=== PATIENT | female | born 1995 | race Caucasian/White ===

== ENCOUNTER 2016-07-03 23:48 | Emergency (ER) | payer SELFPAY ==
[2016-07-04 00:44] LABS: APPEARANCE,URINE CLEAR; BILIRUBIN,URINE NEGATIVE (NEGATIVE); GLUCOSE, URINE NEGATIVE (NEGATIVE); KETONES,URINE NEGATIVE (NEGATIVE); LEUKOCYTE ESTERASE,URINE NEGATIVE (NEGATIVE); NITRITE,URINE NEGATIVE (NEGATIVE); PROTEIN,URINE NEGATIVE (NEGATIVE); URINE SPECIFIC GRAVITY 1.011; UROBILINOGEN,URINE NEGATIVE mg/dL (<2.0)
[2016-07-04 04:23] VITALS: BP 117/55
[2016-07-04] MEDS ORDERED: ACETAMINOPHEN 325 MG TABLET PO ONE (04:53)
[2016-07-04] MEDS ORDERED: ONDANSETRON 4 MG TAB.RAPDIS PO ONE (04:53)
--- NOTE | 2016-07-04 04:55 | ER Document Report ---
ED GI/ - General Chief Complaint: Nausea/Vomiting Stated Complaint: VOMITING Time seen by provider: 04:50 Mode of Arrival: Ambulatory Information source: Patient Notes: 21-year-old female presents to ED for nausea and vomiting for 3 days. States she's not able to keep anything down. Last menstrual period was 06/02/2015. But she states she is irregular but might be . Complains of sore breasts. States she's had blood in the urine and pain in her lower back. TRAVEL OUTSIDE OF THE [place] IN LAST 30 DAYS: No - HPI Patient complains to provider of: Flank pain, Hematuria, Vomiting Onset: Other - 3 days Timing/Duration: Intermittent Quality of pain: Achy Severity at maximum: Severe Severity in ED: Severe Pain Level: 5 Location: Left flank, Right flank, Low back Vaginal bleeding (Compared to normal period): None LMP: 06/02/2016 Associated symptoms: Hematuria, Nausea, Radiates to back, Vomiting Exacerbated by: Denies Relieved by: Denies Similar symptoms previously: Yes Recently seen / treated by doctor: No - Related Data Allergies/Adverse Reactions: cephalexin monohydrate [From Keflex] Allergy (Verified 05/22/16 20:15) peanut [Peanut] Allergy (Verified 05/22/16 20:15) Past Medical History - General Information source: Patient - Social History Smoking Status: Never Smoker Chew tobacco use (# tins/day): No Frequency of alcohol use: None Drug Abuse: None Lives with: Spouse/Significant other Family History: CAD, DM, Hyperlipidemia, Hypertension, Malignancy, Thyroid Disfunction Patient has suicidal ideation: No Patient has homicidal ideation: No - Past Medical History Cardiac Medical History: Reports: None Pulmonary Medical History: Reports: None EENT Medical History: Reports: None Neurological Medical History: Reports: Hx Migraine Endocrine Medical History: Reports: Hx Diabetes Mellitus Type 2, Hx Hypothyroidism Renal/ Medical History: Reports: None Malignancy Medical History: Reports: None GI Medical History: Reports: Hx Gastroesophageal Reflux Disease Musculoskeltal Medical History: Reports Hx Musculoskeletal Trauma Skin Medical History: Reports None Psychiatric Medical History: Reports: Hx Attention Deficit Hyperactivity Disorder, Hx Bipolar Disorder, Hx Post Traumatic Stress Disorder, Hx Schizophrenia Traumatic Medical History: Reports: Hx Fractures - Right arm Infectious Medical History: Reports: None Past Surgical History: Reports: Hx Cholecystectomy, Hx Dilation and Curettage - With , Hx Oral Surgery - [place] teeth - Immunizations Hx Diphtheria, Pertussis, Tetanus Vaccination: Yes Review of Systems - Review of Systems Constitutional: No symptoms reported EENT: No symptoms reported Cardiovascular: No symptoms reported Respiratory: No symptoms reported Gastrointestinal: Nausea, Vomiting Genitourinary: Flank pain, Hematuria Female Genitourinary: No symptoms reported Musculoskeletal: Back pain Skin: No symptoms reported Hematologic/Lymphatic: No symptoms reported Neurological/Psychological: No symptoms reported -: Yes All other systems reviewed and negative Physical Exam - Vital signs Vitals: Temp Pulse Resp BP Pulse Ox 98.4 F 113 H 16 123/68 98 07/04/16 00:06 07/04/16 00:06 07/04/16 00:06 07/04/16 00:06 07/04/16 00:06 Interpretation: Normal - General General appearance: Appears well, Alert - HEENT Head: Normocephalic, Atraumatic Eyes: Normal Pupils: PERRL - Respiratory Respiratory status: No respiratory distress Chest status: Nontender Breath sounds: Normal Chest palpation: Normal - Cardiovascular Rhythm: Regular Heart sounds: Normal auscultation Murmur: No - Abdominal Inspection: Normal Distension: No distension Bowel sounds: Normal Tenderness: Nontender. No: Tender Organomegaly: No organomegaly - Back Back: Normal, CVA tenderness - Extremities General upper extremity: Normal inspection, Nontender, Normal color, Normal ROM , Normal temperature General lower extremity: Normal inspection, Nontender, Normal color, Normal ROM , Normal temperature, Normal weight bearing. No: Juan's sign - Neurological Neuro grossly intact: Yes Cognition: Normal Orientation: AAOx4 Hermes Coma Scale Eye Opening: Spontaneous [place] Coma Scale Verbal: Oriented Hermes Coma Scale Motor: Obeys Commands [place] Coma Scale Total: 15 Speech: Normal Motor strength normal: LUE, RUE, LLE, RLE Sensory: Normal - Psychological Associated symptoms: Normal affect, Normal mood - Skin Skin Temperature: Warm Skin Moisture: Dry Skin Color: Normal Course - Re-evaluation Re-evalutation: 07/04/16 04:56 Discussed urine results with patient and written report given to her for follow- up with her primary doctor. The urine is negative for blood negative test negative for infection with a specific gravity of 1.011 so negative for dehydration. Patient was treated with Zofran and Tylenol for her nausea and pain and discharged home with a prescription for Phenergan for her nausea. - Vital Signs Vital signs: Temp Pulse Resp BP Pulse Ox 98.2 F 97 17 117/55 L 100 07/04/16 04:19 07/04/16 04:19 07/04/16 04:19 07/04/16 04:19 07/04/16 04:19 Discharge - Discharge Clinical Impression: Nausea & vomiting Qualifiers: Vomiting type: unspecified Vomiting Intractability: non-intractable Qualified Code(s): R11.2 - Nausea with vomiting, unspecified Condition: Stable Disposition: HOME, SELF-CARE Instructions: Family Physicians / Practices Additional Instructions: VOMITING: Vomiting (or nausea without vomiting) can be caused by many other different problems. It can mean that something's wrong with the stomach, such as ulcers or inflammation or the intestinal tract, such as appendicitis. But it can also be a symptom of a problem that has nothing to do with the stomach or intestines. Vomiting is common with severe headaches, earaches, tonsillitis, and kidney infections, etc. We see it with pneumonia or heart attacks. Drugs can cause nausea and vomiting. Many abdominal problems cause vomiting; for example, gallstones, kidney stones, pancreatitis, and intestinal obstruction ( blocked bowels). In most cases, curing the vomiting depends on fixing the problem that caused it. For temporary relief, we may use an anti-nausea medicine. For home use, we can prescribe suppositories, chewable pills, pills that dissolve in the mouth, or liquid anti-nausea drugs. If the vomiting seems to be caused by a problem in the stomach, acid-suppressing drugs may be prescribed as well. It's important to avoid dehydration. Sip small amounts of clear liquids ( soft drinks, tea, broth, etc) . Try to take fluids frequently even if you are vomiting to prevent dehydration. Take increasing amounts of fluid and when liquids are being consumed successfully, advance to small amounts of bland food (toast, soups, mashed potatoes, etc.) until you are able to resume a regular diet. Avoid aspirin, tobacco, and alcohol. If the vomiting worsens, if the problem that's making you vomit worsens, or if there's evidence of bleeding in the stomach (such as black, tarry stool, or bloody or black vomit), you should return immediately. Also, return if abdominal pain worsens or becomes localized to one area or you develop high fever. Call your doctor if you aren't improved in 24 hours. VIRAL SYNDROME: The physician has diagnosed a viral infection. Viruses not only cause "colds," but can cause many different symptoms including generalized aching, fever, headache, cough, diarrhea, nausea, vomiting, and fatigue. The treatment, for the most part, is simply relief of symptoms. This means that antibiotics are usually not given. Rest, fluids, pain medications and, occasionally, medication for the specific symptoms that are most bothersome will be prescribed. Use good handwashing to avoid passing the virus to others. Shared toys should be cleaned with disinfectant. Clean the toilets, sinks, and counter surfaces in bathrooms. Launder clothing in hot water. Contact the physician if you develop any new or unusual symptoms such as severe headache, stiff neck, high fever, chest pain, productive cough, or shortness of breath. You should be rechecked if you don't see marked improvement within seven to 10 days. ANTINAUSEA MEDICATION: You have been given a medication to suppress nausea and vomiting. This type of medication can be given as a shot, pill, or suppository. It will usually last for many hours. Pills and shots usually last six to eight hours. For the typical illness, only one or two doses of the medication may be necessary. Mild lightheadedness may occur. This type of medicine can cause drowsiness. Do not drive or operate dangerous machinery while under its influence. Do not mix with alcohol. See your doctor at once if you have muscle spasms or tightness, or uncontrollable motions (particularly of the neck, mouth, or jaw). Persistent vomiting or severe lightheadedness should also be evaluated by the physician. FOLLOW-UP CARE: If you have been referred to a physician for follow-up care, call the physician s office for an appointment as you were instructed or within the next two days. If you experience worsening or a significant change in your symptoms, notify the physician immediately or return to the Emergency Department at any time for re-evaluation. Prescriptions: Promethazine HCl [Phenergan 25 mg Tablet] 25 mg PO Q6H PRN #15 tablet PRN Reason:
== END 2016-07-04 05:10 | disposition home or self-care (01) ==
LOC: ER 23:48
DX: R11.2 Nausea with vomiting, unspecified (principal); N92.6 Irregular menstruation, unspecified; N64.59 Other signs and symptoms in breast; M54.5 Low back pain; R10.9 Unspecified abdominal pain; E11.9 Type 2 diabetes mellitus without complications; Z88.1 Allergy status to other antibiotic agents; Z91.010 Allergy to peanuts; Z90.49 Acquired absence of other specified parts of digestive tract
CPT/HCPCS: 99284; 81025; 81001; S0119

== ENCOUNTER 2016-07-05 17:28 | Observation (INO) | payer SELFPAY ==
[2016-07-05] MEDS ORDERED: ONDANSETRON 4 MG TAB.RAPDIS PO ONE (17:32)
--- NOTE | 2016-07-05 17:36 | ER Document Report ---
ED Medical Screen (RME) - General Stated Complaint: NAUSEA Mode of Arrival: Ambulatory Information source: Patient Notes: Patient states that she's been having abdominal pain for the last week. Vomiting started 4 days ago. Patient states that she had a fever today of 100.1. Pain is more localized to the right lower quadrant, and patient states she was advised to return to the emergency room if no improvement or if her symptoms worsen. Patient states she was seen 2 or 3 days ago for the same symptoms, no CT scan was done at that time. I have greeted and performed a rapid initial assessment of this patient. A comprehensive ED assessment and evaluation of the patient, analysis of test results and completion of the medical decision making process will be conducted by additional ED providers. TRAVEL OUTSIDE OF THE [place] IN LAST 30 DAYS: No - Related Data Allergies/Adverse Reactions: cephalexin monohydrate [From Keflex] Allergy (Verified 07/05/16 17:32) peanut [Peanut] Allergy (Verified 07/05/16 17:32) Past Medical History Neurological Medical History: Reports: Hx Migraine Endocrine Medical History: Reports: Hx Diabetes Mellitus Type 2, Hx Hypothyroidism Renal/ Medical History: Denies: Hx Peritoneal Dialysis GI Medical History: Reports: Hx Gastroesophageal Reflux Disease Musculoskeltal Medical History: Reports Hx Musculoskeletal Trauma Psychiatric Medical History: Reports: Hx Attention Deficit Hyperactivity Disorder, Hx Bipolar Disorder, Hx Post Traumatic Stress Disorder, Hx Schizophrenia Traumatic Medical History: Reports: Hx Fractures - Right arm Past Surgical History: Reports: Hx Cholecystectomy, Hx Dilation and Curettage - With , Hx Oral Surgery - [place] teeth - Immunizations Hx Diphtheria, Pertussis, Tetanus Vaccination: Yes
[2016-07-05 18:15] LABS: ABSOLUTE EOSINOPHILS # (AUTO) 0.2 10^3/uL (0.0-0.6); ABSOLUTE LYMPHOCYTES (AUTO) 1.7 10^3/uL (0.5-4.7); ABSOLUTE MONOCYTES (AUTO) 1.1 10^3/uL (0.1-1.4); ABSOLUTE NEUT (AUTO) 8.6 10^3/uL (1.7-8.2); BASOPHILS % (AUTO) 0.4 % (0-2); EOSINOPHILS % (AUTO) 1.5 % (0-6); HEMATOCRIT 41.8 % (36.0-47.0); HGB HCT DIFFERENCE 0.2; LYMPHOCYTES % (AUTO) 14.8 % (13-45); MEAN CORPUSCULAR HEMOGLOBIN 28.7 pg (27.0-33.4); MEAN CORPUSCULAR HGB CONC 33.6 g/dL (32.0-36.0); MEAN CORPUSCULAR VOLUME 86 fl (80-97); MONOCYTES % (AUTO) 9.3 % (3-13); RED BLOOD COUNT 4.88 10^6/uL (3.72-5.28); RED CELL DISTRIBUTION WIDTH 13.2 % (11.5-14.0); WHITE BLOOD COUNT 11.7 10^3/uL (4.0-10.5)
[2016-07-05] MEDS ORDERED: NORMAL SALINE 1000 ML 1,000 ML IV PRN ×2 (18:17→22:54)
--- NOTE | 2016-07-05 18:20 | ER Document Report ---
ED GI/ - General Chief Complaint: Abdominal Pain Stated Complaint: NAUSEA Time seen by provider: 18:18 Mode of Arrival: Ambulatory TRAVEL OUTSIDE OF THE [place] IN LAST 30 DAYS: No - HPI Patient complains to provider of: Pelvic pain, Vomiting Onset: Other - 4 days Timing/Duration: Persistent Severity at maximum: Moderate Severity in ED: Moderate Pain Level: 3 Location: Pelvis Vaginal bleeding (Compared to normal period): None Associated symptoms: Nausea, Vomiting Exacerbated by: Denies Relieved by: Denies Similar symptoms previously: Yes Recently seen / treated by doctor: Yes Notes: 07/05/16 18:19 Patient is a 21-year-old female presenting to the emergency room complaining of right-sided pelvic pain with nausea and vomiting that's been going on for the past 4 days, and fever 101 at home, she reports that she has not taken any food in today and vomited any water she tried to consume, she has had similar pain approximately 4 times in the past, states she's receive several CAT scans in the past to rule out appendicitis and the appendix appeared normal in each time , she denies any sick contacts, no dysuria or hematuria, no vaginal bleeding or irregular discharge - Related Data Allergies/Adverse Reactions: cephalexin monohydrate [From Keflex] Allergy (Verified 07/05/16 17:32) peanut [Peanut] Allergy (Verified 07/05/16 17:32) Past Medical History - General Information source: Patient - Social History Smoking Status: Unknown if Ever Smoked Chew tobacco use (# tins/day): No Frequency of alcohol use: None Drug Abuse: None Family History: CAD, DM, Hyperlipidemia, Hypertension, Malignancy, Thyroid Disfunction Patient has suicidal ideation: No Patient has homicidal ideation: No Neurological Medical History: Reports: Hx Migraine Endocrine Medical History: Reports: Hx Diabetes Mellitus Type 2, Hx Hypothyroidism Renal/ Medical History: Denies: Hx Peritoneal Dialysis GI Medical History: Reports: Hx Gastroesophageal Reflux Disease Musculoskeltal Medical History: Reports Hx Musculoskeletal Trauma Psychiatric Medical History: Reports: Hx Attention Deficit Hyperactivity Disorder, Hx Bipolar Disorder, Hx Post Traumatic Stress Disorder, Hx Schizophrenia Traumatic Medical History: Reports: Hx Fractures - Right arm Past Surgical History: Reports: Hx Cholecystectomy, Hx Dilation and Curettage - With , Hx Oral Surgery - [place] teeth - Immunizations Hx Diphtheria, Pertussis, Tetanus Vaccination: Yes Review of Systems - Review of Systems Constitutional: Fever EENT: No symptoms reported Cardiovascular: No symptoms reported Respiratory: No symptoms reported Gastrointestinal: Abdominal pain, Nausea, Vomiting Genitourinary: See HPI Female Genitourinary: See HPI Musculoskeletal: No symptoms reported Skin: No symptoms reported Hematologic/Lymphatic: No symptoms reported Neurological/Psychological: No symptoms reported -: Yes All other systems reviewed and negative Physical Exam - Vital signs Vitals: Temp Pulse Resp BP Pulse Ox 98.6 F 112 H 16 125/68 98 07/05/16 17:32 07/05/16 17:32 07/05/16 17:32 07/05/16 17:32 07/05/16 17:32 Interpretation: Tachycardic - General General appearance: Appears well, Alert - HEENT Head: Normocephalic, Atraumatic Eyes: Normal Pupils: PERRL - Respiratory Respiratory status: No respiratory distress Chest status: Nontender Breath sounds: Normal Chest palpation: Normal - Cardiovascular Rhythm: Regular Heart sounds: Normal auscultation Murmur: No - Abdominal Inspection: Morbidly Obese Distension: No distension Bowel sounds: Normal Tenderness: Tender - Right pelvis tenderness Organomegaly: No organomegaly - Back Back: Normal, Nontender - Extremities General upper extremity: Normal inspection, Nontender, Normal color, Normal ROM , Normal temperature General lower extremity: Normal inspection, Nontender, Normal color, Normal ROM , Normal temperature, Normal weight bearing. No: Juan's sign - Neurological Neuro grossly intact: Yes Cognition: Normal Orientation: AAOx4 Hermes Coma Scale Eye Opening: Spontaneous [place] Coma Scale Verbal: Oriented [place] Coma Scale Motor: Obeys Commands [place] Coma Scale Total: 15 Speech: Normal Motor strength normal: LUE, RUE, LLE, RLE Sensory: Normal - Psychological Associated symptoms: Normal affect, Normal mood - Skin Skin Temperature: Warm Skin Moisture: Dry Skin Color: Normal Course - Re-evaluation Re-evalutation: 07/05/16 19:36 Patient's ultrasound shows no abnormalities with the right ovary, patient reports she been vomiting, she's had a fever, had no appetite throughout the day today, her leukocytosis is slightly worse than her visit a few days ago, therefore a CT scan of the abdomen and pelvis has been ordered to rule out appendicitis 07/06/16 01:40 Patient continues to complain of nausea despite multiple doses of antiemetic medication, she's had another episode of vomiting, therefore was discussed with the hospitalist who agrees to admit as an observation for fluid hydration and further evaluation and treatment - Vital Signs Vital signs: Temp Pulse Resp BP Pulse Ox 98.4 F 88 15 116/68 99 07/06/16 00:58 07/06/16 00:58 07/06/16 00:58 07/06/16 00:58 07/06/16 00:58 - Laboratory Result Diagrams: 07/05/16 18:00 07/05/16 18:00 Laboratory results interpreted by me: 07/05/16 07/05/16 18:00 18:00 WBC 11.7 H Absolute Neutrophils 8.6 H TSH 7.35 H - Diagnostic Test Radiology reviewed: Image reviewed, Reports reviewed Discharge - Discharge Clinical Impression: Intractable vomiting Qualifiers: Vomiting type: unspecified Nausea presence: with nausea Qualified Code(s): R11.2 - Nausea with vomiting, unspecified Condition: Stable Disposition: ADMITTED OBSERVATION Admitting Provider: Hospitalist Unit Admitted: Medical Floor
[2016-07-05 18:32] LABS: ALANINE AMINOTRANSFERASE 34 U/L (9-52); ALBUMIN 4.4 g/dL (3.5-5.0); ALKALINE PHOSPHATASE 77 U/L (38-126); ANION GAP 10 (5-19); ASPARTATE AMINO TRANSFERASE 19 U/L (14-36); BILIRUBIN,TOTAL 0.4 mg/dL (0.2-1.3); BLOOD UREA NITROGEN 10 mg/dL (7-20); CALCIUM 9.7 mg/dL (8.4-10.2); CARBON DIOXIDE 28 mmol/L (22-30); CHLORIDE 105 mmol/L (98-107); CREATININE RESULT 0.87 mg/dL (0.52-1.25); GLUCOSE 76 mg/dL (75-110); LIPASE 141.5 U/L (23-300); POTASSIUM 4.3 mmol/L (3.6-5.0); SODIUM 142.9 mmol/L (137-145); TOTAL PROTEIN 7.6 g/dL (6.3-8.2)
[2016-07-05 18:38] LABS: APPEARANCE,URINE CLEAR; BILIRUBIN,URINE NEGATIVE (NEGATIVE); GLUCOSE, URINE NEGATIVE (NEGATIVE); KETONES,URINE NEGATIVE (NEGATIVE); LEUKOCYTE ESTERASE,URINE NEGATIVE (NEGATIVE); NITRITE,URINE NEGATIVE (NEGATIVE); PROTEIN,URINE NEGATIVE (NEGATIVE); URINE SPECIFIC GRAVITY 1.008; UROBILINOGEN,URINE NEGATIVE mg/dL (<2.0)
[2016-07-05] MEDS ORDERED: ONDANSETRON HCL INJ/PF 4 MG/2 ML SDV IV ONE ×2 (20:38→21:36)
[2016-07-05] MEDS ORDERED: ONDANSETRON 4 MG TAB.RAPDIS SL ONE (21:03)
[2016-07-05] MEDS ORDERED: METOCLOPRAMIDE HCL INJ/PF 10 MG/2 ML SDV IV ONE (21:48)
[2016-07-05] MEDS ORDERED: PROMETHAZINE HCL 25 MG TABLET PO ONE (22:53)
[2016-07-06] MEDS ORDERED: NORMAL SALINE 1000 ML 1,000 ML IV PRN (00:11)
[2016-07-06] MEDS ORDERED: LORAZEPAM INJ 2 MG/1 ML VIAL IV ONE ×2 (00:11→01:39)
[2016-07-06] MEDS ORDERED: LACTULOSE SYRUP 20 GM/30 ML UDCUP PO ONE ×2 (01:38→05:30)
[2016-07-06] MEDS ORDERED: HALOPERIDOL LACTATE INJ 5 MG/1 ML VIAL IV ONE (01:50)
[2016-07-06 02:14] LABS: URINE BARBITURATES SCREEN NEGATIVE; URINE METHADONE SCREEN NEGATIVE; URINE OPIATES LOW NEGATIVE; URINE PHENCYCLIDINE SCREEN NEGATIVE
[2016-07-06] MEDS ORDERED: PROMETHAZINE HCL 25 MG TABLET PO PRN (05:10)
[2016-07-06] MEDS ORDERED: HEPARIN SOD (PORCINE) 5,000 UNIT/ML 1 ML SYRINGE SUBCUT SCH (06:00)
[2016-07-06] MEDS ORDERED: ARIPIPRAZOLE 5 MG TABLET PO SCH ×2 (06:00→10:00)
--- NOTE | 2016-07-06 06:13 | PDOC H&P ---
History of Present Illness Admission Date/PCP: 07/06/16 05:11 Patient complains of: Intractable nausea vomiting History of Present Illness: JUAN CARLOS GEORGE is a 21 year old female with past medical history of bipolar depression and morbid obesity, who had been her usual state of health until approximately 4 days ago noting intractable left lower quadrant pain radiating to the umbilicus and intolerant of all by mouth including medication. Patient cannot recall her last bowel movement and believe she is constipated. Emergency room workup is unremarkable CT abdomen pelvis show a nonobstructive bowel gas pattern and some retained stool. She received several doses of Zofran Phenergan and Ativan without cessation of vomiting. And referred to the hospitalist for admission Past Medical History Neurological Medical History: Reports: Migraine Endocrine Medical History: Reports: Diabetes Mellitus Type 2, Hypothyroidism GI Medical History: Reports: Gastroesophageal Reflux Disease Psychiatric Medical History: Reports: Attention Deficit Hyperactivity Disorder, Bipolar Disorder, Post Traumatic Stress Disorder Past Surgical History Past Surgical History: Reports: Cholecystectomy Social History Information Source: Patient Smoking Status: Unknown if Ever Smoked Drugs: None - Advance Directive Resuscitation Status: Full Code Family History Family History: CAD, DM, Hyperlipidemia, Hypertension, Malignancy, Thyroid Disfunction Parental Family History Reviewed: Yes Children Family History Reviewed: Yes Sibling(s) Family History Reviewed.: Yes Medication/Allergy Home Medications: Aripiprazole [Abilify 30 MG Tablet] 30 mg PO DAILY 04/13/16 Levothyroxine Sodium [Synthroid 0.1 mg Tablet] 0.1 mg PO DAILY #30 tablet Levothyroxine Sodium [Synthroid 50 Mcg Tablet] 50 mcg PO DAILY 04/13/16 [place] Carbonate [Lithobid 300 mg Capsule] 300 mg PO DAILY 04/13/16 Hydrocortisone Acetate [Anucort-Hc] 25 mg [place] BIDP PRN #14 supp.rect 04/15/16 Ibuprofen [Motrin 800 mg Tablet] 800 mg PO Q8HP PRN #30 tablet 04/15/16 Docusate Sodium [Colace 100 mg Capsule] 100 mg PO DAILY #30 capsule 05/23/16 Hydrocodone/Acetaminophen [[place] 5-325 mg Tablet] 1 - 2 tab PO ASDIR #10 tablet 05/23/16 Promethazine HCl [Phenergan 25 mg Tablet] 1 - 2 tab PO Q6H PRN #20 tablet Promethazine HCl [Phenergan 25 mg Tablet] 25 mg PO Q6H PRN #15 tablet 07/04/16 Allergies/Adverse Reactions: cephalexin monohydrate [From Keflex] Allergy (Verified 07/05/16 17:32) peanut [Peanut] Allergy (Verified 07/05/16 17:32) Review of Systems Constitutional: ABSENT: chills, fever(s), headache(s), weight gain, weight loss Eyes: ABSENT: visual disturbances Ears: ABSENT: hearing changes Cardiovascular: ABSENT: chest pain, dyspnea on exertion, edema, orthropnea, palpitations Respiratory: ABSENT: cough, hemoptysis Gastrointestinal: ABSENT: abdominal pain, constipation, diarrhea, hematemesis, hematochezia, nausea, vomiting Genitourinary: ABSENT: dysuria, hematuria Musculoskeletal: ABSENT: joint swelling Integumentary: ABSENT: rash, wounds Neurological: ABSENT: abnormal gait, abnormal speech, confusion, dizziness, focal weakness, syncope Psychiatric: ABSENT: anxiety, depression, homidical ideation, suicidal ideation Endocrine: ABSENT: cold intolerance, heat intolerance, polydipsia, polyuria Hematologic/Lymphatic: ABSENT: easy bleeding, easy bruising Physical Exam Vital Signs: Temp Pulse Resp BP Pulse Ox 97.8 F 71 18 98/50 L 100 07/06/16 05:02 07/06/16 05:02 07/06/16 05:02 07/06/16 05:02 07/06/16 05:02 General appearance: PRESENT: cooperative, morbidly obese Head exam: PRESENT: atraumatic, normocephalic Eye exam: PRESENT: conjunctiva pink, EOMI, PERRLA. ABSENT: scleral icterus Ear exam: PRESENT: normal external ear exam Mouth exam: PRESENT: moist, tongue midline Neck exam: ABSENT: carotid bruit, JVD, lymphadenopathy, thyromegaly Respiratory exam: PRESENT: clear to auscultation brendan. ABSENT: rales, rhonchi, wheezes Cardiovascular exam: PRESENT: RRR. ABSENT: diastolic murmur, rubs, systolic murmur Pulses: PRESENT: normal dorsalis pedis pul Vascular exam: PRESENT: normal capillary refill GI/Abdominal exam: PRESENT: hypoactive bowel sounds, normal bowel sounds, soft, tenderness - Reproducible left lower quadrant pain to palpation with hypoactive bowel sounds. ABSENT: distended, guarding, mass, organolmegaly, rebound Rectal exam: PRESENT: deferred Extremities exam: PRESENT: full ROM. ABSENT: calf tenderness, clubbing, pedal edema Neurological exam: PRESENT: alert, awake, oriented to person, oriented to place , oriented to time, oriented to situation, CN II-XII grossly intact. ABSENT: motor sensory deficit Psychiatric exam: PRESENT: appropriate affect, normal mood. ABSENT: homicidal ideation, suicidal ideation Skin exam: PRESENT: dry, intact, warm. ABSENT: cyanosis, rash Results Impressions: Pelvis Ultrasound 07/05/16 18:17 IMPRESSION: LEFT OVARY NOT VISUALIZED. OTHERWISE UNREMARKABLE PELVIC ULTRASOUND BY TRANSABDOMINAL TECHNIQUE. Abdomen/Pelvis CT 07/05/16 19:24 IMPRESSION: NO SIGNIFICANT OR ACUTE FINDINGS IN THE ABDOMEN OR PELVIS. Assessment & Plan - Diagnosis (1) Intractable vomiting Qualifiers: Vomiting type: unspecified Nausea presence: with nausea Qualified Code(s): R11.2 - Nausea with vomiting, unspecified Plan: Likely multifactorial secondary to psychiatric illness and constipation, she receives symptomatically management with IV Ativan followed by lactulose and mineral oil enema, Followed by bowel regiment and a clear liquid trial (2) Constipation Is this a current diagnosis for this admission?: YesPlan: Clear liquids only with Lactulose, mineral oil enema, bowel regiment (3) Bipolar 1 disorder, depressed Is this a current diagnosis for this admission?: YesPlan: Patient unable to tolerate antipsychotic med regiment she will see of Haldol IV and when necessary Ativan - Time Time Spent: 30 to 50 Minutes
[2016-07-06 07:06] LABS: ABSOLUTE EOSINOPHILS # (AUTO) 0.2 10^3/uL (0.0-0.6); ABSOLUTE NEUT (AUTO) 5.6 10^3/uL (1.7-8.2); BASOPHILS % (AUTO) 0.4 % (0-2); HEMATOCRIT 38.1 % (36.0-47.0); HEMOGLOBIN 12.7 g/dL (12.0-15.5); MEAN CORPUSCULAR HEMOGLOBIN 28.8 pg (27.0-33.4); MEAN CORPUSCULAR HGB CONC 33.4 g/dL (32.0-36.0); MEAN CORPUSCULAR VOLUME 86 fl (80-97); RED BLOOD COUNT 4.42 10^6/uL (3.72-5.28); RED CELL DISTRIBUTION WIDTH 13.3 % (11.5-14.0); SEGMENTED NEUTROPHILS % (AUTO) 63.6 % (42-78); WHITE BLOOD COUNT 8.8 10^3/uL (4.0-10.5)
[2016-07-06 07:22] LABS: ALANINE AMINOTRANSFERASE 31 U/L (9-52); ALBUMIN 3.5 g/dL (3.5-5.0); ALKALINE PHOSPHATASE 62 U/L (38-126); ANION GAP 8 (5-19); ASPARTATE AMINO TRANSFERASE 16 U/L (14-36); BILIRUBIN,TOTAL 0.3 mg/dL (0.2-1.3); BLOOD UREA NITROGEN 7 mg/dL (7-20); CALCIUM 8.9 mg/dL (8.4-10.2); CARBON DIOXIDE 24 mmol/L (22-30); CHLORIDE 111 mmol/L (98-107); CREATININE RESULT 0.77 mg/dL (0.52-1.25); POTASSIUM 4.4 mmol/L (3.6-5.0); SODIUM 143.1 mmol/L (137-145); TOTAL PROTEIN 6.3 g/dL (6.3-8.2)
[2016-07-06 07:24] LABS: GLUCOSE 80 mg/dL (75-110)
[2016-07-06 07:55] VITALS: BP 107/35
[2016-07-06] MEDS ORDERED: MAGNESIUM CITRATE 296 ML BOTTLE PO SCH (10:00)
[2016-07-06] MEDS ORDERED: LITHIUM CARBONATE 300 MG CAPSULE PO SCH (10:00)
[2016-07-06] MEDS ORDERED: DOCUSATE SODIUM 100 MG CAPSULE PO SCH (10:00)
--- NOTE | 2016-07-06 15:51 | PDOC DISCHARGE SUMMARY ---
General - Admit/Disc Date/PCP Admission Date/Primary Care Provider: 07/06/16 05:11 Discharge Date: 07/06/16 - Discharge Diagnosis (1) Intractable vomiting Is this a current diagnosis for this admission?: YesSummary: Resolved (2) Nausea & vomiting Is this a current diagnosis for this admission?: YesSummary: Resolved. Tolerating clear liquids. Will d/c with Zofran ODT 8 mg (3) Bipolar 1 disorder, depressed Is this a current diagnosis for this admission?: YesSummary: Continue home medications (4) Constipation Is this a current diagnosis for this admission?: YesSummary: Resolved (5) Adult hypothyroidism Is this a current diagnosis for this admission?: YesSummary: Continue levoxyl - Additional Information Resuscitation Status: Full Code Discharge Diet: Clear Liquids, Other (Comments) - advance to regular Discharge Activity: Activity As Tolerated, Balance Activity w/Rest Home Medications: Aripiprazole [Abilify 15 mg Tablet] 15 mg PO DAILY 07/06/16 [place] Carbonate [Lithobid 150 mg Capsule] 150 mg PO BID 07/06/16 History of Present Illness Patient complains of: Nausea, and vomiting History of Present Illness: JUAN CARLOS GEORGE is a 21 year old female who presented to [place] [facility] with complaints of nausea and vomiting for 4 days. She reports a fever up to 101 at home. She also reports right lower quadrant pain. She had mild leucocytosis on bloodwork. She underwent a CT with contrast of abdomen and pelvis which was unremarkable. She was rehydrated with IV fluids and given Zofran. She was referred to the hospitalist service for observation admission. Hospital Course Hospital Course: Patient was observed overnight. She had no further abdominal pain, nausea or vomiting. She tolerated a clear liquid diet . She felt ready for discharge. She was noted to have a slightly elevated TSH she is on levoxyl. She was instructed to follow up with her primary care regarding this when she is feeling better. Physical Exam Vital Signs: Temp Pulse Resp BP Pulse Ox 97.8 F 80 22 H 107/35 L 100 07/06/16 11:54 07/06/16 11:54 07/06/16 11:54 07/06/16 11:54 07/06/16 11:54 Intake & Output 07/05/16 07/06/16 07/07/16 06:59 06:59 06:59 Weight 111.1 kg 111.1 kg General appearance: PRESENT: no acute distress, morbidly obese, well-developed, well-nourished Head exam: PRESENT: atraumatic, normocephalic Eye exam: PRESENT: conjunctiva pink, EOMI, PERRLA. ABSENT: scleral icterus Ear exam: PRESENT: normal external ear exam Mouth exam: PRESENT: moist, tongue midline Neck exam: ABSENT: carotid bruit, JVD, lymphadenopathy, thyromegaly Respiratory exam: PRESENT: clear to auscultation brendan. ABSENT: rales, rhonchi, wheezes Cardiovascular exam: PRESENT: RRR. ABSENT: diastolic murmur, rubs, systolic murmur Pulses: PRESENT: normal dorsalis pedis pul Vascular exam: PRESENT: normal capillary refill GI/Abdominal exam: PRESENT: normal bowel sounds, soft. ABSENT: distended, guarding, mass, organolmegaly, rebound, tenderness Rectal exam: PRESENT: deferred Extremities exam: PRESENT: full ROM. ABSENT: calf tenderness, clubbing, pedal edema Neurological exam: PRESENT: alert, awake, oriented to person, oriented to place , oriented to time, oriented to situation, CN II-XII grossly intact. ABSENT: motor sensory deficit Psychiatric exam: PRESENT: appropriate affect, normal mood. ABSENT: homicidal ideation, suicidal ideation Skin exam: PRESENT: dry, intact, warm. ABSENT: cyanosis, rash Results Laboratory Results: 07/06/16 06:48 07/06/16 06:48 07/06/16 07/06/16 06:48 06:48 WBC 8.8 RBC 4.42 Hgb 12.7 Hct 38.1 MCV 86 MCH 28.8 MCHC 33.4 RDW 13.3 Plt Count 245 Seg Neutrophils % 63.6 Lymphocytes % 23.0 Monocytes % 11.0 Eosinophils % 2.0 Basophils % 0.4 Absolute Neutrophils 5.6 Absolute Lymphocytes 2.0 Absolute Monocytes 1.0 Absolute Eosinophils 0.2 Absolute Basophils 0.0 Sodium 143.1 Potassium 4.4 Chloride 111 H Carbon Dioxide 24 Anion Gap 8 BUN 7 Creatinine 0.77 Est GFR ( Amer) > 60 Est GFR (Non-Af Amer) > 60 Glucose 80 Calcium 8.9 Total Bilirubin 0.3 AST 16 ALT 31 Alkaline Phosphatase 62 Total Protein 6.3 Albumin 3.5 Impressions: Pelvis Ultrasound 07/05/16 18:17 IMPRESSION: LEFT OVARY NOT VISUALIZED. OTHERWISE UNREMARKABLE PELVIC ULTRASOUND BY TRANSABDOMINAL TECHNIQUE. Abdomen/Pelvis CT 07/05/16 19:24 IMPRESSION: NO SIGNIFICANT OR ACUTE FINDINGS IN THE ABDOMEN OR PELVIS. Qualifiers PATEINT BEING DISCHARGED WITH ANY OF THE FOLLOWING DIAGNOSIS?: No Plan Discharge Plan: Discharge home with family Time Spent: Less than 30 Minutes
== END 2016-07-06 12:30 | disposition home or self-care (01) ==
LOC: ER 17:28 → EH 07-06 02:16 → UNDOADMOB 07-06 02:16 → EH 07-06 04:56 → 2S 07-06 04:56 → EH 07-06 05:11 → 2S 07-06 05:11
PROVIDERS: ADMIT Internal Medicine; ATTEND Internal Medicine
DX: R11.2 Nausea with vomiting, unspecified (principal); R10.31 Right lower quadrant pain; E11.9 Type 2 diabetes mellitus without complications; K21.9 Gastro-esophageal reflux disease without esophagitis; E03.8 Other specified hypothyroidism; F31.9 Bipolar disorder, unspecified; F90.9 Attention-deficit hyperactivity disorder, unspecified type; F43.10 Post-traumatic stress disorder, unspecified; K59.00 Constipation, unspecified; Z79.899 Other long term (current) drug therapy; E66.01 Morbid (severe) obesity due to excess calories; Z68.42 Body mass index [BMI] 45.0-49.9, adult; Z90.49 Acquired absence of other specified parts of digestive tract; Z88.1 Allergy status to other antibiotic agents; Z91.010 Allergy to peanuts
CPT/HCPCS: 99285; 96361; 96374; 96375; 36415 ×2; 84702; 83690; 84443; 85025 ×2; 80053 ×2; 81001; 80307; 76856; 93976; 74177; G0378; J3490 ×2; S0119; J1630; J2765; J2060; J2405; J7030 ×2

== ENCOUNTER 2016-07-11 21:25 | Emergency (ER) | payer SELFPAY ==
--- NOTE | 2016-07-11 21:43 | ER Document Report ---
ED Medical Screen (RME) - General Stated Complaint: RIGHT FLANK PAIN/NAUSEA Notes: Patient complaining of right lower quadrant pain. was admitted for obs on 07/05 and home on 07/06 after tolerating PO and no concerning finds on CT, or US. States that on thursday vomiting and abdominal pain after eating eggs. hasnt urinated all day but hasnt been drinking I have greeted and performed a rapid initial assessment of this patient. A comprehensive ED assessment and evaluation of the patient, analysis of test results and completion of the medical decision making process will be conducted by additional ED providers. TRAVEL OUTSIDE OF THE [place] IN LAST 30 DAYS: No - Related Data Allergies/Adverse Reactions: cephalexin monohydrate [From Keflex] Allergy (Verified 07/05/16 17:32) peanut [Peanut] Allergy (Verified 07/05/16 17:32) Past Medical History Neurological Medical History: Reports: Hx Migraine Endocrine Medical History: Reports: Hx Diabetes Mellitus Type 2, Hx Hypothyroidism Renal/ Medical History: Denies: Hx Peritoneal Dialysis GI Medical History: Reports: Hx Gastroesophageal Reflux Disease Musculoskeltal Medical History: Reports Hx Musculoskeletal Trauma Psychiatric Medical History: Reports: Hx Attention Deficit Hyperactivity Disorder, Hx Bipolar Disorder, Hx Post Traumatic Stress Disorder, Hx Schizophrenia Traumatic Medical History: Reports: Hx Fractures - Right arm Past Surgical History: Reports: Hx Cholecystectomy, Hx Dilation and Curettage - With , Hx Oral Surgery - [place] teeth - Immunizations Hx Diphtheria, Pertussis, Tetanus Vaccination: Yes
[2016-07-11] MEDS ORDERED: ACETAMINOPHEN 325 MG TABLET PO ONE (21:45)
[2016-07-11] MEDS ORDERED: ONDANSETRON HCL 8 MG TABLET PO ONE (21:45)
[2016-07-12 00:21] LABS: ABSOLUTE BASOPHILS # (AUTO) 0.1 10^3/uL (0.0-0.2); ABSOLUTE EOSINOPHILS # (AUTO) 0.2 10^3/uL (0.0-0.6); ABSOLUTE LYMPHOCYTES (AUTO) 2.1 10^3/uL (0.5-4.7); ABSOLUTE MONOCYTES (AUTO) 1.4 10^3/uL (0.1-1.4); ABSOLUTE NEUT (AUTO) 9.8 10^3/uL (1.7-8.2); BASOPHILS % (AUTO) 0.5 % (0-2); EOSINOPHILS % (AUTO) 1.6 % (0-6); HEMATOCRIT 40.4 % (36.0-47.0); HEMOGLOBIN 13.6 g/dL (12.0-15.5); HGB HCT DIFFERENCE 0.4; LYMPHOCYTES % (AUTO) 15.7 % (13-45); MEAN CORPUSCULAR HEMOGLOBIN 28.7 pg (27.0-33.4); MEAN CORPUSCULAR HGB CONC 33.6 g/dL (32.0-36.0); MEAN CORPUSCULAR VOLUME 85 fl (80-97); MONOCYTES % (AUTO) 10.5 % (3-13); RED BLOOD COUNT 4.73 10^6/uL (3.72-5.28); RED CELL DISTRIBUTION WIDTH 13.4 % (11.5-14.0); SEGMENTED NEUTROPHILS % (AUTO) 71.7 % (42-78); WHITE BLOOD COUNT 13.7 10^3/uL (4.0-10.5)
[2016-07-12 00:34] LABS: ALANINE AMINOTRANSFERASE 34 U/L (9-52); ALBUMIN 4.2 g/dL (3.5-5.0); ALKALINE PHOSPHATASE 93 U/L (38-126); ANION GAP 8 (5-19); ASPARTATE AMINO TRANSFERASE 34 U/L (14-36); BILIRUBIN,TOTAL 0.4 mg/dL (0.2-1.3); BLOOD UREA NITROGEN 10 mg/dL (7-20); CALCIUM 9.5 mg/dL (8.4-10.2); CARBON DIOXIDE 27 mmol/L (22-30); CHLORIDE 104 mmol/L (98-107); CREATININE RESULT 0.67 mg/dL (0.52-1.25); GLUCOSE 81 mg/dL (75-110); LIPASE 136.1 U/L (23-300); POTASSIUM 4.3 mmol/L (3.6-5.0); SODIUM 139.2 mmol/L (137-145); TOTAL PROTEIN 7.5 g/dL (6.3-8.2)
[2016-07-12 00:34] LABS: AMORPHOUS SEDIMENT,URINE TRACE /HPF; APPEARANCE,URINE SLIGHTLY-CLOUDY; BILIRUBIN,URINE NEGATIVE (NEGATIVE); GLUCOSE, URINE NEGATIVE (NEGATIVE); KETONES,URINE NEGATIVE (NEGATIVE); LEUKOCYTE ESTERASE,URINE NEGATIVE (NEGATIVE); NITRITE,URINE NEGATIVE (NEGATIVE); PROTEIN,URINE NEGATIVE (NEGATIVE); URINE SPECIFIC GRAVITY 1.015; UROBILINOGEN,URINE NEGATIVE mg/dL (<2.0)
[2016-07-12] MEDS ORDERED: NORMAL SALINE 1000 ML 1,000 ML IV ONE (01:34)
[2016-07-12] MEDS ORDERED: METOCLOPRAMIDE HCL INJ/PF 10 MG/2 ML SDV IV ONE (01:35)
[2016-07-12] MEDS ORDERED: DIPHENHYDRAMINE HCL 50 MG/ML VIAL IV ONE (01:35)
--- NOTE | 2016-07-12 01:36 | ER Document Report ---
ED GI/ <ROXY RAMIREZ - Last Filed: 07/12/16 01:49> - General Time seen by provider: 01:35 TRAVEL OUTSIDE OF THE [place] IN LAST 30 DAYS: No <ARMIN ANAYA - Last Filed: 07/12/16 08:21> - General Chief Complaint: Abdominal Pain Stated Complaint: RIGHT FLANK PAIN/NAUSEA Notes: He is a 21-year-old female that comes emergency department for chief complaint of nausea, vomiting, fever, and pain in her lower abdomen, worse on the right side. Patient states that she was discharged from the hospital on 07/06/2016 after she had been evaluated with a CAT scan and ultrasound. She states that on Thursday she had return of nausea and pain, this has been intermittent and is today worse. She also states she has a "cold". She denies vaginal discharge or bleeding, she is sexually active. Patient has had a cholecystectomy. Past medical history depression, bipolar. (ARMIN ANAYA) - Related Data Allergies/Adverse Reactions: cephalexin monohydrate [From Keflex] Allergy (Verified 07/05/16 17:32) peanut [Peanut] Allergy (Verified 07/05/16 17:32) Past Medical History - General Information source: Patient - Social History Smoking Status: Never Smoker Chew tobacco use (# tins/day): No Frequency of alcohol use: None Drug Abuse: None Lives with: Family Family History: CAD, DM, Hyperlipidemia, Hypertension, Malignancy, Thyroid Disfunction Patient has suicidal ideation: No Patient has homicidal ideation: No Neurological Medical History: Reports: Hx Migraine Endocrine Medical History: Reports: Hx Diabetes Mellitus Type 2, Hx Hypothyroidism Renal/ Medical History: Denies: Hx Peritoneal Dialysis GI Medical History: Reports: Hx Gastroesophageal Reflux Disease Musculoskeltal Medical History: Reports Hx Musculoskeletal Trauma Psychiatric Medical History: Reports: Hx Attention Deficit Hyperactivity Disorder, Hx Bipolar Disorder, Hx Post Traumatic Stress Disorder, Hx Schizophrenia Traumatic Medical History: Reports: Hx Fractures - Right arm Past Surgical History: Reports: Hx Cholecystectomy, Hx Dilation and Curettage - With , Hx Oral Surgery - [place] teeth - Immunizations Hx Diphtheria, Pertussis, Tetanus Vaccination: Yes <ARMIN ANAYA - Last Filed: 07/12/16 08:21> Review of Systems - Review of Systems Constitutional: No symptoms reported EENT: No symptoms reported Cardiovascular: No symptoms reported Respiratory: No symptoms reported Gastrointestinal: See HPI Genitourinary: No symptoms reported Female Genitourinary: No symptoms reported Musculoskeletal: No symptoms reported Skin: No symptoms reported Hematologic/Lymphatic: No symptoms reported Neurological/Psychological: No symptoms reported <ARMIN ANAYA - Last Filed: 07/12/16 08:21> Physical Exam - Vital signs Interpretation: Normal - General General appearance: Appears well In distress: None - Patient well-appearing, calm, no signs of distress - HEENT Head: Normocephalic, Atraumatic Eyes: Normal Conjunctiva: Normal Extraocular movements intact: Yes Eyelashes: Normal Pupils: PERRL Mouth/Lips: Normal Mucous membranes: Normal. No: Dry Pharynx: Normal Neck: Normal - Respiratory Respiratory status: No respiratory distress Chest status: Nontender Breath sounds: Normal Chest palpation: Normal - Cardiovascular Rhythm: Regular. No: Tachycardia - Patient not tachycardic on my exam Heart sounds: Normal auscultation, S1 appreciated, S2 appreciated Murmur: No - Abdominal Inspection: Normal Distension: No distension Bowel sounds: Normal Tenderness: Nontender - Completely soft and nontender abdomen throughout. No: Tender, Guarding Organomegaly: No organomegaly - Back Back: Normal, Nontender - Extremities General upper extremity: Normal inspection, Nontender, Normal color, Normal ROM , Normal temperature General lower extremity: Normal inspection, Nontender, Normal color, Normal ROM , Normal temperature, Normal weight bearing. No: Juan's sign - Neurological Neuro grossly intact: Yes Cognition: Normal Orientation: AAOx4 Hermes Coma Scale Eye Opening: Spontaneous Hermes Coma Scale Verbal: Oriented Hermes Coma Scale Motor: Obeys Commands [place] Coma Scale Total: 15 Speech: Normal Motor strength normal: LUE, RUE, LLE, RLE Sensory: Normal - Psychological Associated symptoms: Normal affect, Normal mood - Skin Skin Temperature: Warm Skin Moisture: Dry Skin Color: Normal <ARMIN ANAYA - Last Filed: 07/12/16 08:21> - Vital signs Vitals: Temp Pulse Resp BP Pulse Ox 98.4 F 122 H 16 141/64 H 100 07/11/16 21:42 07/11/16 21:42 07/11/16 21:42 07/11/16 21:42 07/11/16 21:42 (ROXY RAMIREZ) (ARMIN ANAYA) Course - Laboratory Result Diagrams: 07/12/16 00:01 07/12/16 00:01 <ROXY RAMIREZ - Last Filed: 07/12/16 01:49> - Laboratory Result Diagrams: 07/12/16 00:01 07/12/16 00:01 <ARMIN ANAYA - Last Filed: 07/12/16 08:21> - Re-evaluation Re-evalutation: Patient very well appearing on exam, soft abdomen, she tells me that she "can't keep anything down and vomits everything up", I gave patient fluids in the room and she tolerated this without difficulty, on reexamination she made a cough and a gag sound, told me that she was dry heaving, patient noted to have no vomiting or dry heaving on exam. Vitals rechecked, patient is not tachycardic, pelvic exam shows white blood cells and bacteria, gonorrhea and Chlamydia negative, patient has scant white discharge on exam, will treat for bacterial vaginosis. Patient given Phenergan and Pepcid, discussed workup, suspect there is a psychiatric component to patient's reported vomiting, advised follow-up with primary care, I did discuss return precautions, patient states understanding and agreement. (ARMIN ANAYA) - Vital Signs Vital signs: Temp Pulse Resp BP Pulse Ox 98.0 F 98 16 102/43 L 99 07/12/16 05:30 07/12/16 05:30 07/12/16 05:30 07/12/16 05:30 07/12/16 05:30 (ROXY RAMIREZ) (ARMIN ANAYA) - Laboratory Laboratory results interpreted by me: 07/12/16 00:01 WBC 13.7 H Absolute Neutrophils 9.8 H (ROXY RAMIREZ) (ARMIN ANAYA) - Transfer of Care Notes: 07/12/16 01:49 I reevaluated the patient's supervising physician for Armin Anaya, physician chemical laboratory assistant. Patient has CT scan is with appendicitis. She does have some pain to palpation over the right lower quadrant. She otherwise has a soft abdomen with no tenderness to palpation in the remainder of the abdomen. No evidence of rupture based on exam or CT scan. Mr. Anaya did speak with the surgeon who agrees to admit the patient for definitive treatment of her appendicitis. I informed the patient that she must let us know immediately if she has any worsening of her pain before she is admitted . (ROXY RAMIREZ) Discharge <ROXY RAMIREZ - Last Filed: 07/12/16 01:49> <DANIELACAMILLADAVIDARMIN - Last Filed: 07/12/16 08:21> - Discharge Clinical Impression: Vaginal discharge Nausea and vomiting Qualifiers: Vomiting type: unspecified Vomiting Intractability: non-intractable Qualified Code(s): R11.2 - Nausea with vomiting, unspecified Condition: Stable Disposition: HOME, SELF-CARE Additional Instructions: Workup shows spectral vaginosis, please take the Flagyl antibiotic as directed. Please take Phenergan and Zantac for upper abdominal discomfort and nausea, start with fluids, progress to bland foods. Follow-up with primary care. Please return immediately for any concerning worsening symptoms including vomiting blood, black stools, severe abdominal pain, etc. Prescriptions: Metronidazole [Flagyl 500 mg Tablet] 500 mg PO BID #14 tablet Promethazine HCl [Phenergan 25 mg Tablet] 1 - 2 tab PO Q6H PRN #20 tablet PRN Reason: Ranitidine HCl [Zantac 150 mg Tablet] 150 mg PO BID #30 tablet Referrals: JAXON PARTIDA MD [Primary Care Provider] - Follow up as needed
[2016-07-12 04:28] LABS: CHLAM PCR NOT DETECTED (NOT DETECT)
[2016-07-12 05:31] VITALS: BP 102/43
== END 2016-07-12 05:29 | disposition home or self-care (01) ==
LOC: ER 21:25
DX: K37 Unspecified appendicitis (principal); R10.30 Lower abdominal pain, unspecified; R11.2 Nausea with vomiting, unspecified; N89.8 Other specified noninflammatory disorders of vagina; R50.9 Fever, unspecified; E11.9 Type 2 diabetes mellitus without complications; Z90.49 Acquired absence of other specified parts of digestive tract; Z88.1 Allergy status to other antibiotic agents; Z91.010 Allergy to peanuts; Z87.19 Personal history of other diseases of the digestive system
CPT/HCPCS: 99284; 96361; 96374; 96375; 36415; 87210; 83690; 85025; 80053; 81001; 87491; 87591; 87804; J1200; J2765; S0119; J7030

== ENCOUNTER 2016-07-22 19:57 | Emergency (ER) | payer SELFPAY ==
[2016-07-22] MEDS ORDERED: ONDANSETRON 4 MG TAB.RAPDIS PO ONE (20:40)
--- NOTE | 2016-07-22 20:43 | ER Document Report ---
ED Medical Screen (RME) - General Stated Complaint: ABDOMINAL PAIN Mode of Arrival: Ambulatory Information source: Patient Notes: Patient presents with right-sided abdominal pain. Patient reports she's been here numerous times for same complaint. She reports she was admitted and discharged at the beginning of this month. Symptoms still persist. She reports she's been vomiting numerous times for the past 3 days. She also complains of black spots noted in her stool. She also reports her stools smells awful. Denies recent antibiotic use. TRAVEL OUTSIDE OF THE [place] IN LAST 30 DAYS: No - Related Data Allergies/Adverse Reactions: cephalexin monohydrate [From Keflex] Allergy (Verified 07/05/16 17:32) peanut [Peanut] Allergy (Verified 07/05/16 17:32) Past Medical History Neurological Medical History: Reports: Hx Migraine Endocrine Medical History: Reports: Hx Diabetes Mellitus Type 2, Hx Hypothyroidism Renal/ Medical History: Denies: Hx Peritoneal Dialysis GI Medical History: Reports: Hx Gastroesophageal Reflux Disease Musculoskeltal Medical History: Reports Hx Musculoskeletal Trauma Psychiatric Medical History: Reports: Hx Attention Deficit Hyperactivity Disorder, Hx Bipolar Disorder, Hx Post Traumatic Stress Disorder, Hx Schizophrenia Traumatic Medical History: Reports: Hx Fractures - Right arm Past Surgical History: Reports: Hx Cholecystectomy, Hx Dilation and Curettage - With , Hx Oral Surgery - [place] teeth - Immunizations Hx Diphtheria, Pertussis, Tetanus Vaccination: Yes
[2016-07-22 20:44] VITALS: BP 120/50
[2016-07-22 21:19] LABS: ABSOLUTE BASOPHILS # (AUTO) 0.1 10^3/uL (0.0-0.2); ABSOLUTE EOSINOPHILS # (AUTO) 0.3 10^3/uL (0.0-0.6); ABSOLUTE LYMPHOCYTES (AUTO) 2.1 10^3/uL (0.5-4.7); ABSOLUTE MONOCYTES (AUTO) 0.8 10^3/uL (0.1-1.4); ABSOLUTE NEUT (AUTO) 7.7 10^3/uL (1.7-8.2); BASOPHILS % (AUTO) 0.8 % (0-2); EOSINOPHILS % (AUTO) 2.3 % (0-6); HEMATOCRIT 40.2 % (36.0-47.0); HEMOGLOBIN 13.7 g/dL (12.0-15.5); HGB HCT DIFFERENCE 0.9; LYMPHOCYTES % (AUTO) 18.8 % (13-45); MEAN CORPUSCULAR HEMOGLOBIN 29.3 pg (27.0-33.4); MEAN CORPUSCULAR VOLUME 86 fl (80-97); MONOCYTES % (AUTO) 7.3 % (3-13); RED BLOOD COUNT 4.66 10^6/uL (3.72-5.28); RED CELL DISTRIBUTION WIDTH 13.3 % (11.5-14.0); SEGMENTED NEUTROPHILS % (AUTO) 70.8 % (42-78); WHITE BLOOD COUNT 10.9 10^3/uL (4.0-10.5)
[2016-07-22 21:23] LABS: APPEARANCE,URINE CLEAR; BILIRUBIN,URINE NEGATIVE (NEGATIVE); GLUCOSE, URINE NEGATIVE (NEGATIVE); KETONES,URINE NEGATIVE (NEGATIVE); LEUKOCYTE ESTERASE,URINE NEGATIVE (NEGATIVE); NITRITE,URINE NEGATIVE (NEGATIVE); PROTEIN,URINE NEGATIVE (NEGATIVE); URINE SPECIFIC GRAVITY 1.014; UROBILINOGEN,URINE NEGATIVE mg/dL (<2.0)
[2016-07-22 21:33] LABS: ALANINE AMINOTRANSFERASE 36 U/L (9-52); ALBUMIN 3.7 g/dL (3.5-5.0); ALKALINE PHOSPHATASE 88 U/L (38-126); ANION GAP 10 (5-19); ASPARTATE AMINO TRANSFERASE 28 U/L (14-36); BILIRUBIN,TOTAL 0.3 mg/dL (0.2-1.3); BLOOD UREA NITROGEN 13 mg/dL (7-20); CALCIUM 9.6 mg/dL (8.4-10.2); CARBON DIOXIDE 26 mmol/L (22-30); CHLORIDE 104 mmol/L (98-107); CREATININE RESULT 0.81 mg/dL (0.52-1.25); GLUCOSE 119 mg/dL (75-110); LIPASE 125.1 U/L (23-300); POTASSIUM 4.2 mmol/L (3.6-5.0); SODIUM 139.8 mmol/L (137-145); TOTAL PROTEIN 7.4 g/dL (6.3-8.2)
== END 2016-07-22 23:30 | disposition left against medical advice (07) ==
LOC: ER 19:57
DX: R10.9 Unspecified abdominal pain (principal); R11.10 Vomiting, unspecified; R19.5 Other fecal abnormalities; E11.9 Type 2 diabetes mellitus without complications; Z87.19 Personal history of other diseases of the digestive system; Z90.49 Acquired absence of other specified parts of digestive tract; Z91.010 Allergy to peanuts; Z88.1 Allergy status to other antibiotic agents; Z53.20 Procedure and treatment not carried out because of patient's decision for unspecified reasons
CPT/HCPCS: 99281; 36415; 83690; 84703; 85025; 80053; 81001; S0119

== ENCOUNTER 2016-08-07 16:47 | Emergency (ER) | payer SELFPAY ==
[2016-08-07 17:03] VITALS: BP 126/56
--- NOTE | 2016-08-07 17:09 | ER Document Report ---
ED Medical Screen (RME) - General Stated Complaint: ANKLE AND KNEE PAIN Notes: twisted her ankle yesterday, now with pain and swelling. Pain radiating up to her knee. Able to bear weight and ambulate after initial injury. I have greeted and performed a rapid initial assessment of this patient. A comprehensive ED assessment and evaluation of the patient, analysis of test results and completion of the medical decision making process will be conducted by additional ED providers. TRAVEL OUTSIDE OF THE [place] IN LAST 30 DAYS: No - Related Data Allergies/Adverse Reactions: cephalexin monohydrate [From Keflex] Allergy (Verified 07/22/16 20:41) peanut [Peanut] Allergy (Verified 07/22/16 20:41) morphine Adverse Reaction (Verified 07/22/16 20:41) Past Medical History Neurological Medical History: Reports: Hx Migraine Endocrine Medical History: Reports: Hx Diabetes Mellitus Type 2, Hx Hypothyroidism Renal/ Medical History: Denies: Hx Peritoneal Dialysis GI Medical History: Reports: Hx Gastroesophageal Reflux Disease Musculoskeltal Medical History: Reports Hx Musculoskeletal Trauma Psychiatric Medical History: Reports: Hx Attention Deficit Hyperactivity Disorder, Hx Bipolar Disorder, Hx Post Traumatic Stress Disorder, Hx Schizophrenia Traumatic Medical History: Reports: Hx Fractures - Right arm Past Surgical History: Reports: Hx Cholecystectomy, Hx Dilation and Curettage - With , Hx Oral Surgery - [place] teeth - Immunizations Hx Diphtheria, Pertussis, Tetanus Vaccination: Yes Physical Exam - Vital signs Vitals: Temp Pulse Resp BP Pulse Ox 98.1 F 114 H 17 126/56 H 100 08/07/16 17:01 08/07/16 17:01 08/07/16 17:01 08/07/16 17:01 08/07/16 17:01 Course - Vital Signs Vital signs: Temp Pulse Resp BP Pulse Ox 98.1 F 114 H 17 126/56 H 100 08/07/16 17:01 08/07/16 17:01 08/07/16 17:01 08/07/16 17:01 08/07/16 17:01
[2016-08-07] MEDS ORDERED: ACETAMINOPHEN 325 MG TABLET PO ONE (17:11)
--- NOTE | 2016-08-07 18:15 | ER Document Report ---
ED Extremity Problem, Lower - General Chief Complaint: Leg Injury Stated Complaint: ANKLE AND KNEE PAIN Time seen by provider: 18:00 Mode of Arrival: Wheelchair Information source: Patient Notes: 21-year-old female presents to ED for left ankle pain radiating up to her knee. She states she twisted her ankle yesterday and in the ankle started swelling and the pain started radiating up to her knee. She was able to bear weight and ambulate after the initial injury but the pain has progressively increased. TRAVEL OUTSIDE OF THE [place] IN LAST 30 DAYS: No - HPI Patient complains to provider of: Injury, Pain Location: Ankle - Left Occurred: Yesterday Where: Home Onset/Duration: Gradual, Worse Quality of pain: Achy, Sharp Severity: Moderate Pain Level: 4 Context: Twisted Recent injury: Possibly Associated symptoms: Painful ambulation Exacerbated by: Hanging down, Movement, Walking Relieved by: Nothing - Related Data Allergies/Adverse Reactions: cephalexin monohydrate [From Keflex] Allergy (Verified 08/07/16 17:08) peanut [Peanut] Allergy (Verified 08/07/16 17:08) morphine Adverse Reaction (Verified 08/07/16 17:08) Past Medical History - General Information source: Patient - Social History Smoking Status: Never Smoker Chew tobacco use (# tins/day): No Frequency of alcohol use: Occasional Drug Abuse: None Occupation: none Lives with: Spouse/Significant other Family History: CVA, DM, Hyperlipidemia, Hypertension, Malignancy, Thyroid Disfunction Patient has suicidal ideation: No Patient has homicidal ideation: No - Past Medical History Cardiac Medical History: Reports: None Pulmonary Medical History: Reports: None EENT Medical History: Reports: None Neurological Medical History: Reports: Hx Migraine Endocrine Medical History: Reports: Hx Diabetes Mellitus Type 2, Hx Hypothyroidism Renal/ Medical History: Reports: None Malignancy Medical History: Reports: None GI Medical History: Reports: Hx Gastroesophageal Reflux Disease Musculoskeltal Medical History: Reports None, Reports Hx Musculoskeletal Trauma Skin Medical History: Reports None Psychiatric Medical History: Reports: Hx Attention Deficit Hyperactivity Disorder, Hx Bipolar Disorder, Hx Post Traumatic Stress Disorder, Hx Schizophrenia Traumatic Medical History: Reports: Hx Fractures - Right arm Infectious Medical History: Reports: None Past Surgical History: Reports: Hx Cholecystectomy, Hx Dilation and Curettage - With , Hx Oral Surgery - [place] teeth - Immunizations Hx Diphtheria, Pertussis, Tetanus Vaccination: Yes Review of Systems - Review of Systems Constitutional: No symptoms reported EENT: No symptoms reported Cardiovascular: No symptoms reported Respiratory: No symptoms reported Gastrointestinal: No symptoms reported Genitourinary: No symptoms reported Female Genitourinary: No symptoms reported Musculoskeletal: Ankle swelling - Left ankle pain Skin: No symptoms reported Hematologic/Lymphatic: No symptoms reported Neurological/Psychological: No symptoms reported -: Yes All other systems reviewed and negative Physical Exam - Vital signs Vitals: Temp Pulse Resp BP Pulse Ox 98.1 F 114 H 17 126/56 H 100 08/07/16 17:01 08/07/16 17:01 08/07/16 17:01 08/07/16 17:01 08/07/16 17:01 Interpretation: Normal - General General appearance: Appears well, Alert - HEENT Head: Normocephalic, Atraumatic Eyes: Normal Pupils: PERRL - Respiratory Respiratory status: No respiratory distress Chest status: Nontender Breath sounds: Normal Chest palpation: Normal - Cardiovascular Rhythm: Regular Heart sounds: Normal auscultation Murmur: No - Abdominal Inspection: Normal Distension: No distension Bowel sounds: Normal Tenderness: Nontender Organomegaly: No organomegaly - Back Back: Normal, Nontender - Extremities General upper extremity: Normal inspection, Nontender, Normal color, Normal ROM , Normal temperature General lower extremity: Normal color, Normal temperature. No: Juan's sign Ankle: Tender, Edema - Minimal, Limited ROM - Due to pain. No: Deformity, Ecchymosis, Instability, Laceration, Positive Chowdhury's test, Unable to bear weight - Neurological Neuro grossly intact: Yes Cognition: Normal Orientation: AAOx4 Hermes Coma Scale Eye Opening: Spontaneous [place] Coma Scale Verbal: Oriented Hermes Coma Scale Motor: Obeys Commands [place] Coma Scale Total: 15 Speech: Normal Motor strength normal: LUE, RUE, LLE, RLE Sensory: Normal - Psychological Associated symptoms: Normal affect, Normal mood - Skin Skin Temperature: Warm Skin Moisture: Dry Skin Color: Normal Course - Re-evaluation Re-evalutation: 08/07/16 18:31 Discussed x-ray with patient and written report given to patient. We will place patient in Alberto wrap and cock-up splint and instructed in use of crutches. Patient was discharged home with a dispense pack of Jamglue. Patient instructed to follow-up with orthopedic. - Vital Signs Vital signs: Temp Pulse Resp BP Pulse Ox 98.1 F 114 H 17 126/56 H 100 08/07/16 17:01 08/07/16 17:01 08/07/16 17:01 08/07/16 17:01 08/07/16 17:01 - Diagnostic Test Radiology reviewed: Image reviewed, Reports reviewed Procedures - Immobilization Left Ankle Immobilizer type: Alberto wrap, Ankle stirrup, Crutches Performed by: PCT Post-Proc Neuro Vasc Exam: Normal Alignment checked and good: Yes Discharge - Discharge Clinical Impression: Sprain of left ankle Qualifiers: Encounter type: initial encounter Involved ligament of ankle: other ligament Qualified Code(s): S93.492A - Sprain of other ligament of left ankle, initial encounter Condition: Stable Disposition: HOME, SELF-CARE Additional Instructions: SPRAINED ANKLE: Your sprained ankle results from stretching or tearing of the ligaments which support the ankle. This usually results from twisting the foot inward and under. The ligaments will require time and protection in order to heal properly. Many ankle sprains are quite disabling, and should be taken seriously. The usual treatment for an ankle sprain is cold packs; protection with tape , splints, or wraps; elevation; and staying off the ankle for at least a day. As the ankle improves, you can walk IF it's not painful to bear weight. Sports are best postponed until healing is complete. More serious sprains usually require strengthening exercises after early healing. Your physician has assessed the seriousness of the ligament injury to your ankle. However, the treatment may change, depending on how your ankle progresses. If further exams were recommended, it is important that you follow through. Call the doctor if your foot becomes numb, painful, or severely swollen. ALBERTO WRAP: A compression dressing (alberto wrap) has been placed. This helps hold the area still. It limits swelling and internal bleeding. The wrap should be comfortably snug -- not tight. You should feel a sense of pressure, but not severe pain under the wrap. Unless the physician tells you otherwise, you can adjust the wrap for comfort. If the wrap causes symptoms suggesting it's too tight -- uncomfortable pressure, swelling or discoloration beyond the wrap, numbness, or severe pain - - you must loosen the wrap. If these symptoms don't resolve promptly, return for re-evaluation. ANKLE STIRRUP SPLINT: You are to use an ankle brace called a stirrup splint. This type of brace allows you to place greater stresses on the ankle without risk of re-injury, and is often used for more severe ankle injuries such as avulsion fractures and ligament ruptures. The splint can be worn over a sock or tape. For proper support, wear the splint with a shoe over it. It's important that the splint fit properly. Adjust the heel tension, if needed. If your splint has air bladders, peel back the bottom of each air bladder, then move the Velcro attachment of the heel strap up or down. Air bladder pressure can be adjusted by pulling up the valve at the top, threading the air tube down into the main bladder, then blowing air into the bladder or squeezing it out. The two sides of the stirrup can be moved forward or back on your ankle by changing the attachment of the main straps. If you are unable to use the ankle comfortably in the splint, return for re -evaluation. USE OF CRUTCHES: The doctor has recommended that you not bear weight at this time. You will need to use crutches. Adjust the crutches so the tops come to about two inches under the armpit while you are standing upright. Use your hands -- not your armpits -- to support your weight. To get into a chair, support yourself with one crutch on the injured side. Hold the chair with the other hand, then lower yourself while putting all your weight on the good leg. Going up stairs is `good leg up, step up, then bring up crutches and bad leg.' Down stairs is `bad leg and crutches down, then bring good leg down.' If you develop numbness or swelling in an arm or hand, you are using the crutches incorrectly. Return if you are having any problems with the crutches. ICE & ELEVATION: Apply ice packs frequently against the painful area. Many different schedules are recommended, such as "20 minutes on, 20 minutes off" or "one hour ice, two hours rest." If you need to work, you may need to go longer between ice treatments. You should plan to have the area ice packed AT LEAST one- fourth of the time. The ice should be applied over the wrap, tape, or splint, or over a layer of cloth -- not directly against the skin. Some ice bags have a built-in cloth and can be put directly on the skin. Your injured part should be elevated as much as possible over the next 48 hours. Try to keep the injury above the level of the heart. Avoid use of the injured area. Elevation and rest will decrease the swelling. USE OF [id number] IBUPROFEN: Ibuprofen (Advil, Nuprin, Medipren, Motrin IB) is a medication for fever and pain control. In addition, it has anti- inflammatory effects which may be beneficial, especially in the treatment of injuries. It's best to take ibuprofen with food. Persons with ulcer disease or allergy to aspirin should notify their physician of this before taking ibuprofen. Ibuprofen can be given every four to six hours, for a total of four doses daily. Age Pain or fever dose Antiinflammatory dose 6-8 yr 200 mg (1 tab) 200 mg (1 tab) 9-11 yr 200 mg (1 tab) 200-400 mg (1-2 tab) 11-14 yr 200-400 mg (1-2 tab) 400 mg (2 tab) 15-adult 400 mg (2 tab) 600 mg (3 tab) ORAL NARCOTIC MEDICATION: You have been given a prescription for pain control. This medication is a narcotic. It's best taken with food, as nausea can result if taken on an empty stomach. Don't operate machinery or drive within six hours of taking this medication. Do not combine this medicine with alcohol, or with any medication which can cause sedation (such as cold tablets or sleeping pills) unless you get permission from the physician. Narcotics tend to cause constipation. If possible, drink plenty of fluids and eat a diet high in fiber and fruits. Please be aware that prescription narcotics also have the potential for abuse. People become addicted to these medications because of the general sense of wellbeing that they induce. This feeling along with a significant reduction in tension, anxiety, and aggression provides a stimulating seductive quality to these drugs. Once your pain is under control, we encourage you to discard your unused narcotics. FOLLOW-UP CARE: If you have been referred to a physician for follow-up care, call the physician s office for an appointment as you were instructed or within the next two days. If you experience worsening or a significant change in your symptoms, notify the physician immediately or return to the Emergency Department at any time for re-evaluation. Forms: Elevated Blood Pressure Referrals: CHAITANYA BURGER MD [ACTIVE STAFF] - Follow up as needed
[2016-08-07] MEDS ORDERED: HYDROCODONE/ACETAMINOPHEN 5-325 MG 6 TAB/DSPK PO PRN (18:23)
== END 2016-08-07 19:10 | disposition home or self-care (01) ==
LOC: ER 16:47
DX: S93.492A Sprain of other ligament of left ankle, initial encounter (principal); M25.572 Pain in left ankle and joints of left foot; X50.0XXA Overexertion from strenuous movement or load, initial encounter; Y92.009 Unspecified place in unspecified non-institutional (private) residence as the place of occurrence of the external cause; E11.9 Type 2 diabetes mellitus without complications; Z88.1 Allergy status to other antibiotic agents; Z91.010 Allergy to peanuts
CPT/HCPCS: 99283; 73610; L4350

== ENCOUNTER 2016-08-27 20:31 | Emergency (ER) | payer SELFPAY ==
--- NOTE | 2016-08-27 21:21 | ER Document Report ---
ED Medical Screen (RME) - General Stated Complaint: NAUSEA,VOMITING Notes: 21 yo female n/v, urinary frequency and mid abdominal pain x 2 days. LMP 3/24. 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 IN LAST 30 DAYS: No - Related Data Allergies/Adverse Reactions: cephalexin monohydrate [From Keflex] Allergy (Verified 08/07/16 17:08) peanut [Peanut] Allergy (Verified 08/07/16 17:08) morphine Adverse Reaction (Verified 08/07/16 17:08) Past Medical History Neurological Medical History: Reports: Hx Migraine Endocrine Medical History: Reports: Hx Diabetes Mellitus Type 2, Hx Hypothyroidism Renal/ Medical History: Denies: Hx Peritoneal Dialysis GI Medical History: Reports: Hx Gastroesophageal Reflux Disease Musculoskeltal Medical History: Reports Hx Musculoskeletal Trauma Psychiatric Medical History: Reports: Hx Attention Deficit Hyperactivity Disorder, Hx Bipolar Disorder, Hx Post Traumatic Stress Disorder, Hx Schizophrenia Traumatic Medical History: Reports: Hx Fractures - Right arm Past Surgical History: Reports: Hx Cholecystectomy, Hx Dilation and Curettage - With , Hx Oral Surgery - [place] teeth - Immunizations Hx Diphtheria, Pertussis, Tetanus Vaccination: Yes Physical Exam - Vital signs Vitals: Temp Pulse Resp BP Pulse Ox 98.8 F 116 H 20 123/71 100 08/27/16 21:04 08/27/16 21:04 08/27/16 21:04 08/27/16 21:04 08/27/16 21:04 Course - Vital Signs Vital signs: Temp Pulse Resp BP Pulse Ox 98.8 F 116 H 20 123/71 100 08/27/16 21:04 08/27/16 21:04 08/27/16 21:04 08/27/16 21:04 08/27/16 21:04
[2016-08-27 21:45] LABS: ABSOLUTE BASOPHILS # (AUTO) 0.1 10^3/uL (0.0-0.2); ABSOLUTE EOSINOPHILS # (AUTO) 0.3 10^3/uL (0.0-0.6); ABSOLUTE LYMPHOCYTES (AUTO) 2.4 10^3/uL (0.5-4.7); ABSOLUTE MONOCYTES (AUTO) 1.3 10^3/uL (0.1-1.4); ABSOLUTE NEUT (AUTO) 7.1 10^3/uL (1.7-8.2); BASOPHILS % (AUTO) 0.6 % (0-2); EOSINOPHILS % (AUTO) 2.3 % (0-6); HEMATOCRIT 41.1 % (36.0-47.0); HGB HCT DIFFERENCE 0.9; LYMPHOCYTES % (AUTO) 21.5 % (13-45); MEAN CORPUSCULAR HEMOGLOBIN 28.8 pg (27.0-33.4); MEAN CORPUSCULAR VOLUME 85 fl (80-97); MONOCYTES % (AUTO) 11.4 % (3-13); RED BLOOD COUNT 4.85 10^6/uL (3.72-5.28); SEGMENTED NEUTROPHILS % (AUTO) 64.2 % (42-78); WHITE BLOOD COUNT 11.1 10^3/uL (4.0-10.5)
[2016-08-27 21:53] LABS: APPEARANCE,URINE CLEAR; BILIRUBIN,URINE NEGATIVE (NEGATIVE); GLUCOSE, URINE NEGATIVE (NEGATIVE); KETONES,URINE NEGATIVE (NEGATIVE); LEUKOCYTE ESTERASE,URINE NEGATIVE (NEGATIVE); NITRITE,URINE NEGATIVE (NEGATIVE); PROTEIN,URINE NEGATIVE (NEGATIVE); URINE SPECIFIC GRAVITY 1.005; UROBILINOGEN,URINE NEGATIVE mg/dL (<2.0)
[2016-08-27 22:03] LABS: ALANINE AMINOTRANSFERASE 36 U/L (9-52); ALBUMIN 4.3 g/dL (3.5-5.0); ALKALINE PHOSPHATASE 98 U/L (38-126); ANION GAP 12 (5-19); ASPARTATE AMINO TRANSFERASE 26 U/L (14-36); BILIRUBIN,DIRECT 0.1 mg/dL (0.0-0.4); BILIRUBIN,TOTAL 0.3 mg/dL (0.2-1.3); BLOOD UREA NITROGEN 13 mg/dL (7-20); CALCIUM 9.6 mg/dL (8.4-10.2); CARBON DIOXIDE 28 mmol/L (22-30); CHLORIDE 104 mmol/L (98-107); CREATININE RESULT 0.73 mg/dL (0.52-1.25); GLUCOSE 93 mg/dL (75-110); POTASSIUM 4.3 mmol/L (3.6-5.0); SODIUM 143.6 mmol/L (137-145); TOTAL PROTEIN 7.2 g/dL (6.3-8.2)
--- NOTE | 2016-08-28 00:13 | ER Document Report ---
ED GI/ - General Time seen by provider: 01:05 Mode of Arrival: Ambulatory Information source: Patient TRAVEL OUTSIDE OF THE [place] 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 Patient states that she did call test and is unsure if she is . Patient's last menstrual period was 08/22/2016. This menstrual period was only for 2 days and was light according to patient. Patient denies any diarrhea. Patient states she is borderline diabetic mellitus and is not on any medications currently. Patient also has Pinto's disease, status post to taking medications. Patient does not have a primary care physician at this time and would like to be referred to one. (OLLIE CALDERON) - Related Data Allergies/Adverse Reactions: cephalexin monohydrate [From Keflex] Allergy (Verified 09/02/16 14:38) peanut [Peanut] Allergy (Verified 09/02/16 14:38) morphine Adverse Reaction (Verified 09/02/16 14:38) Past Medical History - General Information source: Patient - Social History Smoking Status: Never Smoker Cigarette use (# per day): No Chew tobacco use (# tins/day): No Frequency of alcohol use: None Drug Abuse: None Family History: Reviewed & Not Pertinent, CVA, DM, Hyperlipidemia, Hypertension , Malignancy, Thyroid Disfunction Patient has suicidal ideation: No Patient has homicidal ideation: No Neurological Medical History: Reports: Hx Migraine Endocrine Medical History: Reports: Hx Diabetes Mellitus Type 2, Hx Hypothyroidism GI Medical History: Reports: Hx Gastroesophageal Reflux Disease Musculoskeltal Medical History: Reports Hx Musculoskeletal Trauma Psychiatric Medical History: Reports: Hx Attention Deficit Hyperactivity Disorder, Hx Bipolar Disorder, Hx Post Traumatic Stress Disorder, Hx Schizophrenia Traumatic Medical History: Reports: Hx Fractures - Right arm Past Surgical History: Reports: Hx Cholecystectomy, Hx Dilation and Curettage - With , Hx Oral Surgery - [place] teeth - Immunizations Hx Diphtheria, Pertussis, Tetanus Vaccination: Yes <OLLIE CALDERON - Last Filed: 08/28/16 06:39> Review of Systems - Review of Systems Constitutional: No symptoms reported EENT: No symptoms reported Cardiovascular: No symptoms reported Respiratory: No symptoms reported Gastrointestinal: See HPI, Nausea, Vomiting. denies: Diarrhea Genitourinary: No symptoms reported Female Genitourinary: See HPI, Last menstrual period - 08/22/16, , Vaginal bleeding Musculoskeletal: No symptoms reported Skin: No symptoms reported Hematologic/Lymphatic: No symptoms reported Neurological/Psychological: No symptoms reported -: Yes All other systems reviewed and negative <OLLIE CALDERON - Last Filed: 08/28/16 06:39> Physical Exam - Vital signs Interpretation: Tachycardic - General General appearance: Appears well, Alert In distress: Mild - HEENT Head: Normocephalic, Atraumatic Eyes: Normal Pupils: PERRL Mucous membranes: Moist - Respiratory Respiratory status: No respiratory distress Chest status: Nontender Breath sounds: Normal Chest palpation: Normal - Cardiovascular Rhythm: Regular Heart sounds: Normal auscultation Murmur: No - Abdominal Inspection: Normal Distension: No distension Bowel sounds: Normal Tenderness: Nontender Organomegaly: No organomegaly - Back Back: Normal, Nontender - Extremities General upper extremity: Normal inspection, Normal ROM, Normal strength General lower extremity: Normal inspection, Normal ROM, Normal strength - Neurological Neuro grossly intact: Yes Cognition: Normal Orientation: AAOx4 Hermes Coma Scale Eye Opening: Spontaneous Hermes Coma Scale Verbal: Oriented Hermes Coma Scale Motor: Obeys Commands [place] Coma Scale Total: 15 Speech: Normal Sensory: Normal - Psychological Associated symptoms: Normal affect, Normal mood - Skin Skin Temperature: Warm Skin Moisture: Dry <OLLIE CALDERON - Last Filed: 08/28/16 06:39> Course - Laboratory Result Diagrams: 08/27/16 21:25 08/27/16 21:25 <OLLIE CALDERON - Last Filed: 08/28/16 06:39> - Laboratory Result Diagrams: 08/27/16 21:25 08/27/16 21:25 <TRACY HOLLY - Last Filed: 09/02/16 21:08> - Re-evaluation Re-evalutation: 08/28/16 01:14 I personally performed the services described in the documentation, reviewed and edited the documentation which was dictated to my scribe in my presence, and it accurately records my words and actions. She presents emergency problem with one or 2 episodes nausea vomiting one to make sure she wasn't . She said she is supposed be on thyroid medication and borderline diabetes and does not have a primary care physician. On examination she was initially tachycardic currently at the bedside she is not tachycardic normotensive and afebrile Zofran completely resolved her nausea serial dolling examinations no acute tenderness guarding rebound rigidity she is not urinalysis is negative. Going to discharge her home on Zofran 1- 2 day follow-up with the clinic she is call them and make an appointment for a new primary care physician and specifically discussed reasons for ED return sooner (TRACY HOLLY) - Vital Signs Vital signs: Temp Pulse Resp BP Pulse Ox 98.0 F 92 20 97/65 L 100 08/28/16 01:42 08/28/16 01:42 08/28/16 01:42 08/28/16 01:42 08/28/16 01:42 - Laboratory Laboratory results interpreted by me: 08/27/16 21:25 WBC 11.1 H Discharge <OLLIE CALDERON - Last Filed: 08/28/16 06:39> <TRACY HOLLY - Last Filed: 09/02/16 21:08> - Discharge Clinical Impression: Nausea & vomiting Qualifiers: Vomiting type: unspecified Vomiting Intractability: non-intractable Qualified Code(s): R11.2 - Nausea with vomiting, unspecified Condition: Stable Disposition: HOME, SELF-CARE Instructions: Antinausea Medication ([facility]) Additional Instructions: Vomiting Vomiting can be part of many illnesses. Most cases of vomiting are due to gastroenteritis, usually a viral infection in the intestinal tract. There is no specific treatment. The disease will end by itself. For now, the main danger to your child is dehydration. During the first few hours of the illness, give clear liquids, such as Pedialyte. Try to give small quantities frequently, such as a teaspoon of liquid every minute or about an ounce of fluids every five to ten minutes. Medications may be prescribed by the physician for special cases. After an hour or two of fluids without vomiting, add rice cereal, toast, applesauce, or bananas and other more solid foods to the clear liquids. Call the physician or go to the hospital if vomiting increases or blood appears in the bowel movement or vomitus; if your child fails to improve, or if signs of dehydration occur (no wet diapers for eight to twelve hours, tongue and mouth become dry, not acting as alert as usual). Referrals: [facility] [Provider Group] - Follow up in 3-5 days (Call in a.m. for appointment to be seen in follow-up in 3-4 days return for increasing worsening or new symptoms) Scribe Documentation - Scribe Written by Tessie:: Ollie Calderon 08/28/16 6:42 acting as scribe for :: Carlton <OLLIE CALDERON - Last Filed: 08/28/16 06:39>
[2016-08-28] MEDS ORDERED: ONDANSETRON 4 MG TAB.RAPDIS PO ONE (00:21)
[2016-08-28 01:43] VITALS: BP 97/65
== END 2016-08-28 01:43 | disposition home or self-care (01) ==
LOC: ER 20:31
DX: R11.2 Nausea with vomiting, unspecified (principal); R63.0 Anorexia; R00.0 Tachycardia, unspecified; R73.03 Prediabetes; K22.70 Barrett's esophagus without dysplasia; E03.9 Hypothyroidism, unspecified; Z91.14 Patient's other noncompliance with medication regimen; Z32.02 Encounter for pregnancy test, result negative
CPT/HCPCS: 99283; 36415; 84703; 85025; 80053; 81001; S0119

== ENCOUNTER 2016-09-02 14:22 | Emergency (ER) | payer SELFPAY ==
[2016-09-02] MEDS ORDERED: IBUPROFEN 600 MG TABLET PO ONE (16:35)
--- NOTE | 2016-09-02 16:48 | ER Document Report ---
ED Extremity Problem, Lower - General Chief Complaint: Ankle Injury Stated Complaint: ANKLE PAIN Time seen by provider: 15:30 Mode of Arrival: Ambulatory Information source: Patient Notes: 21-year-old female presents to ED for pain in her left ankle and knee. She was in the emergency room on 08/07/2016 for ankle and knee pain was discharged home with a possible sprain. She states she had crutches and a splint and she was supposed to follow-up with orthopedics which she states she never did. She states she took her splint off when the ankle was feeling better and then this morning her ankle and knee started hurting again. No new injury noted. TRAVEL OUTSIDE OF THE [place] IN LAST 30 DAYS: No - HPI Patient complains to provider of: Injury, Pain, Swelling Location: Ankle, Knee Occurred: Other - Injured on 08/07/2016 and then states when she took her splint off her pain started again today Onset/Duration: Intermittent Quality of pain: Sharp, Throbbing Severity: Moderate Pain Level: 4 Context: Other - Took her splint off and her knee and ankle started hurting again Recent injury: No Associated symptoms: Painful ambulation Exacerbated by: Movement, Walking Relieved by: Elevation, Ice, Rest - Related Data Allergies/Adverse Reactions: cephalexin monohydrate [From Keflex] Allergy (Verified 09/02/16 14:38) peanut [Peanut] Allergy (Verified 09/02/16 14:38) morphine Adverse Reaction (Verified 09/02/16 14:38) Past Medical History - General Information source: Patient - Social History Smoking Status: Never Smoker Cigarette use (# per day): No Chew tobacco use (# tins/day): No Smoking Education Provided: No Frequency of alcohol use: Social Drug Abuse: None Lives with: Family Family History: CVA, DM, Hyperlipidemia, Hypertension, Malignancy, Thyroid Disfunction Patient has suicidal ideation: No Patient has homicidal ideation: No - Past Medical History Cardiac Medical History: Reports: None Pulmonary Medical History: Reports: None EENT Medical History: Reports: None Neurological Medical History: Reports: Hx Migraine Endocrine Medical History: Reports: Hx Diabetes Mellitus Type 2, Hx Hypothyroidism Renal/ Medical History: Reports: None Malignancy Medical History: Reports: None GI Medical History: Reports: Hx Gastroesophageal Reflux Disease Musculoskeltal Medical History: Reports Hx Musculoskeletal Trauma Skin Medical History: Reports None Psychiatric Medical History: Reports: Hx Attention Deficit Hyperactivity Disorder, Hx Bipolar Disorder, Hx Post Traumatic Stress Disorder, Hx Schizophrenia Traumatic Medical History: Reports: Hx Fractures - Right arm Infectious Medical History: Reports: None Past Surgical History: Reports: Hx Cholecystectomy, Hx Dilation and Curettage - With , Hx Oral Surgery - [place] teeth - Immunizations Hx Diphtheria, Pertussis, Tetanus Vaccination: Yes Review of Systems - Review of Systems Constitutional: No symptoms reported EENT: No symptoms reported Cardiovascular: No symptoms reported Respiratory: No symptoms reported Gastrointestinal: No symptoms reported Genitourinary: No symptoms reported Female Genitourinary: No symptoms reported Musculoskeletal: Muscle pain, Other - Knee and ankle pain patient states she has swelling to both Skin: No symptoms reported Hematologic/Lymphatic: No symptoms reported Neurological/Psychological: No symptoms reported Physical Exam - Vital signs Vitals: Temp Pulse Resp BP Pulse Ox 98.4 F 134 H 18 148/63 H 100 09/02/16 14:39 09/02/16 14:39 09/02/16 14:39 09/02/16 14:39 09/02/16 14:39 Interpretation: Normal - General General appearance: Appears well, Alert - HEENT Head: Normocephalic, Atraumatic Eyes: Normal Pupils: PERRL - Respiratory Respiratory status: No respiratory distress Chest status: Nontender Breath sounds: Normal Chest palpation: Normal - Cardiovascular Rhythm: Regular Heart sounds: Normal auscultation Murmur: No - Abdominal Inspection: Normal Distension: No distension Bowel sounds: Normal Tenderness: Nontender Organomegaly: No organomegaly - Back Back: Normal, Nontender - Extremities General upper extremity: Normal inspection, Nontender, Normal color, Normal ROM , Normal temperature General lower extremity: Nontender, Normal color, Normal temperature, Normal weight bearing. No: Juan's sign Knee: Tender, Pain with ROM, Patellar tendon intact. No: Joint effusion, Popliteal fossa tender Ankle: Tender, Edema - Minimal, Unable to bear weight - Neurological Neuro grossly intact: Yes Cognition: Normal Orientation: AAOx4 [place] Coma Scale Eye Opening: Spontaneous [place] Coma Scale Verbal: Oriented [place] Coma Scale Motor: Obeys Commands Hermes Coma Scale Total: 15 Speech: Normal Motor strength normal: LUE, RUE, LLE, RLE Sensory: Normal - Psychological Associated symptoms: Normal affect, Normal mood - Skin Skin Temperature: Warm Skin Moisture: Dry Skin Color: Normal Course - Re-evaluation Re-evalutation: 09/02/16 20:00 Discussed x-rays with patient. Patient treated with ibuprofen for discomfort and instructed to follow-up with orthopedics of her ankle and knee continued to hurt patient has crutches from her last visit. Patient denies any new injuries she states that her knee and ankle started swelling from last injuries. - Vital Signs Vital signs: Temp Pulse Resp BP Pulse Ox 98.6 F 108 H 18 118/53 L 100 09/02/16 17:03 09/02/16 17:03 09/02/16 17:03 09/02/16 17:03 09/02/16 17:03 - Diagnostic Test Radiology reviewed: Image reviewed, Reports reviewed Discharge - Discharge Clinical Impression: Ankle pain, left Qualifiers: Chronicity: unspecified Qualified Code(s): M25.572 - Pain in left ankle and joints of left foot Knee pain, left Qualifiers: Chronicity: unspecified Qualified Code(s): M25.562 - Pain in left knee Condition: Stable Disposition: HOME, SELF-CARE Additional Instructions: You were seen today for return of pain to your left knee and ankle. Your x- rays showed no acute changes. No soft tissue swelling. No fractures or dislocations. ICE & ELEVATION: Apply ice packs frequently against the painful area. Many different schedules are recommended, such as "20 minutes on, 20 minutes off" or "one hour ice, two hours rest." If you need to work, you may need to go longer between ice treatments. You should plan to have the area ice packed AT LEAST one- fourth of the time. The ice should be applied over the wrap, tape, or splint, or over a layer of cloth -- not directly against the skin. Some ice bags have a built-in cloth and can be put directly on the skin. Your injured part should be elevated as much as possible over the next 48 hours. Try to keep the injury above the level of the heart. Avoid use of the injured area. Elevation and rest will decrease the swelling. USE OF [id number] IBUPROFEN: Ibuprofen (Advil, Nuprin, Medipren, Motrin IB) is a medication for fever and pain control. In addition, it has anti- inflammatory effects which may be beneficial, especially in the treatment of injuries. It's best to take ibuprofen with food. Persons with ulcer disease or allergy to aspirin should notify their physician of this before taking ibuprofen. Ibuprofen can be given every four to six hours, for a total of four doses daily. Age Pain or fever dose Antiinflammatory dose 6-8 yr 200 mg (1 tab) 200 mg (1 tab) 9-11 yr 200 mg (1 tab) 200-400 mg (1-2 tab) 11-14 yr 200-400 mg (1-2 tab) 400 mg (2 tab) 15-adult 400 mg (2 tab) 600 mg (3 tab) FOLLOW-UP CARE: If you have been referred to a physician for follow-up care, call the physician s office for an appointment as you were instructed or within the next two days. If you experience worsening or a significant change in your symptoms, notify the physician immediately or return to the Emergency Department at any time for re-evaluation. Forms: Elevated Blood Pressure Referrals: ROD DAHL MD [ACTIVE STAFF] - Follow up as needed
[2016-09-02 17:05] VITALS: BP 118/53
== END 2016-09-02 17:10 | disposition home or self-care (01) ==
LOC: ER 14:22
DX: M25.572 Pain in left ankle and joints of left foot (principal); M25.562 Pain in left knee
CPT/HCPCS: 99283

== ENCOUNTER 2016-09-24 16:38 | Emergency (ER) | payer SELFPAY ==
[2016-09-24] MEDS ORDERED: ONDANSETRON 4 MG TAB.RAPDIS PO ONE (17:31)
[2016-09-24] MEDS ORDERED: IBUPROFEN 800 MG TABLET PO ONE (17:32)
--- NOTE | 2016-09-24 17:36 | ER Document Report ---
ED Medical Screen (RME) - General Chief Complaint: Headache Stated Complaint: HEADACHE Mode of Arrival: Medic Information source: Patient Notes: This is a 21-year-old female who presents to the ER with concern for headache and neck pain. She has had a diffuse headache for the past 4 days, and she has tried [id number] medications to no avail. She reports subjective fevers. She states that her neck feels stiff today. She also has right-sided ear pain. No sore throat. She discovered a painful lump on the right posterior scalp today. She reports 2 episodes of vomiting yesterday and one episode of vomiting today. No known sick contacts. I have greeted and performed a rapid initial assessment of this patient. A comprehensive ED assessment and evaluation of the patient, analysis of test results and completion of the medical decision making process will be conducted by additional ED providers. TRAVEL OUTSIDE OF THE [place] IN LAST 30 DAYS: No - Related Data Allergies/Adverse Reactions: cephalexin monohydrate [From Keflex] Allergy (Verified 09/02/16 14:38) peanut [Peanut] Allergy (Verified 09/02/16 14:38) morphine Adverse Reaction (Verified 09/02/16 14:38) Past Medical History Neurological Medical History: Reports: Hx Migraine Endocrine Medical History: Reports: Hx Diabetes Mellitus Type 2, Hx Hypothyroidism Renal/ Medical History: Denies: Hx Peritoneal Dialysis GI Medical History: Reports: Hx Gastroesophageal Reflux Disease Musculoskeltal Medical History: Reports Hx Musculoskeletal Trauma Psychiatric Medical History: Reports: Hx Attention Deficit Hyperactivity Disorder, Hx Bipolar Disorder, Hx Post Traumatic Stress Disorder, Hx Schizophrenia Traumatic Medical History: Reports: Hx Fractures - Right arm Past Surgical History: Reports: Hx Cholecystectomy, Hx Dilation and Curettage - With , Hx Oral Surgery - [place] teeth - Immunizations Hx Diphtheria, Pertussis, Tetanus Vaccination: Yes Physical Exam - Vital signs Vitals: Temp Pulse Resp BP Pulse Ox 98.8 F 107 H 18 129/60 H 98 09/24/16 16:45 09/24/16 16:45 09/24/16 16:45 09/24/16 16:45 09/24/16 16:45 Course - Vital Signs Vital signs: Temp Pulse Resp BP Pulse Ox 98.8 F 107 H 18 129/60 H 98 09/24/16 16:45 09/24/16 16:45 09/24/16 16:45 09/24/16 16:45 09/24/16 16:45 - Laboratory Result Diagrams: 09/24/16 17:40 09/24/16 17:40 Laboratory results interpreted by me: 09/24/16 17:40 [place] < 0.2 L
[2016-09-24 18:02] LABS: ABSOLUTE BASOPHILS # (AUTO) 0.1 10^3/uL (0.0-0.2); ABSOLUTE EOSINOPHILS # (AUTO) 0.2 10^3/uL (0.0-0.6); ABSOLUTE LYMPHOCYTES (AUTO) 1.7 10^3/uL (0.5-4.7); ABSOLUTE NEUT (AUTO) 7.1 10^3/uL (1.7-8.2); BASOPHILS % (AUTO) 0.5 % (0-2); EOSINOPHILS % (AUTO) 2.1 % (0-6); HEMATOCRIT 40.6 % (36.0-47.0); HEMOGLOBIN 13.7 g/dL (12.0-15.5); HGB HCT DIFFERENCE 0.5; LYMPHOCYTES % (AUTO) 16.8 % (13-45); MEAN CORPUSCULAR HEMOGLOBIN 28.6 pg (27.0-33.4); MEAN CORPUSCULAR HGB CONC 33.7 g/dL (32.0-36.0); MEAN CORPUSCULAR VOLUME 85 fl (80-97); MONOCYTES % (AUTO) 10.3 % (3-13); RED BLOOD COUNT 4.78 10^6/uL (3.72-5.28); RED CELL DISTRIBUTION WIDTH 13.8 % (11.5-14.0); SEGMENTED NEUTROPHILS % (AUTO) 70.3 % (42-78); WHITE BLOOD COUNT 10.1 10^3/uL (4.0-10.5)
[2016-09-24 18:09] LABS: APPEARANCE,URINE SLIGHTLY-CLOUDY; BILIRUBIN,URINE NEGATIVE (NEGATIVE); GLUCOSE, URINE NEGATIVE (NEGATIVE); KETONES,URINE NEGATIVE (NEGATIVE); LEUKOCYTE ESTERASE,URINE NEGATIVE (NEGATIVE); NITRITE,URINE NEGATIVE (NEGATIVE); PROTEIN,URINE NEGATIVE (NEGATIVE); URINE SPECIFIC GRAVITY 1.013; UROBILINOGEN,URINE NEGATIVE mg/dL (<2.0)
[2016-09-24 18:31] LABS: ALANINE AMINOTRANSFERASE 43 U/L (9-52); ALBUMIN 4.3 g/dL (3.5-5.0); ALKALINE PHOSPHATASE 95 U/L (38-126); ANION GAP 12 (5-19); ASPARTATE AMINO TRANSFERASE 27 U/L (14-36); BILIRUBIN,DIRECT 0.2 mg/dL (0.0-0.4); BILIRUBIN,TOTAL 0.5 mg/dL (0.2-1.3); BLOOD UREA NITROGEN 12 mg/dL (7-20); CALCIUM 9.8 mg/dL (8.4-10.2); CARBON DIOXIDE 26 mmol/L (22-30); CHLORIDE 105 mmol/L (98-107); CREATININE RESULT 0.77 mg/dL (0.52-1.25); GLUCOSE 83 mg/dL (75-110); POTASSIUM 4.1 mmol/L (3.6-5.0); TOTAL PROTEIN 7.7 g/dL (6.3-8.2)
[2016-09-24] MEDS ORDERED: ONDANSETRON HCL INJ/PF 4 MG/2 ML SDV IV ONE (19:55)
[2016-09-24] MEDS ORDERED: DIAZEPAM INJ 10 MG/2 ML DISP.SYRIN IV ONE (19:55)
[2016-09-24] MEDS ORDERED: NORMAL SALINE 1000 ML 1,000 ML IV PRN (19:55)
--- NOTE | 2016-09-24 20:01 | ER Document Report ---
ED Headache - General Chief Complaint: Headache Stated Complaint: HEADACHE Time seen by provider: 19:56 Mode of Arrival: Medic TRAVEL OUTSIDE OF THE [place] IN LAST 30 DAYS: No - HPI Patient complains to provider of: Headache Patient reports: Frequent migraines Onset: Other - 4 days Onset was: Gradual Timing: Still present Quality of pain: Achy, Pressure, Throbbing Severity: Moderate Pain Level: 4 Associated symptoms: Fever - Subjective, Nausea/vomiting, Other - Neck pain Exacerbated by: Movement Notes: Patient is a 21-year-old female presents to the emergency room complaining of headache that's been present 4 days, with vomiting 2 episodes, once yesterday and once today, a subjective fever with a temperature of 99.0 via EMS, nausea, diaphoresis, neck pain with a "knot", to her posterior scalp, patient denies any sick contacts, no recent travel, no abdominal pain, she does report a history of headaches in the past, denies any head injury - Related Data Allergies/Adverse Reactions: cephalexin monohydrate [From Keflex] Allergy (Verified 09/02/16 14:38) peanut [Peanut] Allergy (Verified 09/02/16 14:38) morphine Adverse Reaction (Verified 09/02/16 14:38) Past Medical History - General Information source: Patient - Social History Smoking Status: Never Smoker Family History: CVA, DM, Hyperlipidemia, Hypertension, Malignancy, Thyroid Disfunction Neurological Medical History: Reports: Hx Migraine Endocrine Medical History: Reports: Hx Diabetes Mellitus Type 2, Hx Hypothyroidism Renal/ Medical History: Denies: Hx Peritoneal Dialysis GI Medical History: Reports: Hx Gastroesophageal Reflux Disease Musculoskeltal Medical History: Reports Hx Musculoskeletal Trauma Psychiatric Medical History: Reports: Hx Attention Deficit Hyperactivity Disorder, Hx Bipolar Disorder, Hx Post Traumatic Stress Disorder, Hx Schizophrenia Traumatic Medical History: Reports: Hx Fractures - Right arm Past Surgical History: Reports: Hx Cholecystectomy, Hx Dilation and Curettage - With , Hx Oral Surgery - [place] teeth - Immunizations Hx Diphtheria, Pertussis, Tetanus Vaccination: Yes Review of Systems - Review of Systems Constitutional: Fever - Subjective EENT: Ear pain Cardiovascular: No symptoms reported Respiratory: No symptoms reported Gastrointestinal: Nausea, Vomiting Genitourinary: No symptoms reported Female Genitourinary: No symptoms reported Musculoskeletal: Neck pain Skin: No symptoms reported Hematologic/Lymphatic: No symptoms reported Neurological/Psychological: Headaches -: Yes All other systems reviewed and negative Physical Exam - Vital signs Vitals: Temp Pulse Resp BP Pulse Ox 98.8 F 107 H 18 129/60 H 98 09/24/16 16:45 09/24/16 16:45 09/24/16 16:45 09/24/16 16:45 09/24/16 16:45 Interpretation: Normal - General General appearance: Appears well, Alert - HEENT Head: Normocephalic, Atraumatic Eyes: Normal Pupils: PERRL Ears: Normal External canal: Normal Tympanic membrane: Normal Sinus: Normal Nasal: Normal Mouth/Lips: Normal Mucous membranes: Normal Pharynx: Erythema Neck: Other - Tender to palpate paraspinal musculature - Respiratory Respiratory status: No respiratory distress Chest status: Nontender Breath sounds: Normal Chest palpation: Normal - Cardiovascular Rhythm: Regular Heart sounds: Normal auscultation Murmur: No - Abdominal Inspection: Normal Distension: No distension Bowel sounds: Normal Tenderness: Nontender Organomegaly: No organomegaly - Back Back: Tender - Tender to palpate thoracic paraspinal musculature - Extremities General upper extremity: Normal inspection, Nontender, Normal color, Normal ROM , Normal temperature General lower extremity: Normal inspection, Nontender, Normal color, Normal ROM , Normal temperature, Normal weight bearing. No: Juan's sign - Neurological Neuro grossly intact: Yes Cognition: Normal Orientation: AAOx4 Hermes Coma Scale Eye Opening: Spontaneous Hermes Coma Scale Verbal: Oriented [place] Coma Scale Motor: Obeys Commands Hermes Coma Scale Total: 15 Speech: Normal Motor strength normal: LUE, RUE, LLE, RLE Sensory: Normal - Psychological Associated symptoms: Normal affect - Skin Skin Temperature: Warm Skin Moisture: Dry Skin Color: Normal Course - Re-evaluation Re-evalutation: 09/24/16 23:53 Patient is up and ambulating, when I asked her if she was feeling any better, she shook her head now, she was able to move her head both sides quite rapidly and with good range of motion, however she reported to me that she has absolutely no relief of her symptoms and is now having low back pain as well, I reviewed her lab and imaging findings were chart completely unremarkable, she is afebrile during her stay in the emergency room as well she is now complaining of low back pain as well, patient has a history of frequent visits to this emergency room for pain complaints in the past, therefore she will be discharged with instructions to follow-up with her primary care provider or return if her symptoms worsen, patient acknowledges understanding with this plan - Vital Signs Vital signs: Temp Pulse Resp BP Pulse Ox 98.8 F 107 H 18 129/60 H 98 09/24/16 16:45 09/24/16 16:45 09/24/16 16:45 09/24/16 16:45 09/24/16 16:45 - Laboratory Result Diagrams: 09/24/16 17:40 09/24/16 17:40 Laboratory results interpreted by me: 09/24/16 09/24/16 17:40 17:40 TSH 5.13 H Free T4 4.17 H [place] < 0.2 L - Diagnostic Test Radiology reviewed: Image reviewed, Reports reviewed Discharge - Discharge Clinical Impression: Cervical strain Qualifiers: Encounter type: initial encounter Qualified Code(s): S16.1XXA - Strain of muscle, fascia and tendon at neck level, initial encounter Headache Qualifiers: Headache type: unspecified Headache chronicity pattern: acute headache Intractability: intractable Qualified Code(s): R51 - Headache Low back pain Qualifiers: Chronicity: acute Back pain laterality: midline Sciatica presence: without sciatica Qualified Code(s): M54.5 - Low back pain Condition: Stable Disposition: HOME, SELF-CARE Instructions: Antinausea Medication ([facility]), Headache ([facility]), Low Back Pain ([facility]) Additional Instructions: Follow up with your primary care provider in one to 2 days. Return to the emergency room immediately if symptoms worsen or any additional concerns. Prescriptions: Ibuprofen [Motrin 600 Mg Tablet] 600 mg PO TID #30 tablet Levothyroxine Sodium [Synthroid 0.1 mg Tablet] 0.1 mg PO DAILY #30 tablet Ondansetron [Zofran Odt 4 mg Tablet] 1 - 2 tab PO Q4H #10 tab.rapdis
[2016-09-24 20:55] LABS: FREE T3 4.17 pg/mL (2.77-5.27)
[2016-09-24] MEDS ORDERED: KETOROLAC TROMETHAMINE INJ/PF 30 MG/1 ML SDV IV ONE (21:45)
[2016-09-24 22:22] LABS: THYROID STIMULATING HORMONE 5.13 uIU/mL (0.47-4.68)
[2016-09-25 01:10] VITALS: BP 134/72
== END 2016-09-25 00:15 | disposition home or self-care (01) ==
LOC: ER 16:38
DX: S16.1XXA Strain of muscle, fascia and tendon at neck level, initial encounter (principal); M54.5 Low back pain; X58.XXXA Exposure to other specified factors, initial encounter; R51 Headache; R50.9 Fever, unspecified; R11.2 Nausea with vomiting, unspecified; E11.9 Type 2 diabetes mellitus without complications; E03.9 Hypothyroidism, unspecified; K21.9 Gastro-esophageal reflux disease without esophagitis; Z90.49 Acquired absence of other specified parts of digestive tract; Z88.6 Allergy status to analgesic agent; Z91.010 Allergy to peanuts
CPT/HCPCS: 99284; 96361; 96374; 96375; 36415; 87070; 84439; 87880; 80178; 84443; 84703; 85025; 80053; 81001; 84481; 87804; 70450; 72125; J3360; S0119; J1885; J2405; J7030

== ENCOUNTER 2016-10-03 00:47 | Emergency (ER) | payer SELFPAY ==
[2016-10-03] MEDS ORDERED: ONDANSETRON 4 MG TAB.RAPDIS PO ONE (01:15)
[2016-10-03] MEDS ORDERED: LIDOCAINE 2% URO-JET 5 ML KIT MM ONE (01:23)
[2016-10-03] MEDS ORDERED: NORMAL SALINE 500 ML IV ONE (01:23)
--- NOTE | 2016-10-03 01:56 | ER Document Report ---
ED Oral Problem - General Mode of Arrival: Ambulatory Information source: Patient TRAVEL OUTSIDE OF THE [place] IN LAST 30 DAYS: No - HPI Patient complains to provider of: Toothache Onset: Other - see narrative Quality of pain: No pain Severity: None Recently seen / treated by doctor/dentist: Yes - General Chief Complaint: Nausea/Vomiting/Diarrhea Stated Complaint: VOMITING,DIARRHEA,JAW PAIN Notes: Patient is a 21-year-old female that presents to the emergency department today with complaints of vomiting and diarrhea. Patient states 8 days ago she was seen in this facility because of an enlarged lymph node. Patient states "they were not able to find infection" though. Patient states she was seen by her dentist after this and was told she had a "bad tooth" and said tooth was extracted. Patient states she was not given antibiotics by her dentist initially so she went back to see him on September 29 and was started on antibiotics. Patient states she was prescribed amoxicillin. Patient states she has an appointment to see an oral surgeon next week about possibly extracting another tooth. (CHERRIE BALLESTEROS) - Related Data Allergies/Adverse Reactions: cephalexin monohydrate [From Keflex] Allergy (Verified 09/02/16 14:38) Latex, Natural Rubber Allergy (Verified 10/03/16 00:53) peanut [Peanut] Allergy (Verified 09/02/16 14:38) morphine Adverse Reaction (Verified 09/02/16 14:38) Past Medical History - General Information source: Patient - Social History Smoking Status: Never Smoker Cigarette use (# per day): No Frequency of alcohol use: None Drug Abuse: None Lives with: Family Family History: Reviewed & Not Pertinent, CVA, DM, Hyperlipidemia, Hypertension , Malignancy, Thyroid Disfunction Patient has suicidal ideation: No Patient has homicidal ideation: No - Medical History Medical History: Negative Neurological Medical History: Reports: Hx Migraine Endocrine Medical History: Reports: Hx Diabetes Mellitus Type 2, Hx Hypothyroidism GI Medical History: Reports: Hx Gastroesophageal Reflux Disease Musculoskeltal Medical History: Reports Hx Musculoskeletal Trauma Psychiatric Medical History: Reports: Hx Attention Deficit Hyperactivity Disorder, Hx Bipolar Disorder, Hx Post Traumatic Stress Disorder, Hx Schizophrenia Traumatic Medical History: Reports: Hx Fractures - Right arm Past Surgical History: Reports: Hx Cholecystectomy, Hx Dilation and Curettage - With , Hx Oral Surgery - [place] teeth - Immunizations Hx Diphtheria, Pertussis, Tetanus Vaccination: Yes Review of Systems - Review of Systems Constitutional: No symptoms reported EENT: See HPI, Dental problem Cardiovascular: No symptoms reported Respiratory: No symptoms reported Gastrointestinal: See HPI, Nausea, Vomiting Genitourinary: No symptoms reported Female Genitourinary: No symptoms reported Musculoskeletal: No symptoms reported Skin: No symptoms reported Hematologic/Lymphatic: No symptoms reported Neurological/Psychological: No symptoms reported -: Yes All other systems reviewed and negative Physical Exam - Vital signs Vitals: Temp Pulse Resp BP Pulse Ox 98.3 F 109 H 16 138/93 H 99 10/03/16 00:50 10/03/16 00:50 10/03/16 00:50 10/03/16 00:50 10/03/16 00:50 - Notes Notes: Physical Exam: General: Alert, appears well. HEENT: Normocephalic. Atraumatic. PERRL. Extraocular movements intact. Oropharynx clear. TMs are clear bilaterally. Recent extraction noted at tooth # 17. No abscess or erythema. Right sided anterior cervical lymphadenopathy. Neck: Supple. Non-tender. Respiratory: No respiratory distress. Clear and equal breath sounds bilaterally. Cardiovascular: Regular rate and rhythm. Abdominal: Obese. Non-tender. No distension. Normal Bowel Sounds. Back: Non-tender. No deformity or step off. Extremities: Moves all four extremities. Upper extremities: Normal inspection. Normal ROM. Lower extremities: Normal inspection. No edema. Normal ROM. Neurological: Normal cognition. AAOx4. Normal speech. Psychological: Normal affect. Normal Mood. Skin: Warm. Dry. Normal color. (CHERRIE BALLESTEROS) Course - Re-evaluation Re-evalutation: 10/03/16 03:01 Patient presents emergency Department chief complaint of nausea vomiting and diarrhea as well as recent dental extraction. She was here 8 days ago she had a tooth pulled them was not given antibiotics for the dentist 2 days later she started having symptoms concerning for infection was placed on antibiotics. Started vomiting so the dentist on the first he said that she needed another dental extraction but referred her to oral surgery. She has been given a prescription for clindamycin was unable to fill it. She has no urinary blood or burning urination denies any chance of with her first last menstrual period being 12 on the of last month. She is well-appearing nontoxic afebrile no acute distress dental extraction site looks normal no obvious facial swelling tenderness trachea is midline neck is supple she has a resolving lymphadenopathy on the right side which is freely mobile and not fixed. Posterior pharynx without erythema edema or exudate no cellulitis abscess trachea midline neck is supple heart lungs abdomen no acute findings. When and give her Zofran which controlled the vomiting she is tolerating oral fluids here gave her shot of clindamycin urinalysis is negative for infection. In addition discharge her home on Zofran and have her follow primary care physician one 2 days dental physician as directed and discussed reasons For ed return sooner (TRACY HOLLY) - Vital Signs Vital signs: Temp Pulse Resp BP Pulse Ox 98.3 F 92 15 110/56 L 98 10/03/16 03:19 10/03/16 03:27 10/03/16 03:27 10/03/16 03:27 10/03/16 03:27 - Laboratory Laboratory results interpreted by me: 10/03/16 02:33 Urine Ascorbic Acid 40 H Discharge - Discharge Clinical Impression: vomiting and diarrhea, recent dental extraction Condition: Stable Disposition: HOME, SELF-CARE Additional Instructions: Vomiting Vomiting can be part of many illnesses. Most cases of vomiting are due to gastroenteritis, usually a viral infection in the intestinal tract. There is no specific treatment. The disease will end by itself. For now, the main danger to your child is dehydration. During the first few hours of the illness, give clear liquids, such as Pedialyte. Try to give small quantities frequently, such as a teaspoon of liquid every minute or about an ounce of fluids every five to ten minutes. Medications may be prescribed by the physician for special cases. After an hour or two of fluids without vomiting, add rice cereal, toast, applesauce, or bananas and other more solid foods to the clear liquids. Call the physician or go to the hospital if vomiting increases or blood appears in the bowel movement or vomitus; if your child fails to improve, or if signs of dehydration occur (no wet diapers for eight to twelve hours, tongue and mouth become dry, not acting as alert as usual). Diarrhea Diarrhea means frequent, watery stools. There are many causes. Any problem that keeps the intestinal tract from absorbing water from the stool can lead to diarrhea. A sudden new diarrhea problem is usually caused by a virus, food sensitivity, toxic bacteria, or drugs. In this case, we expect the problem to go away soon. Testing is done only if you seem seriously ill from the diarrhea. If you have chronic diarrhea, or diarrhea that keeps coming back, we need to find out why. Chronic diarrhea can be due to inflammation of the bowels such as Crohn's disease or ulcerative colitis, food sensitivity such as intolerance to lactose or wheat protein, irritable bowel syndrome, and other problems. If your diarrhea is a significant problem but it's not clear why you have it, we' ll refer you to a specialist for further testing. During an episode of diarrhea, drink small amounts (two to six ounces) of clear liquids (soft drinks, sport drinks, herb teas, broth, etc). Take fluids frequently to prevent dehydration. It's usually not a problem to take mild anti- diarrhea medication such as Kaopectate or Pepto-Bismol. As the diarrhea eases, advance to small amounts of bland food (mashed potato, toast) for 24 hours. Call the physician if blood appears in your vomit or stool, if vomiting lasts longer than 24 hours, if the abdominal pain worsens or becomes localized to one area, if you develop high fever, or if you become lightheaded and weak. recent dental extraction Prescriptions: Clindamycin HCl 300 mg PO BID #14 capsule Ondansetron [Zofran Odt 4 mg Tablet] 1 - 2 tab PO Q4H PRN #15 tab.rapdis PRN Reason: For Nausea/Vomiting Referrals: [facility] [Provider Group] (Call for an appointment to be seen in follow-up in 2-3 days return for increasing worsening or new symptoms) Eryne Attestation: 10/03/16 03:01 I personally performed the services described in the documentation reviewed the documentation recorded by my scribe in my presence and it accurately and completely records my words and actions (TRACY HOLLY) Scribe Documentation - Scribe Written by Tessie:: Tessie Smith, [id number] 10/03/2016 acting as scribe for :: Carlton
[2016-10-03] MEDS ORDERED: CLINDAMYCIN PHOSPHATE INJ 300 MG/2 ML SDV IM ONE (01:57)
[2016-10-03 02:57] LABS: APPEARANCE,URINE CLOUDY; BILIRUBIN,URINE NEGATIVE (NEGATIVE); GLUCOSE, URINE NEGATIVE (NEGATIVE); KETONES,URINE NEGATIVE (NEGATIVE); LEUKOCYTE ESTERASE,URINE NEGATIVE (NEGATIVE); NITRITE,URINE NEGATIVE (NEGATIVE); PROTEIN,URINE NEGATIVE (NEGATIVE); URINE SPECIFIC GRAVITY 1.015; UROBILINOGEN,URINE NEGATIVE mg/dL (<2.0)
[2016-10-03] MEDS ORDERED: IBUPROFEN 600 MG TABLET PO ONE (03:11)
[2016-10-03 03:28] VITALS: BP 110/56
== END 2016-10-03 03:27 | disposition home or self-care (01) ==
LOC: ER 00:47
DX: K08.9 Disorder of teeth and supporting structures, unspecified (principal); K08.109 Complete loss of teeth, unspecified cause, unspecified class; R11.2 Nausea with vomiting, unspecified; Z98.818 Other dental procedure status; R19.7 Diarrhea, unspecified; R68.84 Jaw pain; E11.9 Type 2 diabetes mellitus without complications; E03.9 Hypothyroidism, unspecified; K21.9 Gastro-esophageal reflux disease without esophagitis; Z91.040 Latex allergy status; Z88.6 Allergy status to analgesic agent; Z91.010 Allergy to peanuts; Z90.49 Acquired absence of other specified parts of digestive tract
CPT/HCPCS: 99283; 96372; 81001; S0119

== ENCOUNTER 2016-10-06 23:50 | Emergency (ER) | payer SELFPAY ==
[2016-10-07] MEDS ORDERED: TRAZODONE HCL 50 MG TABLET PO ONE (00:54)
--- NOTE | 2016-10-07 01:00 | ER Document Report ---
ED General - General Chief Complaint: Chest Pain Stated Complaint: CHEST PAIN Time Seen by Provider: 10/07/16 00:23 Notes: Patient is a 21-year-old female with a past history of palpitations who presents with concerns of anxiety, depression and insomnia. Although in triage apparently her main complaint was that she was having chest pain with radiation of the pain to her left arm, to me she is complaining more about increased depression and inability to sleep. States that she is over 72 hours in the past 48 hours "due to my depression that is not being treated". Nothing is been noted to improve or worsen her symptoms. She notes that she chronically has chest pain with left arm pain and has been evaluated by cardiology on multiple prior occasions for this. Denies any history of DVT or pulmonary embolus. Denies any dyspnea. Denies any suicidal or homicidal ideation. Admits to taking large quantities of caffeine today and attempt to stay awake after not sleeping well overnight. She has not seen her primary care doctor regarding today's concerns. TRAVEL OUTSIDE OF THE [place] IN LAST 30 DAYS: No - Related Data Allergies/Adverse Reactions: cephalexin monohydrate [From Keflex] Allergy (Verified 10/07/16 01:35) Latex, Natural Rubber Allergy (Verified 10/07/16 01:35) peanut [Peanut] Allergy (Verified 10/07/16 01:35) morphine Adverse Reaction (Verified 10/07/16 01:35) Past Medical History - General Information source: Patient - Social History Smoking Status: Never Smoker Frequency of alcohol use: None Drug Abuse: None Lives with: Family Family History: Reviewed & Not Pertinent, CVA, DM, Hyperlipidemia, Hypertension , Malignancy, Thyroid Disfunction Patient has suicidal ideation: No Patient has homicidal ideation: No Neurological Medical History: Reports: Hx Migraine Endocrine Medical History: Reports: Hx Diabetes Mellitus Type 2, Hx Hypothyroidism Renal/ Medical History: Denies: Hx Peritoneal Dialysis GI Medical History: Reports: Hx Gastroesophageal Reflux Disease Musculoskeltal Medical History: Reports Hx Musculoskeletal Trauma Psychiatric Medical History: Reports: Hx Attention Deficit Hyperactivity Disorder, Hx Bipolar Disorder, Hx Post Traumatic Stress Disorder, Hx Schizophrenia Traumatic Medical History: Reports: Hx Fractures - Right arm Past Surgical History: Reports: Hx Cholecystectomy, Hx Dilation and Curettage - With , Hx Oral Surgery - [place] teeth - Immunizations Hx Diphtheria, Pertussis, Tetanus Vaccination: Yes Review of Systems - Review of Systems Notes: Constitutional: Negative for fever. HENT: Negative for sore throat. Eyes: Negative for visual changes. Cardiovascular: Positive for chest pain. Respiratory: Negative for shortness of breath. Gastrointestinal: Negative for abdominal pain, vomiting or diarrhea. Genitourinary: Negative for dysuria. Musculoskeletal: Negative for back pain. Skin: Negative for rash. Neurological: Negative for headaches, weakness or numbness. 10 point ROS negative except as marked above and in HPI. Physical Exam - Vital signs Vitals: Temp Pulse Resp BP Pulse Ox 98.9 F 97 18 119/72 99 10/06/16 23:57 10/06/16 23:57 10/06/16 23:57 10/06/16 23:57 10/06/16 23:57 Interpretation: Normal Notes: PHYSICAL EXAMINATION: GENERAL: Well-appearing, well-nourished and in no acute distress. HEAD: Atraumatic, normocephalic. EYES: Pupils equal round and reactive to light, extraocular movements intact, sclera anicteric, conjunctiva are normal. ENT: nares patent, oropharynx clear without exudates. Moist mucous membranes. NECK: Normal range of motion, supple without lymphadenopathy LUNGS: Breath sounds clear to auscultation bilaterally and equal. No wheezes rales or rhonchi. HEART: Regular rate and rhythm without murmurs ABDOMEN: Soft, nontender, normoactive bowel sounds. No guarding, no rebound. No masses appreciated. EXTREMITIES: Normal range of motion, no pitting or edema. No cyanosis. NEUROLOGICAL: No focal neurological deficits. Moves all extremities spontaneously and on command. PSYCH: Flat affect, poor eye contact. Appears extremely anxious. SKIN: Warm, Dry, normal turgor, no rashes or lesions noted. Course - Re-evaluation Re-evalutation: 10/07/16 00:58 Patient presents complaining more about insomnia than chest pain. Patient states she's only slept 2 hours in the past 2 days secondary to "having difficulty sleeping because of my depression". She denies any symptoms of mehnaz and does not appear manic at all on exam. Admits to taking large quantities of caffeine throughout the day today and she does have resting tachycardia baseline per her report. EKG unremarkable. Chest x-ray is clear. His symptoms do not suggest acute pulmonary embolus, aortic dissection or need for further evaluation for these diagnosis. I do not suspect ACS given normal EKG and clinical history. She has been given a dose of trazodone here in the emergency department to allow her to sleep. She will be discharged home in the custody of friends. Patient did also complain of left arm pain which she told me that she has "had for years" and is not different tonight. At this time will discharge with return precautions and follow-up recommendations. Verbal discharge instructions given a the bedside and opportunity for questions given. Medication warnings reviewed. Patient is in agreement with this plan and has verbalized understanding of return precautions and the need for primary care follow-up in the next 24-72 hours. - Vital Signs Vital signs: Temp Pulse Resp BP Pulse Ox 98.4 F 93 16 106/60 99 10/07/16 01:13 10/07/16 01:13 10/07/16 01:13 10/07/16 01:13 10/07/16 01:13 - Diagnostic Test Radiology reviewed: Image reviewed, Reports reviewed Radiology results interpreted by me: 10/07/16 02:13 Chest x-ray: No acute infiltrate or pneumothorax - EKG Interpretation by Me Additional EKG results interpreted by me: 10/07/16 02:14 There was sinus rhythm. Rate 92. No ST elevations or depressions. Discharge - Discharge Clinical Impression: Insomnia Qualifiers: Insomnia type: unspecified Qualified Code(s): G47.00 - Insomnia, unspecified Chest pain Qualifiers: Chest pain type: unspecified Qualified Code(s): R07.9 - Chest pain, unspecified Condition: Good Disposition: HOME, SELF-CARE Additional Instructions: Please return if you develop thoughts of wanting to harm yourself, hurt others, take excessive medications, began hearing voices or seeing things, or have any other symptoms that are concerning to you.
[2016-10-07 01:24] VITALS: BP 106/60
--- NOTE | 2016-10-07 16:59 | EKG REPORT ---
SEVERITY:- OTHERWISE NORMAL ECG - SINUS TACHYCARDIA : Confirmed by: Keira Bowie 07-Oct-2016 16:58:25
== END 2016-10-07 01:30 | disposition home or self-care (01) ==
LOC: ER 23:50
DX: R07.9 Chest pain, unspecified (principal); M79.602 Pain in left arm; G47.00 Insomnia, unspecified; F32.9 Major depressive disorder, single episode, unspecified; R00.0 Tachycardia, unspecified; E11.9 Type 2 diabetes mellitus without complications; Z88.1 Allergy status to other antibiotic agents; Z91.040 Latex allergy status; Z91.010 Allergy to peanuts
CPT/HCPCS: 71010; 93005; 93010; 99285

== ENCOUNTER 2016-10-26 17:58 | Emergency (ER) | payer SELFPAY ==
[2016-10-26] MEDS ORDERED: ONDANSETRON 4 MG TAB.RAPDIS PO ONE (18:29)
--- NOTE | 2016-10-26 18:33 | ER Document Report ---
ED Medical Screen (RME) - General Chief Complaint: Abdominal Pain Stated Complaint: ABDOMINAL PAIN Time Seen by Provider: 10/26/16 18:29 Mode of Arrival: Ambulatory Information source: Patient Notes: Patient is a 21-year-old female who presents to the ER today for abdominal pain, nausea and vomiting since 7 days ago. Patient states that she throws up every time she tries to eat something and that it is worse at night. She also admits to fevers and chills. She took a test at home which she states is negative another one which she thinks may have been positive. She is also complaining of some lower abdominal cramping. TRAVEL OUTSIDE OF THE [place] IN LAST 30 DAYS: No - Related Data Allergies/Adverse Reactions: cephalexin monohydrate [From Keflex] Allergy (Verified 10/26/16 18:31) Latex, Natural Rubber Allergy (Verified 10/26/16 18:31) peanut [Peanut] Allergy (Verified 10/26/16 18:31) morphine Adverse Reaction (Verified 10/26/16 18:31) Past Medical History - General Information source: Patient Neurological Medical History: Reports: Hx Migraine Endocrine Medical History: Reports: Hx Diabetes Mellitus Type 2, Hx Hypothyroidism Renal/ Medical History: Denies: Hx Peritoneal Dialysis GI Medical History: Reports: Hx Gastroesophageal Reflux Disease Musculoskeltal Medical History: Reports Hx Musculoskeletal Trauma Psychiatric Medical History: Reports: Hx Attention Deficit Hyperactivity Disorder, Hx Bipolar Disorder, Hx Post Traumatic Stress Disorder, Hx Schizophrenia Traumatic Medical History: Reports: Hx Fractures - Right arm Past Surgical History: Reports: Hx Cholecystectomy, Hx Dilation and Curettage - With , Hx Oral Surgery - [place] teeth - Immunizations Hx Diphtheria, Pertussis, Tetanus Vaccination: Yes Review of Systems - Review of Systems Constitutional: See HPI Gastrointestinal: See HPI Female Genitourinary: See HPI Physical Exam - Vital signs Vitals: Temp Pulse Resp BP Pulse Ox 99 F 118 H 16 137/64 H 100 10/26/16 18:03 10/26/16 18:03 10/26/16 18:03 10/26/16 18:03 10/26/16 18:03 - Notes Notes: PHYSICAL EXAMINATION: GENERAL: Well-appearing, and in no acute distress. ABDOMEN: Soft, mild suprapubic tenderness. No guarding, no rebound Course - Vital Signs Vital signs: Temp Pulse Resp BP Pulse Ox 99 F 118 H 16 137/64 H 100 10/26/16 18:03 10/26/16 18:03 10/26/16 18:03 10/26/16 18:03 10/26/16 18:03
[2016-10-26 19:10] LABS: ABSOLUTE BASOPHILS # (AUTO) 0.1 10^3/uL (0.0-0.2); ABSOLUTE EOSINOPHILS # (AUTO) 0.2 10^3/uL (0.0-0.6); ABSOLUTE LYMPHOCYTES (AUTO) 2.4 10^3/uL (0.5-4.7); ABSOLUTE MONOCYTES (AUTO) 1.1 10^3/uL (0.1-1.4); ABSOLUTE NEUT (AUTO) 6.8 10^3/uL (1.7-8.2); BASOPHILS % (AUTO) 0.6 % (0-2); EOSINOPHILS % (AUTO) 1.7 % (0-6); HEMATOCRIT 43.3 % (36.0-47.0); HEMOGLOBIN 14.6 g/dL (12.0-15.5); HGB HCT DIFFERENCE 0.5; LYMPHOCYTES % (AUTO) 22.5 % (13-45); MEAN CORPUSCULAR HEMOGLOBIN 28.8 pg (27.0-33.4); MEAN CORPUSCULAR HGB CONC 33.7 g/dL (32.0-36.0); MEAN CORPUSCULAR VOLUME 85 fl (80-97); MONOCYTES % (AUTO) 10.7 % (3-13); RED BLOOD COUNT 5.07 10^6/uL (3.72-5.28); SEGMENTED NEUTROPHILS % (AUTO) 64.5 % (42-78); WHITE BLOOD COUNT 10.6 10^3/uL (4.0-10.5)
[2016-10-26 19:35] LABS: AMORPHOUS SEDIMENT,URINE TRACE /HPF; APPEARANCE,URINE SLIGHTLY-CLOUDY; BILIRUBIN,URINE NEGATIVE (NEGATIVE); GLUCOSE, URINE NEGATIVE (NEGATIVE); KETONES,URINE NEGATIVE (NEGATIVE); LEUKOCYTE ESTERASE,URINE NEGATIVE (NEGATIVE); NITRITE,URINE NEGATIVE (NEGATIVE); PROTEIN,URINE NEGATIVE (NEGATIVE); URINE SPECIFIC GRAVITY 1.016; UROBILINOGEN,URINE NEGATIVE mg/dL (<2.0)
[2016-10-26 19:38] LABS: ALANINE AMINOTRANSFERASE 37 U/L (9-52); ALBUMIN 4.2 g/dL (3.5-5.0); ALKALINE PHOSPHATASE 94 U/L (38-126); ANION GAP 15 (5-19); ASPARTATE AMINO TRANSFERASE 26 U/L (14-36); BILIRUBIN,DIRECT 0.2 mg/dL (0.0-0.4); BILIRUBIN,TOTAL 0.4 mg/dL (0.2-1.3); BLOOD UREA NITROGEN 10 mg/dL (7-20); CALCIUM 9.6 mg/dL (8.4-10.2); CARBON DIOXIDE 25 mmol/L (22-30); CHLORIDE 103 mmol/L (98-107); CREATININE RESULT 0.69 mg/dL (0.52-1.25); GLUCOSE 74 mg/dL (75-110); POTASSIUM 4.2 mmol/L (3.6-5.0); SODIUM 142.5 mmol/L (137-145); TOTAL PROTEIN 7.6 g/dL (6.3-8.2)
[2016-10-26] MEDS ORDERED: NORMAL SALINE 1000 ML 1,000 ML IV ONE (19:40)
--- NOTE | 2016-10-26 19:43 | ER Document Report ---
ED GI/ - General Chief Complaint: Abdominal Pain Stated Complaint: ABDOMINAL PAIN Time Seen by Provider: 10/26/16 18:29 Mode of Arrival: Ambulatory Notes: Patient is a 21-year-old female that comes emergency department for chief complaint of nausea and vomiting, she states she vomited 3 times today, she states that she has not felt good for the past week ever since she got off a "really hard.". She states that she had a positive and a negative test at home, she states that she had some lower abdominal cramping earlier today but this resolved. She denies any vaginal discharge, dysuria, fever, or current pain. Patient states she just had a normal bowel movement. Past medical history of bipolar disorder, Cholecystectomy. TRAVEL OUTSIDE OF THE [place] IN LAST 30 DAYS: No - Related Data Allergies/Adverse Reactions: cephalexin monohydrate [From Keflex] Allergy (Verified 10/26/16 18:31) Latex, Natural Rubber Allergy (Verified 10/26/16 18:31) peanut [Peanut] Allergy (Verified 10/26/16 18:31) morphine Adverse Reaction (Verified 10/26/16 18:31) Past Medical History - General Information source: Patient - Social History Smoking Status: Former Smoker Frequency of alcohol use: None Drug Abuse: None Lives with: Family Family History: Reviewed & Not Pertinent, CVA, DM, Hyperlipidemia, Hypertension , Malignancy, Thyroid Disfunction Neurological Medical History: Reports: Hx Migraine Endocrine Medical History: Reports: Hx Diabetes Mellitus Type 2, Hx Hypothyroidism Renal/ Medical History: Denies: Hx Peritoneal Dialysis GI Medical History: Reports: Hx Gastroesophageal Reflux Disease Musculoskeltal Medical History: Reports Hx Musculoskeletal Trauma Psychiatric Medical History: Reports: Hx Attention Deficit Hyperactivity Disorder, Hx Bipolar Disorder, Hx Post Traumatic Stress Disorder, Hx Schizophrenia Traumatic Medical History: Reports: Hx Fractures - Right arm Past Surgical History: Reports: Hx Cholecystectomy, Hx Dilation and Curettage - With , Hx Oral Surgery - [place] teeth - Immunizations Hx Diphtheria, Pertussis, Tetanus Vaccination: Yes Review of Systems - Review of Systems Constitutional: No symptoms reported EENT: No symptoms reported Cardiovascular: No symptoms reported Respiratory: No symptoms reported Gastrointestinal: See HPI Genitourinary: No symptoms reported Female Genitourinary: No symptoms reported Musculoskeletal: No symptoms reported Skin: No symptoms reported Hematologic/Lymphatic: No symptoms reported Neurological/Psychological: No symptoms reported Physical Exam - Vital signs Vitals: Temp Pulse Resp BP Pulse Ox 99 F 118 H 16 137/64 H 100 10/26/16 18:03 10/26/16 18:03 10/26/16 18:03 10/26/16 18:03 10/26/16 18:03 Interpretation: Normal - General General appearance: Appears well, Alert In distress: None - HEENT Head: Normocephalic, Atraumatic Eyes: Normal Pupils: PERRL Mouth/Lips: Normal Mucous membranes: Dry - Dry mucous membranes and lips Pharynx: Normal Neck: Normal - Respiratory Respiratory status: No respiratory distress Chest status: Nontender Breath sounds: Normal. No: Decreased air movement, Wheezing Chest palpation: Normal - Cardiovascular Rhythm: Regular, Tachycardia - Borderline Heart sounds: Normal auscultation, S1 appreciated, S2 appreciated Murmur: No - Abdominal Inspection: Normal Distension: No distension Bowel sounds: Normal Tenderness: Nontender. No: Tender - Completely nontender abdomen on exam, no guarding, no rebound tenderness Organomegaly: No organomegaly - Back Back: Normal, Nontender - Extremities General upper extremity: Normal inspection, Nontender, Normal color, Normal ROM , Normal temperature General lower extremity: Normal inspection, Nontender, Normal color, Normal ROM , Normal temperature, Normal weight bearing. No: Juan's sign - Neurological Neuro grossly intact: Yes Cognition: Normal Orientation: AAOx4 [place] Coma Scale Eye Opening: Spontaneous [place] Coma Scale Verbal: Oriented [place] Coma Scale Motor: Obeys Commands [place] Coma Scale Total: 15 Speech: Normal Motor strength normal: LUE, RUE, LLE, RLE Sensory: Normal - Psychological Associated symptoms: Normal affect, Normal mood - Skin Skin Temperature: Warm Skin Moisture: Dry Skin Color: Normal Course - Re-evaluation Re-evalutation: Patient well-appearing on my exam, slightly dry mucous membranes, borderline initial heart rate showing tachycardia, completely nontender abdomen, no CVA tenderness, no current complaints. Giving IV fluids. CBC shows minimal leukocytosis with no shift, chemistry unremarkable with slightly low glucose, urinalysis unremarkable, hCG is negative. Patient refused IV fluids, extra oral fluids and nourishment, she was provided with this after initial workup was unremarkable. Physical exam is completely unremarkable. Patient retracted her statement about normal bowel movements and states that she has actually been constipated and has frequently dealt with this in the past. Patient declines pelvic examination for additional evaluation of lower abdominal pain. Based on her examination, vital signs, presentation I have low suspicion of acute abdomen or concerning infection. Patient will be treated with nausea medicine, stool softener, discussed follow- up, discussed return precautions, patient states understanding and agreement with plan. - Vital Signs Vital signs: Temp Pulse Resp BP Pulse Ox 98 F 72 20 132/62 H 98 10/26/16 21:47 10/26/16 21:47 10/26/16 21:47 10/26/16 21:47 10/26/16 21:47 - Laboratory Result Diagrams: 10/26/16 18:44 10/26/16 18:44 Laboratory results interpreted by me: 10/26/16 10/26/16 18:44 18:44 WBC 10.6 H Glucose 74 L Discharge - Discharge Clinical Impression: Abdominal pain Qualifiers: Abdominal location: generalized Qualified Code(s): R10.84 - Generalized abdominal pain Disposition: HOME, SELF-CARE Additional Instructions: Your examination and workup did not show any concerning findings, this is probably a bowel source causing your discomfort. Take the Phenergan if needed for nausea. I recommend taking the Colace as prescribed if needed, increase fiber in your diet, drink plenty of fluids. Follow-up with primary care for additional management. Return to emergency department for any concerning or worsening symptoms including persistent and worsening pain, fever of 101 or greater, vomiting, or any other concerning symptoms. Prescriptions: Docusate Sodium [Colace 100 mg Capsule] 100 mg PO DAILY #30 capsule Promethazine HCl [Phenergan 25 mg Tablet] 1 - 2 tab PO Q6H PRN #20 tablet PRN Reason:
[2016-10-26] MEDS ORDERED: ONDANSETRON ODT 4 MG TAB (6 TAB/DSPK) PO PRN (21:22)
[2016-10-26] MEDS ORDERED: DOCUSATE SODIUM 100 MG CAPSULE PO ONE (21:22)
[2016-10-26 21:49] VITALS: BP 132/62
== END 2016-10-26 21:49 | disposition home or self-care (01) ==
LOC: ER 17:58
DX: K59.00 Constipation, unspecified (principal); R10.84 Generalized abdominal pain; R11.2 Nausea with vomiting, unspecified; D72.829 Elevated white blood cell count, unspecified; E11.9 Type 2 diabetes mellitus without complications; Z90.49 Acquired absence of other specified parts of digestive tract; Z87.19 Personal history of other diseases of the digestive system; Z88.1 Allergy status to other antibiotic agents; Z91.040 Latex allergy status; Z91.010 Allergy to peanuts
CPT/HCPCS: 99284; 36415; 83690; 85025; 81025; 80053; 81001; S0119

== ENCOUNTER 2016-10-31 20:52 | Emergency (ER) | payer SELFPAY ==
[2016-10-31] MEDS ORDERED: HYDROCODONE/ACETAMINOPHEN 5-325 MG TABLET PO ONE (22:58)
--- NOTE | 2016-10-31 22:58 | RADIOLOGY REPORT (SQ) ---
EXAM DESCRIPTION: WRIST RIGHT 3 VIEWS COMPLETED DATE/TIME: 10/31/2016 10:43 pm REASON FOR STUDY: pain and swelling COMPARISON: None. NUMBER OF VIEWS: Three views. TECHNIQUE: AP, lateral, and oblique radiographic images acquired of the right wrist. LIMITATIONS: None. FINDINGS: MINERALIZATION: Normal. BONES: No acute fracture or dislocation. No worrisome bone lesions. Normal alignment. SOFT TISSUES: No soft tissue swelling. No foreign body. OTHER: No other significant finding. IMPRESSION: NEGATIVE STUDY OF THE RIGHT WRIST. NO RADIOGRAPHIC EVIDENCE OF ACUTE INJURY. TECHNICAL DOCUMENTATION: JOB ID: [id number] [employer]- All Rights Reserved
--- NOTE | 2016-10-31 23:20 | ER Document Report ---
HPI - HPI Patient complains to provider of: wrist pain Pain Level: 5 Context: Patient is a 21-year-old female presents emergency department complaining of right wrist pain. Patient states that she was lifting a heavy basket of clothes today and this morning she felt a pop in her right wrist with sudden onset of pain radiating up into her right elbow. Patient states that she has difficulty moving digits 3 through 5 but has able to make a fist and extend her hand. Sensation intact. Patient states that she has a history of a fracture in the same wrist about 3 years ago that she was in a cast and did not require open reduction internal fixation. Patient states that she took 400 mg of ibuprofen at about 10 AM with minimal relief in her symptoms. Has been using ice. - REPRODUCTIVE Reproductive: DENIES: : - DERM Skin Color: Normal, [place] Past Medical History - Social History Smoking Status: Never Smoker Chew tobacco use (# tins/day): No Frequency of alcohol use: Social Drug Abuse: None Family History: Reviewed & Not Pertinent, CVA, DM, Hyperlipidemia, Hypertension , Malignancy, Thyroid Disfunction Patient has suicidal ideation: No Patient has homicidal ideation: No Neurological Medical History: Reports: Hx Migraine Endocrine Medical History: Reports: Hx Diabetes Mellitus Type 2, Hx Hypothyroidism Renal/ Medical History: Denies: Hx Peritoneal Dialysis GI Medical History: Reports: Hx Gastroesophageal Reflux Disease Musculoskeltal Medical History: Reports Hx Musculoskeletal Trauma Psychiatric Medical History: Reports: Hx Attention Deficit Hyperactivity Disorder, Hx Bipolar Disorder, Hx Post Traumatic Stress Disorder, Hx Schizophrenia Traumatic Medical History: Reports: Hx Fractures - Right arm Past Surgical History: Reports: Hx Cholecystectomy, Hx Dilation and Curettage - With , Hx Oral Surgery - [place] teeth - Immunizations Hx Diphtheria, Pertussis, Tetanus Vaccination: Yes Vertical Provider Document - CONSTITUTIONAL Agree With Documented VS: Yes Exam Limitations: No Limitations General Appearance: WD/WN, No Apparent Distress - INFECTION CONTROL TRAVEL OUTSIDE OF THE [place] IN LAST 30 DAYS: No - RESPIRATORY O2 Sat by Pulse Oximetry: 98 - CARDIOVASCULAR Pulses: Normal: Radial Notes: cap refill <2 seconds - MUSCULOSKELETAL/EXTREMETIES Musculoskeletal/Extremeties: MAEW, FROM, Tender - on top of the wrist along the ditribution of the extensor digitorum, Edema. negative: Eccymosis - NEURO Level of Consciousness: Awake, Alert, Appropriate Motor/Sensory: No Motor Deficit, No Sensory Deficit - DERM Integumentary: Warm, Dry, No Rash. negative: Laceration Course - Re-evaluation Re-evalutation: 11/01/16 08:10 Evidence of fracture on x-ray. History consistent with wrist sprain. Patient placed in a splint with instructions for ice, Motrin and can follow-up with primary care - Vital Signs Vital signs: Temp Pulse Resp BP Pulse Ox 98.6 F 106 H 18 129/82 H 98 10/31/16 20:57 10/31/16 20:57 10/31/16 20:57 10/31/16 20:57 10/31/16 20:57 - Diagnostic Test Radiology reviewed: Image reviewed, Reports reviewed Discharge - Discharge Clinical Impression: Wrist sprain Condition: Good Disposition: HOME, SELF-CARE Instructions: Wrist Sprain ([facility]), Acetaminophen, Use of [id number]-Lvb-Ippqtll Ibuprofen ([facility]), Ice & Elevation ([facility]) Referrals: JAXON PARTIDA MD [NO LOCAL MD] - Follow up as needed [facility] [NO LOCAL MD] - Follow up as needed
[2016-10-31 23:35] VITALS: BP 107/71
== END 2016-10-31 23:23 | disposition home or self-care (01) ==
LOC: ER 20:52
DX: S63.501A Unspecified sprain of right wrist, initial encounter (principal); M25.531 Pain in right wrist; M25.521 Pain in right elbow; Z79.899 Other long term (current) drug therapy; X58.XXXA Exposure to other specified factors, initial encounter
CPT/HCPCS: 99283; 73110; L3984

== ENCOUNTER 2016-11-22 11:34 | Emergency (ER) | payer SELFPAY ==
[2016-11-22] MEDS ORDERED: CIPROFLOXACIN-HC OTIC SUSP 10 ML AU ONE (12:21)
--- NOTE | 2016-11-22 12:24 | ER Document Report ---
ED ENT - General Chief Complaint: Ear Pain Stated Complaint: BILATERAL EAR PAIN Time Seen by Provider: 11/22/16 12:12 Mode of Arrival: Ambulatory Information source: Patient Notes: 1-year-old female presents to ED for bilateral ear pain 3-4 days. She states she has been swimming frequently over the last week. And is complaining of pain in both ears. TRAVEL OUTSIDE OF THE [place] IN LAST 30 DAYS: No - HPI Patient complains to provider of: Ear problem, Nose problem Onset: Other - 4 days Onset/Duration: Gradual Quality of pain: Achy, Dull Severity: Moderate Pain Level: 4 Context: Recent Illness Location of pain: Ears, Nose, Sinus Associated symptoms: Ear pain, Runny nose, Sinus pain, Sinus drainage Similar symptoms previously: Yes Recently seen / treated by doctor: No - Related Data Allergies/Adverse Reactions: cephalexin monohydrate [From Keflex] Allergy (Verified 11/22/16 11:37) Latex, Natural Rubber Allergy (Verified 11/22/16 11:37) peanut [Peanut] Allergy (Verified 11/22/16 11:37) morphine Adverse Reaction (Verified 11/22/16 11:37) Past Medical History - General Information source: Patient - Social History Smoking Status: Never Smoker Frequency of alcohol use: Occasional Drug Abuse: None Lives with: Family Family History: CVA, DM, Hyperlipidemia, Hypertension, Malignancy, Thyroid Disfunction Patient has suicidal ideation: No Patient has homicidal ideation: No - Past Medical History Cardiac Medical History: Reports: None Pulmonary Medical History: Reports: None EENT Medical History: Reports: None Neurological Medical History: Reports: Hx Migraine Endocrine Medical History: Reports: Hx Diabetes Mellitus Type 2, Hx Hypothyroidism Renal/ Medical History: Reports: None Malignancy Medical History: Reports: None GI Medical History: Reports: Hx Gastroesophageal Reflux Disease Musculoskeltal Medical History: Reports Hx Musculoskeletal Trauma Skin Medical History: Reports None Psychiatric Medical History: Reports: Hx Attention Deficit Hyperactivity Disorder, Hx Bipolar Disorder, Hx Post Traumatic Stress Disorder, Hx Schizophrenia Traumatic Medical History: Reports: Hx Fractures - Right arm Infectious Medical History: Reports: None Past Surgical History: Reports: Hx Cholecystectomy, Hx Dilation and Curettage - With , Hx Oral Surgery - [place] teeth - Immunizations Hx Diphtheria, Pertussis, Tetanus Vaccination: Yes Review of Systems - Review of Systems Constitutional: Recent illness EENT: Ear pain, Nose discharge, Sinus discharge Cardiovascular: No symptoms reported Respiratory: No symptoms reported Gastrointestinal: No symptoms reported Genitourinary: No symptoms reported Female Genitourinary: No symptoms reported Musculoskeletal: No symptoms reported Skin: No symptoms reported Hematologic/Lymphatic: No symptoms reported Neurological/Psychological: No symptoms reported -: Yes All other systems reviewed and negative Physical Exam - Vital signs Vitals: Temp Pulse Resp BP Pulse Ox 98.3 F 100 16 115/60 100 11/22/16 11:37 11/22/16 11:37 11/22/16 11:37 11/22/16 11:37 11/22/16 11:37 Interpretation: Normal - General General appearance: Appears well, Alert - HEENT Head: Normocephalic, Atraumatic Eyes: Normal Pupils: PERRL Ears: Normal External canal: Erythema, Swollen Tympanic membrane: Normal Sinus: Normal Nasal: Purulent discharge, Swelling Mouth/Lips: Normal Mucous membranes: Normal Pharynx: Post nasal drainage. No: Erythema, Exudate, Peritonsillar abscess, Retropharyngeal abscess, Tonsillar hypertrophy, Potential airway comprom. Neck: Normal - Respiratory Respiratory status: No respiratory distress Chest status: Nontender Breath sounds: Normal Chest palpation: Normal - Cardiovascular Rhythm: Regular Heart sounds: Normal auscultation Murmur: No - Abdominal Inspection: Normal Distension: No distension Bowel sounds: Normal Tenderness: Nontender Organomegaly: No organomegaly - Back Back: Normal, Nontender - Extremities General upper extremity: Normal inspection, Nontender, Normal color, Normal ROM , Normal temperature General lower extremity: Normal inspection, Nontender, Normal color, Normal ROM , Normal temperature, Normal weight bearing. No: Juan's sign - Neurological Neuro grossly intact: Yes Cognition: Normal Orientation: AAOx4 [place] Coma Scale Eye Opening: Spontaneous [place] Coma Scale Verbal: Oriented [place] Coma Scale Motor: Obeys Commands [place] Coma Scale Total: 15 Speech: Normal Motor strength normal: LUE, RUE, LLE, RLE Sensory: Normal - Psychological Associated symptoms: Normal affect, Normal mood - Skin Skin Temperature: Warm Skin Moisture: Dry Skin Color: Normal Course - Re-evaluation Re-evalutation: 11/22/16 12:27 Patient treated with Cipro otic eardrops for her bilateral otitis externa. Patient also has an upper respiratory infection. Patient [facility] chronic type 2 diabetes and hypothyroidism. She states she has no insurance cannot follow-up with her regular family physician. - Vital Signs Vital signs: Temp Pulse Resp BP Pulse Ox 98.7 F 96 16 113/66 99 11/22/16 12:40 11/22/16 12:40 11/22/16 12:40 11/22/16 12:40 11/22/16 12:40 Discharge - Discharge Clinical Impression: URI (upper respiratory infection) Qualifiers: URI type: unspecified URI Qualified Code(s): J06.9 - Acute upper respiratory infection, unspecified Otitis externa Qualifiers: Otitis externa type: swimmer's ear Chronicity: acute Laterality: bilateral Qualified Code(s): H60.333 - Swimmer's ear, bilateral Disposition: HOME, SELF-CARE Instructions: Family Physicians / Practices Additional Instructions: UPPER RESPIRATORY ILLNESS: You have a viral infection of the respiratory passages -- a "cold." This common infection causes nasal congestion, drainage, and often sore throat and cough. It is highly contagious. The disease usually lasts about 10 to 14 days. There is no "cure" for the viral infection -- it must run its course. If there is a complication, such as bacterial infection in the nose, sinuses, middle ear, or bronchial tubes, antibiotics may be required. The antibiotics won't affect the virus. Drink plenty of fluids. A humidifier may help. An expectorant medication or decongestant may make you more comfortable. Use acetaminophen or ibuprofen for fever or aches. See the doctor if fever persists over two days, if there is any significant worsening of your symptoms, or if you simply fail to improve as expected. OTITIS EXTERNA: You have otitis externa -- an infection of the outer ear canal. This can be very painful. It's sometimes called "swimmer's ear," because it often occurs after prolonged water exposure. Many things, such as earwax and dirt in the ear, can contribute to it. The usual treatment is antibiotic/antiinflammatory ear drops. Occasionally , a wick will be placed in the ear to draw in the medicine. If the infection is severe, an oral antibiotic may be prescribed. Pain medication is often needed. Avoid getting water in the ear. Outer ear infections often take longer to heal than you might expect. Some tenderness and ache in the ear may persist for about two weeks. See your physician if you fail to improve as expected. Call the doctor at once if you develop fever, increasing swelling (particularly if it makes your ear "poke out"), severe headache, stiff neck, or decreased hearing. USE OF EAR DROPS: Your ear drops won't do much good if they don't get all the way in. To help the ear drops penetrate all the way to the ear drum, use the following technique. If you encounter problems of any kind, notify the physician. (1) Lay your head sideways on a pillow. (2) Place the dropper tip just barely inside the ear canal, almost touching the bottom side of the canal. The liquid is tolerated better on the bottom of the canal. (3) Squeeze out the appropriate amount of medicine, and remove the dropper. (4) Grab the back of the ear (just behind the ear canal) between your index finger and thumb. (5) Tug up, then let the ear drop back. Repeat several times. This pumps the medicine down. (6) Wait five minutes, then place a cotton ball in the ear canal to catch and hold the medicine. CIPROFLOXACIN: You have been given an antibacterial agent, ciprofloxacin (Cipro). This medicine is not related to the penicillins, sulfas, cephalosporins, or tetracyclines. It is often given to patients who are allergic to these drugs. It has been chosen for you either because other drugs are not appropriate, or because of the nature of your problem. Cipro should not be taken with antacids, as these can decrease its effectiveness. It can be taken without regard to meals. CIPRO SHOULD NOT BE TAKEN BY CHILDREN, NURSING WOMEN, OR WOMEN. Although Cipro is usually well-tolerated, common side effects can include nausea and diarrhea. Contact your doctor if you experience any unusual symptoms while on this medication, such as joint pain or swelling, shortness of breath, wheezing, faintness, or hives. USE OF ACETAMINOPHEN (Tylenol): Acetaminophen may be taken for pain relief or fever control. It's much safer than aspirin, offering a wider range of "safe" dosages. It is safe during . Some brand names are Tylenol, Panadol, Datril, Anacin 3, Tempra, and Liquiprin. Acetaminophen can be repeated every four hours. The following are maximum recommended dosages: WEIGHT Dose Drops Elixir Chewable( 80mg) (LBS.) drprs=droppers tsp=teaspoon 6 40 mg 0.4 ml (1/2) 6-11 80 mg 0.8 ml (full) tsp 1 tab 12-16 120 mg 1 1/2 drprs 3/4 tsp 1 1/2 tabs 17-23 160 mg 2 drprs 1 tsp 2 tabs 24-30 240 mg 3 drprs 1 1/2 tsp 3 tabs 30-35 320 mg 2 tsp 4 tabs 36-41 360 mg 2 1/4 tsp 4 1/2 tabs 42-47 400 mg 2 1/2 tsp 5 tabs 48-53 480 mg 3 tsp 6 tabs 54-59 520 mg 3 1/4 tsp 6 1/2 tabs 60-64 560 mg 3 1/2 tsp 7 tabs 65-70 600 mg 3 3/4 tsp 7 1/2 tabs 71-76 640 mg 4 tsp 8 tabs 77-82 720 mg 4 1/2 tsp 9 tabs 83-88 800 mg 5 tsp 10 tabs >89 pounds or adults 650 mg to 900 mg Acetaminophen can be repeated every four hours. Maximum dose not to exceed 4000 mg a day. These maximum recommended dosages are slightly higher than the dosages written on the product container, but these dosages are very safe and below the toxic dosage for acetaminophen. FOLLOW-UP CARE: If you have been referred to a physician for follow-up care, call the physician s office for an appointment as you were instructed or within the next two days. If you experience worsening or a significant change in your symptoms, notify the physician immediately or return to the Emergency Department at any time for re-evaluation. Prescriptions: Ciprofloxacin HCl/Hc [Cipro HC Otic Suspension] 3 drop BTH_EAR BID 7 Days Referrals: [facility] [Provider Group] - Follow up as needed
[2016-11-22 12:40] VITALS: BP 113/66
== END 2016-11-22 13:00 | disposition home or self-care (01) ==
LOC: ER 11:34
DX: J06.9 Acute upper respiratory infection, unspecified (principal); H60.333 Swimmer's ear, bilateral; H92.03 Otalgia, bilateral
CPT/HCPCS: 99282; J3490

== ENCOUNTER 2016-12-02 06:06 | Emergency (ER) | payer SELFPAY ==
--- NOTE | 2016-12-02 07:40 | ER Document Report ---
HPI - HPI Patient complains to provider of: right foot pain Onset: Other - 2 days Onset/Duration: Gradual Quality of pain: Throbbing Pain Level: 5 Context: 21-year-old newly diagnosed diabetic is complaining of plantar and dorsal mid foot pain since yesterday. No history of gout. No injury. She does think it swollen. No fever or chills. Associated Symptoms: None Exacerbated by: Movement, Walking Relieved by: Denies Similar symptoms previously: No Recently seen / treated by doctor: No - ROS ROS below otherwise negative: Yes Systems Reviewed and Negative: Yes All other systems reviewed and negative - REPRODUCTIVE Reproductive: DENIES: : - DERM Skin Color: Normal Past Medical History - General Information source: Patient - Social History Smoking Status: Unknown if Ever Smoked Frequency of alcohol use: None Drug Abuse: None Lives with: Alone Family History: CVA, DM, Hyperlipidemia, Hypertension, Malignancy, Thyroid Disfunction Patient has suicidal ideation: No Patient has homicidal ideation: No Neurological Medical History: Reports: Hx Migraine Endocrine Medical History: Reports: Hx Diabetes Mellitus Type 2, Hx Hypothyroidism Renal/ Medical History: Denies: Hx Peritoneal Dialysis GI Medical History: Reports: Hx Gastroesophageal Reflux Disease Musculoskeltal Medical History: Reports Hx Musculoskeletal Trauma Psychiatric Medical History: Reports: Hx Attention Deficit Hyperactivity Disorder, Hx Bipolar Disorder, Hx Post Traumatic Stress Disorder, Hx Schizophrenia Traumatic Medical History: Reports: Hx Fractures - Right arm Past Surgical History: Reports: Hx Cholecystectomy, Hx Dilation and Curettage - With , Hx Oral Surgery - [place] teeth - Immunizations Hx Diphtheria, Pertussis, Tetanus Vaccination: Yes Vertical Provider Document - CONSTITUTIONAL Agree With Documented VS: Yes Exam Limitations: No Limitations - INFECTION CONTROL TRAVEL OUTSIDE OF THE [place] IN LAST 30 DAYS: No - HEENT HEENT: Normocephalic - NECK Neck: Supple - RESPIRATORY O2 Sat by Pulse Oximetry: 99 - BACK Back: Normal Inspection - MUSCULOSKELETAL/EXTREMETIES Musculoskeletal/Extremeties: MAEW, FROM, Tender, Edema - mild warm and swelling without erythema to dorsal mid right foot, tender plantar forefoot, increased pain with great toe movement. 2+ DP - NEURO Level of Consciousness: Awake, Alert, Appropriate - DERM Integumentary: Warm, Dry, No Rash Course - Re-evaluation Re-evalutation: 12/02/16 09:51 Glucose is 78, white blood cell count is mildly no shift, uric acid is negative. More tender with movement of the right. xray is negative. great toe. 12/02/16 09:52 - Vital Signs Vital signs: Temp Pulse Resp BP Pulse Ox 99.4 F 98 18 122/69 99 12/02/16 06:36 12/02/16 06:36 12/02/16 06:36 12/02/16 06:36 12/02/16 06:36 - Laboratory Result Diagrams: 12/02/16 08:08 12/02/16 08:08 Procedures - Immobilization Right Foot Time completed: 10:15 Pre-Proc Neuro Vasc Exam: Normal Immobilizer type: Alberto wrap, Post-op shoe Performed by: PCT Post-Proc Neuro Vasc Exam: Normal Alignment checked and good: Yes Discharge - Discharge Clinical Impression: Right foot pain Condition: Good Disposition: HOME, SELF-CARE Instructions: Anti-Inflammatory Medication (H), Alberto Wrap ([facility]), Post-Op Shoe ([facility]), Use of Crutches ([facility]), Oral Narcotic Medication ([facility]), [facility] Additional Instructions: elevate crutches alberto wrap, post op shoe for comfort see zinc plater if persists to er if worse Please complete the patient satisfaction survey if you get one, and return it.. If you do not receive a survey, then you can go to the [facility] website, [email or web address] and place your comments about your very good care. Thank you very much. It was a pleasure being your medical provider today. Prescriptions: Ibuprofen [Motrin 800 mg Tablet] 800 mg PO Q8HP PRN #20 tablet PRN Reason: Oxycodone HCl/Acetaminophen [Percocet 5-325 mg Tablet] 1 - 2 tab PO ASDIR PRN # 15 tablet PRN Reason: Referrals: GRACIA SMITH DPM [ACTIVE STAFF] - Follow up as needed
[2016-12-02] MEDS ORDERED: IBUPROFEN 800 MG TABLET PO ONE (07:56)
[2016-12-02 08:17] LABS: ABSOLUTE BASOPHILS # (AUTO) 0.1 10^3/uL (0.0-0.2); ABSOLUTE EOSINOPHILS # (AUTO) 0.1 10^3/uL (0.0-0.6); ABSOLUTE LYMPHOCYTES (AUTO) 1.5 10^3/uL (0.5-4.7); ABSOLUTE NEUT (AUTO) 8.6 10^3/uL (1.7-8.2); BASOPHILS % (AUTO) 0.5 % (0-2); EOSINOPHILS % (AUTO) 1.2 % (0-6); HEMATOCRIT 44.5 % (36.0-47.0); HEMOGLOBIN 14.3 g/dL (12.0-15.5); HGB HCT DIFFERENCE -1.6; LYMPHOCYTES % (AUTO) 13.5 % (13-45); MEAN CORPUSCULAR HEMOGLOBIN 28.1 pg (27.0-33.4); MEAN CORPUSCULAR HGB CONC 32.2 g/dL (32.0-36.0); MEAN CORPUSCULAR VOLUME 87 fl (80-97); MONOCYTES % (AUTO) 8.8 % (3-13); RED CELL DISTRIBUTION WIDTH 14.1 % (11.5-14.0); WHITE BLOOD COUNT 11.3 10^3/uL (4.0-10.5)
--- NOTE | 2016-12-02 08:29 | RADIOLOGY REPORT (SQ) ---
EXAM DESCRIPTION: FOOT RIGHT COMPLETE COMPLETED DATE/TIME: 12/02/2016 8:14 am REASON FOR STUDY: mid right foot pain, swelling, atraumatic COMPARISON: None. NUMBER OF VIEWS: Three views right foot. LIMITATIONS: None. FINDINGS: There is no acute or significant bone, joint or soft tissue abnormality. OTHER: No other significant finding. IMPRESSION: NORMAL STUDY. TECHNICAL DOCUMENTATION: JOB ID: [id number]
[2016-12-02 08:37] LABS: ALANINE AMINOTRANSFERASE 38 U/L (9-52); ALBUMIN 4.7 g/dL (3.5-5.0); ALKALINE PHOSPHATASE 92 U/L (38-126); ANION GAP 11 (5-19); ASPARTATE AMINO TRANSFERASE 29 U/L (14-36); BILIRUBIN,DIRECT 0.3 mg/dL (0.0-0.4); BILIRUBIN,TOTAL 0.5 mg/dL (0.2-1.3); BLOOD UREA NITROGEN 13 mg/dL (7-20); CARBON DIOXIDE 29 mmol/L (22-30); CHLORIDE 102 mmol/L (98-107); GLUCOSE 78 mg/dL (75-110); POTASSIUM 4.3 mmol/L (3.6-5.0); SODIUM 141.6 mmol/L (137-145); TOTAL PROTEIN 8.6 g/dL (6.3-8.2)
[2016-12-02 10:10] VITALS: BP 109/69
== END 2016-12-02 10:10 | disposition home or self-care (01) ==
LOC: ER 06:06
DX: M79.671 Pain in right foot (principal); E11.9 Type 2 diabetes mellitus without complications; M79.89 Other specified soft tissue disorders
CPT/HCPCS: 36415; 80053; 84550; 85025; 99283

== ENCOUNTER 2016-12-03 11:41 | Emergency (ER) | payer SELFPAY ==
[2016-12-03 11:51] VITALS: BP 129/61
[2016-12-03] MEDS ORDERED: OXYCODONE-ACETAMINOPHEN 5-325 MG TABLET PO ONE (13:06)
[2016-12-03] MEDS ORDERED: CLINDAMYCIN 600 MG/D5W RTU 50 ML IV ONE (13:06)
[2016-12-03] MEDS ORDERED: KETOROLAC TROMETHAMINE INJ/PF 30 MG/1 ML SDV IV ONE (13:06)
--- NOTE | 2016-12-03 13:11 | ER Document Report ---
HPI - HPI Patient complains to provider of: r foot pain Onset: Yesterday Onset/Duration: Worse Quality of pain: Sharp Pain Level: 5 Context: Patient states that she was here yesterday and told that she may have gout. Patient states that she tripped and fell hitting her right great toe on the shoe at home and hit her knee on the floor. Patient complains of increased right foot pain and right knee pain. Associated Symptoms: Other - Foot pain, swelling, right knee pain. denies: Fever Exacerbated by: Standing, Movement, Walking Relieved by: Denies Similar symptoms previously: No Recently seen / treated by doctor: Yes - ROS ROS below otherwise negative: Yes Systems Reviewed and Negative: Yes All other systems reviewed and negative - CONSTITUTIONAL Constitutional: DENIES: Fever - REPRODUCTIVE LMP: Reproductive: DENIES: : - MUSCULOSKELETAL Musculoskeletal: REPORTS: Extremity pain, Swelling - DERM Skin Color: Erythema Skin Problems: None Past Medical History - General Information source: Patient - Social History Smoking Status: Never Smoker Frequency of alcohol use: None Drug Abuse: None Occupation: None Lives with: Family Family History: CVA, DM, Hyperlipidemia, Hypertension, Malignancy, Thyroid Disfunction Patient has suicidal ideation: No Patient has homicidal ideation: No Neurological Medical History: Reports: Hx Migraine Endocrine Medical History: Reports: Hx Diabetes Mellitus Type 2, Hx Hypothyroidism Renal/ Medical History: Denies: Hx Peritoneal Dialysis GI Medical History: Reports: Hx Gastroesophageal Reflux Disease Musculoskeltal Medical History: Reports Hx Musculoskeletal Trauma Psychiatric Medical History: Reports: Hx Attention Deficit Hyperactivity Disorder, Hx Bipolar Disorder, Hx Post Traumatic Stress Disorder, Hx Schizophrenia Traumatic Medical History: Reports: Hx Fractures - Right arm Past Surgical History: Reports: Hx Cholecystectomy, Hx Dilation and Curettage - With , Hx Oral Surgery - [place] teeth - Immunizations Hx Diphtheria, Pertussis, Tetanus Vaccination: Yes Vertical Provider Document - CONSTITUTIONAL Agree With Documented VS: Yes Exam Limitations: No Limitations General Appearance: WD/WN, No Apparent Distress - INFECTION CONTROL TRAVEL OUTSIDE OF THE [place] IN LAST 30 DAYS: No - HEENT HEENT: Atraumatic, Normocephalic - NECK Neck: Normal Inspection - RESPIRATORY Respiratory: Breath Sounds Normal, No Respiratory Distress O2 Sat by Pulse Oximetry: 97 - CARDIOVASCULAR Cardiovascular: Regular Rate, Regular Rhythm, No Murmur Pulses: Normal: Dorsalis pedis - MUSCULOSKELETAL/EXTREMETIES Musculoskeletal/Extremeties: MAEW, Tender - right foot tenderness to r great toe 1st MT, 1+edema, erythema to r foot over 1st MT, extending to plantar surface of foot concerning for cellulitis Notes: right knee joint tenderness to tibial tuberosity, no laxity with varus or valgus maneuvers, no joint effusion, patellar tendon intact. - NEURO Level of Consciousness: Awake, Alert, Appropriate Motor/Sensory: No Motor Deficit - DERM Integumentary: Warm, Dry Notes: erythema over right first metatarsal extending to plantar surface of right foot concerning for cellulitis. Course - Re-evaluation Re-evalutation: 12/03/16 Pt with what looks to be a healed abrasion to plantar surface of right foot under the distal first metatarsal and right great toe. Patient states that she swims at the local pool and has a really rough bottom and occasionally will cut her feet. Patient advised that she may have cellulitis due to this cut in her skin and that we will treat accordingly - Vital Signs Vital signs: Temp Pulse Resp BP Pulse Ox 98.5 F 93 23 H 129/61 H 97 12/03/16 11:50 12/03/16 11:50 12/03/16 11:50 12/03/16 11:50 12/03/16 11:50 - Laboratory Result Diagrams: 12/03/16 14:30 Laboratory results interpreted by me: 12/03/16 15:04 Labs- Entire Visit 12/03/16 14:30 WBC 13.1 H RBC 4.82 Hgb 13.7 Hct 41.6 MCV 86 MCH 28.4 MCHC 32.9 RDW 14.0 Plt Count 309 Seg Neutrophils % 72.4 Lymphocytes % 14.5 Monocytes % 10.8 Eosinophils % 1.8 Basophils % 0.5 Absolute Neutrophils 9.5 H Absolute Lymphocytes 1.9 Absolute Monocytes 1.4 Absolute Eosinophils 0.2 Absolute Basophils 0.1 12/03/16 20:12 - Diagnostic Test Radiology reviewed: Reports reviewed Discharge - Discharge Clinical Impression: Right foot pain, Cellulitis of foot without toes, right Condition: Stable Disposition: HOME, SELF-CARE Instructions: Use of Crutches ([facility]), Cellulitis ([facility]), IV Antibiotics ([facility]), Clindamycin ([facility]) Additional Instructions: Return immediately for any new or worsening symptoms Followup with your primary care provider, call tomorrow to make a followup appointment If you are having increase in the right foot pain, swelling or redness return to the emergency department for recheck tomorrow. Get your antibiotic prescription filled today and take it as directed. Take your Motrin as well to help with inflammation. Prescriptions: Clindamycin HCl [Cleocin Hcl] 300 mg PO QID #28 capsule Referrals: [facility] [Provider Group] - Follow up as needed [facility] [Provider Group] - Follow up tomorrow
[2016-12-03 14:47] LABS: ABSOLUTE BASOPHILS # (AUTO) 0.1 10^3/uL (0.0-0.2); ABSOLUTE EOSINOPHILS # (AUTO) 0.2 10^3/uL (0.0-0.6); ABSOLUTE LYMPHOCYTES (AUTO) 1.9 10^3/uL (0.5-4.7); ABSOLUTE MONOCYTES (AUTO) 1.4 10^3/uL (0.1-1.4); ABSOLUTE NEUT (AUTO) 9.5 10^3/uL (1.7-8.2); BASOPHILS % (AUTO) 0.5 % (0-2); EOSINOPHILS % (AUTO) 1.8 % (0-6); HEMATOCRIT 41.6 % (36.0-47.0); HEMOGLOBIN 13.7 g/dL (12.0-15.5); HGB HCT DIFFERENCE -0.5; LYMPHOCYTES % (AUTO) 14.5 % (13-45); MEAN CORPUSCULAR HEMOGLOBIN 28.4 pg (27.0-33.4); MEAN CORPUSCULAR HGB CONC 32.9 g/dL (32.0-36.0); MEAN CORPUSCULAR VOLUME 86 fl (80-97); MONOCYTES % (AUTO) 10.8 % (3-13); RED BLOOD COUNT 4.82 10^6/uL (3.72-5.28); SEGMENTED NEUTROPHILS % (AUTO) 72.4 % (42-78); WHITE BLOOD COUNT 13.1 10^3/uL (4.0-10.5)
--- NOTE | 2016-12-03 14:56 | RADIOLOGY REPORT (SQ) ---
EXAM DESCRIPTION: KNEE RIGHT 4 VIEWS COMPLETED DATE/TIME: 12/03/2016 2:02 pm REASON FOR STUDY: tripped, fell today, r knee pain COMPARISON: None. NUMBER OF VIEWS: Four views. TECHNIQUE: AP, lateral, and both oblique radiographic images acquired of the right knee. LIMITATIONS: None. FINDINGS: MINERALIZATION: Normal. BONES: No acute fracture or dislocation. No worrisome bone lesions. JOINT: No effusion. SOFT TISSUES: No soft tissue swelling. No radio-opaque foreign body. OTHER: No other significant finding. IMPRESSION: NEGATIVE STUDY OF THE RIGHT KNEE. NO RADIOGRAPHIC EVIDENCE OF ACUTE INJURY. TECHNICAL DOCUMENTATION: JOB ID: [id number] [employer]- All Rights Reserved
--- NOTE | 2016-12-03 14:57 | RADIOLOGY REPORT (SQ) ---
EXAM DESCRIPTION: FOOT RIGHT COMPLETE COMPLETED DATE/TIME: 12/03/2016 2:02 pm REASON FOR STUDY: tripped, fell today, r gr toe/foot pain COMPARISON: None. NUMBER OF VIEWS: Three views. TECHNIQUE: AP, lateral and oblique radiographic images acquired of the right foot. LIMITATIONS: None. FINDINGS: MINERALIZATION: Normal. BONES: No acute fracture or dislocation. No worrisome bone lesions. JOINTS: No effusions. SOFT TISSUES: No soft tissue swelling. No foreign body. OTHER: No other significant finding. IMPRESSION: NEGATIVE STUDY OF THE RIGHT FOOT. NO RADIOGRAPHIC EVIDENCE OF ACUTE INJURY. TECHNICAL DOCUMENTATION: JOB ID: [id number] [employer]- All Rights Reserved
== END 2016-12-03 15:46 | disposition home or self-care (01) ==
LOC: ER 11:41
DX: L03.115 Cellulitis of right lower limb (principal); M79.671 Pain in right foot; M25.561 Pain in right knee; W01.0XXA Fall on same level from slipping, tripping and stumbling without subsequent striking against object, initial encounter
CPT/HCPCS: 99284; 96375; 96365; 36415; 87040; 85025; 73630; 73564; J1885

== ENCOUNTER 2016-12-04 21:03 | Emergency (ER) | payer SELFPAY ==
[2016-12-04 21:11] VITALS: BP 129/57
[2016-12-04 22:16] LABS: ABSOLUTE BASOPHILS # (AUTO) 0.1 10^3/uL (0.0-0.2); ABSOLUTE EOSINOPHILS # (AUTO) 0.2 10^3/uL (0.0-0.6); ABSOLUTE LYMPHOCYTES (AUTO) 2.2 10^3/uL (0.5-4.7); ABSOLUTE MONOCYTES (AUTO) 1.4 10^3/uL (0.1-1.4); ABSOLUTE NEUT (AUTO) 6.7 10^3/uL (1.7-8.2); BASOPHILS % (AUTO) 0.6 % (0-2); HEMATOCRIT 41.2 % (36.0-47.0); HEMOGLOBIN 13.4 g/dL (12.0-15.5); LYMPHOCYTES % (AUTO) 21.2 % (13-45); MEAN CORPUSCULAR HEMOGLOBIN 28.4 pg (27.0-33.4); MEAN CORPUSCULAR HGB CONC 32.5 g/dL (32.0-36.0); MEAN CORPUSCULAR VOLUME 88 fl (80-97); RED BLOOD COUNT 4.71 10^6/uL (3.72-5.28); SEGMENTED NEUTROPHILS % (AUTO) 63.2 % (42-78); WHITE BLOOD COUNT 10.5 10^3/uL (4.0-10.5)
[2016-12-04 22:33] LABS: APPEARANCE,URINE SLIGHTLY-CLOUDY; BILIRUBIN,URINE NEGATIVE (NEGATIVE); GLUCOSE, URINE NEGATIVE (NEGATIVE); KETONES,URINE NEGATIVE (NEGATIVE); LEUKOCYTE ESTERASE,URINE NEGATIVE (NEGATIVE); NITRITE,URINE NEGATIVE (NEGATIVE); PROTEIN,URINE NEGATIVE (NEGATIVE); URINE SPECIFIC GRAVITY 1.025; UROBILINOGEN,URINE NEGATIVE mg/dL (<2.0)
[2016-12-05] LABS: ADD ON TESTING BLD IN LAB ACKNOWLEDGE
[2016-12-05 00:14] LABS: C-REACTIVE PROTEIN 39.4 mg/L (<10.0)
--- NOTE | 2016-12-05 00:19 | ER Document Report ---
ED General - General Mode of Arrival: Ambulatory Information source: Patient TRAVEL OUTSIDE OF THE [place] IN LAST 30 DAYS: No - HPI Onset: Other - Refer to HPI notes <ALESSIOOLLIE - Last Filed: 12/05/16 00:51> <DAMIÁN VARGAS - Last Filed: 12/05/16 02:09> - General Chief Complaint: Fever Stated Complaint: FEVER,RIGHT FOOT PAIN,RASH Time Seen by Provider: 12/04/16 23:31 Notes: Patient is a 21 year old female presenting to the emergency department for pain to her right foot and fever. Patient has been evaluated by this emergency department on 12/02/2016, 12/03/2016, and 12/04/2016 for this pain. Patient's initial complaint on 12/02/2016 was pain to her right foot with no injury. Patient was discharged home with percocet. Patient then complained of increased pain from a fall on 12/03/2016. Patient also told the physician on 12/03/2016 that she sometimes cuts her feet on the pool that she swims at; patient was then discharged with antibiotics for a possible cellulitis. Patient complains of increased pain from her ankle to her hip, a rash on her right arm and across her torso and a fever; patient states she had a fever of 102 F at home. Patient also told triage about "foul-smelling urine." Patient has not taken any Benadryl but stated that her rash is very itchy. Patient does not have a primary care physician. (OLLIE MCCALLUM) The patient has been here 3 days in a row for foot pain and swelling. On 12/02/2016 she was given Percocet Motrin prescriptions for pain. At that time she was diagnosed with foot pain. She returned on 12/03/2016 complaining of increased pain and swelling after tripping over her postop shoe and hurting her foot and knee. At that time the erythema to the foot and pain prompted a diagnosis of cellulitis and she was put on clindamycin. She returns today complaining of a rash to her trunk and worsening pain. She does have a sunburn to her face and anterior legs and dorsal feet. I suspect she has a sprained foot and the erythema is due to sunburn. Physical exam is most consistent with this. She was given Pepcid and Benadryl which helped the itching rash. Her white blood cell count is lower today than it was on the past 2 visits. I cannot determine with certainty that this is not a cellulitis, so the clindamycin will be stopped and she will be started on doxycycline. She will be advised to stay out of the sun due to the photosensitivity caused by doxycycline. She is also advised to not use the postop shoe, keep the foot clean, elevate the foot, and use the crutches to get around. (DAMIÁN VARGAS) - Related Data Allergies/Adverse Reactions: cephalexin monohydrate [From Keflex] Allergy (Verified 11/22/16 11:37) Latex, Natural Rubber Allergy (Verified 11/22/16 11:37) peanut [Peanut] Allergy (Verified 11/22/16 11:37) Penicillins Allergy (Verified 12/02/16 06:36) morphine Adverse Reaction (Verified 11/22/16 11:37) Past Medical History - General Information source: Patient - Social History Smoking Status: Current Every Day Smoker Family History: CVA, DM, Hyperlipidemia, Hypertension, Malignancy, Thyroid Disfunction Patient has suicidal ideation: No Patient has homicidal ideation: No Neurological Medical History: Reports: Hx Migraine Endocrine Medical History: Reports: Hx Diabetes Mellitus Type 2, Hx Hypothyroidism GI Medical History: Reports: Hx Gastroesophageal Reflux Disease Musculoskeltal Medical History: Reports Hx Musculoskeletal Trauma Psychiatric Medical History: Reports: Hx Attention Deficit Hyperactivity Disorder, Hx Bipolar Disorder, Hx Post Traumatic Stress Disorder, Hx Schizophrenia Traumatic Medical History: Reports: Hx Fractures - Right arm Past Surgical History: Reports: Hx Cholecystectomy, Hx Dilation and Curettage - With , Hx Oral Surgery - [place] teeth - Immunizations Hx Diphtheria, Pertussis, Tetanus Vaccination: Yes <OLLIE MCCALLUM - Last Filed: 12/05/16 00:51> Review of Systems - Review of Systems Constitutional: See HPI, Fever EENT: No symptoms reported Cardiovascular: No symptoms reported Respiratory: No symptoms reported Gastrointestinal: No symptoms reported Genitourinary: No symptoms reported Female Genitourinary: No symptoms reported Musculoskeletal: See HPI Skin: See HPI Hematologic/Lymphatic: No symptoms reported Neurological/Psychological: No symptoms reported -: Yes All other systems reviewed and negative <OLLIE MCCALLUM - Last Filed: 12/05/16 00:51> Physical Exam - Vital signs Interpretation: Tachycardic. No: Febrile <OLLIE MCCALLUM - Last Filed: 12/05/16 00:51> <DAMIÁN VARGAS - Last Filed: 12/05/16 02:09> - Vital signs Vitals: Temp Pulse Resp BP Pulse Ox 99.2 F 120 H 20 129/57 H 100 12/04/16 21:07 12/04/16 21:07 12/04/16 21:07 12/04/16 21:07 12/04/16 21:07 - Notes Notes: GENERAL: Alert, interacts well. No acute distress. HEAD: Normocephalic, atraumatic. EYES: Pupils equal, round, and reactive to light. Extraocular movements intact. ENT: Oral mucosa moist, tongue midline. NECK: Full range of motion. Supple. Trachea midline. LUNGS: Clear to auscultation bilaterally, no wheezes, rales, or rhonchi. No respiratory distress. HEART: Regular rate and rhythm. No murmurs, gallops, or rubs. ABDOMEN: Soft, non-tender. Non-distended. Bowel sounds present in all 4 quadrants. EXTREMITIES: Moves all 4 extremities spontaneously. Patient screams in pain when touching the right 1st MTP joint; patient tolerates flexion and extension of the right 1st toe without pain. FROM of the right 1st toe. Dorsal and lateral foot appears somewhat swollen. NEUROLOGICAL: Alert and oriented x3. Normal speech. PSYCH: Normal affect, normal mood. SKIN: Warm, dry, normal turgor. No rashes or lesions noted, especially to the torso and right arm. (OLLIE MCCALLUM) Course - Laboratory Result Diagrams: 12/04/16 21:45 <OLLIE MCCALLUM - Last Filed: 12/05/16 00:51> - Laboratory Result Diagrams: 12/04/16 21:45 <DAMIÁN VARGAS - Last Filed: 12/05/16 02:09> - Re-evaluation Re-evalutation: 12/05/16 01:55 The patient's itching is gone after the Benadryl and Pepcid. (DAMIÁN VARGAS) - Vital Signs Vital signs: Temp Pulse Resp BP Pulse Ox 99.2 F 120 H 20 129/57 H 100 12/04/16 21:07 12/04/16 21:07 12/04/16 21:07 12/04/16 21:07 12/04/16 21:07 - Laboratory Laboratory results interpreted by me: 12/04/16 12/04/16 21:45 21:45 ESR 28 H C-Reactive Protein 39.4 H Discharge <OLLIE MCCALLUM - Last Filed: 12/05/16 00:51> <DAMIÁN VARGAS - Last Filed: 12/05/16 02:09> - Discharge Clinical Impression: Sunburn Right foot sprain Qualifiers: Encounter type: initial encounter Qualified Code(s): S93.601A - Unspecified sprain of right foot, initial encounter Allergic reaction caused by a drug Qualifiers: Encounter type: initial encounter Qualified Code(s): T78.40XA - Allergy, unspecified, initial encounter Condition: Stable Disposition: HOME, SELF-CARE Additional Instructions: Stop taking the clindamycin. Start the doxycycline tomorrow as prescribed. Benadryl for itching if needed. Stop using the postop shoe. Elevate your foot above your heart is much as possible. Keep the skin on the foot clean. Follow-up with a local medical doctor in the next few days if not improving. Prescriptions: Doxycycline Hyclate 100 mg PO BID #14 capsule Scribe Attestation: 12/05/16 02:09 I personally performed the services described in the documentation, reviewed and edited the documentation which was dictated to the scribe in my presence, and it accurately records my words and actions. (DAMIÁN VARGAS) Scribe Documentation - Scribe Written by Tessie:: Tessie Hopkins 12/05/2016 1:06 acting as scribe for :: Omar <OLLIE MCCALLUM - Last Filed: 12/05/16 00:51>
[2016-12-05] MEDS ORDERED: DIPHENHYDRAMINE HCL 25 MG CAPSULE PO ONE (00:35)
[2016-12-05] MEDS ORDERED: FAMOTIDINE 20 MG TABLET PO ONE (00:36)
== END 2016-12-05 04:36 | disposition home or self-care (01) ==
LOC: ER 21:03
DX: S93.601A Unspecified sprain of right foot, initial encounter (principal); T78.40XA Allergy, unspecified, initial encounter; L55.9 Sunburn, unspecified; R50.9 Fever, unspecified; M79.671 Pain in right foot; R21 Rash and other nonspecific skin eruption; F17.200 Nicotine dependence, unspecified, uncomplicated; X58.XXXA Exposure to other specified factors, initial encounter
CPT/HCPCS: 36415; 81001; 85025; 85652; 86140; 99283

== ENCOUNTER 2016-12-22 20:19 | Emergency (ER) | payer SELFPAY ==
[2016-12-22 21:03] LABS: APPEARANCE,URINE CLEAR; BILIRUBIN,URINE NEGATIVE (NEGATIVE); GLUCOSE, URINE NEGATIVE (NEGATIVE); KETONES,URINE NEGATIVE (NEGATIVE); LEUKOCYTE ESTERASE,URINE NEGATIVE (NEGATIVE); NITRITE,URINE NEGATIVE (NEGATIVE); PROTEIN,URINE NEGATIVE (NEGATIVE); URINE SPECIFIC GRAVITY 1.005; UROBILINOGEN,URINE NEGATIVE mg/dL (<2.0)
--- NOTE | 2016-12-22 21:56 | ER Document Report ---
ED General - General Chief Complaint: Nausea/Vomiting Stated Complaint: NAUSEA AND VOMITING Time Seen by Provider: 12/22/16 21:50 Notes: 21-year-old female presents with frequency of urination and nausea when she eats as well as missing her. By 8 days. She has taken 4 home tests and she "thought she saw a faint line" on 1 of them. She is a borderline diabetic and is morbidly obese. She does not take her thyroid medicine anymore because she cannot afford it and does not have primary care. She was on Synthroid. She denies abdominal pain. No vaginal bleeding or discharge. She and her partner use condoms but she is on no other control. TRAVEL OUTSIDE OF THE [place] IN LAST 30 DAYS: No - Related Data Allergies/Adverse Reactions: cephalexin monohydrate [From Keflex] Allergy (Verified 11/22/16 11:37) Latex, Natural Rubber Allergy (Verified 11/22/16 11:37) peanut [Peanut] Allergy (Verified 11/22/16 11:37) Penicillins Allergy (Verified 12/02/16 06:36) morphine Adverse Reaction (Verified 11/22/16 11:37) Past Medical History - Social History Smoking Status: Unknown if Ever Smoked Family History: CVA, DM, Hyperlipidemia, Hypertension, Malignancy, Thyroid Disfunction Neurological Medical History: Reports: Hx Migraine Endocrine Medical History: Reports: Hx Diabetes Mellitus Type 2, Hx Hypothyroidism Renal/ Medical History: Denies: Hx Peritoneal Dialysis GI Medical History: Reports: Hx Gastroesophageal Reflux Disease Musculoskeltal Medical History: Reports Hx Musculoskeletal Trauma Psychiatric Medical History: Reports: Hx Attention Deficit Hyperactivity Disorder, Hx Bipolar Disorder, Hx Post Traumatic Stress Disorder, Hx Schizophrenia Traumatic Medical History: Reports: Hx Fractures - Right arm Past Surgical History: Reports: Hx Cholecystectomy, Hx Dilation and Curettage - With , Hx Oral Surgery - [place] teeth - Immunizations Hx Diphtheria, Pertussis, Tetanus Vaccination: Yes Review of Systems - Review of Systems Notes: REVIEW OF SYSTEMS GEN: Denies fever, chills, weight loss ENT: Denies sore throat, nasal discharge, ear pain EYES: Denies blurry vision, eye pain, discharge CV: Denies chest pain, palpitations, edema RESP: Denies cough, shortness of breath, wheezing GI: Nausea and vomiting only with eggs and meat. MSK: Denies joint pain/swelling, edema, SKIN: Denies rash, skin lesions LYMPH: Denies swollen glands/lymph nodes NEURO: Denies headache, focal weakness or numbness, dizziness PSYCH: Denies depression, suicidal or homicidal ideation PHYSICAL EXAMINATION General: No acute distress, well-nourished. Morbidly obese. Head: Atraumatic, normocephalic ENT: Mouth normal, oropharynx moist, no exudates or tonsillar enlargement Eyes: Conjunctiva normal, pupils equal, lids normal Neck: No JVD, supple, no guarding CVS: Normal rate, regular rhythm, no murmurs Resp: No resp distress, equal and normal breath sounds bilaterally GI: Nondistended, soft, no tenderness to palpation, no rebound or guarding Ext: No deformities, no edema, normal range of motion in upper and lower ext Back: No CVA or midline TTP Skin: No rash, warm Lymphatic: No lymphadeopathy noted Neuro: Awake, alert. Face symmetric. GCS 15. Physical Exam - Vital signs Vitals: Temp Pulse Resp BP Pulse Ox 98.9 F 108 H 20 114/76 98 12/22/16 20:34 12/22/16 20:34 12/22/16 20:34 12/22/16 20:34 12/22/16 20:34 Course - Re-evaluation Re-evalutation: 12/22/16 21:59 21-year-old female with obesity presents with a week and a half of amenorrhea and polyuria. Her urinalysis is normal and she is not . Her abdominal exam and back exam are reassuring. No believe she has a UTI. I will check her for hyperglycemia but she does not have signs and symptoms of DKA today. Recommended follow-up with [facility]. - Vital Signs Vital signs: Temp Pulse Resp BP Pulse Ox 98.9 F 108 H 20 114/76 98 12/22/16 20:34 12/22/16 20:34 12/22/16 20:34 12/22/16 20:34 12/22/16 20:34 Discharge - Discharge Clinical Impression: Nausea and vomiting Qualifiers: Vomiting type: unspecified Vomiting Intractability: unspecified Qualified Code( s): R11.2 - Nausea with vomiting, unspecified Condition: Good Disposition: HOME, SELF-CARE Instructions: Vomiting ([facility]) Referrals: [facility] [Provider Group] - Follow up as needed
[2016-12-22 22:48] VITALS: BP 113/52
== END 2016-12-22 22:47 | disposition home or self-care (01) ==
LOC: ER 20:19
DX: R11.2 Nausea with vomiting, unspecified (principal); R35.0 Frequency of micturition; N91.2 Amenorrhea, unspecified; R35.8 Other polyuria; R73.03 Prediabetes; E66.01 Morbid (severe) obesity due to excess calories; E03.9 Hypothyroidism, unspecified; T38.1X6A Underdosing of thyroid hormones and substitutes, initial encounter; Z91.120 Patient's intentional underdosing of medication regimen due to financial hardship; Z91.14 Patient's other noncompliance with medication regimen; Z88.1 Allergy status to other antibiotic agents; Z91.040 Latex allergy status; Z88.0 Allergy status to penicillin; Z32.02 Encounter for pregnancy test, result negative
CPT/HCPCS: 81001; 81025; 82962; 99283

== ENCOUNTER 2016-12-23 19:37 | Emergency (ER) | payer SELFPAY ==
--- NOTE | 2016-12-23 20:23 | ER Document Report ---
ED Medical Screen (RME) - General Chief Complaint: Abdominal Pain Stated Complaint: STOMACH PAIN Time Seen by Provider: 12/23/16 20:22 Notes: Patient has had breast soreness abdominal cramping and vomiting for several days. She is also 8 days late and her menstrual cycle. She came here for the similar complaints last evening and a test was negative. This morning she took a test at home and states that it was "faintly positive". She states that she called a help line who advised her to come to the emergency department and have a serum test performed. TRAVEL OUTSIDE OF THE [place] IN LAST 30 DAYS: No - Related Data Allergies/Adverse Reactions: cephalexin monohydrate [From Keflex] Allergy (Verified 11/22/16 11:37) Latex, Natural Rubber Allergy (Verified 11/22/16 11:37) peanut [Peanut] Allergy (Verified 11/22/16 11:37) Penicillins Allergy (Verified 12/02/16 06:36) morphine Adverse Reaction (Verified 11/22/16 11:37) Past Medical History Neurological Medical History: Reports: Hx Migraine Endocrine Medical History: Reports: Hx Diabetes Mellitus Type 2, Hx Hypothyroidism Renal/ Medical History: Denies: Hx Peritoneal Dialysis GI Medical History: Reports: Hx Gastroesophageal Reflux Disease Musculoskeltal Medical History: Reports Hx Musculoskeletal Trauma Psychiatric Medical History: Reports: Hx Attention Deficit Hyperactivity Disorder, Hx Bipolar Disorder, Hx Post Traumatic Stress Disorder, Hx Schizophrenia Traumatic Medical History: Reports: Hx Fractures - Right arm Past Surgical History: Reports: Hx Cholecystectomy, Hx Dilation and Curettage - With , Hx Oral Surgery - [place] teeth - Immunizations Hx Diphtheria, Pertussis, Tetanus Vaccination: Yes Physical Exam - Vital signs Vitals: Temp Pulse Resp BP Pulse Ox 99.0 F 117 H 16 113/82 99 12/23/16 20:10 12/23/16 20:10 12/23/16 20:10 12/23/16 20:10 12/23/16 20:10 Course - Vital Signs Vital signs: Temp Pulse Resp BP Pulse Ox 99.0 F 117 H 16 113/82 99 12/23/16 20:10 12/23/16 20:10 12/23/16 20:10 12/23/16 20:10 12/23/16 20:10
--- NOTE | 2016-12-23 20:24 | ER Document Report ---
HPI - HPI Patient complains to provider of: Trying to find out if she is or not Onset: This morning Pain Level: 3 Context: 21-year-old female without abdominal pain or vaginal bleeding had a positive home test this morning. She was seen in the emergency department yesterday and a urine test was negative. Last menstrual period was November 15. . Here in the department again today to get a blood test to see if she is . - REPRODUCTIVE Reproductive: DENIES: : - DERM Skin Color: Normal, [place] Past Medical History - General Information source: Patient - Social History Smoking Status: Unknown if Ever Smoked Frequency of alcohol use: None Drug Abuse: None Lives with: Family Family History: CVA, DM, Hyperlipidemia, Hypertension, Malignancy, Thyroid Disfunction Neurological Medical History: Reports: Hx Migraine Endocrine Medical History: Reports: Hx Diabetes Mellitus Type 2, Hx Hypothyroidism Renal/ Medical History: Denies: Hx Peritoneal Dialysis GI Medical History: Reports: Hx Gastroesophageal Reflux Disease Musculoskeltal Medical History: Reports Hx Musculoskeletal Trauma Psychiatric Medical History: Reports: Hx Attention Deficit Hyperactivity Disorder, Hx Bipolar Disorder, Hx Post Traumatic Stress Disorder, Hx Schizophrenia Traumatic Medical History: Reports: Hx Fractures - Right arm Past Surgical History: Reports: Hx Cholecystectomy, Hx Dilation and Curettage - With , Hx Oral Surgery - [place] teeth - Immunizations Hx Diphtheria, Pertussis, Tetanus Vaccination: Yes Vertical Provider Document - CONSTITUTIONAL Agree With Documented VS: No - apical pulse is 94 now General Appearance: No Apparent Distress Notes: obese - INFECTION CONTROL TRAVEL OUTSIDE OF THE [place] IN LAST 30 DAYS: No - HEENT HEENT: Normocephalic - NECK Neck: Supple - RESPIRATORY Respiratory: Breath Sounds Normal, No Respiratory Distress O2 Sat by Pulse Oximetry: 99 - CARDIOVASCULAR Cardiovascular: Regular Rate, Regular Rhythm - GI/ABDOMEN Gastrointestinal: Abdomen Soft, Abdomen Non-Tender - MUSCULOSKELETAL/EXTREMETIES Musculoskeletal/Extremeties: STEPHANE TRAVIS - NEURO Level of Consciousness: Awake, Alert - DERM Integumentary: Warm, Dry, No Rash Course - Re-evaluation Re-evalutation: 12/23/16 21:31 Serum test is negative - Vital Signs Vital signs: Temp Pulse Resp BP Pulse Ox 99.0 F 117 H 16 113/82 99 12/23/16 20:10 12/23/16 20:10 12/23/16 20:10 12/23/16 20:10 12/23/16 20:10 Discharge - Discharge Clinical Impression: Amenorrhea Condition: Good Disposition: HOME, SELF-CARE Instructions: [facility], [facility] ( [facility]) Additional Instructions: see obgyn or health department if you do not get your menses the blood test is negative, copy given to you to er any concerns Please complete the patient satisfaction survey if you get one, and return it.. If you do not receive a survey, then you can go to the [facility] website, [email or web address] and place your comments about your very good care. Thank you very much. It was a pleasure being your medical provider today. Forms: Return to Work
[2016-12-23 21:48] VITALS: BP 129/88
== END 2016-12-23 21:48 | disposition home or self-care (01) ==
LOC: ER 19:37
DX: N91.2 Amenorrhea, unspecified (principal)
CPT/HCPCS: 36415; 84702; 99282

== ENCOUNTER 2017-01-07 15:05 | Emergency (ER) | payer SELFPAY ==
[2017-01-07 15:10] VITALS: BP 134/76
--- NOTE | 2017-01-07 15:43 | ER Document Report ---
ED Medical Screen (RME) - General Chief Complaint: Abdominal Pain Stated Complaint: ABDOMINAL PAIN Time Seen by Provider: 01/07/17 15:38 Notes: 21-year-old female patient comes emergency room complaining of nausea vomiting back pain heartburn epigastric pain since yesterday. States she is 23 days late on her period. Complains of abdominal bloating. She was here on December 22 in December 23 with abdominal complaints. At that time she had a negative quantitative hCG. I have greeted and performed a rapid initial assessment of this patient. A comprehensive ED assessment and evaluation of the patient, analysis of test results and completion of the medical decision making process will be conducted by additional ED providers. TRAVEL OUTSIDE OF THE [place] IN LAST 30 DAYS: No - Related Data Allergies/Adverse Reactions: cephalexin monohydrate [From Keflex] Allergy (Verified 01/07/17 15:10) clindamycin Allergy (Verified 01/07/17 15:31) Latex, Natural Rubber Allergy (Verified 01/07/17 15:10) peanut [Peanut] Allergy (Verified 01/07/17 15:10) Penicillins Allergy (Verified 01/07/17 15:10) morphine Adverse Reaction (Verified 01/07/17 15:10) Past Medical History Neurological Medical History: Reports: Hx Migraine Endocrine Medical History: Reports: Hx Diabetes Mellitus Type 2, Hx Hypothyroidism Renal/ Medical History: Denies: Hx Peritoneal Dialysis GI Medical History: Reports: Hx Gastroesophageal Reflux Disease Musculoskeltal Medical History: Reports Hx Musculoskeletal Trauma Psychiatric Medical History: Reports: Hx Attention Deficit Hyperactivity Disorder, Hx Bipolar Disorder, Hx Post Traumatic Stress Disorder, Hx Schizophrenia Traumatic Medical History: Reports: Hx Fractures - Right arm Past Surgical History: Reports: Hx Cholecystectomy, Hx Dilation and Curettage - With , Hx Oral Surgery - [place] teeth - Immunizations Hx Diphtheria, Pertussis, Tetanus Vaccination: Yes Physical Exam - Vital signs Vitals: Temp Pulse Resp BP Pulse Ox 98.3 F 124 H 20 134/76 H 100 01/07/17 15:09 01/07/17 15:09 01/07/17 15:09 01/07/17 15:09 01/07/17 15:09 Course - Vital Signs Vital signs: Temp Pulse Resp BP Pulse Ox 98.3 F 109 H 20 134/76 H 100 01/07/17 15:09 01/07/17 15:40 01/07/17 15:09 01/07/17 15:09 01/07/17 15:09
[2017-01-07] MEDS ORDERED: LIDOCAINE 2% VISCOUS SOLN 20 ML UDCUP PO ONE (16:26)
[2017-01-07] MEDS ORDERED: MAG HYDROX/AL HYDROX/SIMETH SUSP 30 ML UDCUP PO ONE (16:26)
[2017-01-07] MEDS ORDERED: METOCLOPRAMIDE HCL ORAL SOLN 10 MG/10 ML UDCUP PO ONE (16:26)
[2017-01-07 16:29] LABS: ABSOLUTE EOSINOPHILS # (AUTO) 0.2 10^3/uL (0.0-0.6); ABSOLUTE LYMPHOCYTES (AUTO) 1.7 10^3/uL (0.5-4.7); ABSOLUTE NEUT (AUTO) 6.3 10^3/uL (1.7-8.2); BASOPHILS % (AUTO) 0.4 % (0-2); EOSINOPHILS % (AUTO) 1.8 % (0-6); HEMATOCRIT 39.8 % (36.0-47.0); HEMOGLOBIN 13.3 g/dL (12.0-15.5); HGB HCT DIFFERENCE 0.1; LYMPHOCYTES % (AUTO) 18.3 % (13-45); MEAN CORPUSCULAR HEMOGLOBIN 29.1 pg (27.0-33.4); MEAN CORPUSCULAR HGB CONC 33.5 g/dL (32.0-36.0); MEAN CORPUSCULAR VOLUME 87 fl (80-97); MONOCYTES % (AUTO) 10.7 % (3-13); RED BLOOD COUNT 4.58 10^6/uL (3.72-5.28); RED CELL DISTRIBUTION WIDTH 13.6 % (11.5-14.0); SEGMENTED NEUTROPHILS % (AUTO) 68.8 % (42-78); WHITE BLOOD COUNT 9.2 10^3/uL (4.0-10.5)
--- NOTE | 2017-01-07 16:34 | ER Document Report ---
ED GI/ - General Chief Complaint: Abdominal Pain Stated Complaint: ABDOMINAL PAIN Time Seen by Provider: 01/07/17 15:38 Notes: 21-year-old female patient with hx/o GERD and gastric ulcer comes emergency room complaining of nausea & vomiting, back pain, heartburn, epigastric pain and bloating since yesterday. States she is 23 days late on her period. She was here on December 22 in December 23 with abdominal complaints. At that time she had a negative quantitative hCG. pt denies vaginal symptoms, urinary symptoms TRAVEL OUTSIDE OF THE [place] IN LAST 30 DAYS: No - Related Data Allergies/Adverse Reactions: cephalexin monohydrate [From Keflex] Allergy (Verified 01/07/17 15:10) clindamycin Allergy (Verified 01/07/17 15:31) Latex, Natural Rubber Allergy (Verified 01/07/17 15:10) peanut [Peanut] Allergy (Verified 01/07/17 15:10) Penicillins Allergy (Verified 01/07/17 15:10) morphine Adverse Reaction (Verified 01/07/17 15:10) Past Medical History - General Information source: Patient - Social History Smoking Status: Never Smoker Frequency of alcohol use: None Drug Abuse: None Family History: CVA, DM, Hyperlipidemia, Hypertension, Malignancy, Thyroid Disfunction Patient has suicidal ideation: No Patient has homicidal ideation: No Neurological Medical History: Reports: Hx Migraine Endocrine Medical History: Reports: Hx Diabetes Mellitus Type 2, Hx Hypothyroidism Renal/ Medical History: Denies: Hx Peritoneal Dialysis GI Medical History: Reports: Hx Gastroesophageal Reflux Disease, Hx Ulcer Musculoskeltal Medical History: Reports Hx Musculoskeletal Trauma Psychiatric Medical History: Reports: Hx Attention Deficit Hyperactivity Disorder, Hx Bipolar Disorder, Hx Post Traumatic Stress Disorder, Hx Schizophrenia Traumatic Medical History: Reports: Hx Fractures - Right arm Past Surgical History: Reports: Hx Cholecystectomy, Hx Dilation and Curettage - With , Hx Oral Surgery - [place] teeth - Immunizations Hx Diphtheria, Pertussis, Tetanus Vaccination: Yes Review of Systems - Review of Systems Constitutional: No symptoms reported EENT: No symptoms reported Cardiovascular: No symptoms reported Respiratory: No symptoms reported Gastrointestinal: See HPI Genitourinary: No symptoms reported Female Genitourinary: No symptoms reported Musculoskeletal: No symptoms reported Skin: No symptoms reported Hematologic/Lymphatic: No symptoms reported Neurological/Psychological: No symptoms reported Physical Exam - Vital signs Vitals: Temp Pulse Resp BP Pulse Ox 98.3 F 124 H 20 134/76 H 100 01/07/17 15:09 01/07/17 15:09 01/07/17 15:01/07/17 15:09 01/07/17 15:09 Interpretation: Normal - General General appearance: Appears well, Alert - HEENT Head: Normocephalic, Atraumatic Eyes: Normal Pupils: PERRL - Respiratory Respiratory status: No respiratory distress Chest status: Nontender Breath sounds: Normal Chest palpation: Normal - Cardiovascular Rhythm: Regular Heart sounds: Normal auscultation Murmur: No - Abdominal Inspection: Normal Distension: No distension Bowel sounds: Normal Tenderness: Tender - mild epigastric tenderness. no guarding or rebound. Organomegaly: No organomegaly - Back Back: Normal, Nontender - Extremities General upper extremity: Normal inspection, Nontender, Normal color, Normal ROM , Normal temperature General lower extremity: Normal inspection, Nontender, Normal color, Normal ROM , Normal temperature, Normal weight bearing. No: Juan's sign - Neurological Neuro grossly intact: Yes Cognition: Normal Orientation: AAOx4 Hermes Coma Scale Eye Opening: Spontaneous Hermes Coma Scale Verbal: Oriented Emerson Coma Scale Motor: Obeys Commands Hermes Coma Scale Total: 15 Speech: Normal Motor strength normal: LUE, RUE, LLE, RLE Sensory: Normal - Psychological Associated symptoms: Normal affect, Normal mood - Skin Skin Temperature: Warm Skin Moisture: Dry Skin Color: Normal Course - Re-evaluation Re-evalutation: 01/07/17 17:11 labs are unremarkable. HCG is negative. results reviewed with patient. pt now tells me that she was diagnosed with an ulcer in May and this pain feels very much like that. she got complete relief with GI cocktail. will place pt on nexium. pt stable for discharge and agreeable with plan 01/07/17 17:28 - Vital Signs Vital signs: Temp Pulse Resp BP Pulse Ox 98.3 F 109 H 20 134/76 H 100 01/07/17 15:09 01/07/17 15:40 01/07/17 15:09 01/07/17 15:09 01/07/17 15:09 - Laboratory Result Diagrams: 01/07/17 15:55 01/07/17 15:55 Laboratory results interpreted by me: 01/07/17 15:55 BUN 6 L Discharge - Discharge Clinical Impression: Epigastric pain, Amenorrhea Condition: Stable Disposition: HOME, SELF-CARE Instructions: Evaluation of Upper Abdominal Pain ([facility]) Additional Instructions: Your labs were normal today I am writing a prescription that you are to take daily to help coat your stomach and protect it from acid follow up with your primary care if your symptoms persist Your test was negative again today follow up with women's health at the health department for further evaluation of the irregularity of your period Prescriptions: Esomeprazole Magnesium [Nexium] 40 mg PO DAILY #30 capsule.
[2017-01-07 16:36] LABS: APPEARANCE,URINE CLEAR; BILIRUBIN,URINE NEGATIVE (NEGATIVE); GLUCOSE, URINE NEGATIVE (NEGATIVE); KETONES,URINE NEGATIVE (NEGATIVE); LEUKOCYTE ESTERASE,URINE NEGATIVE (NEGATIVE); NITRITE,URINE NEGATIVE (NEGATIVE); PROTEIN,URINE NEGATIVE (NEGATIVE); URINE SPECIFIC GRAVITY 1.004; UROBILINOGEN,URINE NEGATIVE mg/dL (<2.0)
[2017-01-07 16:56] LABS: ALANINE AMINOTRANSFERASE 31 U/L (9-52); ALKALINE PHOSPHATASE 91 U/L (38-126); ANION GAP 11 (5-19); ASPARTATE AMINO TRANSFERASE 22 U/L (14-36); BILIRUBIN,DIRECT 0.3 mg/dL (0.0-0.4); BILIRUBIN,TOTAL 0.3 mg/dL (0.2-1.3); BLOOD UREA NITROGEN 6 mg/dL (7-20); CALCIUM 8.9 mg/dL (8.4-10.2); CARBON DIOXIDE 26 mmol/L (22-30); CHLORIDE 105 mmol/L (98-107); CREATININE RESULT 0.71 mg/dL (0.52-1.25); GLUCOSE 86 mg/dL (75-110); LIPASE 143.7 U/L (23-300); POTASSIUM 4.3 mmol/L (3.6-5.0); SODIUM 141.7 mmol/L (137-145); TOTAL PROTEIN 7.1 g/dL (6.3-8.2)
== END 2017-01-07 17:57 | disposition home or self-care (01) ==
LOC: ER 15:05
DX: R12 Heartburn (principal); N91.2 Amenorrhea, unspecified; R11.2 Nausea with vomiting, unspecified; M54.9 Dorsalgia, unspecified; E11.9 Type 2 diabetes mellitus without complications; Z87.19 Personal history of other diseases of the digestive system; Z87.11 Personal history of peptic ulcer disease; Z88.1 Allergy status to other antibiotic agents; Z91.040 Latex allergy status; Z91.010 Allergy to peanuts; Z88.0 Allergy status to penicillin; Z90.49 Acquired absence of other specified parts of digestive tract
CPT/HCPCS: 99284; 36415; 83690; 84703; 85025; 80053; 81001; J3490

== ENCOUNTER 2017-02-12 21:41 | Emergency (ER) | payer SELFPAY ==
--- NOTE | 2017-02-13 00:28 | RADIOLOGY REPORT (SQ) ---
EXAM DESCRIPTION: ANKLE RIGHT COMPLETE COMPLETED DATE/TIME: 02/13/2017 12:02 am REASON FOR STUDY: ankle injury, swelling COMPARISON: None. NUMBER OF VIEWS: Three views. TECHNIQUE: AP, lateral, and oblique radiographic images acquired of the right ankle. LIMITATIONS: None. FINDINGS: MINERALIZATION: Normal. BONES: No acute fracture or dislocation. No worrisome bone lesions. JOINTS: No effusions. SOFT TISSUES: No soft tissue swelling. No foreign body. OTHER: No other significant finding. IMPRESSION: NEGATIVE STUDY OF THE RIGHT ANKLE. NO RADIOGRAPHIC EVIDENCE OF ACUTE INJURY. TECHNICAL DOCUMENTATION: JOB ID: [id number] [employer]- All Rights Reserved
--- NOTE | 2017-02-13 01:52 | ER Document Report ---
ED Extremity Problem, Lower - General Chief Complaint: Foot Pain Stated Complaint: FEET PAIN Time Seen by Provider: 02/12/17 23:45 Mode of Arrival: Ambulatory Information source: Patient Notes: Patient is a 21-year-old female who presents to the ER today for multiple complaints including accidentally rolling her right ankle prior to arrival today. Patient also complains of a cut on the bottom of her left foot 4 days that is bothering her. Patient also complains of diarrhea 2 days. Patient also complains of right ear pain. She denies any cough, fever, chills, numbness or tingling or other symptoms. TRAVEL OUTSIDE OF THE [place] IN LAST 30 DAYS: No - Related Data Allergies/Adverse Reactions: cephalexin monohydrate [From Keflex] Allergy (Verified 01/07/17 15:10) clindamycin Allergy (Verified 01/07/17 15:31) Latex, Natural Rubber Allergy (Verified 01/07/17 15:10) peanut [Peanut] Allergy (Verified 01/07/17 15:10) Penicillins Allergy (Verified 01/07/17 15:10) morphine Adverse Reaction (Verified 01/07/17 15:10) Past Medical History - General Information source: Patient Last Menstrual Period: 01/09/17 - Social History Smoking Status: Unknown if Ever Smoked Cigarette use (# per day): No Chew tobacco use (# tins/day): No Frequency of alcohol use: None Drug Abuse: None Family History: CVA, DM, Hyperlipidemia, Hypertension, Malignancy, Thyroid Disfunction Patient has suicidal ideation: No Patient has homicidal ideation: No Neurological Medical History: Reports: Hx Migraine Endocrine Medical History: Reports: Hx Diabetes Mellitus Type 2, Hx Hypothyroidism Renal/ Medical History: Denies: Hx Peritoneal Dialysis GI Medical History: Reports: Hx Gastroesophageal Reflux Disease, Hx Ulcer Musculoskeltal Medical History: Reports Hx Musculoskeletal Trauma Psychiatric Medical History: Reports: Hx Attention Deficit Hyperactivity Disorder, Hx Bipolar Disorder, Hx Post Traumatic Stress Disorder, Hx Schizophrenia Traumatic Medical History: Reports: Hx Fractures - Right arm Past Surgical History: Reports: Hx Cholecystectomy, Hx Dilation and Curettage - With , Hx Oral Surgery - [place] teeth - Immunizations Hx Diphtheria, Pertussis, Tetanus Vaccination: Yes Review of Systems - Review of Systems Constitutional: No symptoms reported EENT: See HPI Cardiovascular: No symptoms reported Respiratory: No symptoms reported Gastrointestinal: See HPI Genitourinary: No symptoms reported Female Genitourinary: No symptoms reported Musculoskeletal: See HPI Skin: No symptoms reported, See HPI Hematologic/Lymphatic: No symptoms reported Neurological/Psychological: No symptoms reported Physical Exam - Vital signs Vitals: Temp Pulse Resp BP Pulse Ox 98.7 F 107 H 16 122/76 100 02/12/17 22:14 02/12/17 22:14 02/12/17 22:14 02/12/17 22:14 02/12/17 22:14 - Notes Notes: Headache PHYSICAL EXAMINATION: GENERAL: Well-appearing and in no acute distress. HEAD: Atraumatic, normocephalic. EYES: Pupils equal round and reactive to light, extraocular movements intact, sclera anicteric, conjunctiva are normal. ENT: Right ear canal with red and white foreign body,tender to otoscope exam, nares patent, oropharynx clear without exudates. Moist mucous membranes. NECK: Normal range of motion, supple without lymphadenopathy LUNGS: CTAB and equal. No wheezes rales or rhonchi. HEART: Regular rate and rhythm without murmurs ABDOMEN: Soft, no tenderness. No guarding, no rebound EXTREMITIES: tender to palpation of entire right foot and ankle, cannot specify any specific tenderness, patient favors the right foot with limp while ambulating, no pitting edema. No cyanosis. NEUROLOGICAL: Cranial nerves grossly intact. Normal sensory/motor exams. PSYCH: Normal mood, normal affect. SKIN: Warm, Dry, normal turgor, small healing laceration, less than 1 cm, superficial, to the plantar surface of the left foot, tender to palpation, no erythema or drainage, Course - Re-evaluation Re-evalutation: 02/13/17 01:54 X-ray of the right ankle was negative for any acute pathology. Patient was placed in Alberto wrap and given crutches. Red and white ball of hearing was removed from right ear successfully. After removal of the earring, I did see erythema, edema and some purulent drainage in the right ear canal, she did go home with antibiotic eardrops from the emergency department. - Vital Signs Vital signs: Temp Pulse Resp BP Pulse Ox 98.3 F 80 16 140/64 H 98 02/13/17 02:53 02/13/17 02:53 02/13/17 02:53 02/13/17 02:53 02/13/17 02:53 Procedures - Immobilization Right Ankle Time completed: 21:00 Pre-Proc Neuro Vasc Exam: Normal Immobilizer type: Alberto wrap, Crutches Performed by: RN Post-Proc Neuro Vasc Exam: Normal Alignment checked and good: Yes Discharge - Discharge Clinical Impression: Foreign body in right ear Qualifiers: Encounter type: initial encounter Qualified Code(s): T16.1XXA - Foreign body in right ear, initial encounter Right otitis externa Qualifiers: Otitis externa type: unspecified type Chronicity: acute Qualified Code(s): H60.501 - Unspecified acute noninfective otitis externa, right ear Right ankle sprain Qualifiers: Encounter type: initial encounter Involved ligament of ankle: unspecified ligament Qualified Code(s): S93.401A - Sprain of unspecified ligament of right ankle, initial encounter Laceration of left foot Qualifiers: Encounter type: initial encounter Qualified Code(s): S91.312A - Laceration without foreign body, left foot, initial encounter Condition: Stable Disposition: HOME, SELF-CARE Instructions: Use of Ear Drops ([facility]), Sprained Ankle ([facility]) Additional Instructions: Return immediately for any new or worsening symptoms. Follow up with primary care provider, call tomorrow to make followup appointment. Prescriptions: Ibuprofen [Motrin 800 mg Tablet] 800 mg PO Q8H PRN #30 tab PRN Reason:
[2017-02-13] MEDS ORDERED: CIPROFLOXACIN HCL/DEXAMETH OTIC DROP 7.5 ML AS ONE (01:57)
[2017-02-13 02:55] VITALS: BP 140/64
== END 2017-02-13 02:53 | disposition home or self-care (01) ==
LOC: ER 21:41
DX: S91.312A Laceration without foreign body, left foot, initial encounter (principal); S93.401A Sprain of unspecified ligament of right ankle, initial encounter; H60.501 Unspecified acute noninfective otitis externa, right ear; R19.7 Diarrhea, unspecified; X58.XXXA Exposure to other specified factors, initial encounter; E11.9 Type 2 diabetes mellitus without complications; K21.9 Gastro-esophageal reflux disease without esophagitis; E03.9 Hypothyroidism, unspecified; Z90.49 Acquired absence of other specified parts of digestive tract; Z91.040 Latex allergy status; Z88.0 Allergy status to penicillin; Z88.3 Allergy status to other anti-infective agents; Z88.6 Allergy status to analgesic agent; Z91.010 Allergy to peanuts
CPT/HCPCS: 99283; 73610; J3490

== ENCOUNTER 2017-03-30 21:40 | Emergency (ER) | payer SELFPAY ==
[2017-03-30] MEDS ORDERED: ONDANSETRON HCL INJ/PF 4 MG/2 ML SDV IV ONE (22:12)
[2017-03-30] MEDS ORDERED: NORMAL SALINE 1000 ML 1,000 ML IV ONE (22:12)
[2017-03-30] MEDS ORDERED: ONDANSETRON 4 MG TAB.RAPDIS PO ONE (22:52)
[2017-03-30] MEDS ORDERED: ACETAMINOPHEN 325 MG TABLET PO ONE (22:54)
--- NOTE | 2017-03-30 22:54 | ER Document Report ---
ED Medical Screen (RME) - General Chief Complaint: Abdominal Pain Stated Complaint: ABDOMINAL PAIN Time Seen by Provider: 03/30/17 22:52 Mode of Arrival: Ambulatory Information source: Patient Notes: Patient presents complaining of left across her lower pelvis and up to the left upper quadrant area. Patient reports fever of 101 at home. Patient states she has had the pain for the past 2-3 days. Patient does complain of nausea and diarrhea. Patient also reports sore throat. Patient is worried that there is a possibility that she could be . Patient's last menstrual period was on March 07 of this month hx: Hypothyroid, diabetes, cholecystectomy TRAVEL OUTSIDE OF THE [place] IN LAST 30 DAYS: No - Related Data Allergies/Adverse Reactions: cephalexin monohydrate [From Keflex] Allergy (Verified 01/07/17 15:10) clindamycin Allergy (Verified 01/07/17 15:31) Latex, Natural Rubber Allergy (Verified 01/07/17 15:10) peanut [Peanut] Allergy (Verified 01/07/17 15:10) Penicillins Allergy (Verified 01/07/17 15:10) morphine Adverse Reaction (Verified 01/07/17 15:10) Past Medical History Neurological Medical History: Reports: Hx Migraine Endocrine Medical History: Reports: Hx Diabetes Mellitus Type 2, Hx Hypothyroidism Renal/ Medical History: Denies: Hx Peritoneal Dialysis GI Medical History: Reports: Hx Gastroesophageal Reflux Disease, Hx Ulcer Musculoskeltal Medical History: Reports Hx Musculoskeletal Trauma Psychiatric Medical History: Reports: Hx Attention Deficit Hyperactivity Disorder, Hx Bipolar Disorder, Hx Post Traumatic Stress Disorder, Hx Schizophrenia Traumatic Medical History: Reports: Hx Fractures - Right arm Past Surgical History: Reports: Hx Cholecystectomy, Hx Dilation and Curettage - With , Hx Oral Surgery - [place] teeth - Immunizations Hx Diphtheria, Pertussis, Tetanus Vaccination: Yes Physical Exam - Vital signs Vitals: Temp Pulse Resp BP Pulse Ox 99.7 F 126 H 20 130/73 H 100 03/30/17 21:49 03/30/17 21:49 03/30/17 21:49 03/30/17 21:49 03/30/17 21:49 - Cardiovascular Rhythm: Regular, Tachycardia - 104 apical rate - Abdominal Tenderness: Tender - Left lower pelvic tenderness Course - Vital Signs Vital signs: Temp Pulse Resp BP Pulse Ox 99.7 F 126 H 20 130/73 H 100 03/30/17 21:49 03/30/17 21:49 03/30/17 21:49 03/30/17 21:49 03/30/17 21:49
[2017-03-31 00:01] LABS: ABSOLUTE BASOPHILS # (AUTO) 0.1 10^3/uL (0.0-0.2); ABSOLUTE EOSINOPHILS # (AUTO) 0.3 10^3/uL (0.0-0.6); ABSOLUTE LYMPHOCYTES (AUTO) 2.5 10^3/uL (0.5-4.7); ABSOLUTE NEUT (AUTO) 8.1 10^3/uL (1.7-8.2); BASOPHILS % (AUTO) 0.6 % (0-2); EOSINOPHILS % (AUTO) 2.1 % (0-6); HEMATOCRIT 40.6 % (36.0-47.0); HEMOGLOBIN 13.7 g/dL (12.0-15.5); HGB HCT DIFFERENCE 0.5; LYMPHOCYTES % (AUTO) 20.8 % (13-45); MEAN CORPUSCULAR HEMOGLOBIN 28.5 pg (27.0-33.4); MEAN CORPUSCULAR HGB CONC 33.8 g/dL (32.0-36.0); MEAN CORPUSCULAR VOLUME 84 fl (80-97); MONOCYTES % (AUTO) 8.5 % (3-13); RED BLOOD COUNT 4.81 10^6/uL (3.72-5.28); RED CELL DISTRIBUTION WIDTH 14.1 % (11.5-14.0)
[2017-03-31 00:06] LABS: ALANINE AMINOTRANSFERASE 50 U/L (9-52); ALBUMIN 4.4 g/dL (3.5-5.0); ALKALINE PHOSPHATASE 93 U/L (38-126); ANION GAP 13 (5-19); ASPARTATE AMINO TRANSFERASE 27 U/L (14-36); BILIRUBIN,DIRECT 0.3 mg/dL (0.0-0.4); BILIRUBIN,TOTAL 0.3 mg/dL (0.2-1.3); BLOOD UREA NITROGEN 13 mg/dL (7-20); CALCIUM 9.8 mg/dL (8.4-10.2); CARBON DIOXIDE 25 mmol/L (22-30); CHLORIDE 105 mmol/L (98-107); CREATININE RESULT 0.82 mg/dL (0.52-1.25); GLUCOSE 92 mg/dL (75-110); LIPASE 134.4 U/L (23-300); POTASSIUM 4.3 mmol/L (3.6-5.0); SODIUM 143.1 mmol/L (137-145); TOTAL PROTEIN 7.6 g/dL (6.3-8.2)
[2017-03-31] MEDS ORDERED: NORMAL SALINE 1000 ML 1,000 ML IV ONE (01:16)
[2017-03-31 01:32] LABS: APPEARANCE,URINE SLIGHTLY-CLOUDY; BILIRUBIN,URINE NEGATIVE (NEGATIVE); GLUCOSE, URINE NEGATIVE (NEGATIVE); KETONES,URINE NEGATIVE (NEGATIVE); LEUKOCYTE ESTERASE,URINE NEGATIVE (NEGATIVE); NITRITE,URINE NEGATIVE (NEGATIVE); PROTEIN,URINE NEGATIVE (NEGATIVE); URINE SPECIFIC GRAVITY 1.023; UROBILINOGEN,URINE NEGATIVE mg/dL (<2.0)
[2017-03-31 01:40] VITALS: BP 114/52
--- NOTE | 2017-03-31 01:43 | ER Document Report ---
ED GI/ - General Chief Complaint: Abdominal Pain Stated Complaint: ABDOMINAL PAIN Time Seen by Provider: 03/30/17 22:52 Mode of Arrival: Ambulatory Information source: Patient Notes: Patient presents complaining of left lower quadrant abdominal tenderness for the past 2-3 days. Patient does report nausea and diarrhea 3 episodes today. Patient also complains of sore throat and headache. Patient denies any urinary symptoms. Patient states that she is concerned that she may possibly be . TRAVEL OUTSIDE OF THE [place] IN LAST 30 DAYS: No - HPI Patient complains to provider of: Abdominal pain, Diarrhea. No: Vomiting Onset: Other - 2 days Timing/Duration: Persistent Quality of pain: Achy Pain Level: 4 Location: LLQ Vaginal bleeding (Compared to normal period): None Sexual history: Active, Unprotected intercourse Associated symptoms: Diarrhea, Fever, Nausea. denies: Urinary hesitancy, Urinary frequency, Urinary retention, Vomiting Exacerbated by: Denies Relieved by: Denies Similar symptoms previously: No Recently seen / treated by doctor: No - Related Data Allergies/Adverse Reactions: cephalexin monohydrate [From Keflex] Allergy (Verified 01/07/17 15:10) clindamycin Allergy (Verified 01/07/17 15:31) Latex, Natural Rubber Allergy (Verified 01/07/17 15:10) peanut [Peanut] Allergy (Verified 01/07/17 15:10) Penicillins Allergy (Verified 01/07/17 15:10) morphine Adverse Reaction (Verified 01/07/17 15:10) Past Medical History - General Information source: Patient - Social History Smoking Status: Never Smoker Frequency of alcohol use: None Drug Abuse: None Occupation: None Lives with: Family Family History: CVA, DM, Hyperlipidemia, Hypertension, Malignancy, Thyroid Disfunction Patient has suicidal ideation: No Patient has homicidal ideation: No Neurological Medical History: Reports: Hx Migraine Endocrine Medical History: Reports: Hx Diabetes Mellitus Type 2, Hx Hypothyroidism Renal/ Medical History: Denies: Hx Peritoneal Dialysis GI Medical History: Reports: Hx Gastroesophageal Reflux Disease, Hx Ulcer Musculoskeltal Medical History: Reports Hx Musculoskeletal Trauma Psychiatric Medical History: Reports: Hx Attention Deficit Hyperactivity Disorder, Hx Bipolar Disorder, Hx Post Traumatic Stress Disorder, Hx Schizophrenia Traumatic Medical History: Reports: Hx Fractures - Right arm Past Surgical History: Reports: Hx Cholecystectomy, Hx Dilation and Curettage - With , Hx Oral Surgery - [place] teeth - Immunizations Hx Diphtheria, Pertussis, Tetanus Vaccination: Yes Review of Systems - Review of Systems Constitutional: Fever EENT: Throat pain Cardiovascular: No symptoms reported Respiratory: No symptoms reported. denies: Cough, Short of breath Gastrointestinal: Abdominal pain, Diarrhea, Nausea. denies: Vomiting Genitourinary: No symptoms reported. denies: Dysuria Female Genitourinary: No symptoms reported. denies: Vaginal discharge, Vaginal bleeding Musculoskeletal: Back pain Skin: No symptoms reported Hematologic/Lymphatic: No symptoms reported Neurological/Psychological: No symptoms reported Physical Exam - Vital signs Vitals: Temp Pulse Resp BP Pulse Ox 99.7 F 126 H 20 130/73 H 100 03/30/17 21:49 03/30/17 21:49 03/30/17 21:49 03/30/17 21:49 03/30/17 21:49 - General General appearance: Appears well, Alert In distress: None - HEENT Head: Normocephalic, Atraumatic Eyes: Normal Conjunctiva: Normal Nasal: Normal Mouth/Lips: Normal Mucous membranes: Normal Pharynx: Erythema. No: Tonsillar hypertrophy Neck: Normal, Supple. No: Lymphadenopathy, Meningismus - Respiratory Respiratory status: No respiratory distress Chest status: Nontender Breath sounds: Normal. No: Rales, Rhonchi, Stridor, Wheezing Chest palpation: Normal - Cardiovascular Rhythm: Regular Heart sounds: S1 appreciated, S2 appreciated Murmur: No - Abdominal Inspection: Morbidly Obese Distension: No distension Bowel sounds: Normal Tenderness: Tender - LLQ Organomegaly: No organomegaly - Back Back: Vertebra tenderness - Lower lumbar tenderness. No: Deformity/step-off, CVA tenderness - Extremities General upper extremity: Normal inspection, Normal ROM General lower extremity: Normal inspection, Normal ROM - Neurological Neuro grossly intact: Yes Cognition: Normal Hermes Coma Scale Eye Opening: Spontaneous Hermes Coma Scale Verbal: Oriented Hermes Coma Scale Motor: Obeys Commands Hermes Coma Scale Total: 15 - Psychological Associated symptoms: Normal affect, Normal mood - Skin Skin Temperature: Warm Skin Moisture: Dry Skin Color: Normal Course - Re-evaluation Re-evalutation: 03/31/17 02:27 Patient's abdomen soft, nontender. Patient without any additional vomiting. Patient's strep test is positive. Patient does complain of bilateral ear pain. Patient advised that this is likely a result of her strep pharyngitis. Patient advised that strep can cause gastrointestinal symptoms in younger patients. Discussed worsening signs or symptoms that patient should return immediately for. Patient advised that if she has any persistent abdominal pain or fever that she should return for further evaluation. - Vital Signs Vital signs: Temp Pulse Resp BP Pulse Ox 98.5 F 87 20 114/52 L 98 03/31/17 01:38 03/31/17 02:52 03/31/17 02:52 03/31/17 02:52 03/31/17 02:52 - Laboratory Result Diagrams: 03/30/17 23:30 03/30/17 23:30 Laboratory results interpreted by me: 03/30/17 23:30 WBC 12.0 H RDW 14.1 H 03/31/17 02:28 Labs- Entire Visit 03/30/17 03/30/17 03/31/17 23:30 23:30 01:00 WBC 12.0 H RBC 4.81 Hgb 13.7 Hct 40.6 MCV 84 MCH 28.5 MCHC 33.8 RDW 14.1 H Plt Count 317 Seg Neutrophils % 68.0 Lymphocytes % 20.8 Monocytes % 8.5 Eosinophils % 2.1 Basophils % 0.6 Absolute Neutrophils 8.1 Absolute Lymphocytes 2.5 Absolute Monocytes 1.0 Absolute Eosinophils 0.3 Absolute Basophils 0.1 Sodium 143.1 Potassium 4.3 Chloride 105 Carbon Dioxide 25 Anion Gap 13 BUN 13 Creatinine 0.82 Est GFR ( Amer) > 60 Est GFR (Non-Af Amer) > 60 Glucose 92 Calcium 9.8 Total Bilirubin 0.3 Direct Bilirubin 0.3 Indirect Bilirubin Not Reportable Neonat Total Bilirubin Not Reportable AST 27 ALT 50 Alkaline Phosphatase 93 Total Protein 7.6 Albumin 4.4 Lipase 134.4 Urine Color YELLOW Urine Appearance SLIGHTLY-CLOUDY Urine pH 6.0 Ur Specific [place] 1.023 Urine Protein NEGATIVE Urine Glucose (UA) NEGATIVE Urine Ketones NEGATIVE Urine Blood NEGATIVE Urine Nitrite NEGATIVE Urine Bilirubin NEGATIVE Urine Urobilinogen NEGATIVE Ur Leukocyte Esterase NEGATIVE Urine WBC (Auto) 1 Urine RBC (Auto) 0 Urine Bacteria (Auto) TRACE Squamous Epi Cells Auto 3 Urine Mucus (Auto) RARE Urine Ascorbic Acid NEGATIVE Urine HCG, Qual NEGATIVE Group A Strep Rapid 03/31/17 01:37 WBC RBC Hgb Hct MCV MCH MCHC RDW Plt Count Seg Neutrophils % Lymphocytes % Monocytes % Eosinophils % Basophils % Absolute Neutrophils Absolute Lymphocytes Absolute Monocytes Absolute Eosinophils Absolute Basophils Sodium Potassium Chloride Carbon Dioxide Anion Gap BUN Creatinine Est GFR ( Amer) Est GFR (Non-Af Amer) Glucose Calcium Total Bilirubin Direct Bilirubin Indirect Bilirubin Neonat Total Bilirubin AST ALT Alkaline Phosphatase Total Protein Albumin Lipase Urine Color Urine Appearance Urine pH Ur Specific [place] Urine Protein Urine Glucose (UA) Urine Ketones Urine Blood Urine Nitrite Urine Bilirubin Urine Urobilinogen Ur Leukocyte Esterase Urine WBC (Auto) Urine RBC (Auto) Urine Bacteria (Auto) Squamous Epi Cells Auto Urine Mucus (Auto) Urine Ascorbic Acid Urine HCG, Qual Group A Strep Rapid POSITIVE Discharge - Discharge Clinical Impression: Strep pharyngitis, Nausea Diarrhea Qualifiers: Diarrhea type: unspecified type Qualified Code(s): R19.7 - Diarrhea, unspecified Condition: Stable Disposition: HOME, SELF-CARE Instructions: Abdominal Pain ([facility]), Azithromycin ([facility]), Diarrhea, Nonspecific ( [facility]), Nausea or Vomiting, Nonspecific ([facility]), Strep Throat ([facility]) Additional Instructions: Return immediately for any new or worsening symptoms Followup with your primary care provider, call tomorrow to make a followup appointment Return for a repeat abdominal exam if you have any persistent abdominal pain in 12 hours Stay well-hydrated Prescriptions: Azithromycin [Zithromax 250 mg Tablet] 250 mg PO DAILY 4 Days tablet Naproxen [Naprosyn 250 Nmg Tablet] 1 tab PO BID #14 tablet Promethazine HCl [Phenergan 25 mg Tablet] 25 mg PO Q6H PRN #10 tablet PRN Reason: Referrals: [facility] [Provider Group] - Follow up as needed [facility] [Provider Group] - Follow up as needed
[2017-03-31] MEDS ORDERED: AZITHROMYCIN 250 MG TABLET PO ONE (02:28)
== END 2017-03-31 02:53 | disposition home or self-care (01) ==
LOC: ER 21:40
DX: J02.0 Streptococcal pharyngitis (principal); R10.32 Left lower quadrant pain; R11.0 Nausea; R19.7 Diarrhea, unspecified; R51 Headache; H92.03 Otalgia, bilateral; M54.9 Dorsalgia, unspecified; R50.9 Fever, unspecified; E11.9 Type 2 diabetes mellitus without complications; Z88.1 Allergy status to other antibiotic agents; Z91.040 Latex allergy status; Z91.010 Allergy to peanuts; Z88.0 Allergy status to penicillin; Z90.49 Acquired absence of other specified parts of digestive tract; Z87.19 Personal history of other diseases of the digestive system
CPT/HCPCS: 99284; 96360; 36415; 87880; 83690; 85025; 81025; 80053; 81001; S0119; J7030

== ENCOUNTER 2017-04-16 22:39 | Emergency (ER) | payer SELFPAY ==
[2017-04-16] MEDS ORDERED: ALBUTEROL SULFATE HFA (90 MCG/PUFF) 8 GM MDI (1 MDI/ER DISP) IH ONE (22:58)
[2017-04-16] MEDS ORDERED: NORMAL SALINE 1000 ML 1,000 ML IV ONE (23:03)
--- NOTE | 2017-04-16 23:03 | ER Document Report ---
ED General - General Chief Complaint: Chest Pain Stated Complaint: CHEST PAIN Time Seen by Provider: 04/16/17 22:51 Mode of Arrival: Ambulatory Information source: Patient TRAVEL OUTSIDE OF THE [place] IN LAST 30 DAYS: No - HPI Notes: 22-year-old female with history of thyroid disorder presents with 3 days of dry cough chest had congestion and sore throat. States she was diagnosed March 30 with strep but was unable to afford the antibiotics or did not take any. She did start to improve and felt like she had gotten better until 3 days ago when this started. With cough and somewhat with deep breath she has pain across her shoulder blades lateral chest. This is more sharp and non radiating. She has some mild shortness of breath and notes anxiety. Patient denies fever. - Related Data Allergies/Adverse Reactions: cephalexin monohydrate [From Keflex] Allergy (Verified 01/07/17 15:10) clindamycin Allergy (Verified 01/07/17 15:31) Latex, Natural Rubber Allergy (Verified 01/07/17 15:10) peanut [Peanut] Allergy (Verified 01/07/17 15:10) Penicillins Allergy (Verified 01/07/17 15:10) morphine Adverse Reaction (Verified 01/07/17 15:10) Past Medical History - Social History Smoking Status: Never Smoker Family History: CVA, DM, Hyperlipidemia, Hypertension, Malignancy, Thyroid Disfunction - Perfecto's Neurological Medical History: Reports: Hx Migraine Endocrine Medical History: Reports: Hx Diabetes Mellitus Type 2, Hx Hypothyroidism Renal/ Medical History: Denies: Hx Peritoneal Dialysis GI Medical History: Reports: Hx Gastroesophageal Reflux Disease, Hx Ulcer Musculoskeltal Medical History: Reports Hx Musculoskeletal Trauma Psychiatric Medical History: Reports: Hx Attention Deficit Hyperactivity Disorder, Hx Bipolar Disorder, Hx Post Traumatic Stress Disorder, Hx Schizophrenia Traumatic Medical History: Reports: Hx Fractures - Right arm Past Surgical History: Reports: Hx Cholecystectomy, Hx Dilation and Curettage - With , Hx Oral Surgery - [place] teeth - Immunizations Hx Diphtheria, Pertussis, Tetanus Vaccination: Yes Review of Systems - Review of Systems -: Yes All other systems reviewed and negative Physical Exam - Vital signs Vitals: Temp Pulse Resp BP Pulse Ox 98.3 F 147 H 26 H 136/71 H 100 04/16/17 22:42 04/16/17 22:42 04/16/17 22:42 04/16/17 22:42 04/16/17 22:42 Interpretation: Tachycardic - Notes Notes: Physical Exam: GENERAL: VS as per nursing doc. Well-appearing, well-nourished, anxious. HEAD: Atraumatic, normocephalic. EYES: Pupils equal round and reactive to light, extraocular movements intact, sclera anicteric, no conjunctival injection or discharge. ENT: Nares patent, oropharynx clear without exudates. Moist mucous membranes. NECK: Normal range of motion, supple without lymphadenopathy. LUNGS: Tachypneic, breath sounds coarse to auscultation bilaterally and equal with good air movement. No wheezes rales or rhonchi. HEART: Normal S1S2. Regular rhythm without murmurs. Equal peripheral pulses. Tachycardic, rate 108 on recheck ABDOMEN: Soft, non-tender EXTREMITIES: Normal range of motion. No calf tenderness. Negative Homans. No edema. NEUROLOGICAL: Cranial nerves grossly intact. Normal speech. Normal sensory and motor exams. No gross cerebellar abnormalities. PSYCH: Normal mood, normal affect. SKIN: Warm, dry, no cyanosis, no splinter hemorrhages. Cap refill < 2 sec. Course - Re-evaluation Re-evalutation: 04/16/17 23:05 Discussed with patient that she will need to establish primary care physician. She is frequently in emergency department as she states she gets sick frequently. She states she has had trouble getting in to see a physician. I encouraged her to once again call me [facility] and make an appointment even if it is down the road quite a bit so that it will be available so she can receive routine care in addition to sit care. Clinically she does not appear to have a PE or DVT that she has tachycardic. She has not had any sedimentation or trauma. She is obese but not on hormone therapy. No family history of VTE. 04/17/17 00:30 Patient had significant improvement with the albuterol MDI for which she will take home. Appears most consistent with an upper respiratory infection at this point. Heart rate has decreased to the 90s and she is comfortable and has been asking for food. As she had documented strep and had not been treated for this we will place her on antibiotics to ensure this is covered as she has had sore throat. - Vital Signs Vital signs: Temp Pulse Resp BP Pulse Ox 98.3 F 147 H 26 H 136/71 H 100 04/16/17 22:42 04/16/17 22:42 04/16/17 22:42 04/16/17 22:42 04/16/17 22:42 - Laboratory Result Diagrams: 04/16/17 23:43 - Diagnostic Test Radiology reviewed: Image reviewed, Reports reviewed - No acute process - EKG Interpretation by Me Rate: Tachycardia - Rate 118, sinus tachycardia, normal QRS duration. No clear ischemic ST segments. Discharge - Discharge Clinical Impression: Bronchitis, acute, with bronchospasm Condition: Good Disposition: HOME, SELF-CARE Additional Instructions: Return for any problem or concern, worsening otherwise. Finish all of the antibiotics starting tomorrow. Call to arrange follow-up as we discussed with a primary care physician, [facility]. Use the albuterol inhaler 2 puffs every 6 hours while awake, may then use as needed as you are improving. Prescriptions: Azithromycin [Zithromax 250 mg Tablet] 250 mg PO DAILY #4 tablet Referrals: [facility] [Provider Group] - Follow up in 3-5 days
[2017-04-16] MEDS ORDERED: HYDROCODONE/ACETAMINOPHEN 10-325 MG TABLET PO ONE (23:47)
--- NOTE | 2017-04-16 23:50 | RADIOLOGY REPORT (SQ) ---
EXAM DESCRIPTION: CHEST PA/LAT COMPLETED DATE/TIME: 04/16/2017 11:39 pm REASON FOR STUDY: Cough COMPARISON: 04/13/2016. EXAM PARAMETERS: NUMBER OF VIEWS: two views TECHNIQUE: Digital Frontal and Lateral radiographic views of the chest acquired. RADIATION DOSE: NA LIMITATIONS: none FINDINGS: LUNGS AND PLEURA: No opacities, masses or pneumothorax. No pleural effusion. MEDIASTINUM AND HILAR STRUCTURES: No masses or contour abnormalities. HEART AND VASCULAR STRUCTURES: Heart normal size. No evidence for failure. BONES: No acute findings. HARDWARE: None in the chest. OTHER: No other significant finding. IMPRESSION: NO SIGNIFICANT RADIOGRAPHIC FINDING IN THE CHEST. TECHNICAL DOCUMENTATION: JOB ID: [id number] [employer]- All Rights Reserved
[2017-04-16 23:58] LABS: ABSOLUTE BASOPHILS # (AUTO) 0.1 10^3/uL (0.0-0.2); ABSOLUTE EOSINOPHILS # (AUTO) 0.3 10^3/uL (0.0-0.6); ABSOLUTE LYMPHOCYTES (AUTO) 2.2 10^3/uL (0.5-4.7); ABSOLUTE NEUT (AUTO) 6.8 10^3/uL (1.7-8.2); BASOPHILS % (AUTO) 0.6 % (0-2); EOSINOPHILS % (AUTO) 2.8 % (0-6); HEMATOCRIT 41.4 % (36.0-47.0); HEMOGLOBIN 14.1 g/dL (12.0-15.5); HGB HCT DIFFERENCE 0.9; LYMPHOCYTES % (AUTO) 21.7 % (13-45); MEAN CORPUSCULAR HEMOGLOBIN 28.4 pg (27.0-33.4); MEAN CORPUSCULAR HGB CONC 34.1 g/dL (32.0-36.0); MEAN CORPUSCULAR VOLUME 83 fl (80-97); MONOCYTES % (AUTO) 9.3 % (3-13); RED BLOOD COUNT 4.97 10^6/uL (3.72-5.28); RED CELL DISTRIBUTION WIDTH 13.9 % (11.5-14.0); SEGMENTED NEUTROPHILS % (AUTO) 65.6 % (42-78); WHITE BLOOD COUNT 10.3 10^3/uL (4.0-10.5)
[2017-04-17] MEDS ORDERED: AZITHROMYCIN 250 MG TABLET PO ONE (00:34)
[2017-04-17 00:43] VITALS: BP 119/89
--- NOTE | 2017-04-17 09:26 | EKG REPORT ---
SEVERITY:- OTHERWISE NORMAL ECG - SINUS TACHYCARDIA : Confirmed by: Keira Bowie 17-Apr-2017 09:25:00
== END 2017-04-17 00:59 | disposition home or self-care (01) ==
LOC: ER 22:39
DX: J20.9 Acute bronchitis, unspecified (principal); J02.0 Streptococcal pharyngitis; T36.96XA Underdosing of unspecified systemic antibiotic, initial encounter; Z91.120 Patient's intentional underdosing of medication regimen due to financial hardship; Z91.14 Patient's other noncompliance with medication regimen; F41.9 Anxiety disorder, unspecified; R07.9 Chest pain, unspecified; R05 Cough; R06.02 Shortness of breath; E11.9 Type 2 diabetes mellitus without complications; R00.0 Tachycardia, unspecified; E66.9 Obesity, unspecified; Z88.1 Allergy status to other antibiotic agents; Z91.040 Latex allergy status; Z91.010 Allergy to peanuts; Z88.0 Allergy status to penicillin
CPT/HCPCS: 93005; 99285; 96360; 36415; 87040; 84703; 85025; 85379; 71020; 93010; J7030; J3490

== ENCOUNTER 2017-05-28 22:25 | Emergency (ER) | payer MEDICAID ==
[2017-05-28 22:32] VITALS: BP 126/51
--- NOTE | 2017-05-28 23:39 | ER Document Report ---
ED General - General Chief Complaint: Vaginal Pain Stated Complaint: VAGINA DISCOMFORT Time Seen by Provider: 05/28/17 22:42 Notes: Patient is a 22-year-old female very well-known to this emergency department making today the 23rd visit this year who presents with concerns of lower abdominal cramping and intermittent vaginal bleeding since having an IUD placed less than 24 hours ago. Patient reports that she was instructed to expect the symptoms but the pain was so intense she felt she needed to come to the emergency department. She describes the pain as a dull, constant, aching pain. Nothing improves the pain and she notes that she has been taking ibuprofen without relief. Nothing worsens the pain. She states that she is blood through 1 pad today. She has never had an IUD placed in the past. No vomiting , fever or constitutional symptoms. She is also complaining of a sore throat that has been present for the past 3-4 days. This is a dull, constant, scratching pain. Pain is worsened by swallowing. She has not tried anything for relief of this pain. She states this feels similar to when she has had strep pharyngitis in the past. She has not seen a primary care doctor regarding today's concerns. TRAVEL OUTSIDE OF THE [place] IN LAST 30 DAYS: No - Related Data Allergies/Adverse Reactions: cephalexin monohydrate [From Keflex] Allergy (Verified 05/28/17 22:27) clindamycin Allergy (Verified 05/28/17 22:27) Latex, Natural Rubber Allergy (Verified 05/28/17 22:27) peanut [Peanut] Allergy (Verified 05/28/17 22:27) Penicillins Allergy (Verified 05/28/17 22:27) morphine Adverse Reaction (Verified 05/28/17 22:27) Past Medical History - General Information source: Patient - Social History Smoking Status: Never Smoker Frequency of alcohol use: None Drug Abuse: None Lives with: Family Family History: CVA, DM, Hyperlipidemia, Hypertension, Malignancy, Thyroid Disfunction - Perfecto's Patient has suicidal ideation: No Patient has homicidal ideation: No Neurological Medical History: Reports: Hx Migraine Endocrine Medical History: Reports: Hx Diabetes Mellitus Type 2, Hx Hypothyroidism Renal/ Medical History: Denies: Hx Peritoneal Dialysis GI Medical History: Reports: Hx Gastroesophageal Reflux Disease, Hx Ulcer Musculoskeltal Medical History: Reports Hx Musculoskeletal Trauma Psychiatric Medical History: Reports: Hx Attention Deficit Hyperactivity Disorder, Hx Bipolar Disorder, Hx Post Traumatic Stress Disorder, Hx Schizophrenia Traumatic Medical History: Reports: Hx Fractures - Right arm Past Surgical History: Reports: Hx Cholecystectomy, Hx Dilation and Curettage - With , Hx Oral Surgery - [place] teeth - Immunizations Hx Diphtheria, Pertussis, Tetanus Vaccination: Yes Review of Systems - Review of Systems Notes: Constitutional: Negative for fever. HENT: positive for sore throat. Eyes: Negative for visual changes. Cardiovascular: Negative for chest pain. Respiratory: Negative for shortness of breath. Gastrointestinal: Positive for lower abdominal cramping Genitourinary: Positive for vaginal bleeding Musculoskeletal: Negative for back pain. Skin: Negative for rash. Neurological: Negative for headaches, weakness or numbness. 10 point ROS negative except as marked above and in HPI. Physical Exam - Vital signs Vitals: Temp Pulse Resp BP Pulse Ox 98.1 F 93 18 126/51 H 99 05/28/17 22:30 05/28/17 22:30 05/28/17 22:30 05/28/17 22:30 05/28/17 22:30 Interpretation: Normal Notes: PHYSICAL EXAMINATION: GENERAL: Well-appearing, well-nourished and in no acute distress. HEAD: Atraumatic, normocephalic. EYES: Pupils equal round and reactive to light, extraocular movements intact, sclera anicteric, conjunctiva are normal. ENT: nares patent, oropharynx clear without exudates. Moist mucous membranes. NECK: Normal range of motion, supple without lymphadenopathy LUNGS: Breath sounds clear to auscultation bilaterally and equal. No wheezes rales or rhonchi. HEART: Regular rate and rhythm without murmurs ABDOMEN: Soft, nontender, normoactive bowel sounds. No guarding, no rebound. No masses appreciated. : No vaginal bleeding. There are IUD strings exiting the cervical office. No apparent lacerations or injuries to the cervix. EXTREMITIES: Normal range of motion, no pitting or edema. No cyanosis. NEUROLOGICAL: No focal neurological deficits. Moves all extremities spontaneously and on command. PSYCH: Normal mood, normal affect. SKIN: Warm, Dry, normal turgor, no rashes or lesions noted. Course - Re-evaluation Re-evalutation: 05/28/17 23:37 Patient is presenting with lower abdominal cramping and intermittent vaginal bleeding after having an IUD placed less than 24 hours ago. On pelvic examination IUD strings are exiting the cervical os and there is no bleeding. There is no evidence of vaginal discharge patient has no cervical motion tenderness. I do not suspect PID or a misplaced IUD at this time. Patient was also reporting several days of sore throat. Rapid strep is positive. History and exam are not consistent with a retropharyngeal abscess or peritonsillar abscess. Airway is patent. No difficulty handling oral secretions. Vitals within normal limits. Patient has been treated with azithromycin given reported penicillin allergy. At this time will discharge with return precautions and follow-up recommendations. Verbal discharge instructions given a the bedside and opportunity for questions given. Medication warnings reviewed. Patient is in agreement with this plan and has verbalized understanding of return precautions and the need for primary care follow-up in the next 24-72 hours. - Vital Signs Vital signs: Temp Pulse Resp BP Pulse Ox 98.1 F 93 18 126/51 H 99 05/28/17 22:30 05/28/17 22:30 05/28/17 22:30 05/28/17 22:30 05/28/17 22:30 - Laboratory Laboratory results interpreted by me: 05/28/17 23:51 Urine Blood SMALL H Discharge - Discharge Clinical Impression: IUD check up, Abdominal cramping, bilateral lower quadrant, Strep pharyngitis Condition: Good Disposition: HOME, SELF-CARE Additional Instructions: You have been diagnosed with strep throat based on a positive strep test. You are being treated with azithromycin given her reported allergies. Please continue to take ibuprofen 600 mg every 6 hours or Tylenol 1000 mg every 6 hours as needed for throat discomfort. You can also gargle with salt water. Continue to drink plenty of fluids. Follow-up with your primary care doctor in the next several days. Return if you become unable to swallow, have difficulty breathing, pass out, have persistent vomiting that prevents you from being able to tolerate fluids, or have any other symptoms that are concerning to you. You may continue to have vaginal spotting and lower abdominal cramping for up to the next 1 week after your IUD was placed. Please follow-up with the provider who placed ID for any additional concerns. Return to the emergency department for worsening pain, complete 3 more than 2 pads per hour for more than 3 hours, we have any other symptoms that are worrisome to you. Prescriptions: Azithromycin 250 mg PO DAILY #4 tablet
[2017-05-29 00:19] LABS: APPEARANCE,URINE SLIGHTLY-CLOUDY; BILIRUBIN,URINE NEGATIVE (NEGATIVE); COLOR,URINE YELLOW; GLUCOSE, URINE NEGATIVE (NEGATIVE); KETONES,URINE NEGATIVE (NEGATIVE); LEUKOCYTE ESTERASE,URINE NEGATIVE (NEGATIVE); NITRITE,URINE NEGATIVE (NEGATIVE); PROTEIN,URINE NEGATIVE (NEGATIVE); URINE SPECIFIC GRAVITY 1.018; UROBILINOGEN,URINE NEGATIVE mg/dL (<2.0)
[2017-05-29] MEDS ORDERED: AZITHROMYCIN 250 MG TABLET PO ONE (00:44)
== END 2017-05-29 01:15 | disposition home or self-care (01) ==
LOC: ER 22:25
DX: T83.9XXA Unspecified complication of genitourinary prosthetic device, implant and graft, initial encounter (principal); J02.0 Streptococcal pharyngitis; R10.31 Right lower quadrant pain; R10.32 Left lower quadrant pain; R10.2 Pelvic and perineal pain; N93.9 Abnormal uterine and vaginal bleeding, unspecified
CPT/HCPCS: 99283; 87880; 81001; Q0144

== ENCOUNTER 2017-06-03 08:50 | Emergency (ER) | payer SELFPAY ==
--- NOTE | 2017-06-03 09:59 | ER Document Report ---
ED ENT - General Chief Complaint: Sore Throat Stated Complaint: SORE THROAT Time Seen by Provider: 06/03/17 09:39 Mode of Arrival: Ambulatory Information source: Patient Notes: 22-year-old female presents to ED for complaint of sore throat. She was tested and treated for strep with a Zithromax on 05/28/2017. She states she has a sore throat again and she would like some antibiotics. She has been tested for the strep to see if she still has the strep and was not relieved or if she has a viral sore throat. She does not have a fever at this time. She states she did have a fever last night. She has been treated for strep 4 times last year. TRAVEL OUTSIDE OF THE [place] IN LAST 30 DAYS: No - HPI Patient complains to provider of: Throat problem Onset: Last week Onset/Duration: Intermittent Quality of pain: Sharp Severity: Severe Pain Level: 5 Location of pain: Nose, Throat Associated symptoms: Cough, Runny nose, Sinus pain, Sinus drainage, Sore throat Similar symptoms previously: Yes Recently seen / treated by doctor: Yes - Related Data Allergies/Adverse Reactions: cephalexin monohydrate [From Keflex] Allergy (Verified 06/03/17 08:51) clindamycin Allergy (Verified 06/03/17 08:51) Latex, Natural Rubber Allergy (Verified 06/03/17 08:51) peanut [Peanut] Allergy (Verified 06/03/17 08:51) Penicillins Allergy (Verified 06/03/17 08:51) morphine Adverse Reaction (Verified 06/03/17 08:51) Home Medications: Current Home Medications Levothyroxine Sodium [Synthroid] 100 mcg PO DAILY 06/03/17 [History] Past Medical History - General Information source: Patient - Social History Smoking Status: Never Smoker Cigarette use (# per day): No Chew tobacco use (# tins/day): No Smoking Education Provided: No Frequency of alcohol use: None Drug Abuse: None Lives with: Spouse/Significant other Family History: CVA, DM, Hyperlipidemia, Hypertension, Malignancy, Thyroid Disfunction - Perfecto's. denies: Arthritis, CAD Patient has suicidal ideation: No Patient has homicidal ideation: No - Past Medical History Cardiac Medical History: Reports: None Pulmonary Medical History: Reports: None EENT Medical History: Reports: None Neurological Medical History: Reports: Hx Migraine Endocrine Medical History: Reports: Hx Diabetes Mellitus Type 2, Hx Hypothyroidism Renal/ Medical History: Reports: None Malignancy Medical History: Reports: None GI Medical History: Reports: Hx Gastroesophageal Reflux Disease, Hx Ulcer Musculoskeltal Medical History: Reports Hx Musculoskeletal Trauma Skin Medical History: Reports None Psychiatric Medical History: Reports: Hx Attention Deficit Hyperactivity Disorder, Hx Bipolar Disorder, Hx Post Traumatic Stress Disorder, Hx Schizophrenia Traumatic Medical History: Reports: Hx Fractures - Right arm Infectious Medical History: Reports: None Past Surgical History: Reports: Hx Cholecystectomy, Hx Dilation and Curettage - With , Hx Oral Surgery - [place] teeth - Immunizations Hx Diphtheria, Pertussis, Tetanus Vaccination: Yes Review of Systems - Review of Systems Constitutional: Fever, Recent illness EENT: Nose congestion, Nose discharge, Sinus discharge, Throat pain Cardiovascular: No symptoms reported Respiratory: Cough Gastrointestinal: No symptoms reported Genitourinary: No symptoms reported Female Genitourinary: No symptoms reported Musculoskeletal: No symptoms reported Skin: No symptoms reported Hematologic/Lymphatic: No symptoms reported Neurological/Psychological: No symptoms reported -: Yes All other systems reviewed and negative Physical Exam - Vital signs Vitals: Temp Pulse Resp BP Pulse Ox 98.4 F 109 H 20 118/59 L 99 06/03/17 08:55 06/03/17 08:55 06/03/17 08:55 06/03/17 08:55 06/03/17 08:55 Interpretation: Normal - General General appearance: Appears well, Alert - HEENT Head: Normocephalic, Atraumatic Eyes: Normal Pupils: PERRL Sinus: Frontal, Mastoid, Maxillary, Tenderness Nasal: Swelling - Pale boggy nasal turbinates, Clear rhinorrhea Mouth/Lips: Normal Mucous membranes: Normal Pharynx: Post nasal drainage. No: Erythema, Exudate, Peritonsillar abscess Neck: Normal - Respiratory Respiratory status: No respiratory distress Chest status: Nontender Breath sounds: Nonproductive cough Chest palpation: Normal - Cardiovascular Rhythm: Regular Heart sounds: Normal auscultation Murmur: No - Abdominal Inspection: Normal Distension: No distension Bowel sounds: Normal Tenderness: Nontender Organomegaly: No organomegaly - Back Back: Normal, Nontender - Extremities General upper extremity: Normal inspection, Nontender, Normal color, Normal ROM , Normal temperature General lower extremity: Normal inspection, Nontender, Normal color, Normal ROM , Normal temperature, Normal weight bearing. No: Juan's sign - Neurological Neuro grossly intact: Yes Cognition: Normal Orientation: AAOx4 Hermes Coma Scale Eye Opening: Spontaneous Hermes Coma Scale Verbal: Oriented [place] Coma Scale Motor: Obeys Commands [place] Coma Scale Total: 15 Speech: Normal Motor strength normal: LUE, RUE, LLE, RLE Sensory: Normal - Psychological Associated symptoms: Normal affect, Normal mood - Skin Skin Temperature: Warm Skin Moisture: Dry Skin Color: Normal Course - Re-evaluation Re-evalutation: 06/03/17 09:58 Strep was sent before I assessed the patient. Will wait for results. - Vital Signs Vital signs: Temp Pulse Resp BP Pulse Ox 98.0 F 103 H 16 119/66 99 06/03/17 11:29 06/03/17 11:29 06/03/17 11:29 06/03/17 11:29 06/03/17 11:29 Discharge - Discharge Clinical Impression: Strep pharyngitis URI (upper respiratory infection) Qualifiers: URI type: unspecified URI Qualified Code(s): J06.9 - Acute upper respiratory infection, unspecified Disposition: HOME, SELF-CARE Instructions: Family Physicians / Practices Additional Instructions: UPPER RESPIRATORY ILLNESS: You have a viral infection of the respiratory passages -- a "cold." This common infection causes nasal congestion, drainage, and often sore throat and cough. It is highly contagious. The disease usually lasts about 10 to 14 days. There is no "cure" for the viral infection -- it must run its course. If there is a complication, such as bacterial infection in the nose, sinuses, middle ear, or bronchial tubes, antibiotics may be required. The antibiotics won't affect the virus. Drink plenty of fluids. A humidifier may help. An expectorant medication or decongestant may make you more comfortable. Use acetaminophen or ibuprofen for fever or aches. See the doctor if fever persists over two days, if there is any significant worsening of your symptoms, or if you simply fail to improve as expected. STREP THROAT: Your sore throat is due to the streptococcus germ (strep throat). Strep throat usually makes you feel quite ill with fever and aches, headache, swollen sore throat, and tender bumps under the angles of the jaw. Strep throat requires antibiotic treatment. Although the sore throat may go away by itself, complications such as rheumatic fever, kidney disease, or throat abscess can occur. We usually prescribe antibiotics by mouth. Be sure to take the medicine until it's gone. If you stop early, the strep may come back. If you are vomiting, are severely ill, or can't remember to take pills, we can give you an antibiotic shot. Take acetaminophen or ibuprofen for pain and fever. Sip frequent clear liquids, or use popsicles or ice chips. Anesthetic sprays or lozenges may help. Make sure the air in the room is not too dry. Avoid using decongestants or antihistamines. Call the doctor if there is no improvement in three days, or if you have difficulty breathing, increasing throat pain, high fever, rash, or frequent vomiting. Doxycycline Doxycycline (Vibramycin, Doryx) is an antibiotic of the tetracycline family. This type of drug is useful for infections of the respiratory tract and genital tract, and is sometimes used for intestinal infections. Unlike most tetracyclines, doxycycline can be taken with food. It is longer acting, and (usually) less prone to side effects than regular tetracycline. Tetracycline antibiotics can stain immature teeth and SHOULD NOT BE TAKEN BY CHILDREN, NURSING MOTHERS, OR WOMEN. Tetracyclines can make you more prone to sunburn. Abdominal cramping, nausea, and diarrhea are occasional side effects. Women may experience vaginal yeast infections. Call the doctor at once if you develop hives, itching, shortness of breath , or lightheadedness. USE OF ACETAMINOPHEN (Tylenol): Acetaminophen may be taken for pain relief or fever control. It's much safer than aspirin, offering a wider range of "safe" dosages. It is safe during . Some brand names are Tylenol, Panadol, Datril, Anacin 3, Tempra, and Liquiprin. Acetaminophen can be repeated every four hours. The following are maximum recommended dosages: >89 pounds or adults 650 mg to 900 mg Acetaminophen can be repeated every four hours. Maximum dose not to exceed 4000 mg a day. FOLLOW-UP CARE: If you have been referred to a physician for follow-up care, call the physician s office for an appointment as you were instructed or within the next two days. If you experience worsening or a significant change in your symptoms, notify the physician immediately or return to the Emergency Department at any time for re-evaluation. Prescriptions: Doxycycline Hyclate 100 mg PO BID #14 tablet Forms: Return to Work
[2017-06-03] MEDS ORDERED: DOXYCYCLINE HYCLATE 100 MG TABLET PO ONE (11:20)
[2017-06-03 11:31] VITALS: BP 119/66
== END 2017-06-03 11:30 | disposition home or self-care (01) ==
LOC: ER 08:50
DX: J02.0 Streptococcal pharyngitis (principal); J06.9 Acute upper respiratory infection, unspecified; R05 Cough; R09.89 Other specified symptoms and signs involving the circulatory and respiratory systems; R51 Headache; R09.81 Nasal congestion; Z79.899 Other long term (current) drug therapy
CPT/HCPCS: 36415; 86308; 87880; 99283

== ENCOUNTER 2017-06-16 20:06 | Emergency (ER) | payer SELFPAY ==
--- NOTE | 2017-06-16 23:04 | RADIOLOGY REPORT (SQ) ---
EXAM DESCRIPTION: ELBOW RIGHT AP/LAT CLINICAL HISTORY: 22 years, Female, trauma COMPARISON: None. NUMBER OF VIEWS: 2 Bones, joints, and soft tissues of the right elbow appear intact. IMPRESSION: No acute findings. 2011 [facility] [facility] [employer]- All Rights Reserved
--- NOTE | 2017-06-16 23:05 | RADIOLOGY REPORT (SQ) ---
EXAM DESCRIPTION: WRIST RIGHT 2 VIEWS CLINICAL HISTORY: 22 years, Female, trauma COMPARISON: None. NUMBER OF VIEWS: 2 Bones, joints, and soft tissues of the right wrist appear intact. IMPRESSION: No acute findings. 2011 [employer] [facility] [employer]- All Rights Reserved
--- NOTE | 2017-06-16 23:05 | RADIOLOGY REPORT (SQ) ---
EXAM DESCRIPTION: HAND RIGHT 2 VIEWS CLINICAL HISTORY: 22 years, Female, trauma COMPARISON: None. NUMBER OF VIEWS: 2 Bones, joints, and soft tissues of the right hand appear intact. IMPRESSION: No acute findings. 2011 [employer] [employer]- All Rights Reserved
--- NOTE | 2017-06-17 00:14 | ER Document Report ---
ED General - General Chief Complaint: Hand Injury Stated Complaint: HAND INJURY/MED REFILL Time Seen by Provider: 06/16/17 22:04 Notes: Patient is a 22-year-old female presents with complaint of punching a wall. Patient says she has pain of her hand and wrist and elbow into her right elbow. She says that she has a history of psychiatric disorder and bipolar. She used to be on Abilify, Cogentin, and trazodone. She was followed by [facility] at that time. She recently started formal report in her medications were changed. She said since changing her medications she is felt very unwell and her symptoms have been much worse. She says that her agitation is hard harder to control and she has some hearing of voices. She is that she is always had some hearing voices but her previous meds controlled them very well. She denies being homicidal. She denies being suicidal. She says right now she feels fine. She has no other complaints at this time. TRAVEL OUTSIDE OF THE [place] IN LAST 30 DAYS: No - Related Data Allergies/Adverse Reactions: cephalexin monohydrate [From Keflex] Allergy (Verified 06/03/17 08:51) clindamycin Allergy (Verified 06/03/17 08:51) Latex, Natural Rubber Allergy (Verified 06/03/17 08:51) peanut [Peanut] Allergy (Verified 06/03/17 08:51) Penicillins Allergy (Verified 06/03/17 08:51) morphine Adverse Reaction (Verified 06/03/17 08:51) Past Medical History - Social History Smoking Status: Current Every Day Smoker Chew tobacco use (# tins/day): No Frequency of alcohol use: None Drug Abuse: None Family History: CVA, DM, Hyperlipidemia, Hypertension, Malignancy, Thyroid Disfunction - Perfecto's. denies: Arthritis, CAD Patient has suicidal ideation: No Patient has homicidal ideation: No Neurological Medical History: Reports: Hx Migraine Endocrine Medical History: Reports: Hx Diabetes Mellitus Type 2, Hx Hypothyroidism Renal/ Medical History: Denies: Hx Peritoneal Dialysis GI Medical History: Reports: Hx Gastroesophageal Reflux Disease, Hx Ulcer Musculoskeltal Medical History: Reports Hx Musculoskeletal Trauma Psychiatric Medical History: Reports: Hx Attention Deficit Hyperactivity Disorder, Hx Bipolar Disorder, Hx Post Traumatic Stress Disorder, Hx Schizophrenia Traumatic Medical History: Reports: Hx Fractures - Right arm Past Surgical History: Reports: Hx Cholecystectomy, Hx Dilation and Curettage - With , Hx Oral Surgery - [place] teeth - Immunizations Hx Diphtheria, Pertussis, Tetanus Vaccination: Yes Review of Systems - Review of Systems Notes: My Normal Review Basic REVIEW OF SYSTEMS: CONSTITUTIONAL : Denies fever, chills, or sweats. Denies recent illness. EENT: Denies eye, ear, throat, or mouth pain or symptoms. Denies nasal or sinus congestion. RESPIRATORY: Denies cough, cold, or chest congestion. Denies shortness of breath, difficulty breathing, or wheezing. GASTROINTESTINAL: Denies abdominal pain. Denies nausea, vomiting, or diarrhea. Denies constipation. Last BM: GENITOURINARY: Denies difficulty urinating, painful urination, burning, frequency, or blood in urine. FEMALE GENITOURINARY: Denies vaginal bleeding, abnormal or irregular periods. LMP: MUSCULOSKELETAL: Right hand, right wrist, right elbow. SKIN: Denies rash or skin lesions. NEUROLOGICAL: Denies altered mental status or loss of consciousness. Denies headache. Denies weakness or paralysis or loss of use of either side. Denies problems with gait or speech. Denies sensory or motor loss. PSYCHIATRIC: Mood swings. Agitation. ALL OTHER SYSTEMS REVIEWED AND NEGATIVE. Physical Exam - Notes Notes: General Appearance: Well nourished, alert, cooperative, no acute distress, no obvious discomfort. Vitals: reviewed, See vital signs table. Eyes: PERRL, EOMI, Conjuctiva clear Mouth: No decreasd moisture Lungs: No wheezing, No rales, No rhonci, No accessory muscle use, good air exchange bilaterally. Heart: Normal rate, Regular rythm, No murmur, no rub Abdomen: Normal BS, soft, No rigidity, No abdominal tenderness, No guarding, no rebound, no abdominal masses, no organomegaly Extremities: strength 5/5 in all extremities, good pulses in all extremities, patient does have some pain to palpation over the entire right hand. She does have an abrasion to the right ring finger where it appears that she had a ring on when she punched a wall. She does have some pain to the risks including pain over the scaphoid. She also has some pain into the right elbow. She has full flexion-extension of the elbow without difficulty. Skin: warm, dry, appropriate color, no rash Neuro: speech clear, oriented x 3, normal affect, responds appropriately to questions. Gastric: Patient is very calm and appropriate answers all questions appropriately. Course - Re-evaluation Re-evalutation: 06/17/17 05:50 Patient's x-rays are negative. She has been very calm and appropriate here. She will switch back to oral medications as she says her old medications worked very well for her. I will have her stop taking the new medications. The new medications that she was placed on are Trentillix, Belsomra, and Latuda. Her old medications which worked better for her were Abilify 15 mg twice a day, Cogentin 1 mg twice a day, and trazodone 2 mg at night. Informed patient being that it has been 2 weeks since she has been on these medications I will start her off at lower dosages. She is understanding of this. I prescribed her Abilify 10 mg twice a day, Cogentin half milligram twice a day, and trazodone 150 mg at night. I encourage her to call [facility] in the follow-up closely with them for reevaluation and further management of her medications. I did place the patient in thumb spica splint because of scaphoid tenderness informed her that she should follow-up with the doctor within 1 week for reevaluation as she may need a repeat x-ray. I did inform her that scaphoid fracture sometimes not show up on initial x-ray and that is why we have to do this and she has to wear the splint. Patient shows understanding of this. Patient will be discharged home but is encouraged to return to ER if she has depression, worsening of hearing of voices, thoughts of suicide, increased agitation and aggression, or she feels unwell. Patient agrees with plan will be discharged home. Dictation of this chart was performed using voice recognition software; therefore, there may be some unintended grammatical errors. Discharge - Discharge Clinical Impression: Bipolar 1 disorder Wrist injury Qualifiers: Encounter type: initial encounter Laterality: right Qualified Code(s): S69.91XA - Unspecified injury of right wrist, hand and finger(s), initial encounter Contusion, hand Qualifiers: Encounter type: initial encounter Laterality: right Qualified Code(s): S60.221A - Contusion of right hand, initial encounter Condition: Good Disposition: HOME, SELF-CARE Additional Instructions: Please follow-up closely with your doctor [facility]. Please inform them that the new meds you were started on were making you feel much worse. Please return to the ER immediately if you have thoughts of harming yourself or others, worsening hallucinations, or if any concerns that your psychiatric illness is worsening. You have negative x-rays of your hand, wrist, and elbow. You did have some pain over a bone in the wrist called the scaphoid. We will therefore place a splint on you. Please wear this splint for the next week. After 1 week have a doctor reevaluate you. I you do not have a doctor you can follow up with you can return to the ER. If you continue to have pain over the wrist may need repeat x-rays at that time. Prescriptions: Aripiprazole [Abilify 10 mg Tablet] 10 mg PO BID #14 tablet Benztropine Mesylate [Benztropine Mesylate 0.5 mg Tablet] 0.5 mg PO BID #14 tablet Trazodone HCl 150 mg PO QPM #7 tablet Forms: Return to Work
== END 2017-06-17 00:23 | disposition home or self-care (01) ==
LOC: ER 20:06
DX: F31.9 Bipolar disorder, unspecified (principal); S60.221A Contusion of right hand, initial encounter; S69.91XA Unspecified injury of right wrist, hand and finger(s), initial encounter; M25.521 Pain in right elbow; W22.01XA Walked into wall, initial encounter; F17.200 Nicotine dependence, unspecified, uncomplicated; E11.9 Type 2 diabetes mellitus without complications; Z88.1 Allergy status to other antibiotic agents; Z91.040 Latex allergy status; Z91.010 Allergy to peanuts; Z88.0 Allergy status to penicillin
CPT/HCPCS: 99283; 73070; 73120; 73100; 29125; L3908

== ENCOUNTER 2017-06-20 00:03 | Emergency (ER) | payer SELFPAY ==
[2017-06-20 00:11] VITALS: BP 125/81
--- NOTE | 2017-06-20 00:36 | ER Document Report ---
HPI - HPI Pain Level: 5 Notes: Patient is a 22-year-old female who presents to the ED complaining of right arm pain starts at the wrist and works its way up her arm proximally to her shoulder. Patient was here about 4 days ago status post punching a wall area patient had a negative x-ray for her hand, wrist, and elbow. Patient was placed in a thumb spica that she was to utilize until she can have a follow-up with another x-ray to recheck the scaphoid. Patient states that she was at a food pantry when she picked up a heavy box and had to put it down because of reaggravation of pain to her wrist/arm. Pt continues to wear her wrist splint otherwise. She has not performed any other conservative measures for her symptoms. Pt is tolerating her psych medications w/o any side effects to note. Pt states that she feels well mentally w/o any hallucinations, SI, or HI. Denies any headache, fever, neck pain, URI, sore throat, chest pain, palpitations, syncope, cough, shortness of breath, wheeze, dyspnea, abdominal pain, nausea/vomiting/diarrhea, urinary retention, dysuria, hematuria, numbness/ tingling, muscle paralysis, or rash. - ROS Notes: REVIEW OF SYSTEMS: CONSTITUTIONAL : Denies fever, chills, or sweats. Denies recent illness. EENT: Denies eye, ear, throat, or mouth pain or symptoms. Denies nasal or sinus congestion or discharge. Denies throat, tongue, or mouth swelling or difficulty swallowing. CARDIOVASCULAR: Denies chest pain. Denies palpitations or racing or irregular heart beat. RESPIRATORY: Denies cough, cold, or chest congestion. Denies shortness of breath, difficulty breathing, or wheezing. GASTROINTESTINAL: Denies abdominal pain or distention. Denies nausea, vomiting , or diarrhea. GENITOURINARY: Denies difficulty urinating, painful urination, burning, frequency, blood in urine, or discharge. MUSCULOSKELETAL: see hpi SKIN: Denies rash, lesions or sores. NEUROLOGICAL: Denies confusion or altered mental status. Denies passing out or loss of consciousness. Denies dizziness or lightheadedness. Denies headache. Denies paralysis or loss of use of either side. Denies problems with gait or speech. Denies sensory loss, numbness, or tingling. Denies seizures. ALL OTHER SYSTEMS REVIEWED AND NEGATIVE. Dictation was performed using [employer] voice recognition software - REPRODUCTIVE Reproductive: DENIES: : Past Medical History - Social History Smoking Status: Unknown if Ever Smoked Family History: CVA, DM, Hyperlipidemia, Hypertension, Malignancy, Thyroid Disfunction - Perfecto's. denies: Arthritis, CAD Neurological Medical History: Reports: Hx Migraine Endocrine Medical History: Reports: Hx Diabetes Mellitus Type 2, Hx Hypothyroidism Renal/ Medical History: Denies: Hx Peritoneal Dialysis GI Medical History: Reports: Hx Gastroesophageal Reflux Disease, Hx Ulcer Musculoskeltal Medical History: Reports Hx Musculoskeletal Trauma Psychiatric Medical History: Reports: Hx Attention Deficit Hyperactivity Disorder, Hx Bipolar Disorder, Hx Post Traumatic Stress Disorder, Hx Schizophrenia Traumatic Medical History: Reports: Hx Fractures - Right arm Past Surgical History: Reports: Hx Cholecystectomy, Hx Dilation and Curettage - With , Hx Oral Surgery - [place] teeth - Immunizations Hx Diphtheria, Pertussis, Tetanus Vaccination: Yes Vertical Provider Document - CONSTITUTIONAL Agree With Documented VS: Yes Notes: PHYSICAL EXAMINATION: GENERAL: Well-appearing, well-nourished and in no acute distress. NECK: Normal range of motion, supple without lymphadenopathy LUNGS: Breath sounds clear to auscultation bilaterally and equal. No wheezes rales or rhonchi. HEART: Regular rate and rhythm without murmurs, rubs, gallops. Musculoskeletal: Rt UE: no erythema, ecchymosis, abrasion, laceration, or obvious deformity noted. N/V intact throughout. Rt shoulder/humerus: FROM to passive/active. Strength 5+/5. Non-tender to palp. Rt elbow: FROM to passive/active. Strength 5+/5. Non-tender. Rt forearm: + mild swelling to the distal wrist/prox hand. + mild tenderness to the distal posterior wrist with LROM to passive/active due to pain. Rt wrist: see above. Strength 4+/5. Rt hand: FROM to passive/active. Strength 5+/5. No scaphoid tenderness. Strength 5+/5. No other bony tenderness of the hand. Extremities: No cyanosis, clubbing, or edema b/l. Peripheral pulses 2+. Capillary refill less than 3 seconds. NEUROLOGICAL: Normal speech, normal gait. Normal sensory, motor exams PSYCH: Normal mood, normal affect. SKIN: Warm, Dry, normal turgor, no rashes or lesions noted. - INFECTION CONTROL TRAVEL OUTSIDE OF THE [place] IN LAST 30 DAYS: No - RESPIRATORY O2 Sat by Pulse Oximetry: 100 Course - Re-evaluation Re-evalutation: 06/20/17 00:57 Patient is an afebrile, well-hydrated, 22-year-old female who presents to the ED with rt wrist pain, suspect a distal wrist extensor muscle strain based on H& P today. Vitals are stable. PE is otherwise unremarkable for any neurovascular compromise, obvious tendon/ligament rupture, obvious fracture/dislocation. X- ray was unremarkable for any acute pathology. Pt does not have anymore scaphoid tenderness. Patient already is in position of a cockup wrist splint. Ice was placed. I will send her home with a prescription for naproxen. Recommend conservative measures for symptoms. Recheck with your PCM in 3-5 days. Follow-up with orthopedics/physical therapy for ongoing/worsening symptoms. Return to the ED with any worsening/concerning symptoms otherwise as reviewed discharge. Patient is in agreement. - Vital Signs Vital signs: Temp Pulse Resp BP Pulse Ox 98.2 F 103 H 20 125/81 100 06/20/17 00:08 06/20/17 00:08 06/20/17 00:08 06/20/17 00:08 06/20/17 00:08 Discharge - Discharge Clinical Impression: Right forearm pain, Muscle strain Condition: Stable Disposition: HOME, SELF-CARE Instructions: Arm Pain, Nonspecific ([facility]), Muscle Strain ([facility]) Additional Instructions: Rest, Ice, Compression, Elevation Use splint as directed Tylenol/ibuprofen as needed Light stretches daily Strength exercises as able Moist heat and massage may help F/u with your PCP in 3-5 days for a recheck Consider consult(s) with Orthopedics/physical therapy for ongoing/worsening symptoms Return to the ED with any worsening symptoms and/or development of fever, headache, chest pain, palpitations, syncope, shortness of breath, trouble breathing, abdominal pain, n/v/d, muscle weakness/paralysis, numbness/tingling, swelling, redness, or other worsening symptoms that are concerning to you. Prescriptions: Naproxen 500 mg PO BID PRN #30 tablet PRN Reason: Referrals: [facility] ([facility]) [Provider Group] - Follow up as needed
--- NOTE | 2017-06-20 00:55 | RADIOLOGY REPORT (SQ) ---
EXAM DESCRIPTION: HAND RIGHT 3 VIEWS CLINICAL HISTORY: 22 years, Female, pain COMPARISON: 06/16/2017. NUMBER OF VIEWS: Three Findings: Bones, joints, and soft tissues of the right hand and wrist appear intact. Small ulnar negative normal variance. IMPRESSION: No acute findings. 2011 [employer]- All Rights Reserved
== END 2017-06-20 01:04 | disposition home or self-care (01) ==
LOC: ER 00:03
DX: S66.911A Strain of unspecified muscle, fascia and tendon at wrist and hand level, right hand, initial encounter (principal); M79.631 Pain in right forearm; M79.601 Pain in right arm; M25.531 Pain in right wrist; M25.511 Pain in right shoulder; W22.01XD Walked into wall, subsequent encounter; X50.0XXA Overexertion from strenuous movement or load, initial encounter
CPT/HCPCS: 99283

== ENCOUNTER 2017-07-05 18:02 | Emergency (ER) | payer OTHER ==
--- NOTE | 2017-07-05 18:24 | ER Document Report ---
ED Medical Screen (RME) - General Chief Complaint: Abdominal Pain Stated Complaint: NAUSEA,VOMITING Time Seen by Provider: 07/05/17 18:17 Mode of Arrival: Ambulatory Information source: Patient TRAVEL OUTSIDE OF THE [place] IN LAST 30 DAYS: No - HPI Onset: Other - 2 weeks Onset/Duration: Gradual Quality of pain: Achy, Dull Severity: Moderate Associated Symptoms: Abdominal pain, Chills, Diarrhea, Headache, Nausea, Vomiting Exacerbated by: Food Relieved by: Denies Similar symptoms previously: No Recently seen / treated by doctor: No - Related Data Smoking: Non-smoker Frequency of alcohol use: None Drug Abuse: None Allergies/Adverse Reactions: cephalexin monohydrate [From Keflex] Allergy (Verified 07/05/17 18:15) clindamycin Allergy (Verified 07/05/17 18:15) Latex, Natural Rubber Allergy (Verified 07/05/17 18:15) lurasidone [From Latuda] Allergy (Verified 07/05/17 18:15) peanut [Peanut] Allergy (Verified 07/05/17 18:15) Penicillins Allergy (Verified 07/05/17 18:15) pentoxifylline [From Trental] Allergy (Verified 07/05/17 18:15) morphine Adverse Reaction (Verified 07/05/17 18:15) Past Medical History - General Information source: Patient - Social History Chew tobacco use (# tins/day): No Frequency of alcohol use: None Drug Abuse: None Lives with: Family Family history: None - Past Medical History Cardiac Medical History: Reports: None Pulmonary Medical History: Reports: None Neurological Medical History: Reports: Hx Migraine Endocrine Medical History: Reports: Hx Diabetes Mellitus Type 2, Hx Hypothyroidism Renal/ Medical History: Reports: Other - HAS I.U.D.. Denies: Hx Ectopic , Hx Peritoneal Dialysis Malignancy Medical History: Reports: None GI Medical History: Reports: Hx Gastroesophageal Reflux Disease, Hx Ulcer Musculoskeltal Medical History: Reports Hx Musculoskeletal Trauma Psychiatric Medical History: Reports: Hx Attention Deficit Hyperactivity Disorder, Hx Bipolar Disorder, Hx Post Traumatic Stress Disorder, Hx Schizophrenia Traumatic Medical History: Reports: Hx Fractures - Right arm Past Surgical History: Reports: Hx Cholecystectomy, Hx Dilation and Curettage - With , Hx Oral Surgery - [place] teeth - Immunizations Hx Diphtheria, Pertussis, Tetanus Vaccination: Yes Review of Systems - Review of Systems Constitutional: Chills, Weakness EENT: Other - PAIN R. SIDE OF HEAD & FACE Cardiovascular: No symptoms reported Respiratory: No symptoms reported Gastrointestinal: See HPI, Rectal bleeding Genitourinary: Frequency, Hematuria. denies: Dysuria, Urgency Female Genitourinary: Other - BREAST TENDERNESS Musculoskeletal: No symptoms reported Skin: No symptoms reported Neurological/Psychological: Headaches Physical Exam - Vital signs Vitals: Temp Pulse Resp BP Pulse Ox 98.1 F 131 H 16 123/68 100 07/05/17 18:10 07/05/17 18:10 07/05/17 18:10 07/05/17 18:10 07/05/17 18:10 Interpretation: Tachycardic. No: Tachypneic, Febrile - General General appearance: Appears well, Alert In distress: None - HEENT Head: Normocephalic, Tenderness - R. TMJ Eyes: Normal Conjunctiva: Normal Ears: Normal Nasal: Normal Mouth/Lips: Normal Mucous membranes: Dry - SLIGHT Pharynx: Normal Neck: Normal - Respiratory Respiratory status: No respiratory distress Breath sounds: Normal - Cardiovascular Rhythm: Regular, Tachycardia Heart sounds: Normal auscultation Murmur: No - Abdominal Inspection: Obese - Back Back: Normal - Extremities General upper extremity: Normal inspection General lower extremity: Normal inspection - Neurological Neuro grossly intact: Yes Cognition: Normal Orientation: AAOx4 - Psychological Associated symptoms: Normal affect, Normal mood - Skin Skin Temperature: Warm Skin Moisture: Dry Skin Color: Normal Skin Turgor: Elastic Course - Vital Signs Vital signs: Temp Pulse Resp BP Pulse Ox 98.1 F 131 H 16 123/68 100 07/05/17 18:10 07/05/17 18:10 07/05/17 18:10 07/05/17 18:10 07/05/17 18:10
[2017-07-05] MEDS ORDERED: NORMAL SALINE 1000 ML 1,000 ML IV ONE (18:25)
[2017-07-05 18:41] LABS: ABSOLUTE BASOPHILS # (AUTO) 0.1 10^3/uL (0.0-0.2); ABSOLUTE EOSINOPHILS # (AUTO) 0.2 10^3/uL (0.0-0.6); ABSOLUTE LYMPHOCYTES (AUTO) 2.4 10^3/uL (0.5-4.7); ABSOLUTE MONOCYTES (AUTO) 1.1 10^3/uL (0.1-1.4); ABSOLUTE NEUT (AUTO) 8.2 10^3/uL (1.7-8.2); BASOPHILS % (AUTO) 0.9 % (0-2); EOSINOPHILS % (AUTO) 1.6 % (0-6); HEMATOCRIT 41.8 % (36.0-47.0); LYMPHOCYTES % (AUTO) 19.6 % (13-45); MEAN CORPUSCULAR HEMOGLOBIN 28.3 pg (27.0-33.4); MEAN CORPUSCULAR HGB CONC 33.5 g/dL (32.0-36.0); MEAN CORPUSCULAR VOLUME 85 fl (80-97); MONOCYTES % (AUTO) 9.4 % (3-13); PLATELET COUNT 329 10^3/uL (150-450); RED BLOOD COUNT 4.95 10^6/uL (3.72-5.28); RED CELL DISTRIBUTION WIDTH 14.2 % (11.5-14.0); SEGMENTED NEUTROPHILS % (AUTO) 68.5 % (42-78); TOTAL CELLS COUNTED % (AUTO) 100 %
[2017-07-05 18:46] LABS: INTERNATIONAL RATION (INR) 0.89; PROTHROMBIN TIME 12.7 SEC (11.4-15.4)
[2017-07-05 18:51] LABS: APPEARANCE,URINE SLIGHTLY-CLOUDY; BILIRUBIN,URINE NEGATIVE (NEGATIVE); COLOR,URINE YELLOW; GLUCOSE, URINE NEGATIVE (NEGATIVE); KETONES,URINE NEGATIVE (NEGATIVE); LEUKOCYTE ESTERASE,URINE MODERATE (NEGATIVE); NITRITE,URINE NEGATIVE (NEGATIVE); PROTEIN,URINE NEGATIVE (NEGATIVE); URINE SPECIFIC GRAVITY 1.008; UROBILINOGEN,URINE NEGATIVE mg/dL (<2.0)
[2017-07-05 19:03] LABS: ALANINE AMINOTRANSFERASE 45 U/L (9-52); ALBUMIN 4.3 g/dL (3.5-5.0); ALKALINE PHOSPHATASE 96 U/L (38-126); ASPARTATE AMINO TRANSFERASE 26 U/L (14-36); BILIRUBIN,DIRECT 0.1 mg/dL (0.0-0.4); BILIRUBIN,TOTAL 0.2 mg/dL (0.2-1.3); BLOOD UREA NITROGEN 9 mg/dL (7-20); CALCIUM 9.7 mg/dL (8.4-10.2); CARBON DIOXIDE 26 mmol/L (22-30); CHLORIDE 104 mmol/L (98-107); GLUCOSE 95 mg/dL (75-110); LIPASE 158.6 U/L (23-300); POTASSIUM 4.1 mmol/L (3.6-5.0); TOTAL PROTEIN 7.5 g/dL (6.3-8.2)
[2017-07-05 19:04] LABS: ANION GAP 12 (5-19); SODIUM 142.2 mmol/L (137-145)
[2017-07-05] MEDS ORDERED: METOCLOPRAMIDE HCL INJ/PF 10 MG/2 ML SDV IV ONE (20:01)
[2017-07-05] MEDS ORDERED: DIPHENHYDRAMINE HCL 50 MG/ML VIAL IV ONE (20:01)
[2017-07-05] MEDS ORDERED: KETOROLAC TROMETHAMINE INJ/PF 30 MG/1 ML SDV IV ONE (20:01)
[2017-07-05 20:49] LABS: A TYPE INFLUENZA AG NEGATIVE (NEGATIVE); B INFLUENZA AG NEGATIVE (NEGATIVE)
--- NOTE | 2017-07-05 21:40 | ER Document Report ---
ED General - General Chief Complaint: Abdominal Pain Stated Complaint: NAUSEA,VOMITING Time Seen by Provider: 07/05/17 18:17 Mode of Arrival: Ambulatory Information source: Patient Notes: This is a 22-year-old female presenting to the emergency room with complaints of nausea, vomiting, headache, myalgias, sore throat for the past few days. Additionally, she states that she has an IUD and she has been having irritation and she wants that removed. TRAVEL OUTSIDE OF THE [place] IN LAST 30 DAYS: No - HPI Onset: Last week Onset/Duration: Gradual Quality of pain: Dull Severity: None Pain Level: Denies Associated symptoms: Chills, Headache, Nausea. denies: Shortness of breath Exacerbated by: Denies Relieved by: Denies Similar symptoms previously: Yes Recently seen / treated by doctor: No - Related Data Allergies/Adverse Reactions: cephalexin monohydrate [From Keflex] Allergy (Verified 07/05/17 18:15) clindamycin Allergy (Verified 07/05/17 18:15) Latex, Natural Rubber Allergy (Verified 07/05/17 18:15) lurasidone [From Latuda] Allergy (Verified 07/05/17 18:15) peanut [Peanut] Allergy (Verified 07/05/17 18:15) Penicillins Allergy (Verified 07/05/17 18:15) pentoxifylline [From Trental] Allergy (Verified 07/05/17 18:15) morphine Adverse Reaction (Verified 07/05/17 18:15) Past Medical History - General Information source: Patient - Social History Smoking Status: Never Smoker Cigarette use (# per day): No Chew tobacco use (# tins/day): No Frequency of alcohol use: None Drug Abuse: None Lives with: Family Family History: CVA, DM, Hyperlipidemia, Hypertension, Malignancy, Thyroid Disfunction - Perfecto's. denies: Arthritis, CAD Patient has suicidal ideation: No Patient has homicidal ideation: No - Past Medical History Cardiac Medical History: Reports: None Pulmonary Medical History: Reports: None Neurological Medical History: Reports: Hx Migraine Endocrine Medical History: Reports: Hx Diabetes Mellitus Type 2, Hx Hypothyroidism Renal/ Medical History: Reports: Other - HAS I.U.D.. Denies: Hx Ectopic , Hx Peritoneal Dialysis Malignancy Medical History: Reports: None GI Medical History: Reports: Hx Gastroesophageal Reflux Disease, Hx Ulcer Musculoskeltal Medical History: Reports Hx Musculoskeletal Trauma Psychiatric Medical History: Reports: Hx Attention Deficit Hyperactivity Disorder, Hx Bipolar Disorder, Hx Post Traumatic Stress Disorder, Hx Schizophrenia Traumatic Medical History: Reports: Hx Fractures - Right arm Past Surgical History: Reports: Hx Cholecystectomy, Hx Dilation and Curettage - With , Hx Oral Surgery - [place] teeth - Immunizations Hx Diphtheria, Pertussis, Tetanus Vaccination: Yes Review of Systems - Review of Systems Constitutional: Chills. denies: Fever EENT: See HPI, Throat pain Cardiovascular: No symptoms reported Respiratory: No symptoms reported Gastrointestinal: See HPI Genitourinary: No symptoms reported Female Genitourinary: No symptoms reported Musculoskeletal: Joint pain Skin: No symptoms reported Hematologic/Lymphatic: No symptoms reported Neurological/Psychological: Headaches Physical Exam - Vital signs Vitals: Temp Pulse Resp BP Pulse Ox 98.1 F 131 H 16 123/68 100 07/05/17 18:10 07/05/17 18:10 07/05/17 18:10 07/05/17 18:10 07/05/17 18:10 Notes: Physical exam: GENERAL: A 22-year-old female, alert and oriented 3, no acute distress HEAD: Atraumatic, normocephalic. EYES: Pupils equal round and reactive to light, extraocular movements intact, sclera anicteric, conjunctiva are normal. ENT: TMs normal, nares patent, oropharynx clear without exudates. Moist mucous membranes. NECK: Normal range of motion, supple without obvious mass. LUNGS: Breath sounds clear to auscultation bilaterally and equal. No wheezes rales or rhonchi. HEART: Regular rate and rhythm without murmurs, rubs or gallops. ABDOMEN: Soft, normoactive bowel sounds. No tenderness to palpation. No guarding, no rebound. No masses appreciated. EXTREMITIES: Normal range of motion, no pitting or edema. No clubbing or cyanosis. NEUROLOGICAL: Cranial nerves II through XII grossly intact. Normal speech, moving all extremities. PSYCH: Normal mood, normal affect. SKIN: Warm, Dry, normal turgor, no rashes or lesions noted. Course - Re-evaluation Re-evalutation: 07/05/17 21:37 Patient is positive for strep and I will put her on some erythromycin (she is allergic to penicillins and cephalosporins and clindamycin). She will follow- up with the health department regarding issues of the IUD. - Vital Signs Vital signs: Temp Pulse Resp BP Pulse Ox 98.1 F 98 18 102/46 L 99 07/05/17 18:10 07/05/17 22:11 07/05/17 22:11 07/05/17 22:11 07/05/17 22:11 - Laboratory Result Diagrams: 07/05/17 18:20 07/05/17 18:20 Laboratory results interpreted by me: 07/05/17 07/05/17 18:20 18:20 WBC 12.0 H RDW 14.2 H Urine Blood MODERATE H Ur Leukocyte Esterase MODERATE H Discharge - Discharge Clinical Impression: Strep throat Condition: Stable Disposition: HOME, SELF-CARE Additional Instructions: Recommendations: Rest, drink plenty of fluids, take the antibiotics as prescribed Follow-up with your doctors at the health department I did get a coupon from [employer] for $7 for the azithromycin Prescriptions: Azithromycin [Zithromax 250 mg Tablet] 250 mg PO ASDIR PRN #6 tablet PRN Reason:
[2017-07-05] MEDS ORDERED: HYDROCODONE/ACETAMINOPHEN 5-325 MG (6 TAB/ER DISP) PO PRN (21:45)
[2017-07-05] MEDS ORDERED: ONDANSETRON ODT 4 MG TAB (6 TAB/ER DISP) PO PRN (21:46)
[2017-07-05] MEDS ORDERED: LIDOCAINE 1%/EPINEPHRINE INJ 20 ML VIAL INJ ONE (21:52)
[2017-07-05 22:13] VITALS: BP 102/46
== END 2017-07-05 22:11 | disposition home or self-care (01) ==
LOC: ER 18:02
DX: J02.0 Streptococcal pharyngitis (principal); R10.9 Unspecified abdominal pain; R11.2 Nausea with vomiting, unspecified; R51 Headache; M79.1 Myalgia
CPT/HCPCS: 99284; 96361; 96374; 96375; 36415; 87880; 83690; 84703; 85025; 85610; 80053; 81001; 87804; J1200; J1885; J2765; J7030

== ENCOUNTER 2017-07-09 08:53 | Emergency (ER) | payer OTHER ==
[2017-07-09] MEDS ORDERED: KETOROLAC TROMETHAMINE 60 MG/2 ML SDV IM ONE (10:18)
[2017-07-09] MEDS ORDERED: PROMETHAZINE HCL INJ 25 MG/1 ML VIAL IV ONE (10:19)
[2017-07-09 10:21] VITALS: BP 117/63
--- NOTE | 2017-07-09 10:24 | ER Document Report ---
ED Flu Like - General Chief Complaint: Flu Symptoms Stated Complaint: FLU SYMPTOMS Time Seen by Provider: 07/09/17 10:07 TRAVEL OUTSIDE OF THE [place] IN LAST 30 DAYS: No - HPI Patient complains to provider of: 22-year-old female presents to the ED complaining of nausea vomiting muscle Onset: Other - 2 days Quality of pain: Achy Severity: Moderate Notes: 22-year-old female presents to the ER with 3 days of muscle aches, fever sore throat nausea with occasional vomiting and loose stools. Patient stated she was in the ER 4 days ago and was sitting in a waiting room full of other people with the flu. At that time she was concerned she may have contracted the flu because a day later she began having the symptoms. Patient denies any chest pain or shortness of breath she has had a nonproductive cough. Mild sore throat she describes as burning with swallowing. She denies any neck stiffness. States she does have a dull headache in the back of her head. Describes as achy. She does get headaches from time to time. There is no thunderclap no rapid onset. She denies any rashes. - Related Data Allergies/Adverse Reactions: cephalexin monohydrate [From Keflex] Allergy (Verified 07/09/17 10:07) clindamycin Allergy (Verified 07/09/17 10:07) Latex, Natural Rubber Allergy (Verified 07/09/17 10:07) lurasidone [From Latuda] Allergy (Verified 07/09/17 10:07) peanut [Peanut] Allergy (Verified 07/09/17 10:07) Penicillins Allergy (Verified 07/09/17 10:07) pentoxifylline [From Trental] Allergy (Verified 07/09/17 10:07) morphine Adverse Reaction (Verified 07/09/17 10:07) Past Medical History - Social History Smoking Status: Never Smoker Chew tobacco use (# tins/day): No Frequency of alcohol use: None Drug Abuse: None Family History: CVA, DM, Hyperlipidemia, Hypertension, Malignancy, Thyroid Disfunction - Perfecto's. denies: Arthritis, CAD Patient has suicidal ideation: No Patient has homicidal ideation: No Neurological Medical History: Reports: Hx Migraine Endocrine Medical History: Reports: Hx Diabetes Mellitus Type 2, Hx Hypothyroidism Renal/ Medical History: Denies: Hx Ectopic , Hx Peritoneal Dialysis GI Medical History: Reports: Hx Gastroesophageal Reflux Disease, Hx Ulcer Musculoskeltal Medical History: Reports Hx Musculoskeletal Trauma Psychiatric Medical History: Reports: Hx Attention Deficit Hyperactivity Disorder, Hx Bipolar Disorder, Hx Post Traumatic Stress Disorder, Hx Schizophrenia Traumatic Medical History: Reports: Hx Fractures - Right arm Past Surgical History: Reports: Hx Cholecystectomy, Hx Dilation and Curettage - With , Hx Oral Surgery - [place] teeth - Immunizations Hx Diphtheria, Pertussis, Tetanus Vaccination: Yes Review of Systems - Review of Systems Constitutional: Chills, Fever. denies: Malaise, Weakness EENT: Sinus pressure, Throat pain. denies: Eye pain, Nose pain Cardiovascular: denies: Chest pain, Dyspnea, Syncope Respiratory: Cough. denies: Short of breath, Wheezing Gastrointestinal: Diarrhea, Nausea Female Genitourinary: No symptoms reported Skin: No symptoms reported Neurological/Psychological: denies: Confusion, Paralysis, Seizure, Speech impairment, Numbness, Suicidal ideation -: Yes All other systems reviewed and negative Physical Exam - Vital signs Vitals: Temp Pulse Resp BP Pulse Ox 99.1 F 106 H 18 127/111 H 97 07/09/17 09:19 07/09/17 09:19 07/09/17 09:19 07/09/17 09:19 07/09/17 09:19 - Notes Notes: GENERAL_APPEARANCE: well_nourished, alert, cooperative, no_acute_distress, no_ obvious_discomfort. VITALS: reviewed, see vital signs table. HEAD: no_swelling\tenderness on the head. EYES: PERRL, EOMI, conjunctiva_clear. NOSE: Clear_nasal_discharge. MOUTH: (-)decreased moisture. No drooling or stridor THROAT: Mild throat_inflammation, no_airway_obstruction. no_lymphadenopathy NECK: supple, no_neck_tenderness, (-)thyromegaly. BACK: no_back_tenderness. CHEST_WALL: no_chest_tenderness. LUNGS: no_wheezing, no_rales, no_rhonchi, (-)accessory muscle use, good air exchange bilateral. HEART: normal_rate, normal_rhythm, normal_S1, normal_S2, (-)S3, (-)S4, no_murmur , no_rub. ABDOMEN: normal_BS, soft, no_abd_tenderness, (-)guarding, (-)rebound, no_ organomegaly, no_abd_masses. EXTREMITIES: good pulses in all_extremities, no_swelling\tenderness in the extremities, no_edema. SKIN: warm, dry, good_color, no_rash. No appropriate petechia MENTAL_STATUS: speech_clear, oriented_X_3, normal_affect, responds_ appropriately to questions. NEURO: Neg Motor or Sensory Deficits on exam, CN 2-12 intact, DTR 2+ symmetric x 4, No cerbellar signs Course - Vital Signs Vital signs: Temp Pulse Resp BP Pulse Ox 98.3 F 109 H 16 117/63 99 07/09/17 10:21 07/09/17 10:21 07/09/17 10:21 07/09/17 10:21 07/09/17 10:21 - Transfer of Care Notes: 07/09/17 10:25 Young female presents with flulike illness. We are currently in a flu epidemic. Patient has no meningismus no purpura no petechiae she does have a mild headache her neuro exam is unremarkable. There is no thunderclap no rapid onset. Not worse headache of life. Patient otherwise looks well I encouraged her to orally rehydrate. She does have a heart rate of 106. She is afebrile. I will give her a dose of Toradol and Phenergan here. Will prescribe Phenergan for home Patient otherwise looks stable nontoxic. She is out of the window for Tamiflu greater than 48 hours. Discharge - Discharge Clinical Impression: Flu syndrome Condition: Good Disposition: HOME, SELF-CARE Instructions: Acetaminophen, Influenza ([facility]) [id number] Additional Instructions: Please drink plenty of fluids. Prescriptions: Benzonatate [Tessalon Perles 100 mg Capsule] 100 mg PO Q8HP PRN #40 capsule PRN Reason: Cough Ibuprofen [Motrin 600 Mg Tablet] 600 mg PO TID #15 tablet Promethazine HCl [Phenergan 25 mg Tablet] 1 - 2 tab PO Q6H PRN #15 tablet PRN Reason: Forms: Parent Work Note
[2017-07-09] MEDS ORDERED: PROMETHAZINE HCL INJ 25 MG/1 ML VIAL IM ONE (10:26)
== END 2017-07-09 10:53 | disposition home or self-care (01) ==
LOC: ER 08:53
DX: J11.1 Influenza due to unidentified influenza virus with other respiratory manifestations (principal); R11.2 Nausea with vomiting, unspecified; M79.1 Myalgia; R50.9 Fever, unspecified; R05 Cough; R51 Headache; Z88.1 Allergy status to other antibiotic agents; Z91.040 Latex allergy status; Z88.8 Allergy status to other drugs, medicaments and biological substances; Z91.010 Allergy to peanuts; Z88.0 Allergy status to penicillin; E11.9 Type 2 diabetes mellitus without complications
CPT/HCPCS: 99283; 96372; J1885; J2550

== ENCOUNTER 2017-09-02 12:30 | Emergency (ER) | payer OTHER ==
--- NOTE | 2017-09-02 14:09 | ER Document Report ---
ED Medical Screen (RME) - General Chief Complaint: Abdominal Pain Stated Complaint: EAR PAIN, SORE THROAT, STOMACH PAIN Time Seen by Provider: 09/02/17 14:04 Notes: 22-year-old female here with complaints of bilateral ear pain congestion runny nose sore throat ongoing for the past few days. She has also had some upper abdominal pain intermittent nonradiating without vomiting diarrhea or nausea. She denies dysuria hematuria hesitancy. She has not tried taking anything for the symptoms. Immunizations up-to-date. TRAVEL OUTSIDE OF THE [place] IN LAST 30 DAYS: No - Related Data Allergies/Adverse Reactions: cephalexin monohydrate [From Keflex] Allergy (Verified 09/02/17 12:33) clindamycin Allergy (Verified 09/02/17 12:33) Latex, Natural Rubber Allergy (Verified 09/02/17 12:33) lurasidone [From Latuda] Allergy (Verified 09/02/17 12:33) peanut [Peanut] Allergy (Verified 09/02/17 12:33) Penicillins Allergy (Verified 09/02/17 12:33) pentoxifylline [From Trental] Allergy (Verified 09/02/17 12:33) morphine Adverse Reaction (Verified 09/02/17 12:33) Past Medical History - Social History Family history: None Neurological Medical History: Reports: Hx Migraine Endocrine Medical History: Reports: Hx Diabetes Mellitus Type 2, Hx Hypothyroidism Renal/ Medical History: Denies: Hx Ectopic , Hx Peritoneal Dialysis GI Medical History: Reports: Hx Gastroesophageal Reflux Disease, Hx Ulcer Musculoskeltal Medical History: Reports Hx Musculoskeletal Trauma Psychiatric Medical History: Reports: Hx Attention Deficit Hyperactivity Disorder, Hx Bipolar Disorder, Hx Post Traumatic Stress Disorder, Hx Schizophrenia Traumatic Medical History: Reports: Hx Fractures - Right arm Past Surgical History: Reports: Hx Cholecystectomy, Hx Dilation and Curettage - With , Hx Oral Surgery - [place] teeth - Immunizations Hx Diphtheria, Pertussis, Tetanus Vaccination: Yes Physical Exam - Vital signs Vitals: Temp Pulse Resp BP Pulse Ox 98.8 F 90 18 120/70 98 09/02/17 12:37 09/02/17 12:37 09/02/17 12:37 09/02/17 12:37 09/02/17 12:37 Course - Vital Signs Vital signs: Temp Pulse Resp BP Pulse Ox 98.8 F 90 18 120/70 98 09/02/17 12:37 09/02/17 12:37 09/02/17 12:37 09/02/17 12:37 09/02/17 12:37
[2017-09-02 15:18] LABS: APPEARANCE,URINE CLEAR; BILIRUBIN,URINE NEGATIVE (NEGATIVE); COLOR,URINE YELLOW; GLUCOSE, URINE NEGATIVE (NEGATIVE); KETONES,URINE NEGATIVE (NEGATIVE); LEUKOCYTE ESTERASE,URINE NEGATIVE (NEGATIVE); NITRITE,URINE NEGATIVE (NEGATIVE); PROTEIN,URINE NEGATIVE (NEGATIVE); URINE SPECIFIC GRAVITY 1.015; UROBILINOGEN,URINE NEGATIVE mg/dL (<2.0)
--- NOTE | 2017-09-02 15:36 | ER Document Report ---
ED General - General Chief Complaint: Abdominal Pain Stated Complaint: EAR PAIN, SORE THROAT, STOMACH PAIN Time Seen by Provider: 09/02/17 14:04 Notes: 22-year-old female here with complaints of bilateral ear pain congestion runny nose sore throat ongoing for the past few days. She has also had some upper abdominal pain intermittent nonradiating without vomiting diarrhea or nausea. She denies dysuria hematuria hesitancy. She has not tried taking anything for the symptoms. Immunizations up-to-date. TRAVEL OUTSIDE OF THE [place] IN LAST 30 DAYS: No - Related Data Allergies/Adverse Reactions: cephalexin monohydrate [From Keflex] Allergy (Verified 09/02/17 12:33) clindamycin Allergy (Verified 09/02/17 12:33) Latex, Natural Rubber Allergy (Verified 09/02/17 12:33) lurasidone [From Latuda] Allergy (Verified 09/02/17 12:33) peanut [Peanut] Allergy (Verified 09/02/17 12:33) Penicillins Allergy (Verified 09/02/17 12:33) pentoxifylline [From Trental] Allergy (Verified 09/02/17 12:33) morphine Adverse Reaction (Verified 09/02/17 12:33) Past Medical History - Social History Smoking Status: Never Smoker Chew tobacco use (# tins/day): No Frequency of alcohol use: None Drug Abuse: None Family History: CVA, DM, Hyperlipidemia, Hypertension, Malignancy, Thyroid Disfunction - Perfecto's. denies: Arthritis, CAD Patient has suicidal ideation: No Patient has homicidal ideation: No Neurological Medical History: Reports: Hx Migraine Endocrine Medical History: Reports: Hx Diabetes Mellitus Type 2, Hx Hypothyroidism Renal/ Medical History: Denies: Hx Ectopic , Hx Peritoneal Dialysis GI Medical History: Reports: Hx Gastroesophageal Reflux Disease, Hx Ulcer Musculoskeltal Medical History: Reports Hx Musculoskeletal Trauma Psychiatric Medical History: Reports: Hx Attention Deficit Hyperactivity Disorder, Hx Bipolar Disorder, Hx Post Traumatic Stress Disorder, Hx Schizophrenia Traumatic Medical History: Reports: Hx Fractures - Right arm Past Surgical History: Reports: Hx Cholecystectomy, Hx Dilation and Curettage - With , Hx Oral Surgery - [place] teeth - Immunizations Hx Diphtheria, Pertussis, Tetanus Vaccination: Yes Review of Systems - Review of Systems Notes: See history of present illness for pertinent positive review of systems; otherwise all review of systems have been reviewed and are negative Physical Exam - Vital signs Vitals: Temp Pulse Resp BP Pulse Ox 98.8 F 90 18 120/70 98 09/02/17 12:37 09/02/17 12:37 09/02/17 12:37 09/02/17 12:37 09/02/17 12:37 - Notes Notes: PHYSICAL EXAMINATION: GENERAL: Well-appearing and in no acute distress. Super morbidly obese female seen sitting in chair HEAD: Atraumatic, normocephalic. EYES: Pupils equal round and reactive to light, extraocular movements intact, sclera anicteric, conjunctiva are normal. ENT: nares patent, oropharynx minimal erythema without tonsillar swelling or exudates. Moist mucous membranes. NECK: Normal range of motion, supple without lymphadenopathy LUNGS: CTAB and equal. No wheezes rales or rhonchi. HEART: Regular rate and rhythm without murmurs ABDOMEN: Soft, no tenderness on my exam. No guarding, no rebound. No peritoneal signs EXTREMITIES: Normal range of motion, no pitting edema. No cyanosis. NEUROLOGICAL: Cranial nerves grossly intact. Normal sensory/motor exams. PSYCH: Normal mood, normal affect. SKIN: Warm, Dry, normal turgor, no rashes or lesions noted Course - Re-evaluation Re-evalutation: 09/02/17 15:33 MEDICAL DECISION MAKING: Concern for upper respiratory infection, most likely viral negative and urinalysis no infection Instructed patient on fever control with Tylenol and/or (if applicable) Motrin Also discussed keeping hydrated with water or Gatorade/Pedialyte Instructed follow-up PCP next day or few Patient understands and agrees to the plan of care - Vital Signs Vital signs: Temp Pulse Resp BP Pulse Ox 98.8 F 90 18 120/70 98 09/02/17 12:37 09/02/17 12:37 09/02/17 12:37 09/02/17 12:37 09/02/17 12:37 Discharge - Discharge Clinical Impression: Acute URI Condition: Good Disposition: HOME, SELF-CARE Additional Instructions: You were seen in the emergency department at [facility]. You likely have an upper respiratory infection, most likely viral. Use Motrin and/ or Tylenol for fever control. You may use saline nasal spray for stuffy nose. Stay hydrated. Please followup with your primary physician in the next few days for further management/evaluation. Please return to the emergency department for worsening of symptoms or any symptom that you deem to be concerning or life-threatening. Thank you for allowing us to be part of your care. This is your school/work note for your Emergency Department evaluation today. Prescriptions: Meloxicam 15 mg PO DAILYP PRN #7 tablet PRN Reason: Pain Scale Of 5
[2017-09-02 15:47] VITALS: BP 125/99
== END 2017-09-02 15:47 | disposition home or self-care (01) ==
LOC: ER 12:30
DX: J06.9 Acute upper respiratory infection, unspecified (principal); H92.03 Otalgia, bilateral; R10.9 Unspecified abdominal pain; E03.9 Hypothyroidism, unspecified; E11.9 Type 2 diabetes mellitus without complications; Z88.3 Allergy status to other anti-infective agents; Z91.040 Latex allergy status; Z88.0 Allergy status to penicillin; Z90.49 Acquired absence of other specified parts of digestive tract; Z88.6 Allergy status to analgesic agent
CPT/HCPCS: 81001; 81025; 99284

== ENCOUNTER 2017-09-30 21:24 | Emergency (ER) | payer MEDICAID, OTHER ==
[2017-10-01] MEDS ORDERED: IBUPROFEN 600 MG TABLET PO ONE (00:29)
--- NOTE | 2017-10-01 00:33 | ER Document Report ---
ED Oral Problem - General Chief Complaint: Jaw Pain Stated Complaint: MOUTH PAIN Time Seen by Provider: 10/01/17 00:23 Mode of Arrival: Ambulatory Information source: Patient TRAVEL OUTSIDE OF THE [place] IN LAST 30 DAYS: No - HPI Patient complains to provider of: Other - jaw pain, left leg/foot pain Notes: Patient is here with complaints of left lower leg pain. She states that she was running chasing after her boyfriend's daughter and slipped on wet grass and injured her left foot and ankle. She now has pain left foot ankle and lower leg. She denies any numbness, tingling, weakness. She denies any redness. No rash. No lacerations. She does complain of some bilateral jaw pain. She states that she has a history of TMJ, but this feels a little worse than normal. She denies any injuries. No swelling. No difficulty breathing or swallowing. No nausea, vomiting, diarrhea. She denies any fever. No drainage. No chest pain or shortness of breath. She denies any other complaints at this time. Pain in her leg and foot are worse with walking, better with rest. Pain in her jaw is worse when she opens her mouth or chews. - Related Data Allergies/Adverse Reactions: cephalexin monohydrate [From Keflex] Allergy (Verified 09/02/17 12:33) clindamycin Allergy (Verified 09/02/17 12:33) Latex, Natural Rubber Allergy (Verified 09/02/17 12:33) lurasidone [From Latuda] Allergy (Verified 09/02/17 12:33) peanut [Peanut] Allergy (Verified 09/02/17 12:33) Penicillins Allergy (Verified 09/02/17 12:33) pentoxifylline [From Trental] Allergy (Verified 09/02/17 12:33) morphine Adverse Reaction (Verified 09/02/17 12:33) Past Medical History - Social History Smoking Status: Unknown if Ever Smoked Family History: CVA, DM, Hyperlipidemia, Hypertension, Malignancy, Thyroid Disfunction - Perfecto's. denies: Arthritis, CAD Neurological Medical History: Reports: Hx Migraine Endocrine Medical History: Reports: Hx Diabetes Mellitus Type 2, Hx Hypothyroidism Renal/ Medical History: Denies: Hx Ectopic , Hx Peritoneal Dialysis GI Medical History: Reports: Hx Gastroesophageal Reflux Disease, Hx Ulcer Musculoskeltal Medical History: Reports Hx Musculoskeletal Trauma Psychiatric Medical History: Reports: Hx Attention Deficit Hyperactivity Disorder, Hx Bipolar Disorder, Hx Post Traumatic Stress Disorder, Hx Schizophrenia Traumatic Medical History: Reports: Hx Fractures - Right arm Past Surgical History: Reports: Hx Cholecystectomy, Hx Dilation and Curettage - With , Hx Oral Surgery - [place] teeth - Immunizations Hx Diphtheria, Pertussis, Tetanus Vaccination: Yes Review of Systems - Review of Systems -: Yes All other systems reviewed and negative Physical Exam - Vital signs Vitals: Temp Pulse Resp BP Pulse Ox 99.0 F 107 H 20 109/48 L 98 09/30/17 22:30 09/30/17 22:30 09/30/17 22:30 09/30/17 22:30 09/30/17 22:30 - Notes Notes: GENERAL: alert, cooperative, nontoxic, no distress. HEAD: normocephalic, atraumatic EYES: conjunctiva pink without discharge, no external redness or swelling. EARS: no external swelling, no external redness NOSE: atraumatic, no external swelling MOUTH/THROAT: mucous membranes moist and pink. Patient with mild tenderness to the TMJs bilaterally. Full range of motion. No swelling. No obvious dental abscess. No sublingual swelling or induration. No trismus or drooling. Voice is normal. NECK: soft, supple, full range of motion, no meningismus. CHEST: no distress, lungs clear and equal throughout. No wheezing, rales, rhonchi. CARDIAC: regular rate and rhythm, no murmur, normal capillary refill, normal pulses. BACK: full range of motion, no CVA tenderness. EXTREMITIES: full range of motion of all extremities. No redness, no swelling. Tenderness to palpation of the left lateral and medial ankle, left lateral foot, proximal tib-fib. Full range of motion. No ligament instability. Achilles is intact with a normal Chowdhury's test. Normal pulse and sensation to the foot. No tenderness to the femur. NEURO: alert and oriented 3, no focal deficits, full range of motion of all extremities. PYSCH: appropriate mood, affect. Patient is cooperative. SKIN: pink, warm, dry, no rash. Course - Re-evaluation Re-evalutation: 10/01/17 01:46 Patient is nontoxic appearing with stable vitals. She is here with complaints of jaw pain and left lower extremity pain. She states that she slipped and injured her left lower extremity several days ago while running after her boyfriend's daughter. She has had pain since. Exam shows no redness or signs of infection. X-rays of the left foot, ankle, tib-fib are negative for acute findings. Patient will be placed in an Aircast to be worn as needed for comfort. Instructions to rest, ice, elevate her leg. Follow-up if leg is not better in 1 week, sooner if getting worse. She has some mild tenderness at the bilateral TMJs. There is no obvious sign of dental abscess or swelling. There is no sublingual swelling or induration. No sign of Chance's angina. No signs of infection. She does have a history of chronic TMJ problems, this is the most likely source of the pain she is having at this time. This point the patient can be discharged home with instructions to follow-up with a dentist at the next available appointment. Patient will be discharged home with a prescription for Naprosyn that she can take as needed for pain. The patient's emergency department workup and current diagnosis were explained to the patient and or family. Follow-up instructions were provided. Medications if prescribed were discussed. Instructions for when to return to the emergency department including specific worrisome symptoms were discussed with the patient and/or family. - Vital Signs Vital signs: Temp Pulse Resp BP Pulse Ox 99.0 F 107 H 20 109/48 L 98 09/30/17 22:30 09/30/17 22:30 09/30/17 22:30 09/30/17 22:30 09/30/17 22:30 - Diagnostic Test Radiology reviewed: Image reviewed, Reports reviewed - Negative left foot, ankle , tib-fib Procedures - Immobilization left ankle Pre-Proc Neuro Vasc Exam: Normal Immobilizer type: Ankle stirrup Performed by: RN Post-Proc Neuro Vasc Exam: Normal Alignment checked and good: Yes Discharge - Discharge Clinical Impression: Jaw pain Left ankle sprain Qualifiers: Encounter type: initial encounter Involved ligament of ankle: unspecified ligament Qualified Code(s): S93.402A - Sprain of unspecified ligament of left ankle, initial encounter Condition: Stable Disposition: HOME, SELF-CARE Instructions: Ice Packs ([facility]), Sprained Ankle ([facility]), Temporomandibular Joint Syndrome ([facility]), Dentist Additional Instructions: Take medications as prescribed. Wear splint as needed for comfort. Rest, ice, elevate. Follow-up if not better in 1 week, sooner for worsening pain, fever, swelling, numbness, tingling, weakness, persistent vomiting, or for any further concerns. Follow-up with a dentist at the next available appointment. Prescriptions: Naproxen [Naprosyn] 500 mg PO BID #20 tablet Forms: Smoking Cessation Education Referrals: [facility] [Provider Group] - Follow up as needed [facility] [Provider Group] - Follow up as needed
--- NOTE | 2017-10-01 01:40 | RADIOLOGY REPORT (SQ) ---
EXAM DESCRIPTION: TIBIA FIBULA LEFT CLINICAL HISTORY: fall, injury COMPARISON: None. FINDINGS: 2 views of the left tibia and fibula. No acute fracture or dislocation. Normal osseous mineralization. IMPRESSION: No acute fracture or dislocation.
--- NOTE | 2017-10-01 01:41 | RADIOLOGY REPORT (SQ) ---
EXAM DESCRIPTION: FOOT LEFT COMPLETE CLINICAL HISTORY: fall, injury COMPARISON: None. FINDINGS: 3 views of the left foot. No acute fracture or dislocation. Normal osseous mineralization. The tarsals and metatarsals have appropriate alignment. IMPRESSION: No acute fracture or dislocation.
--- NOTE | 2017-10-01 01:41 | RADIOLOGY REPORT (SQ) ---
EXAM DESCRIPTION: ANKLE LEFT COMPLETE CLINICAL HISTORY: fall, injury COMPARISON: None. FINDINGS: 3 views of the left ankle. No acute fracture or dislocation. Normal osseous mineralization. Tibial plafond and talar dome have normal appearance. Base of the fifth metatarsal is intact. IMPRESSION: No acute fracture or dislocation.
[2017-10-01 02:55] VITALS: BP 119/49
== END 2017-10-01 02:45 | disposition home or self-care (01) ==
LOC: ER 21:24
PROC: 2W3RX1Z Immobilization of Left Lower Leg using Splint (ICD-10-PCS; principal; 2017-09-30)
DX: S93.402A Sprain of unspecified ligament of left ankle, initial encounter (principal); R68.84 Jaw pain; M79.605 Pain in left leg; E11.9 Type 2 diabetes mellitus without complications; W01.0XXA Fall on same level from slipping, tripping and stumbling without subsequent striking against object, initial encounter; Y93.02 Activity, running
CPT/HCPCS: 99283; 73610; 73630; 73590; 29515; L1902; L4350

== ENCOUNTER 2017-11-10 12:12 | Emergency (ER) | payer MEDICARE, MEDICAID, OTHER ==
[2017-11-10] MEDS ORDERED: PROCHLORPERAZINE MALEATE 5 MG TABLET PO ONE (12:41)
[2017-11-10] MEDS ORDERED: ONDANSETRON 4 MG TAB.RAPDIS PO ONE (12:41)
[2017-11-10] MEDS ORDERED: LIDOCAINE 5% (700 MG) TRANSDERMAL ADH..PATCH TP ONE (12:41)
--- NOTE | 2017-11-10 12:42 | ER Document Report ---
ED General - General Chief Complaint: Breathing Difficulty Stated Complaint: HEADACHE, STOMACH/CHEST/BACK PAIN Time Seen by Provider: 11/10/17 12:41 TRAVEL OUTSIDE OF THE [place] IN LAST 30 DAYS: No - Related Data Allergies/Adverse Reactions: cephalexin monohydrate [From Keflex] Allergy (Verified 11/10/17 12:13) clindamycin Allergy (Verified 11/10/17 12:13) Latex, Natural Rubber Allergy (Verified 11/10/17 12:13) lurasidone [From Latuda] Allergy (Verified 11/10/17 12:13) peanut [Peanut] Allergy (Verified 11/10/17 12:13) Penicillins Allergy (Verified 11/10/17 12:13) pentoxifylline [From Trental] Allergy (Verified 11/10/17 12:13) morphine Adverse Reaction (Verified 11/10/17 12:13) Past Medical History - Social History Family History: CVA, DM, Hyperlipidemia, Hypertension, Malignancy, Thyroid Disfunction - Perfecto's. denies: Arthritis, CAD Neurological Medical History: Reports: Hx Migraine Endocrine Medical History: Reports: Hx Diabetes Mellitus Type 2, Hx Hypothyroidism Renal/ Medical History: Denies: Hx Ectopic , Hx Peritoneal Dialysis GI Medical History: Reports: Hx Gastroesophageal Reflux Disease, Hx Ulcer Musculoskeltal Medical History: Reports Hx Musculoskeletal Trauma Psychiatric Medical History: Reports: Hx Attention Deficit Hyperactivity Disorder, Hx Bipolar Disorder, Hx Post Traumatic Stress Disorder, Hx Schizophrenia Traumatic Medical History: Reports: Hx Fractures - Right arm Past Surgical History: Reports: Hx Cholecystectomy, Hx Dilation and Curettage - With , Hx Oral Surgery - [place] teeth - Immunizations Hx Diphtheria, Pertussis, Tetanus Vaccination: Yes Physical Exam - Vital signs Vitals: Temp Pulse Resp BP Pulse Ox 99.0 F 108 H 16 117/73 98 11/10/17 12:19 11/10/17 12:19 11/10/17 12:19 11/10/17 12:19 11/10/17 12:19 Course - Vital Signs Vital signs: Temp Pulse Resp BP Pulse Ox 99.0 F 108 H 16 117/73 98 11/10/17 12:19 11/10/17 12:19 11/10/17 12:19 11/10/17 12:19 11/10/17 12:19 Discharge - Discharge Clinical Impression: Nausea, Tension headache Dyspnea Qualifiers: Dyspnea type: unspecified Qualified Code(s): R06.00 - Dyspnea, unspecified Condition: Good Disposition: HOME, SELF-CARE Instructions: Tension Headache ([facility]), Nausea or Vomiting, Nonspecific ([facility]), Dyspnea, Nonspecific ([facility]) Additional Instructions: Your chest x-ray does not show any signs of fracture pneumonia or any other significant findings. I would recommend taking [id number] cough medication please discussed options with your pharmacist to aid in cough resolution I would highly recommend using natural honey and exit within your favorite drink plenty T honey water. Your urinalysis shows that you are not today Please take medication as prescribed for your headache Compazine Zofran he may also take Tylenol Motrin together to help out with your head pain. Positive back to neck and also ice packs to back and neck will also help out her headache as that I do believe is more likely tension headache. Follow with your primary care physician. I would highly recommend using a combination of 650 mg 1000 mg of Tylenol along with the Motrin prescribed 3 times a day Prescriptions: Ibuprofen [Motrin 600 mg Tablet] 600 mg PO Q8HP PRN #30 tablet PRN Reason: Ondansetron HCl [Zofran 4 mg Tablet] 1 - 2 tab PO Q6 #30 tablet Prochlorperazine Maleate [Compazine] 5 mg PO Q6 #30 tablet Forms: Smoking Cessation Education, Return to Work
--- NOTE | 2017-11-10 13:16 | RADIOLOGY REPORT (SQ) ---
EXAM DESCRIPTION: CHEST 2 VIEWS COMPLETED DATE/TIME: 11/10/2017 1:01 pm REASON FOR STUDY: sob COMPARISON: April 2017 EXAM PARAMETERS: NUMBER OF VIEWS: two views TECHNIQUE: Digital Frontal and Lateral radiographic views of the chest acquired. RADIATION DOSE: NA LIMITATIONS: none FINDINGS: LUNGS AND PLEURA: No opacities, masses or pneumothorax. No pleural effusion. MEDIASTINUM AND HILAR STRUCTURES: No masses or contour abnormalities. HEART AND VASCULAR STRUCTURES: Heart normal size. No evidence for failure. BONES: No acute findings. HARDWARE: None in the chest. OTHER: No other significant finding. IMPRESSION: NO ACUTE RADIOGRAPHIC FINDING IN THE CHEST. TECHNICAL DOCUMENTATION: JOB ID: [id number] [employer]- All Rights Reserved Reading location - IP/workstation name: [email or web address]
[2017-11-10 14:10] VITALS: BP 108/56
--- NOTE | 2017-11-10 20:27 | ER Document Report ---
ED General - General Chief Complaint: Breathing Difficulty Stated Complaint: HEADACHE, STOMACH/CHEST/BACK PAIN Time Seen by Provider: 11/10/17 12:41 TRAVEL OUTSIDE OF THE U.S. IN LAST 30 DAYS: No - HPI Patient complains to provider of: Headache shortness of breath nausea vomiting Notes: Patient coming in for multiple complaints mostly headache nausea vomiting myalgias shortness of breath ongoing for the last 2 days. Patient also states she had a nosebleed yesterday and is noticeably today. Patient describes her headache has pain in the back of her neck and and on the frontal region of her head. Denies any history of trauma. Denies any syncopal episodes. Patient denies fevers chills diarrhea. Denies any sick contacts. Patient resting comfortably upon my evaluation. - Related Data Allergies/Adverse Reactions: cephalexin monohydrate [From Keflex] Allergy (Verified 11/10/17 12:13) clindamycin Allergy (Verified 11/10/17 12:13) Latex, Natural Rubber Allergy (Verified 11/10/17 12:13) lurasidone [From Latuda] Allergy (Verified 11/10/17 12:13) peanut [Peanut] Allergy (Verified 11/10/17 12:13) Penicillins Allergy (Verified 11/10/17 12:13) pentoxifylline [From Trental] Allergy (Verified 11/10/17 12:13) morphine Adverse Reaction (Verified 11/10/17 12:13) Past Medical History - Social History Smoking Status: Current Every Day Smoker Chew tobacco use (# tins/day): No Frequency of alcohol use: None Drug Abuse: None Family History: CVA, DM, Hyperlipidemia, Hypertension, Malignancy, Thyroid Disfunction - Perfecto's. denies: Arthritis, CAD Patient has suicidal ideation: No Patient has homicidal ideation: No Neurological Medical History: Reports: Hx Migraine Endocrine Medical History: Reports: Hx Diabetes Mellitus Type 2, Hx Hypothyroidism Renal/ Medical History: Denies: Hx Ectopic , Hx Peritoneal Dialysis GI Medical History: Reports: Hx Gastroesophageal Reflux Disease, Hx Ulcer Musculoskeltal Medical History: Reports Hx Musculoskeletal Trauma Psychiatric Medical History: Reports: Hx Attention Deficit Hyperactivity Disorder, Hx Bipolar Disorder, Hx Post Traumatic Stress Disorder, Hx Schizophrenia Traumatic Medical History: Reports: Hx Fractures - Right arm Past Surgical History: Reports: Hx Cholecystectomy, Hx Dilation and Curettage - With , Hx Oral Surgery - [place] teeth - Immunizations Hx Diphtheria, Pertussis, Tetanus Vaccination: Yes Review of Systems - Review of Systems Constitutional: Other - Headache nausea vomiting myalgias EENT: No symptoms reported Cardiovascular: No symptoms reported Respiratory: No symptoms reported Gastrointestinal: No symptoms reported Genitourinary: No symptoms reported Female Genitourinary: No symptoms reported Musculoskeletal: No symptoms reported Skin: No symptoms reported Hematologic/Lymphatic: No symptoms reported Neurological/Psychological: No symptoms reported -: Yes All other systems reviewed and negative Physical Exam - Vital signs Vitals: Temp Pulse Resp BP Pulse Ox 99.0 F 108 H 16 117/73 98 11/10/17 12:19 11/10/17 12:19 11/10/17 12:19 11/10/17 12:19 11/10/17 12:19 Interpretation: Normal - General General appearance: Appears well, Alert - HEENT Head: Normocephalic, Atraumatic Eyes: Normal Pupils: PERRL - Respiratory Respiratory status: No respiratory distress Chest status: Nontender Breath sounds: Normal Chest palpation: Normal - Cardiovascular Rhythm: Regular Heart sounds: Normal auscultation Murmur: No - Abdominal Inspection: Normal Distension: No distension Bowel sounds: Normal Tenderness: Nontender Organomegaly: No organomegaly - Back Back: Normal, Nontender - Extremities General upper extremity: Normal inspection, Nontender, Normal color, Normal ROM , Normal temperature General lower extremity: Normal inspection, Nontender, Normal color, Normal ROM , Normal temperature, Normal weight bearing. No: Juan's sign - Neurological Neuro grossly intact: Yes Cognition: Normal Orientation: AAOx4 Hermes Coma Scale Eye Opening: Spontaneous Hermes Coma Scale Verbal: Oriented Hermes Coma Scale Motor: Obeys Commands Hermes Coma Scale Total: 15 Speech: Normal Motor strength normal: LUE, RUE, LLE, RLE Sensory: Normal - Psychological Associated symptoms: Normal affect, Normal mood - Skin Skin Temperature: Warm Skin Moisture: Dry Skin Color: Normal Course - Re-evaluation Re-evalutation: 11/10/17 20:26 The patient presents with headache without signs of TRANSPORTATION ASSISTANT bleed, stroke, infection , or other serious etiology. The patient is neurologically intact. Given the extremely low risk of these diagnoses further testing and evaluation for these possibilities does not appear to be indicated at this time. The patient has been instructed to return if the symptoms worsen or change in any way.. - Vital Signs Vital signs: Temp Pulse Resp BP Pulse Ox 97.9 F 75 18 108/56 L 98 11/10/17 14:11/10/17 14:11/10/17 14:11/10/17 14:11/10/17 14:09 Discharge - Discharge Clinical Impression: Nausea, Tension headache Dyspnea Qualifiers: Dyspnea type: unspecified Qualified Code(s): R06.00 - Dyspnea, unspecified Condition: Good Disposition: HOME, SELF-CARE Instructions: Dyspnea, Nonspecific ([facility]), Nausea or Vomiting, Nonspecific ([facility]) , Tension Headache ([facility]) Additional Instructions: Your chest x-ray does not show any signs of fracture pneumonia or any other significant findings. I would recommend taking [id number] cough medication please discussed options with your pharmacist to aid in cough resolution I would highly recommend using natural honey and exit within your favorite drink plenty T honey water. Your urinalysis shows that you are not today Please take medication as prescribed for your headache Compazine Zofran he may also take Tylenol Motrin together to help out with your head pain. Positive back to neck and also ice packs to back and neck will also help out her headache as that I do believe is more likely tension headache. Follow with your primary care physician. I would highly recommend using a combination of 650 mg 1000 mg of Tylenol along with the Motrin prescribed 3 times a day Prescriptions: Ibuprofen [Motrin 600 mg Tablet] 600 mg PO Q8HP PRN #30 tablet PRN Reason: Ondansetron HCl [Zofran 4 mg Tablet] 1 - 2 tab PO Q6 #30 tablet Prochlorperazine Maleate [Compazine] 5 mg PO Q6 #30 tablet Forms: Smoking Cessation Education, Return to Work
== END 2017-11-10 14:10 | disposition home or self-care (01) ==
LOC: ER 12:12
DX: G44.209 Tension-type headache, unspecified, not intractable (principal); R06.00 Dyspnea, unspecified; R06.02 Shortness of breath; R11.2 Nausea with vomiting, unspecified; M79.1 Myalgia; Z88.3 Allergy status to other anti-infective agents; Z91.040 Latex allergy status; Z88.0 Allergy status to penicillin; Z88.6 Allergy status to analgesic agent; Z91.010 Allergy to peanuts
CPT/HCPCS: 99284; 81025; 71046; A9270 ×2; S0119; S0183

== ENCOUNTER 2017-12-21 18:59 | Emergency (ER) | payer MEDICARE, MEDICAID ==
--- NOTE | 2017-12-21 20:17 | ER Document Report ---
ED Medical Screen (RME) - General Chief Complaint: Leg Swelling Stated Complaint: LEG FOOT/ANKLE PAIN Time Seen by Provider: 12/21/17 20:12 Mode of Arrival: Ambulatory Information source: Patient Notes: 22-year-old female presenting with complaint of left lower extremity pain and swelling. Patient reports the pain has been going on for approximately 1 week with worsening today. Patient reports that she was seen at [facility] who referred her here for a possible blood clot. Patient denies any history of DVTs or PEs, use of any oral control, denies any recent travel or surgeries. Exam: Mild swelling noted to left lower extremity, no erythema, cap refill less than 3 seconds. Patient ambulating without difficulty. Lung sounds clear to auscultation bilaterally. I have greeted and performed a rapid initial assessment of this patient. A comprehensive ED assessment and evaluation of the patient, analysis of test results and completion of the medical decision making process will be conducted by additional ED providers. Dictation of this chart was performed using voice recognition software; therefore, there may be some unintended grammatical errors. TRAVEL OUTSIDE OF THE [place].S. IN LAST 30 DAYS: No - Related Data Allergies/Adverse Reactions: cephalexin monohydrate [From Keflex] Allergy (Verified 12/21/17 19:03) clindamycin Allergy (Verified 12/21/17 19:03) Latex, Natural Rubber Allergy (Verified 12/21/17 19:03) lurasidone [From Latuda] Allergy (Verified 12/21/17 19:03) peanut [Peanut] Allergy (Verified 12/21/17 19:03) Penicillins Allergy (Verified 12/21/17 19:03) pentoxifylline [From Trental] Allergy (Verified 12/21/17 19:03) morphine Adverse Reaction (Verified 12/21/17 19:03) Past Medical History - Social History Frequency of alcohol use: None Family history: None Neurological Medical History: Reports: Hx Migraine Endocrine Medical History: Reports: Hx Diabetes Mellitus Type 2, Hx Hypothyroidism Renal/ Medical History: Denies: Hx Ectopic , Hx Peritoneal Dialysis GI Medical History: Reports: Hx Gastroesophageal Reflux Disease, Hx Ulcer Musculoskeltal Medical History: Reports Hx Musculoskeletal Trauma Psychiatric Medical History: Reports: Hx Attention Deficit Hyperactivity Disorder, Hx Bipolar Disorder, Hx Post Traumatic Stress Disorder, Hx Schizophrenia Traumatic Medical History: Reports: Hx Fractures - Right arm Past Surgical History: Reports: Hx Cholecystectomy, Hx Dilation and Curettage - With , Hx Oral Surgery - [place] teeth - Immunizations Hx Diphtheria, Pertussis, Tetanus Vaccination: Yes Physical Exam - Vital signs Vitals: Temp Pulse Resp BP Pulse Ox 98.7 F 111 H 18 118/73 99 12/21/17 19:28 12/21/17 19:28 12/21/17 19:28 12/21/17 19:28 12/21/17 19:28 Course - Vital Signs Vital signs: Temp Pulse Resp BP Pulse Ox 98.7 F 111 H 18 118/73 99 12/21/17 19:28 12/21/17 19:28 12/21/17 19:28 12/21/17 19:28 12/21/17 19:28
[2017-12-21 21:08] LABS: ABSOLUTE BASOPHILS # (AUTO) 0.1 10^3/uL (0.0-0.2); ABSOLUTE EOSINOPHILS # (AUTO) 0.3 10^3/uL (0.0-0.6); ABSOLUTE LYMPHOCYTES (AUTO) 2.3 10^3/uL (0.5-4.7); ABSOLUTE MONOCYTES (AUTO) 1.4 10^3/uL (0.1-1.4); ABSOLUTE NEUT (AUTO) 10.3 10^3/uL (1.7-8.2); BASOPHILS % (AUTO) 0.4 % (0-2); EOSINOPHILS % (AUTO) 1.9 % (0-6); HEMATOCRIT 39.8 % (36.0-47.0); HEMOGLOBIN 13.5 g/dL (12.0-15.5); LYMPHOCYTES % (AUTO) 16.2 % (13-45); MEAN CORPUSCULAR HEMOGLOBIN 29.1 pg (27.0-33.4); MEAN CORPUSCULAR VOLUME 86 fl (80-97); MONOCYTES % (AUTO) 9.5 % (3-13); PLATELET COUNT 312 10^3/uL (150-450); RED BLOOD COUNT 4.65 10^6/uL (3.72-5.28); RED CELL DISTRIBUTION WIDTH 14.4 % (11.5-14.0); TOTAL CELLS COUNTED % (AUTO) 100 %; WHITE BLOOD COUNT 14.3 10^3/uL (4.0-10.5)
[2017-12-21 21:36] LABS: ALANINE AMINOTRANSFERASE 40 U/L (9-52); ALKALINE PHOSPHATASE 85 U/L (38-126); ANION GAP 12 (5-19); ASPARTATE AMINO TRANSFERASE 25 U/L (14-36); BILIRUBIN,DIRECT 0.2 mg/dL (0.0-0.4); BILIRUBIN,TOTAL 0.2 mg/dL (0.2-1.3); BLOOD UREA NITROGEN 13 mg/dL (7-20); CALCIUM 9.4 mg/dL (8.4-10.2); CARBON DIOXIDE 26 mmol/L (22-30); CHLORIDE 103 mmol/L (98-107); GLUCOSE 84 mg/dL (75-110); POTASSIUM 4.3 mmol/L (3.6-5.0); TOTAL PROTEIN 7.5 g/dL (6.3-8.2)
--- NOTE | 2017-12-21 21:50 | RADIOLOGY REPORT (SQ) ---
EXAM DESCRIPTION: VENOUS UNILATERAL LOWER COMPLETED DATE/TIME: 12/21/2017 9:42 pm REASON FOR STUDY: LLE pain / swelling COMPARISON: None. TECHNIQUE: Dynamic and static higgins scale and color images acquired of the left leg venous system. Se lected spectral images acquired with additional compression and augmentation maneuvers. The contralat eral common femoral vein and saphenofemoral junction were also imaged. Images stored on PACS. LIMITATIONS: None. FINDINGS: COMMON FEMORAL: Normal phasicity, compression and augmentation. No visualized echogenic ma terial on higgins scale. No defects on color images. FEMORAL: Normal compression and augmentation. No visualized echogenic material on higgins scale. No defe cts on color images. POPLITEAL: Normal compression, augmentation. No visualized echogenic material on higgins scale. No defec ts on color images. CALF VESSELS: Normal compression, augmentation. No visualized echogenic material on higgins scale. No de fects on color images. GSV and SSV: Normal compression, augmentation. No visualized echogenic material on higgins scale. No def ects on color images. ANY DEEP VENOUS INSUFFICIENCY: No. ANY EVIDENCE OF POPLITEAL CYST: No. OTHER: No other significant finding. CONTRALATERAL COMMON FEMORAL VEIN AND SAPHENOFEMORAL JUNCTION: Normal phasicity, compression and augmentation. No visualized echogenic material on higgins scale. No de fects on color images. IMPRESSION: NO EVIDENCE DVT OR SVT IN THE LEFT LEG. TECHNICAL DOCUMENTATION: JOB ID: [id number] [employer]- All Rights Reserved Reading location - IP/workstation name: [email or web address]
--- NOTE | 2017-12-21 23:31 | ER Document Report ---
ED Extremity Problem, Lower - General Chief Complaint: Leg Swelling Stated Complaint: LEG FOOT/ANKLE PAIN Time Seen by Provider: 12/21/17 20:12 Mode of Arrival: Ambulatory Notes: 22-year-old female presenting with complaint of left lower extremity pain and swelling. Patient reports the pain has been going on for approximately 1 week with worsening today. Patient reports that she was seen at [facility] urgent [facility] who referred her here for a possible blood clot. Patient denies any history of DVTs or PEs, use of any oral control, denies any recent travel or surgeries. TRAVEL OUTSIDE OF THE [place] IN LAST 30 DAYS: No - Related Data Allergies/Adverse Reactions: cephalexin monohydrate [From Keflex] Allergy (Verified 12/21/17 19:03) clindamycin Allergy (Verified 12/21/17 19:03) Latex, Natural Rubber Allergy (Verified 12/21/17 19:03) lurasidone [From Latuda] Allergy (Verified 12/21/17 19:03) peanut [Peanut] Allergy (Verified 12/21/17 19:03) Penicillins Allergy (Verified 12/21/17 19:03) pentoxifylline [From Trental] Allergy (Verified 12/21/17 19:03) morphine Adverse Reaction (Verified 12/21/17 19:03) Past Medical History - General Information source: Patient - Social History Smoking Status: Never Smoker Frequency of alcohol use: None Family History: CVA, DM, Hyperlipidemia, Hypertension, Malignancy, Thyroid Disfunction - Perfecto's. denies: Arthritis, CAD Patient has suicidal ideation: No Patient has homicidal ideation: No Neurological Medical History: Reports: Hx Migraine Endocrine Medical History: Reports: Hx Diabetes Mellitus Type 2, Hx Hypothyroidism Renal/ Medical History: Denies: Hx Ectopic , Hx Peritoneal Dialysis GI Medical History: Reports: Hx Gastroesophageal Reflux Disease, Hx Ulcer Musculoskeletal Medical History: Reports Hx Musculoskeletal Trauma Psychiatric Medical History: Reports: Hx Attention Deficit Hyperactivity Disorder, Hx Bipolar Disorder, Hx Post Traumatic Stress Disorder, Hx Schizophrenia Traumatic Medical History: Reports: Hx Fractures - Right arm Past Surgical History: Reports: Hx Cholecystectomy, Hx Dilation and Curettage - With , Hx Oral Surgery - [place] teeth - Immunizations Hx Diphtheria, Pertussis, Tetanus Vaccination: Yes Review of Systems - Review of Systems Constitutional: No symptoms reported EENT: No symptoms reported Cardiovascular: See HPI Respiratory: No symptoms reported Gastrointestinal: No symptoms reported Genitourinary: No symptoms reported Female Genitourinary: No symptoms reported Musculoskeletal: No symptoms reported Skin: No symptoms reported Hematologic/Lymphatic: No symptoms reported Neurological/Psychological: No symptoms reported Physical Exam - Vital signs Vitals: Temp Pulse Resp BP Pulse Ox 98.7 F 111 H 18 118/73 99 12/21/17 19:28 12/21/17 19:28 12/21/17 19:28 12/21/17 19:28 12/21/17 19:28 - Notes Notes: PHYSICAL EXAMINATION: GENERAL: Well-appearing, well-nourished and in no acute distress. HEAD: Atraumatic, normocephalic. EYES: Pupils equal round and reactive to light, extraocular movements intact, conjunctiva are normal. ENT: Nares patent, oropharynx clear without exudates. Moist mucous membranes. NECK: Normal range of motion, supple without lymphadenopathy LUNGS: Breath sounds clear to auscultation bilaterally and equal. No wheezes rales or rhonchi. HEART: Regular rate and rhythm without murmurs ABDOMEN: Soft, nontender, nondistended abdomen. No guarding, no rebound. No masses appreciated. Female : deferred Musculoskeletal: Normal range of motion, swelling to bilateral lower extremities , swelling worse on left, nonpitting. No ecchymosis or erythema noted. No cyanosis. NEUROLOGICAL: Cranial nerves grossly intact. Normal speech, normal gait. Normal sensory, motor exams PSYCH: Normal mood, normal affect. SKIN: Warm, Dry, normal turgor, no rashes or lesions noted. Course - Re-evaluation Re-evalutation: Patient was sent from urgent care for venous Doppler study to rule out a DVT. Venous Doppler of the left lower extremity is negative for any deep vein thrombosis. Patient does have an elevated white blood count without a shift. Will discharge patient home with plan to follow-up with her primary care provider regarding her peripheral edema. Patient given ED return precautions to include worsening of the swelling, development of chest pain, shortness of breath or any other symptom that is concerning to her, patient verbalizes understanding of same. - Vital Signs Vital signs: Temp Pulse Resp BP Pulse Ox 98.7 F 111 H 18 118/73 99 12/21/17 19:28 12/21/17 19:28 12/21/17 19:28 12/21/17 19:28 12/21/17 19:28 - Laboratory Result Diagrams: 12/21/17 20:40 12/21/17 20:40 Laboratory results interpreted by me: 12/21/17 20:40 WBC 14.3 H RDW 14.4 H Absolute Neutrophils 10.3 H Discharge - Discharge Clinical Impression: Peripheral edema Condition: Stable Disposition: HOME, SELF-CARE Additional Instructions: Edema, Peripheral You have swelling in your legs. This is called peripheral edema. It can be caused by "leaky capillaries," inflammation, disease of the leg veins, or excess salt and water in your body. Edema may be a sign of heart, kidney, or liver disease. A medical evaluation can determine if there is a serious underlying cause for your edema. Avoid prolonged standing. If you must sit for a long time, occasionally get up and walk around or elevate your legs. Support stockings can be helpful in limiting swelling. Often diuretic or water pills are used to remove excess salt and water from your body. Call the doctor or return if you develop increased swelling, pain, or redness, shortness of breath, chest pain, or any other significant change. Your workup today was normal, there is no evidence of the swelling being caused by a deep vein thrombosis. Please follow-up with your primary care provider, call to schedule an appointment. Return to the emergency department if you develop worsening of your swelling, chest pain, shortness of breath or difficulty breathing. Take ibuprofen 600 mg every 6 hours for pain. Referrals: [facility] [Provider Group] - Follow up as needed
[2017-12-22 01:06] VITALS: BP 128/70
== END 2017-12-21 23:50 | disposition home or self-care (01) ==
LOC: ER 18:59
DX: R60.9 Edema, unspecified (principal); M79.605 Pain in left leg; D72.829 Elevated white blood cell count, unspecified; E11.9 Type 2 diabetes mellitus without complications; Z88.1 Allergy status to other antibiotic agents; Z91.040 Latex allergy status; Z88.8 Allergy status to other drugs, medicaments and biological substances; Z88.0 Allergy status to penicillin
CPT/HCPCS: 36415; 80053; 85025; 93971; 99284

== ENCOUNTER 2018-02-04 13:52 | Emergency (ER) | payer MEDICARE, MEDICAID ==
--- NOTE | 2018-02-04 15:34 | ER Document Report ---
ED Medical Screen (RME) - General Chief Complaint: Headache Stated Complaint: HEADACHE Time Seen by Provider: 02/04/18 15:19 TRAVEL OUTSIDE OF THE [place]. IN LAST 30 DAYS: No - HPI Notes: 02/04/18 15:29 Patient is a 22-year-old female with a history of mental health disorder and chronic headaches who presents to the ED complaining of a right-sided headache primarily around her right eye 3-4 days with tingling on her right cheek that began within the last 1-2 hours that is new for her. Patient states that she never has a headache on the right side of her face. Patient states that most of her headaches are primarily posterior. Patient was sent here by her family doctor for further evaluation. I did ask about patient's complaint of chest pain shortness of breath (from [facility] note) which she states she does not have any of those symptoms. Denies any fever, head injury, neck pain, changes in speech/mentation/hearing, URI, sore throat, chest pain, palpitations, syncope, cough, shortness of breath , wheeze, dyspnea, abdominal pain, nausea/vomiting/diarrhea, urinary retention, dysuria, hematuria, loss of control of bowel or bladder, saddle anesthesia, muscle paralysis/weakness, or rash. Reviewed with Dr. Wayne who recommended CT scan of the head. I have treated and performed a rapid initial assessment of this patient. A comprehensive ED assessment and evaluation of the patient, analysis of test results and completion of medical decision making process will be conducted by additional ED providers. PHYSICAL EXAMINATION: GENERAL: Well-appearing, well-nourished and in no acute distress. A&Ox4. Answers questions appropriately. eyes: PERRLA, EOMI. No nystagmus/entrapment. LUNGS: Breath sounds clear to auscultation bilaterally and equal. No wheezes rales or rhonchi. HEART: Regular rate and rhythm without murmurs, rubs, gallops. Extremities: No cyanosis, clubbing, or edema b/l. NEUROLOGICAL: Normal speech, normal gait. Cranial nerves grossly intact. NIH 0- 1 (only for mild dec sensation rt zygomatic vs left). GCS 15. PSYCH: Normal mood, normal affect. - Related Data Allergies/Adverse Reactions: cephalexin monohydrate [From Keflex] Allergy (Verified 02/04/18 13:54) clindamycin Allergy (Verified 02/04/18 13:54) Latex, Natural Rubber Allergy (Verified 02/04/18 13:54) lurasidone [From Latuda] Allergy (Verified 02/04/18 13:54) peanut [Peanut] Allergy (Verified 02/04/18 13:54) Penicillins Allergy (Verified 02/04/18 13:54) pentoxifylline [From Trental] Allergy (Verified 02/04/18 13:54) morphine Adverse Reaction (Verified 02/04/18 13:54) Past Medical History - Social History Chew tobacco use (# tins/day): No Frequency of alcohol use: None Drug Abuse: None Family history: None Neurological Medical History: Reports: Hx Migraine Endocrine Medical History: Reports: Hx Diabetes Mellitus Type 2, Hx Hypothyroidism Renal/ Medical History: Denies: Hx Ectopic , Hx Peritoneal Dialysis GI Medical History: Reports: Hx Gastroesophageal Reflux Disease, Hx Ulcer Musculoskeltal Medical History: Reports Hx Musculoskeletal Trauma Psychiatric Medical History: Reports: Hx Attention Deficit Hyperactivity Disorder, Hx Bipolar Disorder, Hx Post Traumatic Stress Disorder, Hx Schizophrenia Traumatic Medical History: Reports: Hx Fractures - Right arm Past Surgical History: Reports: Hx Cholecystectomy, Hx Dilation and Curettage - With , Hx Oral Surgery - [place] teeth - Immunizations Hx Diphtheria, Pertussis, Tetanus Vaccination: Yes Physical Exam - Vital signs Vitals: Temp Pulse Resp BP Pulse Ox 98.2 F 106 H 16 109/62 100 02/04/18 14:44 02/04/18 14:44 02/04/18 14:44 02/04/18 14:44 02/04/18 14:44 Course - Vital Signs Vital signs: Temp Pulse Resp BP Pulse Ox 98.2 F 88 16 109/62 100 02/04/18 14:44 02/04/18 15:23 02/04/18 14:44 02/04/18 14:44 02/04/18 14:44
[2018-02-04 16:12] LABS: ABSOLUTE BASOPHILS # (AUTO) 0.1 10^3/uL (0.0-0.2); ABSOLUTE EOSINOPHILS # (AUTO) 0.3 10^3/uL (0.0-0.6); ABSOLUTE LYMPHOCYTES (AUTO) 1.9 10^3/uL (0.5-4.7); ABSOLUTE MONOCYTES (AUTO) 1.2 10^3/uL (0.1-1.4); ABSOLUTE NEUT (AUTO) 8.7 10^3/uL (1.7-8.2); BASOPHILS % (AUTO) 0.6 % (0-2); EOSINOPHILS % (AUTO) 2.5 % (0-6); HEMATOCRIT 39.2 % (36.0-47.0); HEMOGLOBIN 13.2 g/dL (12.0-15.5); LYMPHOCYTES % (AUTO) 15.9 % (13-45); MEAN CORPUSCULAR HEMOGLOBIN 28.8 pg (27.0-33.4); MEAN CORPUSCULAR HGB CONC 33.6 g/dL (32.0-36.0); MEAN CORPUSCULAR VOLUME 86 fl (80-97); MONOCYTES % (AUTO) 10.1 % (3-13); PLATELET COUNT 322 10^3/uL (150-450); RED BLOOD COUNT 4.57 10^6/uL (3.72-5.28); SEGMENTED NEUTROPHILS % (AUTO) 70.9 % (42-78); TOTAL CELLS COUNTED % (AUTO) 100 %; WHITE BLOOD COUNT 12.2 10^3/uL (4.0-10.5)
--- NOTE | 2018-02-04 16:16 | RADIOLOGY REPORT (SQ) ---
EXAM DESCRIPTION: CT HEAD WITHOUT COMPLETED DATE/TIME: 02/04/2018 3:59 pm REASON FOR STUDY: rt side face CERON, tingling COMPARISON: CT brain 09/24/2016, 01/26/2016 TECHNIQUE: Axial images acquired through the brain without intravenous contrast. Images reviewed wi th bone, brain and subdural windows. Additional sagittal and coronal reconstructions were generated. Images stored on PACS. All CT scanners at this facility use dose modulation, iterative reconstruction, and/or weight based d osing when appropriate to reduce radiation dose to as low as reasonably achievable (ALARA). [facility]: Dose Right [facility]: CareDose [facility]: Dose Right [facility]: Teradose 4D [facility]: Bluesocket RADIATION DOSE: CT Rad equipment meets quality standard of care and radiation dose reduction techniq ues were employed. CTDIvol: 53.2 mGy. DLP: 1017 mGy-cm. mGy. LIMITATIONS: None. FINDINGS: VENTRICLES: Normal size and contour. CEREBRUM: No masses. No hemorrhage. No midline shift. No evidence for acute infarction. Normal gra y/white matter differentiation. No areas of low density in the white matter. CEREBELLUM: No masses. No hemorrhage. No alteration of density. No evidence for acute infarction. EXTRAAXIAL SPACES: No fluid collections. No masses. ORBITS AND GLOBE: No intra- or extraconal masses. Normal contour of globe without masses. CALVARIUM: No fracture. PARANASAL SINUSES: No fluid or mucosal thickening. SOFT TISSUES: No mass or hematoma. OTHER: No other significant finding. IMPRESSION: NORMAL BRAIN CT WITHOUT CONTRAST. EVIDENCE OF ACUTE STROKE: NO. COMMENT: Quality ID # [id number]: Final reports with documentation of one or more dose reduction techniques (e.g., Automated exposure control, adjustment of the mA and/or kV according to patient size, use of iterative reconstruction technique) TECHNICAL DOCUMENTATION: JOB ID: [id number]- All Rights Reserved Reading location - IP/workstation name: [email or web address]
[2018-02-04 16:21] LABS: INTERNATIONAL RATION (INR) 0.95; PROTHROMBIN TIME 13.2 SEC (11.4-15.4)
[2018-02-04 16:32] LABS: ALANINE AMINOTRANSFERASE 35 U/L (9-52); ALBUMIN 4.1 g/dL (3.5-5.0); ALKALINE PHOSPHATASE 81 U/L (38-126); ANION GAP 10 (5-19); ASPARTATE AMINO TRANSFERASE 30 U/L (14-36); BILIRUBIN,DIRECT 0.3 mg/dL (0.0-0.4); BILIRUBIN,TOTAL 0.3 mg/dL (0.2-1.3); BLOOD UREA NITROGEN 11 mg/dL (7-20); CALCIUM 9.2 mg/dL (8.4-10.2); CARBON DIOXIDE 28 mmol/L (22-30); CHLORIDE 103 mmol/L (98-107); GLUCOSE 75 mg/dL (75-110); POTASSIUM 4.3 mmol/L (3.6-5.0); SODIUM 141.3 mmol/L (137-145); TOTAL PROTEIN 7.6 g/dL (6.3-8.2)
[2018-02-04] MEDS ORDERED: METOCLOPRAMIDE HCL INJ/PF 10 MG/2 ML SDV IV ONE (18:14)
[2018-02-04] MEDS ORDERED: KETOROLAC TROMETHAMINE INJ/PF 30 MG/1 ML SDV IV ONE (18:14)
--- NOTE | 2018-02-04 18:36 | EKG REPORT ---
SEVERITY:- BORDERLINE ECG - SINUS TACHYCARDIA INFERIOR Q WAVES, PROBABLY NORMAL VARIATION : Confirmed by: Richie Villareal MD 04-Feb-2018 18:35:30
--- NOTE | 2018-02-04 19:17 | ER Document Report ---
ED General - General Chief Complaint: Headache Stated Complaint: HEADACHE Time Seen by Provider: 02/04/18 15:19 Notes: Patient is a 22-year-old female with a past medical history of morbid obesity, hypothyroidism, bipolar disorder, PTSD, ADHD, who presents with complaints of 4 days of right-sided headache and photophobia to the right eye. She describes the pain as being progressively worsening since onset. It is worsened by sounds and activity. It is described as a throbbing, aching, intermittently worsening headache. Nothing has improved her symptoms but she has tried at home including multiple [id number] medications. She saw her doctor today and was referred to the emergency department. She states that she has a long- standing history of headaches but that usually they are in the back of her head not on the right side of her head. She denies any fever, constitutional symptoms, confusion, weakness or numbness. No head trauma. TRAVEL OUTSIDE OF THE [place] IN LAST 30 DAYS: No - Related Data Allergies/Adverse Reactions: cephalexin monohydrate [From Keflex] Allergy (Verified 02/04/18 13:54) clindamycin Allergy (Verified 02/04/18 13:54) Latex, Natural Rubber Allergy (Verified 02/04/18 13:54) lurasidone [From Latuda] Allergy (Verified 02/04/18 13:54) peanut [Peanut] Allergy (Verified 02/04/18 13:54) Penicillins Allergy (Verified 02/04/18 13:54) pentoxifylline [From Trental] Allergy (Verified 02/04/18 13:54) morphine Adverse Reaction (Verified 02/04/18 13:54) Past Medical History - General Information source: Patient - Social History Smoking Status: Never Smoker Chew tobacco use (# tins/day): No Frequency of alcohol use: None Drug Abuse: None Lives with: Friend Family History: CVA, DM, Hyperlipidemia, Hypertension, Malignancy, Thyroid Disfunction - Perfecto's. denies: Arthritis, CAD Patient has suicidal ideation: No Patient has homicidal ideation: No Neurological Medical History: Reports: Hx Migraine Endocrine Medical History: Reports: Hx Diabetes Mellitus Type 2, Hx Hypothyroidism Renal/ Medical History: Denies: Hx Ectopic , Hx Peritoneal Dialysis GI Medical History: Reports: Hx Gastroesophageal Reflux Disease, Hx Ulcer Musculoskeletal Medical History: Reports Hx Musculoskeletal Trauma Psychiatric Medical History: Reports: Hx Attention Deficit Hyperactivity Disorder, Hx Bipolar Disorder, Hx Post Traumatic Stress Disorder, Hx Schizophrenia Traumatic Medical History: Reports: Hx Fractures - Right arm Past Surgical History: Reports: Hx Cholecystectomy, Hx Dilation and Curettage - With , Hx Oral Surgery - [place] teeth - Immunizations Hx Diphtheria, Pertussis, Tetanus Vaccination: Yes Review of Systems - Review of Systems Notes: Constitutional: Negative for fever. HENT: Negative for sore throat. Eyes: Negative for visual changes. Cardiovascular: Negative for chest pain. Respiratory: Negative for shortness of breath. Gastrointestinal: Negative for abdominal pain, vomiting or diarrhea. Genitourinary: Negative for dysuria. Musculoskeletal: Negative for back pain. Skin: Negative for rash. Neurological: Positive for headache 10 point ROS negative except as marked above and in HPI. Physical Exam - Vital signs Vitals: Temp Pulse Resp BP Pulse Ox 98.2 F 106 H 16 109/62 100 02/04/18 14:44 02/04/18 14:44 02/04/18 14:44 02/04/18 14:44 02/04/18 14:44 Interpretation: Tachycardic - Resolved at the time of my assessment Notes: PHYSICAL EXAMINATION: GENERAL: Well-appearing, well-nourished and in no acute distress. HEAD: Atraumatic, normocephalic. EYES: Pupils equal round and reactive to light, extraocular movements intact, sclera anicteric, conjunctiva are normal. ENT: nares patent, oropharynx clear without exudates. Moist mucous membranes. NECK: Normal range of motion, supple without lymphadenopathy LUNGS: Breath sounds clear to auscultation bilaterally and equal. No wheezes rales or rhonchi. HEART: Regular rate and rhythm without murmurs ABDOMEN: Soft, morbidly obese abdomen, nontender, normoactive bowel sounds. No guarding, no rebound. No masses appreciated. EXTREMITIES: Normal range of motion, no pitting or edema. No cyanosis. NEUROLOGICAL: Face symmetric. Tongue protrudes midline. Extraocular motions intact. Pupils are 2 mm and equally reactive. Normal speech, normal gait. 5 out of 5 strength in both the distal and proximal upper and lower extremities bilaterally. Sensation is grossly intact throughout. Finger to nose testing normal. Pronator drift normal. PSYCH: Normal mood, normal affect. SKIN: Warm, Dry, normal turgor, no rashes or lesions noted. Course - Re-evaluation Re-evalutation: 02/04/18 19:15 Presentation of a headache that appears to be most consistent with tension versus migrainous type headache. Headache was not maximal in onset, patient has no focal neurologic deficits, no nuchal rigidity, vital signs within normal limits, no papilledema, and patient is overall well in appearance. Based on clinical history and examination I do not suspect an acute subarachnoid hemorrhage, dural venous sinus thrombosis, acute meningitis, or intercranial mass. In triage a CT of the head and labs were obtained which are noted to be normal. I do not believe further neuroimaging is indicated. I have discussed the patient and alternative diagnostic consideration of idiopathic intercranial hypertension and the need to follow-up with neurology if she does have persistent headaches for further diagnostic evaluation. However I currently have a low suspicion for this diagnosis as her headache is unilateral, has been intermittent in nature, and is not associated with any visual symptoms or positional change. Patient had complete resolution of her headache after receiving a migraine cocktail of metoclopramide and Toradol. At this time will discharge with return precautions and follow-up recommendations. Verbal discharge instructions given a the bedside and opportunity for questions given. Medication warnings reviewed. Patient is in agreement with this plan and has verbalized understanding of return precautions and the need for primary care follow-up in the next 24-72 hours. - Vital Signs Vital signs: Temp Pulse Resp BP Pulse Ox 98.2 F 88 16 109/62 100 02/04/18 14:44 02/04/18 15:23 02/04/18 14:44 02/04/18 14:44 02/04/18 14:44 - Laboratory Result Diagrams: 02/04/18 15:25 02/04/18 15:25 Laboratory results interpreted by me: 02/04/18 15:25 WBC 12.2 H Absolute Neutrophils 8.7 H - Diagnostic Test Radiology reviewed: Image reviewed, Reports reviewed Radiology results interpreted by me: 02/04/18 19:17 CT head: No acute intracranial bleed or mass Discharge - Discharge Clinical Impression: Morbid obesity Headache Qualifiers: Headache type: unspecified Headache chronicity pattern: acute headache Intractability: not intractable Qualified Code(s): R51 - Headache Nausea and vomiting Qualifiers: Vomiting type: unspecified Vomiting Intractability: non-intractable Qualified Code(s): R11.2 - Nausea with vomiting, unspecified Condition: Good Disposition: HOME, SELF-CARE Additional Instructions: You have been seen in the Emergency Department (ED) for a headache. Please use Tylenol (acetaminophen) or Motrin (ibuprofen) as needed for symptoms, but only as written on the box. As we have discussed, please follow up with your primary care doctor as soon as possible regarding today's ED visit and your headache symptoms. Call your doctor or return to the ED if you have a worsening headache, sudden and severe headache, confusion, slurred speech, facial droop, weakness or numbness in any arm or leg, extreme fatigue, or other symptoms that concern you. Referrals: CHRISTY POSADA PA-C [Primary Care Provider] - Follow up as needed
[2018-02-04 20:37] VITALS: BP 134/58
== END 2018-02-04 20:35 | disposition home or self-care (01) ==
LOC: ER 13:52
DX: R51 Headache (principal); R11.2 Nausea with vomiting, unspecified; E66.01 Morbid (severe) obesity due to excess calories; H53.141 Visual discomfort, right eye; R00.0 Tachycardia, unspecified; R20.2 Paresthesia of skin; Z68.43 Body mass index [BMI] 50.0-59.9, adult; Z83.3 Family history of diabetes mellitus; Z82.3 Family history of stroke; Z90.49 Acquired absence of other specified parts of digestive tract; Z87.11 Personal history of peptic ulcer disease; Z87.19 Personal history of other diseases of the digestive system
CPT/HCPCS: 93005; 99284; 96374; 96375; 36415; 83735; 84703; 85025; 85610; 85730; 80053; 70450; 93010; J1885; J2765

== ENCOUNTER 2018-03-06 13:21 | Emergency (ER) | payer MEDICARE, MEDICAID ==
[2018-03-06] MEDS ORDERED: ONDANSETRON HCL INJ/PF 4 MG/2 ML SDV IV ONE (13:36)
--- NOTE | 2018-03-06 13:40 | ER Document Report ---
ED Medical Screen (RME) - General Chief Complaint: Abdominal Pain Stated Complaint: BELLY BUTTON BLEEDING, PAIN Time Seen by Provider: 03/06/18 13:34 Mode of Arrival: Ambulatory Information source: Patient Notes: 22-year-old female with hypothyroidism presents with right lower quadrant pain that started 4 days prior to arrival. Patient was sent here from urgent care after they found blood and pus reportedly coming from her bellybutton. Patient has had associated nausea without vomiting. Her last menstrual period was February 15. Patient has a history of cholecystectomy. Last meal was at 1330. I have greeted and performed a rapid initial assessment of this patient. A comprehensive ED assessment and evaluation of the patient, analysis of test results and completion of medical decision making process we will be contacted by additional ED providers. Vitals;Tachycardic, afebrile, normotensive General; no acute distress Respiratory; clear to auscultation bilaterally Abdomen; no active drainage from the umbilicus. TRAVEL OUTSIDE OF THE [place] IN LAST 30 DAYS: No - HPI Onset: Other Onset/Duration: Gradual Quality of pain: Throbbing Severity: Mild Associated Symptoms: Abdominal pain, Nausea. denies: Dysuria, Fever Exacerbated by: Denies Relieved by: Denies Similar symptoms previously: No Recently seen / treated by doctor: Yes - Seen at urgent care just prior to arrival - Related Data Smoking: Non-smoker Frequency of alcohol use: None Drug Abuse: None Allergies/Adverse Reactions: cephalexin monohydrate [From Keflex] Allergy (Verified 03/06/18 13:23) clindamycin Allergy (Verified 03/06/18 13:23) Latex, Natural Rubber Allergy (Verified 03/06/18 13:23) lurasidone [From Latuda] Allergy (Verified 03/06/18 13:23) peanut [Peanut] Allergy (Verified 03/06/18 13:23) Penicillins Allergy (Verified 03/06/18 13:23) pentoxifylline [From Trental] Allergy (Verified 03/06/18 13:23) morphine Adverse Reaction (Verified 03/06/18 13:23) Past Medical History - Social History Family history: None Neurological Medical History: Reports: Hx Migraine Endocrine Medical History: Reports: Hx Diabetes Mellitus Type 2, Hx Hypothyroidism Renal/ Medical History: Denies: Hx Ectopic , Hx Peritoneal Dialysis GI Medical History: Reports: Hx Gastroesophageal Reflux Disease, Hx Ulcer Musculoskeltal Medical History: Reports Hx Musculoskeletal Trauma Psychiatric Medical History: Reports: Hx Attention Deficit Hyperactivity Disorder, Hx Bipolar Disorder, Hx Post Traumatic Stress Disorder, Hx Schizophrenia Traumatic Medical History: Reports: Hx Fractures - Right arm Past Surgical History: Reports: Hx Cholecystectomy, Hx Dilation and Curettage - With , Hx Oral Surgery - [place] teeth - Immunizations Hx Diphtheria, Pertussis, Tetanus Vaccination: Yes Physical Exam - Vital signs Vitals: Temp Pulse Resp BP Pulse Ox 98.6 F 106 H 16 101/73 100 03/06/18 13:26 03/06/18 13:26 03/06/18 13:26 03/06/18 13:26 03/06/18 13:26 Course - Vital Signs Vital signs: Temp Pulse Resp BP Pulse Ox 98.6 F 106 H 16 101/73 100 03/06/18 13:26 03/06/18 13:26 03/06/18 13:26 03/06/18 13:26 03/06/18 13:26 Doctor's Discharge - Discharge Referrals: CHRISTY POSADA PA-C [Primary Care Provider] - Follow up as needed
[2018-03-06 14:16] LABS: ABSOLUTE BASOPHILS # (AUTO) 0.1 10^3/uL (0.0-0.2); ABSOLUTE EOSINOPHILS # (AUTO) 0.3 10^3/uL (0.0-0.6); ABSOLUTE LYMPHOCYTES (AUTO) 1.8 10^3/uL (0.5-4.7); ABSOLUTE MONOCYTES (AUTO) 0.9 10^3/uL (0.1-1.4); ABSOLUTE NEUT (AUTO) 6.8 10^3/uL (1.7-8.2); BASOPHILS % (AUTO) 0.6 % (0-2); EOSINOPHILS % (AUTO) 2.6 % (0-6); HEMATOCRIT 40.5 % (36.0-47.0); HEMOGLOBIN 13.8 g/dL (12.0-15.5); LYMPHOCYTES % (AUTO) 18.5 % (13-45); MEAN CORPUSCULAR VOLUME 85 fl (80-97); MONOCYTES % (AUTO) 9.4 % (3-13); PLATELET COUNT 323 10^3/uL (150-450); RED BLOOD COUNT 4.76 10^6/uL (3.72-5.28); RED CELL DISTRIBUTION WIDTH 14.1 % (11.5-14.0); SEGMENTED NEUTROPHILS % (AUTO) 68.9 % (42-78); TOTAL CELLS COUNTED % (AUTO) 100 %; WHITE BLOOD COUNT 9.8 10^3/uL (4.0-10.5)
[2018-03-06 14:20] LABS: APPEARANCE,URINE CLEAR; BILIRUBIN,URINE NEGATIVE (NEGATIVE); COLOR,URINE YELLOW; GLUCOSE, URINE NEGATIVE (NEGATIVE); KETONES,URINE NEGATIVE (NEGATIVE); LEUKOCYTE ESTERASE,URINE NEGATIVE (NEGATIVE); NITRITE,URINE NEGATIVE (NEGATIVE); PROTEIN,URINE NEGATIVE (NEGATIVE); URINE SPECIFIC GRAVITY 1.016; UROBILINOGEN,URINE NEGATIVE mg/dL (<2.0)
[2018-03-06 14:34] LABS: ALANINE AMINOTRANSFERASE 39 U/L (9-52); ALKALINE PHOSPHATASE 79 U/L (38-126); ANION GAP 6 (5-19); ASPARTATE AMINO TRANSFERASE 27 U/L (14-36); BILIRUBIN,DIRECT 0.4 mg/dL (0.0-0.4); BILIRUBIN,TOTAL 0.4 mg/dL (0.2-1.3); BLOOD UREA NITROGEN 10 mg/dL (7-20); CALCIUM 9.2 mg/dL (8.4-10.2); CARBON DIOXIDE 28 mmol/L (22-30); CHLORIDE 103 mmol/L (98-107); GLUCOSE 90 mg/dL (75-110); POTASSIUM 4.4 mmol/L (3.6-5.0); SODIUM 137.4 mmol/L (137-145); TOTAL PROTEIN 7.4 g/dL (6.3-8.2)
--- NOTE | 2018-03-06 15:00 | ER Document Report ---
ED General - General Chief Complaint: Abdominal Pain Stated Complaint: BELLY BUTTON BLEEDING, PAIN Time Seen by Provider: 03/06/18 13:34 Mode of Arrival: Ambulatory TRAVEL OUTSIDE OF THE [place] IN LAST 30 DAYS: No - HPI Notes: Patient is a 22-year-old female with a history of cholecystectomy who presents to the ED complaining of right lower abdominal pain times 4 days. Patient states that she also has had some nausea and diarrhea without vomiting. No melena or hematochezia. Patient states that the pain will be intermittent at times as well. Patient rates the pain does not radiate and is described as a sharp pain. Patient states that she was seen at urgent care who referred her here for further evaluation for possible appendicitis. Patient states that they also noticed blood on her bellybutton from q-tip swab of the umbilicus. Patient states that she has not noticed any redness or abscess otherwise. She has been eating and drinking without any difficulties, but does have a decreased p.o. intake. Denies any headache, fever, URI, sore throat, chest pain , palpitations, syncope, cough, shortness of breath, wheeze, dyspnea, vomiting, urinary retention, dysuria, hematuria, back pain, loss of control of bowel or bladder, numbness/tingling, or rash. - Related Data Allergies/Adverse Reactions: cephalexin monohydrate [From Keflex] Allergy (Verified 03/06/18 13:23) clindamycin Allergy (Verified 03/06/18 13:23) Latex, Natural Rubber Allergy (Verified 03/06/18 13:23) lurasidone [From Latuda] Allergy (Verified 03/06/18 13:23) peanut [Peanut] Allergy (Verified 03/06/18 13:23) Penicillins Allergy (Verified 03/06/18 13:23) pentoxifylline [From Trental] Allergy (Verified 03/06/18 13:23) morphine Adverse Reaction (Verified 03/06/18 13:23) Past Medical History - General Information source: Patient - Social History Smoking Status: Never Smoker Chew tobacco use (# tins/day): No Frequency of alcohol use: None Drug Abuse: None Family History: CVA, DM, Hyperlipidemia, Hypertension, Malignancy, Thyroid Disfunction - Perfecto's. denies: Arthritis, CAD Patient has suicidal ideation: No Patient has homicidal ideation: No Neurological Medical History: Reports: Hx Migraine Endocrine Medical History: Reports: Hx Diabetes Mellitus Type 2, Hx Hypothyroidism Renal/ Medical History: Denies: Hx Ectopic , Hx Peritoneal Dialysis GI Medical History: Reports: Hx Gastroesophageal Reflux Disease, Hx Ulcer Musculoskeletal Medical History: Reports Hx Musculoskeletal Trauma Psychiatric Medical History: Reports: Hx Attention Deficit Hyperactivity Disorder, Hx Bipolar Disorder, Hx Post Traumatic Stress Disorder, Hx Schizophrenia Traumatic Medical History: Reports: Hx Fractures - Right arm Past Surgical History: Reports: Hx Cholecystectomy, Hx Dilation and Curettage - With , Hx Oral Surgery - [place] teeth - Immunizations Hx Diphtheria, Pertussis, Tetanus Vaccination: Yes Review of Systems - Review of Systems -: Yes All other systems reviewed and negative Physical Exam - Vital signs Vitals: Temp Pulse Resp BP Pulse Ox 98.6 F 106 H 16 101/73 100 03/06/18 13:26 03/06/18 13:26 03/06/18 13:26 03/06/18 13:26 03/06/18 13:26 - Notes Notes: PHYSICAL EXAMINATION: GENERAL: Well-appearing, well-nourished and in no acute distress. HEAD: Atraumatic, normocephalic. EYES: Pupils equal round and reactive to light, extraocular movements intact, sclera anicteric, conjunctiva are normal. ENT: EAC clear b/l. TM's intact b/l without erythema, fluid, or perforation. Nares patent and without discharge. oropharynx clear without exudates. No tonsilar hypertrophy or erythema. Moist mucous membranes. No sinus tenderness. NECK: Normal range of motion, supple without lymphadenopathy LUNGS: Breath sounds clear to auscultation bilaterally and equal. No wheezes rales or rhonchi. HEART: Regular rate and rhythm without murmurs, rubs, gallops. ABDOMEN: Soft, nondistended abdomen. No guarding, no rebound. No masses appreciated. Normal bowel sounds present. No CVA tenderness bilaterally. + mild tenderness to the rt abd mid/lower, no pelvic tenderness b/l. Tenderness primarily to light palpation vs deep. No erythema, fluctuance, abscess, streaks , or purulence noted. No blood noted. I do see a waxy substance in and around the umbilicus, but no evidence of infection. Musculoskeletal: FROM to passive/active. Strength 5+/5. Extremities: No cyanosis, clubbing, or edema b/l. Peripheral pulses 2+. Capillary refill less than 3 seconds. NEUROLOGICAL: Normal speech, normal gait. PSYCH: Normal mood, normal affect. SKIN: see above. Course - Re-evaluation Re-evalutation: 03/06/18 15:31 Patient is an afebrile, well-hydrated, 22-year-old female who presents to the ED with right lower abdominal pain, unspecified. Vitals are acceptable without any significant tachycardia, tachypnea, or hypoxia. PE is otherwise unremarkable. Patient is nontoxic-appearing and is tolerating p.o. without any difficulties. Patient is sitting comfortably eating a snack and watching a movie on her laptop during evaluation. CBC, CMP, lipase, urinalysis, hCG, CT scan of the abdomen and pelvis was unremarkable for any acute pathology. I do not suspect any blood that came from the umbilicus at this time as I saw a dark waxy substance present and no dried blood. Patient is tolerating p.o. without any difficulties and is nontoxic-appearing. We will send her home with a prescription for Zofran. Low suspicion/risk for acute appendicitis, bowel obstruction, acute cholecystitis, acute cholangitis, perforated diverticulitis, incarcerated hernia, pancreatitis, perforated ulcer, peritonitis, sepsis, pelvic inflammatory disease, ectopic , tubo-ovarian abscess, ovarian torsion, or other systemic emergent condition at this time. Patient is aware that her condition can change from initial presentation and she needs to monitor symptoms closely and seek medical attention if any acute changes. Conservative measures otherwise for symptoms. Appendix precautions reviewed. Recheck with your PCM in 2-3 days. Consider consult with a chief technology officer. Return to the ED with any worsening/concerning symptoms otherwise as reviewed in discharge. Patient is in agreement. - Vital Signs Vital signs: Temp Pulse Resp BP Pulse Ox 98.6 F 106 H 16 101/73 100 03/06/18 13:26 03/06/18 13:26 03/06/18 13:26 03/06/18 13:26 03/06/18 13:26 - Laboratory Result Diagrams: 03/06/18 13:48 03/06/18 13:48 Laboratory results interpreted by me: 03/06/18 13:48 RDW 14.1 H Discharge - Discharge Clinical Impression: Right lower quadrant abdominal pain Condition: Stable Disposition: HOME, SELF-CARE Instructions: Abdominal Pain ([facility]), Antinausea Medication ([facility]), Observation for Appendicitis ([facility]) Additional Instructions: Maintain adequate fluid and food intake [place] diet ([employer] Bananas, rice, apples, toast, etc Zofran as needed tylenol if needed Monitor for any worsening symptoms Make sure you are staying hydrated enough to urinate and have normal BM's Recheck with your PCM in 2-3 days Consider consult with Gastroenterology for ongoing/worsening symptoms Return to the ED with any worsening symptoms and/or development of fever, headache, chest pain, palpitations, syncope, shortness of breath, trouble breathing, abdominal pain, n/v/d, blood in stool/urine, weakness, or other worsening symptoms that are concerning to you. Prescriptions: Ondansetron [Zofran Odt 4 mg Tablet] 1 - 2 tab PO Q4H PRN #15 tab.rapdis PRN Reason: For Nausea/Vomiting Referrals: CHRISTY POSADA PA-C [NO LOCAL MD] - 03/08/18
--- NOTE | 2018-03-06 15:25 | RADIOLOGY REPORT (SQ) ---
EXAM DESCRIPTION: CT ABD/PELVIS WITH IV ONLY COMPLETED DATE/TIME: 03/06/2018 3:10 pm REASON FOR STUDY: RLQ pain pus from belly button COMPARISON: 11/23/2015 TECHNIQUE: CT scan of the abdomen and pelvis performed using helical scanning technique with dynamic intravenous contrast injection. No oral contrast. Images reviewed with lung, soft tissue, and bone windows. Reconstructed coronal and sagittal MPR images reviewed. Delayed images for evaluation of the urinary system also acquired. All images stored on PACS. All CT scanners at this facility use dose modulation, iterative reconstruction, and/or weight based d osing when appropriate to reduce radiation dose to as low as reasonably achievable (ALARA). [facility]: Dose Right [facility]: CareDose [facility]: Dose Right [facility]: Teradose 4D [facility]: MyMusic CONTRAST TYPE AND DOSE: contrast/concentration: Isovue 350.00 mg/ml; Total Contrast Delivered: 100.0 ml; Total Saline Delivered: 72.0 ml 100 mL IV of Omnipaque 350- low osmolar. RENAL FUNCTION: BUN 10 creatinine 0.72 RADIATION DOSE: CT Rad equipment meets quality standard of care and radiation dose reduction techniq ues were employed. CTDIvol: 20.9 - 21.1 mGy. DLP: 2363 mGy-cm.. LIMITATIONS: None. FINDINGS: LOWER CHEST: No significant findings. No nodules or infiltrates. LIVER: Normal size. No masses. No dilated ducts. SPLEEN: Normal size. No focal lesions. PANCREAS: No masses. No significant calcifications. No adjacent inflammation or peripancreatic fluid collections. Pancreatic duct not dilated. GALLBLADDER: Surgically absent. ADRENAL GLANDS: No significant masses or asymmetry. RIGHT KIDNEY AND URETER: No solid masses. No significant calcifications. No hydronephrosis or hyd roureter. LEFT KIDNEY AND URETER: No solid masses. No significant calcifications. No hydronephrosis or hydr oureter. AORTA AND VESSELS: No aneurysm. No dissection. Renal arteries, SMA, celiac without stenosis. RETROPERITONEUM: No retroperitoneal adenopathy, hemorrhage or masses. BOWEL AND PERITONEAL CAVITY: No masses or inflammatory changes. No free fluid or peritoneal masses. APPENDIX: Normal. PELVIS: No mass. No free fluid. Normal bladder. ABDOMINAL WALL: No masses. Tiny fat containing umbilical hernia. BONES: No significant or acute findings. OTHER: No other significant finding. IMPRESSION: NO SIGNIFICANT OR ACUTE FINDING IN THE ABDOMEN OR PELVIS ON CT SCAN WITH IV CONTRAST. TECHNICAL DOCUMENTATION: JOB ID: [id number] Quality ID # [id number]: Final reports with documentation of one or more dose reduction techniques (e.g., Au tomated exposure control, adjustment of the mA and/or kV according to patient size, use of iterative reconstruction technique) 2010 [employer]- All Rights Reserved Reading location - IP/workstation name: [email or web address]
[2018-03-06 16:16] VITALS: BP 119/54
== END 2018-03-06 16:10 | disposition home or self-care (01) ==
LOC: ER 13:21
DX: R10.31 Right lower quadrant pain (principal); R11.0 Nausea; R19.7 Diarrhea, unspecified; E11.9 Type 2 diabetes mellitus without complications; Z90.49 Acquired absence of other specified parts of digestive tract
CPT/HCPCS: 99284; 96374; 36415; 83690; 85025; 81025; 80053; 81001; 74177; J2405

== ENCOUNTER 2018-05-29 12:53 | Emergency (ER) | payer MEDICARE, MEDICAID ==
[2018-05-29] MEDS ORDERED: HYDROMORPHONE HCL INJ/PF 2 MG/ML AMPULE IM ONE (13:54)
[2018-05-29] MEDS ORDERED: ONDANSETRON 4 MG TAB.RAPDIS PO ONE (13:54)
[2018-05-29] MEDS ORDERED: KETOROLAC TROMETHAMINE 60 MG/2 ML SDV IM ONE (13:54)
[2018-05-29] MEDS ORDERED: LIDOCAINE 2% INJ-PF (20 MG/ML) 10 ML AMPUL NEB ONE (13:54)
--- NOTE | 2018-05-29 13:59 | ER Document Report ---
ED General - General Chief Complaint: Sore Throat Stated Complaint: SORE THROAT Time Seen by Provider: 05/29/18 13:47 Notes: Patient is a 23-year-old female that presents to the emergency department for chief complaint of throat pain after tonsillectomy. Patient states that she had a tonsillectomy performed 2 days ago, since that time she states she has had significant pain particularly with swallowing, to the point where she cannot take the prescribed Vicodin. She states that she has pain with even liquids, and has been very uncomfortable, so she decided come to the emergency department. She denies any any fevers, chills, night sweats, chest pain, shortness of breath or difficulty breathing. She denies having any bleeding from the surgical sites. She currently rates her pain as a 9 out of 10, describes as a constant aching sensation, occasionally sharp, in the back of her throat. Past Medical History: Denies chronic medical conditions Past Surgical History: Tonsillectomy Social History: Denies tobacco, alcohol or drug use. Family History: Reviewed and noncontributory for presenting illness Allergies: Reviewed, see documented allergy list. REVIEW OF SYSTEMS: Other than noted above, the 12 point review of systems was reviewed with the patient and were negative, all pertinent findings are included in the HPI. PHYSICAL EXAMINATION: Vital signs reviewed, nursing noted reviewed. GENERAL: Obese female, appears to be uncomfortable, but nontoxic appearing HEAD: Atraumatic, normocephalic. EYES: Eyes appear normal, extraocular movements intact, sclera anicteric, conjunctiva are normal. ENT: nares patent, posterior pharynx is a sure, from surgical tonsillectomy, uvula midline, nonedematous, moist mucous membranes. NECK: Normal range of motion, supple without lymphadenopathy LUNGS: Breath sounds clear to auscultation bilaterally and equal. No wheezes rales or rhonchi. HEART: Regular rate and rhythm without murmurs ABDOMEN: Soft, obese, nontender, normoactive bowel sounds. No rebound, guarding, or rigidity. No masses appreciated. EXTREMITIES: Nontender, good range of motion, no pitting or edema. NEUROLOGICAL: No focal neurological deficits. Moves all extremities spontaneously Motor and sensory grossly intact on exam. PSYCH: Normal mood, normal affect. SKIN: Warm, Dry, normal turgor, no rashes or lesions noted on exposed skin TRAVEL OUTSIDE OF THE [place] IN LAST 30 DAYS: No - Related Data Allergies/Adverse Reactions: cephalexin monohydrate [From Keflex] Allergy (Verified 03/06/18 13:23) clindamycin Allergy (Verified 03/06/18 13:23) Latex, Natural Rubber Allergy (Verified 03/06/18 13:23) lurasidone [From Latuda] Allergy (Verified 03/06/18 13:23) peanut [Peanut] Allergy (Verified 03/06/18 13:23) Penicillins Allergy (Verified 03/06/18 13:23) pentoxifylline [From Trental] Allergy (Verified 03/06/18 13:23) morphine Adverse Reaction (Verified 03/06/18 13:23) Past Medical History - Social History Smoking Status: Never Smoker Family History: CVA, DM, Hyperlipidemia, Hypertension, Malignancy, Thyroid Disfunction - Perfecto's. denies: Arthritis, CAD Patient has suicidal ideation: No Patient has homicidal ideation: No - Past Medical History Cardiac Medical History: Denies: Hx Heart Attack, Hx Hypertension Pulmonary Medical History: Denies: Hx Asthma Neurological Medical History: Reports: Hx Migraine. Denies: Hx Cerebrovascular Accident, Hx Seizures Endocrine Medical History: Reports: Hx Diabetes Mellitus Type 2, Hx Hypothyroidism Renal/ Medical History: Denies: Hx Ectopic , Hx Peritoneal Dialysis GI Medical History: Reports: Hx Gastroesophageal Reflux Disease, Hx Ulcer. Denies: Hx Hepatitis, Hx Hiatal Hernia Musculoskeletal Medical History: Reports Hx Musculoskeletal Trauma Psychiatric Medical History: Reports: Hx Attention Deficit Hyperactivity Disorder, Hx Bipolar Disorder, Hx Post Traumatic Stress Disorder, Hx Schizophrenia Traumatic Medical History: Reports: Hx Fractures - Right arm Infectious Medical History: Denies: Hx Hepatitis Past Surgical History: Reports: Hx Cholecystectomy, Hx Dilation and Curettage - With , Hx Oral Surgery - [place] teeth, Hx Tonsillectomy. Denies: Hx Mastectomy, Hx Open Heart Surgery, Hx Pacemaker - Immunizations Hx Diphtheria, Pertussis, Tetanus Vaccination: Yes Physical Exam - Vital signs Vitals: Temp Pulse Resp BP Pulse Ox 98.9 F 92 20 97/67 L 98 05/29/18 13:25 05/29/18 13:25 05/29/18 13:25 05/29/18 13:25 05/29/18 13:25 Course - Re-evaluation Re-evalutation: Patient seen and examined vital signs reviewed. Patient was evaluated and treated as appropriate for the patient's presenting symptoms and complaint, with consideration of any critical or life threatening conditions that may be associated with their obtained history and exam as noted above. Patient was treated with inhaled lidocaine nebulizer, Dilaudid IM x1, Zofran ODT 4 mg and Toradol IM The patient was re-evaluated and was improved after treatments Evaluation was most consistent with post tonsillectomy surgical pain, will prescribe the patient liquid Lortab, to help with her pain, as she is unable to swallow pills, advised follow-up with her ENT, advised to continue drinking liquids to maintain her hydration, today she did not appear to be clinically dehydrated. She is advised if her symptoms worsen that she could return to the emergency department. Plan of care was discussed with the patient at this point, after careful consideration I feel that that patient can be discharged from the emergency depa rtment, the patient was educated treatments and reasons to return to the emergency department based on their presumed diagnosis as noted above, they were advised to followup with a primary care physician in 2-3 days. Patient was agreeable to plan of care. *Note is created using voice recognition software and may contain spelling, syntax or grammatical errors. - Vital Signs Vital signs: Temp Pulse Resp BP Pulse Ox 98.7 F 78 18 128/72 H 99 05/29/18 14:52 05/29/18 14:52 05/29/18 14:52 05/29/18 14:52 05/29/18 14:52 Discharge - Discharge Clinical Impression: Post-tonsillectomy pain Condition: Stable Disposition: HOME, SELF-CARE Instructions: Sore Throat ([facility]) Additional Instructions: Please follow-up with your surgeon, if you continue to have discomfort and pain. If you develop bleeding, or difficulty breathing, do not hesitate to return to the emergency department. Prescriptions: Hydrocodone/Acetaminophen [Hydrocodone-Acetamn 7.5-325/15] 10 ml PO Q6H PRN #120 ml PRN Reason: throat pain Referrals: CONNIE NORRIS PA-C [NO LOCAL MD] - Follow up as needed
[2018-05-29 14:57] VITALS: BP 128/72
== END 2018-05-29 15:00 | disposition home or self-care (01) ==
LOC: ER 12:53
DX: G89.18 Other acute postprocedural pain (principal); J02.9 Acute pharyngitis, unspecified; R13.10 Dysphagia, unspecified; Z98.890 Other specified postprocedural states; Z79.899 Other long term (current) drug therapy; E11.9 Type 2 diabetes mellitus without complications
CPT/HCPCS: 94640; 99283; 96372; J1885; A9270; J1170; J3490; S0119

== ENCOUNTER 2018-06-12 10:37 | Emergency (ER) | payer MEDICARE, MEDICAID ==
[2018-06-12] MEDS ORDERED: KETOROLAC TROMETHAMINE INJ/PF 30 MG/1 ML SDV IV ONE (11:14)
[2018-06-12] MEDS ORDERED: NORMAL SALINE 1000 ML 1,000 ML IV ONE (11:15)
[2018-06-12] MEDS ORDERED: METHYLPREDNISOLONE INJ 125 MG/2 ML SDV IV ONE (11:15)
--- NOTE | 2018-06-12 11:17 | ER Document Report ---
ED Medical Screen (RME) - General Chief Complaint: Neck Swelling Stated Complaint: THROAT PAIN Time Seen by Provider: 06/12/18 11:07 Notes: 23-year-old female patient had her tonsils removed on 05/27/2018. She comes in today with pain and swelling to the left submandibular neck region. Posterior pharynx does not demonstrate any swelling or infectious appearing erythema. Patient is exquisitely tender in the left proximal submandibular reg ion. I have greeted and performed a rapid initial assessment of this patient. A comprehensive ED assessment and evaluation of the patient, analysis of test results and completion of the medical decision making process will be conducted by additional ED providers. TRAVEL OUTSIDE OF THE U[place] IN LAST 30 DAYS: No - Related Data Allergies/Adverse Reactions: cephalexin monohydrate [From Keflex] Allergy (Verified 06/12/18 11:15) clindamycin Allergy (Verified 06/12/18 11:15) Latex, Natural Rubber Allergy (Verified 06/12/18 11:15) lurasidone [From Latuda] Allergy (Verified 06/12/18 11:15) peanut [Peanut] Allergy (Verified 06/12/18 11:15) Penicillins Allergy (Verified 06/12/18 11:15) pentoxifylline [From Trental] Allergy (Verified 06/12/18 11:15) morphine Adverse Reaction (Verified 06/12/18 11:15) Past Medical History - Social History Chew tobacco use (# tins/day): No Frequency of alcohol use: None Drug Abuse: None Family history: None - Past Medical History Cardiac Medical History: Denies: Hx Heart Attack, Hx Hypertension Pulmonary Medical History: Denies: Hx Asthma Neurological Medical History: Reports: Hx Migraine. Denies: Hx Cerebrovascular Accident, Hx Seizures Endocrine Medical History: Reports: Hx HypothyroidismComment Only: Hx Diabetes Mellitus Type 2 - pt denies Renal/ Medical History: Denies: Hx Ectopic , Hx Peritoneal Dialysis GI Medical History: Reports: Hx Gastroesophageal Reflux Disease, Hx Ulcer. Denies: Hx Hepatitis, Hx Hiatal Hernia Musculoskeltal Medical History: Reports Hx Musculoskeletal Trauma Psychiatric Medical History: Reports: Hx Attention Deficit Hyperactivity Disorder, Hx Bipolar Disorder, Hx Post Traumatic Stress Disorder, Hx Schizophrenia - boderline Traumatic Medical History: Reports: Hx Fractures - Right arm Infectious Medical History: Denies: Hx Hepatitis Past Surgical History: Reports: Hx Cholecystectomy, Hx Dilation and Curettage - With , Hx Oral Surgery - [place] teeth, Hx Tonsillectomy. Denies: Hx Mastectomy, Hx Open Heart Surgery, Hx Pacemaker - Immunizations Hx Diphtheria, Pertussis, Tetanus Vaccination: Yes Physical Exam - Vital signs Vitals: Temp Pulse Resp BP Pulse Ox 98.7 F 103 H 18 114/53 L 97 06/12/18 10:49 06/12/18 10:49 06/12/18 10:49 06/12/18 10:49 06/12/18 10:49 Course - Vital Signs Vital signs: Temp Pulse Resp BP Pulse Ox 98.7 F 103 H 18 114/53 L 97 06/12/18 10:49 06/12/18 10:49 06/12/18 10:49 06/12/18 10:49 06/12/18 10:49
[2018-06-12] MEDS ORDERED: LIDOCAINE 2% VISCOUS SOLN 20 ML UDCUP PO ONE (11:44)
--- NOTE | 2018-06-12 11:44 | ER Document Report ---
ED General - General TRAVEL OUTSIDE OF THE [place].S. IN LAST 30 DAYS: No <ROD MCARTHUR - Last Filed: 06/12/18 12:01> <BENITA PEREZ - Last Filed: 06/14/18 08:26> - General Chief Complaint: Neck Swelling Stated Complaint: THROAT PAIN Time Seen by Provider: 06/12/18 11:07 - HPI Notes: Patient is a 23-year-old female who presents to the emergency department complaining of left anterolateral jaw pain and swelling along with dental pain #18/19 times 2 days. Patient states that the dental pain started just before the swelling. Patient states that she does not have any posterior throat pain. She has been able to eat and drink by difficulties, but does have pain with pressure on the tooth in that area. She is urinating normally and having normal bowel movements. Patient did have one visit 2 days postop for pain, but has not had any issues since then. No other medical conditions. Denies any headache, fever, head injury, neck pain, changes in vision/speech/mentation/hearing, URI, sore throat, chest pain, palpitations, syncope, cough, shortness of breath, wheeze, dyspnea, abdominal pain, nausea/vomiting/diarrhea, urinary retention, dysuria, hematuria, or rash. (ROD MCARTHUR) - Related Data Allergies/Adverse Reactions: cephalexin monohydrate [From Keflex] Allergy (Verified 06/12/18 11:15) clindamycin Allergy (Verified 06/12/18 11:15) Latex, Natural Rubber Allergy (Verified 06/12/18 11:15) lurasidone [From Latuda] Allergy (Verified 06/12/18 11:15) peanut [Peanut] Allergy (Verified 06/12/18 11:15) Penicillins Allergy (Verified 06/12/18 11:15) pentoxifylline [From Trental] Allergy (Verified 06/12/18 11:15) morphine Adverse Reaction (Verified 06/12/18 11:15) Past Medical History - Social History Smoking Status: Never Smoker Chew tobacco use (# tins/day): No Frequency of alcohol use: None Drug Abuse: None Family History: CVA, DM, Hyperlipidemia, Hypertension, Malignancy, Thyroid Disfunction - Perfecto's. denies: Arthritis, CAD Patient has suicidal ideation: No Patient has homicidal ideation: No - Past Medical History Cardiac Medical History: Denies: Hx Heart Attack, Hx Hypertension Pulmonary Medical History: Denies: Hx Asthma Neurological Medical History: Reports: Hx Migraine. Denies: Hx Cerebrovascular Accident, Hx Seizures Endocrine Medical History: Reports: Hx HypothyroidismComment Only: Hx Diabetes Mellitus Type 2 - pt denies Renal/ Medical History: Denies: Hx Ectopic , Hx Peritoneal Dialysis GI Medical History: Reports: Hx Gastroesophageal Reflux Disease, Hx Ulcer. Denies: Hx Hepatitis, Hx Hiatal Hernia Musculoskeletal Medical History: Reports Hx Musculoskeletal Trauma Psychiatric Medical History: Reports: Hx Attention Deficit Hyperactivity Disorder, Hx Bipolar Disorder, Hx Post Traumatic Stress Disorder, Hx Schizophrenia - boderline Traumatic Medical History: Reports: Hx Fractures - Right arm Infectious Medical History: Denies: Hx Hepatitis Past Surgical History: Reports: Hx Cholecystectomy, Hx Dilation and Curettage - With , Hx Oral Surgery - [place] teeth, Hx Tonsillectomy. Denies: Hx Mastectomy, Hx Open Heart Surgery, Hx Pacemaker - Immunizations Hx Diphtheria, Pertussis, Tetanus Vaccination: Yes <ROD MCARTHUR - Last Filed: 06/12/18 12:01> Review of Systems - Review of Systems -: Yes All other systems reviewed and negative <ROD MCARTHUR - Last Filed: 06/12/18 12:01> Physical Exam <ROD MCARTHUR - Last Filed: 06/12/18 12:01> - Vital signs Vitals: Temp Pulse Resp BP Pulse Ox 98.7 F 103 H 18 114/53 L 97 06/12/18 10:49 06/12/18 10:49 06/12/18 10:49 06/12/18 10:49 06/12/18 10:49 - Notes Notes: PHYSICAL EXAMINATION: GENERAL: Well-appearing, well-nourished and in no acute distress. HEAD: Atraumatic, normocephalic. EYES: Pupils equal round and reactive to light, extraocular movements intact, sclera anicteric, conjunctiva are normal. ENT: EAC clear b/l. TM's intact b/l without erythema, fluid, or perforation. Nares patent and with clear discharge. oropharynx no erythema without exudates. Tonsils absent. No palatine shift. Uvula midline. No tongue protrusion. No drooling, hoarseness, or airway compromise. Moist mucous membranes. No sinus tenderness. Mouth: Poor dentition. + mild gingivitis. No obvious abscess or discharge noted. + left lower jaw swelling near the affected tooth (#18/19). + tenderness to tooth #18/19. No obvious fluctuance. ---reproducible symptoms. NECK: Normal range of motion, supple without lymphadenopathy. No rigidity/meningismus. LUNGS: Breath sounds clear to auscultation bilaterally and equal. No wheezes rales or rhonchi. HEART: Regular rate and rhythm without murmurs, rubs, gallops. NEUROLOGICAL: Cranial nerves grossly intact. Normal speech, normal gait. Normal sensory, motor exams PSYCH: Normal mood, normal affect. SKIN: Warm, Dry, normal turgor, no rashes or lesions noted. (ROD MCARTHUR) Course <ROD MCARTHUR - Last Filed: 06/12/18 12:01> - Re-evaluation Re-evalutation: 06/12/18 12:01 Dr. Perez also eval'd this patient as I believed this to be a dental etiology and not associated with her throat or surgery. Dr. Perez agrees and we have decided on doxycycline as her antibiotic choice due to her significant allergy list. Labs/imaging have been cancelled. Patient is an afebrile, well-hydrated, 23-year-old female who presents to the ED with dental pain, suspect nerve root etiology versus infection. Vitals are acceptable. PE is otherwise unremarkable. No I&D, labs, or imaging warranted at this time based on H&P. Viscous lidocaine dispensed today. I will send her home with a prescription for doxy. Low suspicion for any meningitis, sepsis, peritonsillar/pharyngeal abscess, post-op bleed, respiratory compromise, Chance's, temporal arteritis, or other emergent systemic condition at this time. Patient is aware this condition can change from initial presentation and she needs to monitor symptoms closely. Conservative measures otherwise for symptoms. Call to schedule an appointment with a dentist for further evaluation and management. Recheck with your PCM this week as well. Return to the ED with any worsening/concerning symptoms otherwise as reviewed in discharge. Patient is in agreement. (ROD MCARTHUR) - Vital Signs Vital signs: Temp Pulse Resp BP Pulse Ox 98.4 F 97 18 112/50 L 100 01/12/19 12:33 06/12/18 12:33 06/12/18 12:33 06/12/18 12:33 06/12/18 12:33 Discharge <ROD MCARTHUR - Last Filed: 06/12/18 12:01> <BENITA PEREZ - Last Filed: 06/14/18 08:26> - Discharge Clinical Impression: Pain, dental Condition: Stable Disposition: HOME, SELF-CARE Instructions: Dentist, Dental Infection or Abscess ([facility]), Toothache ([facility]) Additional Instructions: [place] and floss twice daily Maintain fluid intake Take antibiotics as directed Mouthwash, salt water gargles, peroxide rinse as needed Tylenol/ibuprofen as needed Recheck with PCM this week Call today/tomorrow and schedule an appointment with your dentist for further evaluation Return to the ED with any worsening symptoms and/or development of fever, headache, facial swelling, swelling of lips/tongue/throat, trouble swallowing, drooling, hoarseness, neck pain/stiffness, chest pain, palpitations, syncope, shortness of breath, trouble breathing, abdominal pain, n/v/d, numbness/tingling, or other worsening symptoms that are concerning to you. Prescriptions: RX: Doxycycline Hyclate 100 mg PO BID #20 capsule Referrals: GRACIA ARGUELLO MD [ACTIVE STAFF] - Follow up as needed [facility] [Provider Group] - Follow up as needed Cosign for MLP Consult - Cosign -: I was personally available for consultation in the Emergency Department and serving as supervising physician for the MLP. Cosign for MLP: . <BENITA PEREZ - Last Filed: 06/14/18 08:26>
[2018-06-12 12:35] VITALS: BP 112/50
== END 2018-06-12 12:33 | disposition home or self-care (01) ==
LOC: ER 10:37
DX: K08.89 Other specified disorders of teeth and supporting structures (principal); R22.1 Localized swelling, mass and lump, neck; R68.84 Jaw pain
CPT/HCPCS: 99283; J3490

== ENCOUNTER 2018-07-19 14:30 | Emergency (ER) | payer MEDICARE, MEDICAID ==
[2018-07-19] MEDS ORDERED: NORMAL SALINE 1000 ML 1,000 ML IV ONE (18:44)
[2018-07-19] MEDS ORDERED: ONDANSETRON HCL INJ/PF 4 MG/2 ML SDV IV ONE (18:45)
[2018-07-19] MEDS ORDERED: HYDROMORPHONE HCL INJ/PF 2 MG/ML AMPULE IV ONE (18:45)
--- NOTE | 2018-07-19 18:47 | ER Document Report ---
ED Medical Screen (RME) - General Chief Complaint: Abdominal Pain Stated Complaint: ABDOMINAL PAIN Time Seen by Provider: 07/19/18 18:35 Primary Care Provider: HERLINDA ART MD [Primary Care Provider] - Follow up as needed Notes: Patient is a 23-year-old female that presents to the emergency department for chief complaint of abdominal pain. Patient states she is been having pain around her umbilicus over the last 2 days, called telemedicine today and they are concerned about a hernia and advised her to come to the emergency department. She is history of cholecystectomy, had a port at that site, and was told she may have had a hernia shortly after her surgery because she did not follow postoperative instructions and lifted up a friend. ROS: Other than noted above, the 12 point review of systems was reviewed with the patient and were negative, all pertinent findings are included in the HPI. PHYSICAL EXAMINATION: Vital signs reviewed. GENERAL: Well-appearing, well-nourished and in no acute distress. HEAD: Atraumatic, normocephalic. EYES: Pupils equal round extraocular movements intact, conjunctiva are normal. ENT: Nares patent NECK: Normal range of motion CV: Heart regular rate and rhythm LUNGS: No respiratory distress Musculoskeletal: Normal range of motion Abdomen: Obese, tenderness to palpation in the umbilicus, there is a palpable hernia NEUROLOGICAL: Normal speech PSYCH: Normal mood, normal affect. MDM: Patient seen and examined for rapid initial assessment. Vital signs reviewed. A comprehensive ED assessment and evaluation of the patient, analysis of test results and completion of the medical decision making process will be conducted by additional ED providers. *Note is created using voice recognition software and may contain spelling, syntax or grammatical errors. TRAVEL OUTSIDE OF THE [place] IN LAST 30 DAYS: No - Related Data Allergies/Adverse Reactions: cephalexin monohydrate [From Keflex] Allergy (Verified 07/19/18 14:36) clindamycin Allergy (Verified 07/19/18 14:36) Latex, Natural Rubber Allergy (Verified 07/19/18 14:36) lurasidone [From Latuda] Allergy (Verified 07/19/18 14:36) peanut [Peanut] Allergy (Verified 07/19/18 14:36) Penicillins Allergy (Verified 07/19/18 14:36) pentoxifylline [From Trental] Allergy (Verified 07/19/18 14:36) morphine Adverse Reaction (Verified 07/19/18 14:36) Past Medical History - Social History Family history: None - Past Medical History Cardiac Medical History: Denies: Hx Heart Attack, Hx Hypertension Pulmonary Medical History: Denies: Hx Asthma Neurological Medical History: Reports: Hx Migraine. Denies: Hx Cerebrovascular Accident, Hx Seizures Endocrine Medical History: Reports: Hx HypothyroidismComment Only: Hx Diabetes Mellitus Type 2 - pt denies Renal/ Medical History: Denies: Hx Ectopic , Hx Peritoneal Dialysis GI Medical History: Reports: Hx Gastroesophageal Reflux Disease, Hx Ulcer. Denies: Hx Hepatitis, Hx Hiatal Hernia Musculoskeltal Medical History: Reports Hx Musculoskeletal Trauma Psychiatric Medical History: Reports: Hx Attention Deficit Hyperactivity Disorder, Hx Bipolar Disorder, Hx Post Traumatic Stress Disorder, Hx Schizophrenia - boderline Traumatic Medical History: Reports: Hx Fractures - Right arm Infectious Medical History: Denies: Hx Hepatitis Past Surgical History: Reports: Hx Cholecystectomy, Hx Dilation and Curettage - With , Hx Oral Surgery - [place] teeth, Hx Tonsillectomy. Denies: Hx Mastectomy, Hx Open Heart Surgery, Hx Pacemaker - Immunizations Hx Diphtheria, Pertussis, Tetanus Vaccination: Yes Physical Exam - Vital signs Vitals: Temp Pulse Resp BP Pulse Ox 98.2 F 109 H 18 105/68 98 07/19/18 15:37 07/19/18 15:37 07/19/18 15:37 07/19/18 15:37 07/19/18 15:37 Course - Vital Signs Vital signs: Temp Pulse Resp BP Pulse Ox 98.2 F 109 H 18 105/68 98 07/19/18 15:37 07/19/18 15:37 07/19/18 15:37 07/19/18 15:37 07/19/18 15:37 Doctor's Discharge - Discharge Referrals: HERLINDA ART MD [Primary Care Provider] - Follow up as needed
[2018-07-19 19:52] LABS: ALANINE AMINOTRANSFERASE 40 U/L (9-52); ALBUMIN 4.5 g/dL (3.5-5.0); ALKALINE PHOSPHATASE 92 U/L (38-126); ANION GAP 11 (5-19); ASPARTATE AMINO TRANSFERASE 30 U/L (14-36); BILIRUBIN,DIRECT 0.1 mg/dL (0.0-0.4); BILIRUBIN,TOTAL 0.4 mg/dL (0.2-1.3); BLOOD UREA NITROGEN 12 mg/dL (7-20); CALCIUM 9.3 mg/dL (8.4-10.2); CARBON DIOXIDE 29 mmol/L (22-30); CHLORIDE 102 mmol/L (98-107); GLUCOSE 86 mg/dL (75-110); LIPASE 128.7 U/L (23-300); POTASSIUM 4.8 mmol/L (3.6-5.0); SODIUM 142.3 mmol/L (137-145); TOTAL PROTEIN 7.4 g/dL (6.3-8.2)
[2018-07-19 19:58] LABS: ABSOLUTE BASOPHILS # (AUTO) 0.1 10^3/uL (0.0-0.2); ABSOLUTE EOSINOPHILS # (AUTO) 0.3 10^3/uL (0.0-0.6); ABSOLUTE LYMPHOCYTES (AUTO) 1.9 10^3/uL (0.5-4.7); ABSOLUTE MONOCYTES (AUTO) 1.2 10^3/uL (0.1-1.4); ABSOLUTE NEUT (AUTO) 7.3 10^3/uL (1.7-8.2); BASOPHILS % (AUTO) 0.5 % (0-2); EOSINOPHILS % (AUTO) 2.6 % (0-6); HEMATOCRIT 41.1 % (36.0-47.0); LYMPHOCYTES % (AUTO) 17.6 % (13-45); MEAN CORPUSCULAR HEMOGLOBIN 29.2 pg (27.0-33.4); MEAN CORPUSCULAR HGB CONC 34.1 g/dL (32.0-36.0); MEAN CORPUSCULAR VOLUME 86 fl (80-97); MONOCYTES % (AUTO) 11.4 % (3-13); PLATELET COUNT 336 10^3/uL (150-450); RED BLOOD COUNT 4.79 10^6/uL (3.72-5.28); RED CELL DISTRIBUTION WIDTH 14.5 % (11.5-14.0); SEGMENTED NEUTROPHILS % (AUTO) 67.9 % (42-78); TOTAL CELLS COUNTED % (AUTO) 100 %; WHITE BLOOD COUNT 10.7 10^3/uL (4.0-10.5)
[2018-07-19] MEDS ORDERED: KETOROLAC TROMETHAMINE INJ/PF 30 MG/1 ML SDV IV ONE (20:32)
[2018-07-19 21:57] LABS: APPEARANCE,URINE SLIGHTLY-CLOUDY; BILIRUBIN,URINE NEGATIVE (NEGATIVE); COLOR,URINE YELLOW; GLUCOSE, URINE NEGATIVE (NEGATIVE); KETONES,URINE NEGATIVE (NEGATIVE); LEUKOCYTE ESTERASE,URINE NEGATIVE (NEGATIVE); NITRITE,URINE NEGATIVE (NEGATIVE); PROTEIN,URINE NEGATIVE (NEGATIVE); URINE SPECIFIC GRAVITY 1.017; UROBILINOGEN,URINE NEGATIVE mg/dL (<2.0)
--- NOTE | 2018-07-19 22:21 | RADIOLOGY REPORT (SQ) ---
EXAM DESCRIPTION: CT ABDOMEN PELVIS WITH IV CONTRAST COMPLETED DATE/TME: 07/19/2018 00:00 CLINICAL HISTORY: 23 years, Female, abdominal pain, possible incarcerated umbilical he COMPARISON: 03/06/2018 CT TECHNIQUE: 542 Images stored on PACS. All CT scanners at this facility use dose modulation, iterative reconstruction, and/or weight based dosing when appropriate to reduce radiation dose to as low as reasonably achievable (ALARA). [facility]: Dose Right [facility]: CareDose [facility]: Dose Right [facility]: Teradose 4D [facility]: [employer] LIMITATIONS: None. FINDINGS: Amended evaluation of the lung bases is unremarkable. Osseous structures are grossly intact. Fatty infiltrative change to the liver. The spleen, adrenal glands, pancreas, left kidney are unremarkable. Nonobstructing 2 mm right renal calculus. Right kidney is otherwise unremarkable. No evidence for bowel obstruction. Normal appendix. No free air or free fluid. No definitive hernia formation. There is some minor skin thickening and subcutaneous inflammation surrounding the umbilicus which could reflect minor cellulitis.. IMPRESSION: Fatty infiltrate of change to the liver. 2 mm nonobstructing right renal calculus. No definitive hernia formation however possible minor cellulitis surrounding the umbilicus as above TECHNICAL DOCUMENTATION: Quality ID # [id number]: Final reports with documentation of one or more dose reduction techniques (e.g., Automated exposure control, adjustment of the mA and/or kV according to patient size, use of iterative reconstruction technique) copyright 2010 [employer]- All Rights Reserved
--- NOTE | 2018-07-19 22:46 | ER Document Report ---
ED General - General Chief Complaint: Abdominal Pain Stated Complaint: ABDOMINAL PAIN Time Seen by Provider: 07/19/18 18:35 Primary Care Provider: HERLINDA ART MD [Primary Care Provider] - Follow up as needed Notes: RME Provider note: Patient is a 23-year-old female that presents to the emergency department for c nvef complaint of abdominal pain. Patient states she is been having pain around her umbilicus over the last 2 days, called telemedicine today and they are concerned about a hernia and advised her to come to the emergency department. She is history of cholecystectomy, had a port at that site, and was told she may have had a hernia shortly after her surgery because she did not follow postoperative instructions and lifted up a friend. MY HPI: Patient is denying nausea, vomiting, diarrhea, fever. Patient denies any history of MRSA or skin infections in the past. TRAVEL OUTSIDE OF THE [place] IN LAST 30 DAYS: No - Related Data Allergies/Adverse Reactions: cephalexin monohydrate [From Keflex] Allergy (Verified 07/19/18 14:36) clindamycin Allergy (Verified 07/19/18 14:36) Latex, Natural Rubber Allergy (Verified 07/19/18 14:36) lurasidone [From Latuda] Allergy (Verified 07/19/18 14:36) peanut [Peanut] Allergy (Verified 07/19/18 14:36) Penicillins Allergy (Verified 07/19/18 14:36) pentoxifylline [From Trental] Allergy (Verified 07/19/18 14:36) morphine Adverse Reaction (Verified 07/19/18 14:36) Past Medical History - General Information source: Patient - Social History Smoking Status: Unknown if Ever Smoked Family History: CVA, DM, Hyperlipidemia, Hypertension, Malignancy, Thyroid Disfunction - Perfecto's. denies: Arthritis, CAD Patient has suicidal ideation: No Patient has homicidal ideation: No - Past Medical History Cardiac Medical History: Denies: Hx Heart Attack, Hx Hypertension Pulmonary Medical History: Denies: Hx Asthma Neurological Medical History: Reports: Hx Migraine. Denies: Hx Cerebrovascular Accident, Hx Seizures Endocrine Medical History: Reports: Hx HypothyroidismComment Only: Hx Diabetes Mellitus Type 2 - pt denies Renal/ Medical History: Denies: Hx Ectopic , Hx Peritoneal Dialysis GI Medical History: Reports: Hx Gastroesophageal Reflux Disease, Hx Ulcer. Denies: Hx Hepatitis, Hx Hiatal Hernia Musculoskeletal Medical History: Reports Hx Musculoskeletal Trauma Psychiatric Medical History: Reports: Hx Attention Deficit Hyperactivity Disorder, Hx Bipolar Disorder, Hx Post Traumatic Stress Disorder, Hx Schizophrenia - boderline Traumatic Medical History: Reports: Hx Fractures - Right arm Infectious Medical History: Denies: Hx Hepatitis Past Surgical History: Reports: Hx Cholecystectomy, Hx Dilation and Curettage - With , Hx Oral Surgery - [place] teeth, Hx Tonsillectomy. Denies: Hx Mastectomy, Hx Open Heart Surgery, Hx Pacemaker - Immunizations Hx Diphtheria, Pertussis, Tetanus Vaccination: Yes Review of Systems - Review of Systems Constitutional: No symptoms reported. denies: Fever EENT: No symptoms reported Cardiovascular: No symptoms reported Respiratory: No symptoms reported Gastrointestinal: See HPI Genitourinary: See HPI. denies: Burning, Dysuria, Discharge Female Genitourinary: See HPI Musculoskeletal: No symptoms reported Skin: See HPI Hematologic/Lymphatic: No symptoms reported Neurological/Psychological: No symptoms reported Physical Exam - Vital signs Vitals: Temp Pulse Resp BP Pulse Ox 98.2 F 109 H 18 105/68 98 07/19/18 15:37 07/19/18 15:37 07/19/18 15:37 07/19/18 15:37 07/19/18 15:37 - Notes Notes: GENERAL: Alert, interacts well. No acute distress. HEAD: Normocephalic, atraumatic. EYES: Pupils equal, round, and reactive to light. Extraocular movements intact. ENT: Oral mucosa moist, tongue midline. NECK: Full range of motion. Supple. Trachea midline. LUNGS: Clear to auscultation bilaterally, no wheezes, rales, or rhonchi. No respiratory distress. HEART: Regular rate and rhythm. No murmur ABDOMEN: Obese, soft, Non-distended. Bowel sounds present in all 4 quadrants. Minor generalized tenderness noted all 4 quadrants. EXTREMITIES: Moves all 4 extremities spontaneously. No edema, normal radial and dorsalis pedis pulses bilaterally. No cyanosis. BACK: no cervical, thoracic, lumbar midline tenderness. No saddle anesthesia, normal distal neurovascular exam. No CVA tenderness noted NEUROLOGICAL: Alert and oriented x3. Normal speech. cranial nerves II through XII grossly intact PSYCH: Normal affect, normal mood. SKIN: Warm, dry, normal turgor. 5 cm x 5 cm area of erythema noted around the umbilicus region. No areas of fluctuance or induration noted. Course - Re-evaluation Re-evalutation: I offered patient pain medication prior to discharge. Patient states "I just want to go home." Discussed use of antibiotics and close follow-up. 07/19/18 22:47 Patient's labs show a slight leukocytosis of 10.7, no signs of anemia, no change in patient's CMP, patient's hCG is negative, no signs of urinary tract infection. Patient's CT abdomen pelvis shows no signs of hernia but does show a minor cellulitis surrounding the umbilicus. This is consistent with the minor erythema that is noted around the patient's umbilical region. Will treat with oral antibiotics. Discussed close follow-up with primary care provider. Patient voices understanding. - Vital Signs Vital signs: Temp Pulse Resp BP Pulse Ox 98.2 F 109 H 18 105/68 98 07/19/18 15:37 07/19/18 15:37 07/19/18 15:37 07/19/18 15:37 07/19/18 15:37 - Laboratory Result Diagrams: 07/19/18 19:00 07/19/18 19:00 Laboratory results interpreted by me: 07/19/18 19:00 WBC 10.7 H RDW 14.5 H Discharge - Discharge Clinical Impression: Cellulitis Qualifiers: Site of cellulitis: trunk Site of cellulitis of trunk: umbilicus Qualified Code(s): L03.316 - Cellulitis of umbilicus Condition: Stable Disposition: HOME, SELF-CARE Instructions: Cellulitis (OM) Additional Instructions: He has been seen and treated in the emergency department for a cellulitis or skin infection around your [facility]. Please take antibiotics as prescribed. Please make sure you follow-up with your primary care provider or return to the emergency room should you have any other concerning symptoms. Prescriptions: Sulfamethoxazole/Trimethoprim [Bactrim Ds Tablet] 1 each PO BID 7 Days #14 tablet Referrals: HERLINDA ART MD [Primary Care Provider] - Follow up as needed
[2018-07-19 23:19] VITALS: BP 115/76
== END 2018-07-19 23:20 | disposition home or self-care (01) ==
LOC: ER 14:30
DX: L03.316 Cellulitis of umbilicus (principal); R10.33 Periumbilical pain; D72.829 Elevated white blood cell count, unspecified; Z90.49 Acquired absence of other specified parts of digestive tract; Z88.1 Allergy status to other antibiotic agents; Z91.040 Latex allergy status; Z88.8 Allergy status to other drugs, medicaments and biological substances; Z91.010 Allergy to peanuts; Z88.0 Allergy status to penicillin
CPT/HCPCS: 99284; 96361; 96374; 96375; 36415; 83690; 84703; 85025; 80053; 81001; 74177; J1885; J1170; J2405; J7030

== ENCOUNTER 2018-07-21 17:27 | Emergency (ER) | payer MEDICARE, MEDICAID ==
--- NOTE | 2018-07-21 20:53 | ER Document Report ---
ED Medical Screen (RME) - General Chief Complaint: Abdominal Pain Stated Complaint: ABDOMINAL PAIN Time Seen by Provider: 07/21/18 20:44 Primary Care Provider: HERLINDA ART MD [Primary Care Provider] - Follow up as needed Notes: 23-year-old female coming in today with abdominal pain with evidence of cellulitis to the abdominal wall and a purulent umbilical discharge. Started on antibiotics by her primary care doctor but symptoms are getting worse. I have treated and performed a rapid initial assessment of this patient. A comprehensive ED assessment and evaluation of the patient, analysis of test results and completion of medical decision making process will be conducted by additional ED providers. PHYSICAL EXAMINATION: GENERAL: Well-appearing, well-nourished and in no acute distress. A&Ox4. Answers questions appropriately. LUNGS: Breath sounds clear to auscultation bilaterally and equal. No wheezes rales or rhonchi. HEART: Regular rate and rhythm without murmurs, rubs, gallops. ABDOMEN: Soft, nondistended abdomen. Purulent foul-smelling umbilical discharge. Redness and warmth to the skin just inferior to the umbilicus Extremities: No cyanosis, clubbing, or edema b/l. NEUROLOGICAL: Normal speech, normal gait. PSYCH: Normal mood, normal affect. TRAVEL OUTSIDE OF THE [place] IN LAST 30 DAYS: No - Related Data Allergies/Adverse Reactions: cephalexin monohydrate [From Keflex] Allergy (Verified 07/21/18 17:29) clindamycin Allergy (Verified 07/21/18 17:29) Latex, Natural Rubber Allergy (Verified 07/21/18 17:29) lurasidone [From Latuda] Allergy (Verified 07/21/18 17:29) peanut [Peanut] Allergy (Verified 07/21/18 17:29) Penicillins Allergy (Verified 07/21/18 17:29) pentoxifylline [From Trental] Allergy (Verified 07/21/18 17:29) morphine Adverse Reaction (Verified 07/21/18 17:29) Past Medical History - Social History Family history: None - Past Medical History Cardiac Medical History: Denies: Hx Heart Attack, Hx Hypertension Pulmonary Medical History: Denies: Hx Asthma Neurological Medical History: Reports: Hx Migraine. Denies: Hx Cerebrovascular Accident, Hx Seizures Endocrine Medical History: Reports: Hx HypothyroidismComment Only: Hx Diabetes Mellitus Type 2 - pt denies Renal/ Medical History: Denies: Hx Ectopic , Hx Peritoneal Dialysis GI Medical History: Reports: Hx Gastroesophageal Reflux Disease, Hx Ulcer. Denies: Hx Hepatitis, Hx Hiatal Hernia Musculoskeltal Medical History: Reports Hx Musculoskeletal Trauma Psychiatric Medical History: Reports: Hx Attention Deficit Hyperactivity Disorder, Hx Bipolar Disorder, Hx Post Traumatic Stress Disorder, Hx Schizophren ia - boderline Traumatic Medical History: Reports: Hx Fractures - Right arm Infectious Medical History: Denies: Hx Hepatitis Past Surgical History: Reports: Hx Cholecystectomy, Hx Dilation and Curettage - With , Hx Oral Surgery - [place] teeth, Hx Tonsillectomy. Denies: Hx Mastectomy, Hx Open Heart Surgery, Hx Pacemaker - Immunizations Hx Diphtheria, Pertussis, Tetanus Vaccination: Yes Physical Exam - Vital signs Vitals: Temp Pulse Resp BP Pulse Ox 99.4 F 117 H 18 122/72 100 07/21/18 18:03 07/21/18 18:03 07/21/18 18:03 07/21/18 18:03 07/21/18 18:03 Course - Vital Signs Vital signs: Temp Pulse Resp BP Pulse Ox 99.4 F 117 H 18 122/72 100 07/21/18 18:03 07/21/18 18:03 07/21/18 18:03 07/21/18 18:03 07/21/18 18:03 Doctor's Discharge - Discharge Referrals: HERLINDA ART MD [Primary Care Provider] - Follow up as needed
--- NOTE | 2018-07-21 23:09 | RADIOLOGY REPORT (SQ) ---
EXAM DESCRIPTION: US ABDOMEN LIMITED COMPLETED DATE/TME: 07/21/2018 20:49 CLINICAL HISTORY: 23 years, Female, umbilical purulent discharge, eval for abscess abd COMPARISON: CT 07/19/2018. TECHNIQUE: Limited abdominal ultrasound, with images obtained in the region of the patient's clinical/palpable abnormality near the umbilicus. LIMITATIONS: None. FINDINGS: No discrete or defined fluid collection. No soft tissue mass. No visible sinus tract. IMPRESSION: Unremarkable exam copyright 2010 [employer]- All Rights Reserved
[2018-07-22 00:51] LABS: ABSOLUTE BASOPHILS # (AUTO) 0.1 10^3/uL (0.0-0.2); ABSOLUTE EOSINOPHILS # (AUTO) 0.3 10^3/uL (0.0-0.6); ABSOLUTE LYMPHOCYTES (AUTO) 2.3 10^3/uL (0.5-4.7); ABSOLUTE NEUT (AUTO) 7.5 10^3/uL (1.7-8.2); BASOPHILS % (AUTO) 0.5 % (0-2); EOSINOPHILS % (AUTO) 2.3 % (0-6); HEMATOCRIT 39.4 % (36.0-47.0); HEMOGLOBIN 13.5 g/dL (12.0-15.5); LYMPHOCYTES % (AUTO) 20.4 % (13-45); MEAN CORPUSCULAR HEMOGLOBIN 28.7 pg (27.0-33.4); MEAN CORPUSCULAR HGB CONC 34.1 g/dL (32.0-36.0); MEAN CORPUSCULAR VOLUME 84 fl (80-97); MONOCYTES % (AUTO) 9.4 % (3-13); PLATELET COUNT 286 10^3/uL (150-450); RED BLOOD COUNT 4.68 10^6/uL (3.72-5.28); RED CELL DISTRIBUTION WIDTH 14.1 % (11.5-14.0); SEGMENTED NEUTROPHILS % (AUTO) 67.4 % (42-78); TOTAL CELLS COUNTED % (AUTO) 100 %; WHITE BLOOD COUNT 11.1 10^3/uL (4.0-10.5)
[2018-07-22 01:08] LABS: ALANINE AMINOTRANSFERASE 30 U/L (9-52); ALBUMIN 4.3 g/dL (3.5-5.0); ALKALINE PHOSPHATASE 81 U/L (38-126); ANION GAP 6 (5-19); ASPARTATE AMINO TRANSFERASE 23 U/L (14-36); BILIRUBIN,DIRECT 0.1 mg/dL (0.0-0.4); BILIRUBIN,TOTAL 0.3 mg/dL (0.2-1.3); BLOOD UREA NITROGEN 12 mg/dL (7-20); CALCIUM 9.2 mg/dL (8.4-10.2); CARBON DIOXIDE 31 mmol/L (22-30); CHLORIDE 103 mmol/L (98-107); GLUCOSE 91 mg/dL (75-110); LIPASE 79.8 U/L (23-300); POTASSIUM 4.6 mmol/L (3.6-5.0); SODIUM 140.1 mmol/L (137-145)
--- NOTE | 2018-07-22 01:52 | ER Document Report ---
ED GI/ - General Chief Complaint: Abdominal Pain Stated Complaint: ABDOMINAL PAIN Time Seen by Provider: 07/22/18 01:01 Primary Care Provider: HERLINDA ART MD [Primary Care Provider] - Follow up as needed Mode of Arrival: Ambulatory Information source: Patient Notes: HISTORY OF PRESENT ILLNESS: Patient is a 23-year-old female with a past medical history of multiple chronic conditions including bipolar disorder and chronic hypothyroidism who presents with continued abdominal pain and drainage from the umbilicus. Patient was recently seen 2 days ago for similar symptoms and diagnosed with cellulitis, was started on Bactrim but reports no improvement. Location: Periumbilical Onset: 3 days ago Alleviation: None Provocation: Movement Quality: Burning Radiation: None Severity: Mild to moderate Timing: Constant History of abdominal surgery: None Associated symptoms: Nausea and vomiting, denies fevers or chills Last bowel movement: Today and normal Last menstrual period: 3 weeks ago REVIEW OF SYSTEMS: CONSTITUTIONAL : Denies fever or chills, no sweats. Denies recent illness. EENT: Denies eye, ear, throat, or mouth pain or symptoms. Denies nasal or sinus congestion. CARDIOVASCULAR: Denies chest pain. Denies swelling of the legs. RESPIRATORY: Denies cough, cold, or chest congestion. Denies shortness of breath or difficulty breathing. Denies wheezing. GASTROINTESTINAL: Positive for abdominal pain. Positive for nausea and vomiting, negative for diarrhea. Denies constipation. GENITOURINARY: Denies difficulty urinating, painful urination, burning, frequency, or blood in urine. FEMALE GENITOURINARY: Denies vaginal bleeding, abnormal or irregular periods. MUSCULOSKELETAL: Denies neck or back pain or joint pain or swelling. SKIN: Denies rash or skin lesions. HEMATOLOGIC : Denies easy bruising or bleeding. LYMPHATIC: Denies swollen, enlarged glands. NEUROLOGICAL: Denies altered mental status or loss of consciousness. Denies headache. Denies weakness or paralysis or loss of use of either side. Denies problems with gait or speech. Denies sensory or motor loss. PSYCHIATRIC: Denies anxiety or stress or depression. All other systems reviewed and negative. PHYSICAL EXAMINATION: GENERAL: Well-appearing, well-nourished and in no acute distress. HEAD: Atraumatic, normocephalic. No scalp deformity, depression, or crepitance. EYES: Pupils are 3 mm and equal/round/reactive to light, extraocular movements intact, sclera anicteric, conjunctiva are normal. ENT: Nares patent bilaterally, oropharynx. Moist mucous membranes. No tonsil hypertrophy. NECK: Normal range of motion, supple without lymphadenopathy. LUNGS: Breath sounds present, equal, and clear to auscultation bilaterally. No wheezes, rales, or rhonchi. HEART: Regular rate and rhythm without murmurs, rubs, or gallops. 2+ peripheral pulses. Normal capillary refill. ABDOMEN: Soft and nondistended, mild tenderness around the umbilicus with slight erythema extending 3-4 cm inferior to the umbilicus, no visible drainage. Normoactive bowel sounds. No guarding, no rebound. No masses appreciated. BACK: Normal contour, no midline tenderness. Rectal exam deferred. GENITAL/PELVIC: Deferred. EXTREMITIES: Normal range of motion, no pitting or edema. No cyanosis. NEUROLOGICAL: No focal neurological deficits. Moves all extremities spontaneously and on command. PSYCH: Normal mood, normal affect. No suicidal thoughts/ideations. No homocidal thoughts/ideations. No hallucinations. SKIN: Warm, dry, normal turgor, no rashes or lesions noted. ASSESSMENT AND PLAN: This patient is a 23-year-old female who presents with periumbilical cellulitis of unknown etiology. Bactrim has not improved the situation. Repeat labs, urine, and ultrasound are all normal without acute pathology. 1. Will give IV fluids with Zofran and doxycycline then reassess. 2. Will likely discharge patient home if improved. TRAVEL OUTSIDE OF THE [place] IN LAST 30 DAYS: No - Related Data Allergies/Adverse Reactions: cephalexin monohydrate [From Keflex] Allergy (Verified 07/21/18 17:29) clindamycin Allergy (Verified 07/21/18 17:29) Latex, Natural Rubber Allergy (Verified 07/21/18 17:29) lurasidone [From Latuda] Allergy (Verified 07/21/18 17:29) peanut [Peanut] Allergy (Verified 07/21/18 17:29) Penicillins Allergy (Verified 07/21/18 17:29) pentoxifylline [From Trental] Allergy (Verified 07/21/18 17:29) morphine Adverse Reaction (Verified 07/21/18 17:29) Past Medical History - General Information source: Patient - Social History Smoking Status: Never Smoker Chew tobacco use (# tins/day): No Frequency of alcohol use: None Drug Abuse: None Lives with: Family Family History: CVA, DM, Hyperlipidemia, Hypertension, Malignancy, Thyroid Disfunction - Perfecto's. denies: Arthritis, CAD Patient has suicidal ideation: No Patient has homicidal ideation: No - Past Medical History Cardiac Medical History: Reports: None Denies: Hx Heart Attack, Hx Hypertension Pulmonary Medical History: Reports: None Denies: Hx Asthma EENT Medical History: Reports: None Neurological Medical History: Reports: Hx Migraine. Denies: Hx Cerebrovascular Accident, Hx Seizures Endocrine Medical History: Reports: Hx HypothyroidismComment Only: Hx Diabetes Mellitus Type 2 - pt denies Renal/ Medical History: Reports: None. Denies: Hx Ectopic , Hx Peritoneal Dialysis Malignancy Medical History: Reports: None GI Medical History: Reports: Hx Gastroesophageal Reflux Disease, Hx Ulcer. Denies: Hx Hepatitis, Hx Hiatal Hernia Musculoskeletal Medical History: Reports Hx Musculoskeletal Trauma Skin Medical History: Reports None Psychiatric Medical History: Reports: Hx Attention Deficit Hyperactivity Disorder, Hx Bipolar Disorder, Hx Post Traumatic Stress Disorder, Hx Schizophrenia - boderline Traumatic Medical History: Reports: Hx Fractures - Right arm Infectious Medical History: Reports: None. Denies: Hx Hepatitis Past Surgical History: Reports: Hx Cholecystectomy, Hx Dilation and Curettage - With , Hx Oral Surgery - [place] teeth, Hx Tonsillectomy. Denies: Hx Mastectomy, Hx Open Heart Surgery, Hx Pacemaker - Immunizations Hx Diphtheria, Pertussis, Tetanus Vaccination: Yes Physical Exam - Vital signs Vitals: Temp Pulse Resp BP Pulse Ox 99.4 F 117 H 18 122/72 100 07/21/18 18:03 07/21/18 18:03 07/21/18 18:03 07/21/18 18:03 07/21/18 18:03 Course - Re-evaluation Re-evalutation: 07/22/18 03:57 Labs, urine, and ultrasound are negative. Patient will be discharged home with return precautions and follow-up as needed. Patient voices both understanding and agreeing with the plan. - Vital Signs Vital signs: Temp Pulse Resp BP Pulse Ox 98.5 F 109 H 19 121/52 L 100 07/22/18 00:19 07/22/18 00:19 07/22/18 00:19 07/22/18 00:19 07/22/18 00:19 - Laboratory Result Diagrams: 07/22/18 00:38 07/22/18 00:38 Laboratory results interpreted by me: 07/22/18 07/22/18 07/22/18 00:38 00:38 03:20 WBC 11.1 H RDW 14.1 H Carbon Dioxide 31 H Urine Ketones TRACE H Urine Ascorbic Acid 40 H - Diagnostic Test Radiology reviewed: Image reviewed, Reports reviewed Discharge - Discharge Clinical Impression: Cellulitis Qualifiers: Site of cellulitis of trunk: umbilicus Condition: Good Disposition: HOME, SELF-CARE Instructions: Cellulitis ([facility]) Additional Instructions: You have been evaluated in the Emergency Department for nausea and vomiting with cellulitis around your bellybutton. While here, you had blood work and ultrasound that were all normal and it is now safe to be discharged home. Please follow-up with your primary physician as instructed in 1 week to be rechecked. You have been switched from Bactrim to Doxycycline, take this as instructed. Return to the Emergency Department if you experience worsening pain, high fevers, or any other concerning symptoms. Prescriptions: Ondansetron [Zofran Odt 4 mg Tablet] 1 tab PO Q6HP PRN #30 tab.rapdis PRN Reason: For Nausea/Vomiting Diclofenac Sodium 75 mg PO BID #30 tablet. Doxycycline Hyclate 100 mg PO BID #20 capsule Referrals: HERLINDA ART MD [Primary Care Provider] - Follow up as needed Print Language: Sammarinese
[2018-07-22] MEDS ORDERED: DOXYCYCLINE HYCLATE 100 MG TABLET PO ONE (02:34)
[2018-07-22] MEDS ORDERED: NORMAL SALINE 1000 ML 1,000 ML IV ONE (02:34)
[2018-07-22] MEDS ORDERED: KETOROLAC TROMETHAMINE INJ/PF 30 MG/1 ML SDV IV ONE (02:34)
[2018-07-22] MEDS ORDERED: ONDANSETRON HCL INJ/PF 4 MG/2 ML SDV IV ONE (03:09)
[2018-07-22] MEDS ORDERED: DOXYCYCLINE HYCLATE INJ 100 MG VIAL IV ONE (03:11)
[2018-07-22 03:39] LABS: APPEARANCE,URINE SLIGHTLY-CLOUDY; BILIRUBIN,URINE NEGATIVE (NEGATIVE); COLOR,URINE YELLOW; GLUCOSE, URINE NEGATIVE (NEGATIVE); KETONES,URINE TRACE mg/dL (NEGATIVE); LEUKOCYTE ESTERASE,URINE NEGATIVE (NEGATIVE); NITRITE,URINE NEGATIVE (NEGATIVE); PROTEIN,URINE NEGATIVE (NEGATIVE); URINE SPECIFIC GRAVITY 1.023; UROBILINOGEN,URINE NEGATIVE mg/dL (<2.0)
[2018-07-22 05:48] VITALS: BP 109/70
== END 2018-07-22 05:48 | disposition home or self-care (01) ==
LOC: ER 17:27
DX: L03.316 Cellulitis of umbilicus (principal); R11.2 Nausea with vomiting, unspecified; Z88.1 Allergy status to other antibiotic agents; Z91.040 Latex allergy status; Z91.010 Allergy to peanuts; Z88.0 Allergy status to penicillin; Z88.8 Allergy status to other drugs, medicaments and biological substances
CPT/HCPCS: 99284; 96361; 96375; 96365; 36415; 83690; 85025; 81025; 80053; 81001; 83605; 76705; A9270; J3490; J1885; J2405; J7030

== ENCOUNTER 2018-08-29 22:38 | Emergency (ER) | payer MEDICARE, MEDICAID ==
[2018-08-29 22:44] VITALS: BP 143/87
--- NOTE | 2018-08-30 00:15 | ER Document Report ---
HPI - HPI Time Seen by Provider: 08/30/18 00:13 Pain Level: 4 Context: Patient is a 23-year-old female who presents emergency department with a chief complaint of left jaw swelling and left tooth pain at tooth #19. She states that a week ago her tooth cracked and started noticing swelling today. She has used heat packs and cold packs to help with her symptoms. She was taking a lot of ibuprofen and Tylenol to help with her symptoms, but has had little relief. Denies shortness of breath, difficulty swallowing, any difficulty breathing, fever, body aches, nausea, vomiting, or chills. - ROS Systems Reviewed and Negative: Yes All other systems reviewed and negative - CONSTITUTIONAL Constitutional: DENIES: Fever, Chills - EENT EENT: DENIES: Sore Throat, Eye problems - NEURO Neurology: DENIES: Headache, Weakness - RESPIRATORY Respiratory: DENIES: Trouble Breathing, Coughing - GASTROINTESTINAL Gastrointestinal: DENIES: Abdominal Pain, Nausea, Patient vomiting - REPRODUCTIVE Reproductive: DENIES: : - MUSCULOSKELETAL Musculoskeletal: DENIES: Extremity pain - DERM Skin Color: Normal Skin Problems: None Past Medical History - General Information source: Patient - Social History Smoking Status: Unknown if Ever Smoked Family History: CVA, DM, Hyperlipidemia, Hypertension, Malignancy, Thyroid Disfunction - Perfecto's. denies: Arthritis, CAD - Past Medical History Cardiac Medical History: Denies: Hx Heart Attack, Hx Hypertension Pulmonary Medical History: Denies: Hx Asthma Neurological Medical History: Reports: Hx Migraine. Denies: Hx Cerebrovascular Accident, Hx Seizures Endocrine Medical History: Reports: Hx HypothyroidismComment Only: Hx Diabetes Mellitus Type 2 - pt denies Renal/ Medical History: Denies: Hx Ectopic , Hx Peritoneal Dialysis GI Medical History: Reports: Hx Gastroesophageal Reflux Disease, Hx Ulcer. Denies: Hx Hepatitis, Hx Hiatal Hernia Musculoskeletal Medical History: Reports Hx Musculoskeletal Trauma Psychiatric Medical History: Reports: Hx Attention Deficit Hyperactivity Disord er, Hx Bipolar Disorder, Hx Post Traumatic Stress Disorder, Hx Schizophrenia - boderline Traumatic Medical History: Reports: Hx Fractures - Right arm Infectious Medical History: Denies: Hx Hepatitis Past Surgical History: Reports: Hx Cholecystectomy, Hx Dilation and Curettage - With , Hx Oral Surgery - [place] teeth, Hx Tonsillectomy. Denies: Hx Mastectomy, Hx Open Heart Surgery, Hx Pacemaker - Immunizations Hx Diphtheria, Pertussis, Tetanus Vaccination: Yes Vertical Provider Document - CONSTITUTIONAL Agree With Documented VS: Yes Exam Limitations: No Limitations General Appearance: No Apparent Distress - INFECTION CONTROL TRAVEL OUTSIDE OF THE [place] IN LAST 30 DAYS: No - HEENT HEENT: Atraumatic, Dental Injury, Normocephalic Mouth Diagram: 1 - Cracked tooth with dental carry noted - NECK Neck: Normal Inspection, Supple. negative: Lymphadenopathy-Left, Lymphadenopathy-Right - RESPIRATORY Respiratory: Breath Sounds Normal, No Respiratory Distress - CARDIOVASCULAR Cardiovascular: Regular Rate, Regular Rhythm Pulses: Normal: Radial - GI/ABDOMEN Gastrointestinal: Abdomen Soft - MUSCULOSKELETAL/EXTREMETIES Musculoskeletal/Extremeties: FROM - NEURO Level of Consciousness: Awake, Alert, Appropriate - DERM Integumentary: Warm, Dry Course - Re-evaluation Re-evalutation: Patient's physical exam and history is most consistent with a infected tooth. Patient is able to swallow, very mild facial swelling noted, airway is patent, vital signs are normal. I do not suspect Chance's angina, peritonsillar abscess, or airway obstruction. The patient will be started on oral antibiotics. I have given the patient education on their antibiotics. Patient was given instructions to follow-up with a dentist this week. Return precautions were given. Verbal discharge instructions were given. Patient verbalized understanding. Patient is stable for discharge. - Vital Signs Vital signs: Temp Pulse Resp BP Pulse Ox 99.0 F 102 H 19 143/87 H 100 08/29/18 22:42 08/29/18 22:42 08/29/18 22:42 08/29/18 22:42 08/29/18 22:42 Discharge - Discharge Clinical Impression: Jaw pain, Tooth pain Condition: Stable Disposition: HOME, SELF-CARE Instructions: Clindamycin ([facility]), Toothache ([facility]) Additional Instructions: You have been seen in the emergency department for a toothache. You may take ibuprofen 600 mg and Tylenol 1000 mg every 6 hours as needed for the pain. Please do not exceed this limit. You have also been given topical lidocaine. Placed that to the affected tooth as needed to help with pain. You have also been prescribed antibiotics. Please take the antibiotics as prescribed, even if you start to feel better. If you develop a fever greater than 100.4 F, or have any symptoms that are worrisome to you, please return to the emergency depa rtment. Please follow-up with a dentist this week in regards to your visit. Prescriptions: Clindamycin HCl [Cleocin 150 mg Capsule] 300 mg PO Q6 7 Days #56 capsule Referrals: HERLINDA ART MD [ACTIVE STAFF] - Follow up as needed
[2018-08-30] MEDS ORDERED: CLINDAMYCIN HCL 150 MG CAPSULE PO ONE (00:21)
== END 2018-08-30 00:30 | disposition home or self-care (01) ==
LOC: ER 22:38
DX: K03.81 Cracked tooth (principal); K02.9 Dental caries, unspecified; R68.84 Jaw pain; R22.0 Localized swelling, mass and lump, head; K08.89 Other specified disorders of teeth and supporting structures
CPT/HCPCS: 99283

== ENCOUNTER 2018-08-30 21:48 | Emergency (ER) | payer MEDICARE, MEDICAID ==
--- NOTE | 2018-08-30 22:43 | ER Document Report ---
ED Medical Screen (RME) - General Chief Complaint: Abdominal Pain Stated Complaint: ABDOMINAL PAIN Time Seen by Provider: 08/30/18 22:29 Primary Care Provider: ELVIS LOPEZ MD [Primary Care Provider] - Follow up as needed Notes: 23-year-old female presents to the emergency department for complaint of epigastric abdominal pain. She states the pain is "like a blow torch inside my belly" and started earlier this evening. Patient was seen here in late July and diagnosed with an umbilical cellulitis and a CT abdomen showed no concerning pathology. Patient denies any fevers, chills, complains of nausea and vomiting, denies shortness of breath or chest pain. Patient states that she had gross hematuria this evening after voiding. She recently started a new control in July 2018. I have greeted and performed a rapid initial assessment of this patient. A comprehensive ED assessment and evaluation of the patient, analysis of test results and completion of medical decision making process will be conducted by an additional ED providers. TRAVEL OUTSIDE OF THE [place] IN LAST 30 DAYS: No - Related Data Allergies/Adverse Reactions: cephalexin monohydrate [From Keflex] Allergy (Verified 07/21/18 17:29) Latex, Natural Rubber Allergy (Verified 07/21/18 17:29) lurasidone [From Latuda] Allergy (Verified 07/21/18 17:29) peanut [Peanut] Allergy (Verified 07/21/18 17:29) Penicillins Allergy (Verified 07/21/18 17:29) pentoxifylline [From Trental] Allergy (Verified 07/21/18 17:29) morphine Adverse Reaction (Verified 07/21/18 17:29) Past Medical History - Social History Family history: None - Past Medical History Cardiac Medical History: Denies: Hx Heart Attack, Hx Hypertension Pulmonary Medical History: Denies: Hx Asthma Neurological Medical History: Reports: Hx Migraine. Denies: Hx Cerebrovascular Accident, Hx Seizures Endocrine Medical History: Reports: Hx HypothyroidismComment Only: Hx Diabetes Mellitus Type 2 - pt denies Renal/ Medical History: Denies: Hx Ectopic , Hx Peritoneal Dialysis GI Medical History: Reports: Hx Gastroesophageal Reflux Disease, Hx Ulcer. Denies: Hx Hepatitis, Hx Hiatal Hernia Musculoskeltal Medical History: Reports Hx Musculoskeletal Trauma Psychiatric Medical History: Reports: Hx Attention Deficit Hyperactivity Disorder, Hx Bipolar Disorder, Hx Post Traumatic Stress Disorder, Hx Schizophrenia - boderline Traumatic Medical History: Reports: Hx Fractures - Right arm Infectious Medical History: Denies: Hx Hepatitis Past Surgical History: Reports: Hx Cholecystectomy, Hx Dilation and Curettage - With , Hx Oral Surgery - [place] teeth, Hx Tonsillectomy. Denies: Hx Mastectomy, Hx Open Heart Surgery, Hx Pacemaker - Immunizations Hx Diphtheria, Pertussis, Tetanus Vaccination: Yes Physical Exam - Vital signs Vitals: Temp Pulse Resp BP Pulse Ox 98.3 F 178 H 22 H 132/84 H 97 08/30/18 21:48 08/30/18 21:48 08/30/18 21:48 08/30/18 21:48 08/30/18 21:48 Course - Vital Signs Vital signs: Temp Pulse Resp BP Pulse Ox 98.3 F 108 H 22 H 132/84 H 97 08/30/18 21:48 08/30/18 22:20 08/30/18 21:48 08/30/18 21:48 08/30/18 21:48 Doctor's Discharge - Discharge Referrals: ELVIS LOPEZ MD [Primary Care Provider] - Follow up as needed
[2018-08-30] MEDS ORDERED: LIDOCAINE 2% VISCOUS SOLN 20 ML UDCUP PO ONE (22:44)
[2018-08-30] MEDS ORDERED: MAG HYDROX/AL HYDROX/SIMETH SUSP 30 ML UDCUP PO ONE (22:44)
[2018-08-30] MEDS ORDERED: METOCLOPRAMIDE HCL ORAL SOLN 10 MG/10 ML UDCUP PO ONE (22:44)
[2018-08-30 23:09] LABS: ABSOLUTE BASOPHILS # (AUTO) 0.1 10^3/uL (0.0-0.2); ABSOLUTE EOSINOPHILS # (AUTO) 0.2 10^3/uL (0.0-0.6); ABSOLUTE LYMPHOCYTES (AUTO) 1.7 10^3/uL (0.5-4.7); ABSOLUTE MONOCYTES (AUTO) 1.1 10^3/uL (0.1-1.4); BASOPHILS % (AUTO) 0.5 % (0-2); EOSINOPHILS % (AUTO) 2.2 % (0-6); HEMATOCRIT 39.8 % (36.0-47.0); HEMOGLOBIN 13.8 g/dL (12.0-15.5); MEAN CORPUSCULAR HEMOGLOBIN 29.7 pg (27.0-33.4); MEAN CORPUSCULAR HGB CONC 34.8 g/dL (32.0-36.0); MEAN CORPUSCULAR VOLUME 85 fl (80-97); PLATELET COUNT 291 10^3/uL (150-450); RED BLOOD COUNT 4.67 10^6/uL (3.72-5.28); RED CELL DISTRIBUTION WIDTH 13.9 % (11.5-14.0); SEGMENTED NEUTROPHILS % (AUTO) 69.3 % (42-78); TOTAL CELLS COUNTED % (AUTO) 100 %
[2018-08-30 23:26] LABS: ALANINE AMINOTRANSFERASE 36 U/L (9-52); ALBUMIN 4.1 g/dL (3.5-5.0); ALKALINE PHOSPHATASE 89 U/L (38-126); ANION GAP 11 (5-19); ASPARTATE AMINO TRANSFERASE 30 U/L (14-36); BILIRUBIN,DIRECT 0.3 mg/dL (0.0-0.4); BILIRUBIN,TOTAL 0.3 mg/dL (0.2-1.3); BLOOD UREA NITROGEN 12 mg/dL (7-20); CALCIUM 9.5 mg/dL (8.4-10.2); CARBON DIOXIDE 24 mmol/L (22-30); CHLORIDE 104 mmol/L (98-107); GLUCOSE 87 mg/dL (75-110); LIPASE 87.1 U/L (23-300); POTASSIUM 3.8 mmol/L (3.6-5.0); SODIUM 139.4 mmol/L (137-145); TOTAL PROTEIN 7.3 g/dL (6.3-8.2)
[2018-08-30 23:49] LABS: APPEARANCE,URINE SLIGHTLY-CLOUDY; BILIRUBIN,URINE NEGATIVE (NEGATIVE); COLOR,URINE YELLOW; GLUCOSE, URINE NEGATIVE (NEGATIVE); KETONES,URINE NEGATIVE (NEGATIVE); LEUKOCYTE ESTERASE,URINE NEGATIVE (NEGATIVE); NITRITE,URINE NEGATIVE (NEGATIVE); PROTEIN,URINE NEGATIVE (NEGATIVE); UROBILINOGEN,URINE NEGATIVE mg/dL (<2.0)
[2018-08-31] MEDS ORDERED: KETOROLAC TROMETHAMINE INJ/PF 30 MG/1 ML SDV IV ONE (00:10)
--- NOTE | 2018-08-31 00:10 | ER Document Report ---
ED General - General Chief Complaint: Abdominal Pain Stated Complaint: ABDOMINAL PAIN Time Seen by Provider: 08/30/18 22:29 Primary Care Provider: ELVIS LOPEZ MD [Primary Care Provider] - Follow up as needed Notes: Patient is a 23-year-old female with a past medical history of morbid obesity, prior history of a cholecystectomy, history of bipolar disorder who does present with an acute onset of hematuria, bilateral flank pain, generalized abdominal discomfort and nausea and vomiting. Patient states that her symptoms started abruptly, were extremely severe and have diminished substantially since that time. She states now she has some waves of mild, cramping, generalized abdominal discomfort most localized to the right flank. She denies ever having similar symptoms in the past. Nothing was noted to improve or worsen her pain although she does state that she got some relief after urinating that contained a large quantity of blood. She has not had fever. Has not seen her primary doctor regarding today's concerns. TRAVEL OUTSIDE OF THE [place] IN LAST 30 DAYS: No - Related Data Allergies/Adverse Reactions: cephalexin monohydrate [From Keflex] Allergy (Verified 07/21/18 17:29) Latex, Natural Rubber Allergy (Verified 07/21/18 17:29) lurasidone [From Latuda] Allergy (Verified 07/21/18 17:29) peanut [Peanut] Allergy (Verified 07/21/18 17:29) Penicillins Allergy (Verified 07/21/18 17:29) pentoxifylline [From Trental] Allergy (Verified 07/21/18 17:29) morphine Adverse Reaction (Verified 07/21/18 17:29) Past Medical History - General Information source: Patient - Social History Smoking Status: Never Smoker Frequency of alcohol use: None Drug Abuse: None Lives with: Spouse/Significant other Family History: CVA, DM, Hyperlipidemia, Hypertension, Malignancy, Thyroid Disfunction - Perfecto's. denies: Arthritis, CAD Patient has suicidal ideation: No Patient has homicidal ideation: No - Past Medical History Cardiac Medical History: Denies: Hx Heart Attack, Hx Hypertension Pulmonary Medical History: Denies: Hx Asthma Neurological Medical History: Reports: Hx Migraine. Denies: Hx Cerebrovascular Accident, Hx Seizures Endocrine Medical History: Reports: Hx HypothyroidismComment Only: Hx Diabetes Mellitus Type 2 - pt denies Renal/ Medical History: Denies: Hx Ectopic , Hx Peritoneal Dialysis GI Medical History: Reports: Hx Gastroesophageal Reflux Disease, Hx Ulcer. De nies: Hx Hepatitis, Hx Hiatal Hernia Musculoskeletal Medical History: Reports Hx Musculoskeletal Trauma Psychiatric Medical History: Reports: Hx Attention Deficit Hyperactivity Disorder, Hx Bipolar Disorder, Hx Post Traumatic Stress Disorder, Hx Schi zophrenia - boderline Traumatic Medical History: Reports: Hx Fractures - Right arm Infectious Medical History: Denies: Hx Hepatitis Past Surgical History: Reports: Hx Cholecystectomy, Hx Dilation and Curettage - With , Hx Oral Surgery - [place] teeth, Hx Tonsillectomy. Denies: Hx Mastectomy, Hx Open Heart Surgery, Hx Pacemaker - Immunizations Hx Diphtheria, Pertussis, Tetanus Vaccination: Yes Review of Systems - Review of Systems Notes: Constitutional: Negative for fever. HENT: Negative for sore throat. Eyes: Negative for visual changes. Cardiovascular: Negative for chest pain. Respiratory: Negative for shortness of breath. Gastrointestinal: Positive for abdominal pain, flank pain, nausea and vomiting Genitourinary: Positive for hematuria Musculoskeletal: Negative for back pain. Skin: Negative for rash. Neurological: Negative for headaches, weakness or numbness. 10 point ROS negative except as marked above and in HPI. Physical Exam - Vital signs Vitals: Temp Pulse Resp BP Pulse Ox 98.3 F 178 H 22 H 132/84 H 97 08/30/18 21:48 08/30/18 21:48 08/30/18 21:48 08/30/18 21:48 08/30/18 21:48 Interpretation: Normal - Please note that the documented heart rate of 178 is not accurate Notes: PHYSICAL EXAMINATION: GENERAL: Well-appearing, well-nourished and in no acute distress. HEAD: Atraumatic, normocephalic. EYES: Pupils equal round and reactive to light, extraocular movements intact, sclera anicteric, conjunctiva are normal. ENT: nares patent, oropharynx clear without exudates. Moist mucous membranes. NECK: Normal range of motion, supple without lymphadenopathy LUNGS: Breath sounds clear to auscultation bilaterally and equal. No wheezes ra les or rhonchi. HEART: Regular rate and rhythm without murmurs ABDOMEN: Soft, nontender, normoactive bowel sounds. No guarding, no rebound. No masses appreciated. Mild right-sided flank tenderness. EXTREMITIES: Normal range of motion, no pitting or edema. No cyanosis. NEUROLOGICAL: No focal neurological deficits. Moves all extremities spontaneously and on command. PSYCH: Normal mood, normal affect. SKIN: Warm, Dry, normal turgor, no rashes or lesions noted. Course - Re-evaluation Re-evalutation: 08/31/18 00:10 Presents with findings consistent with acute nephrolithiasis. Patient did have a 2 mm stone visualized in the right kidney in July of this year and reports that her pain started as being severe to particular in the right flank and radiated into the lower abdomen. She notes that her pain is significantly improved since arrival in the emergency department and is asking to go home on time of my initial assessment. Urinalysis does show hematuria. Laboratory otherwise unremarkable. Pain was able to be controlled here in the emergency department. Patient is tolerating oral intake. Clinical history is not consistent with an acute abdominal aneurysm or dissection, NV, or pulmonary embolus. Urinalysis does not show findings consistent with an infected stone. I have had a risks and benefits conversation with the patient regarding CT imaging of the abdomen and pelvis at this time. We discussed, based on today's exam and labs there is a possibility that they could have a diagnosis that could be better clarified by CT and that this could possibly change coordinator. Specifically talked about verifying that a kidney stone will be the cause of her pain as well as excluding alternative diagnoses. We discussed the risks of radiation to the abdomen and pelvis particularly given that she has had multiple CT scans in the past. We discussed the alternative of close follow-up with their primary care physician for a recheck of the abdomen within 24 hours as well as reasons to return to the emergency department. After this conversation, the patient has elected to avoid CT imaging of the abdomen and pelvis at this time. They have capacity. They have verbalized the importance of close follow-up as well as reasons to return to the emergency department including worsening abdominal pain, fever, persistent vomiting, or any other symptoms that are worrisome to them. - Vital Signs Vital signs: Temp Pulse Resp BP Pulse Ox 98.3 F 108 H 22 H 132/84 H 100 08/30/18 21:48 08/30/18 22:20 08/30/18 21:48 08/30/18 21:48 08/31/18 00:00 - Laboratory Result Diagrams: 08/30/18 23:03 08/30/18 23:03 Laboratory results interpreted by me: 08/30/18 23:24 Urine Blood MODERATE H Discharge - Discharge Clinical Impression: Bilateral flank pain Abdominal pain Qualifiers: Abdominal location: generalized Qualified Code(s): R10.84 - Generalized abdominal pain Nausea and vomiting Qualifiers: Vomiting type: unspecified Vomiting Intractability: non-intractable Qualified Code(s): R11.2 - Nausea with vomiting, unspecified Condition: Good Disposition: HOME, SELF-CARE Additional Instructions: Your symptoms should improve over the course of the next one week. Your symptoms seem to suggest a kidney stone based on your previous CT scan and her characterization of the pain tonight. This is also supported by having blood in your urine. You have agreed to avoid a CT scan today. Please also return if you develop fever, persistent vomiting, or any other symptoms that are concerning to you. For your pain: Take ibuprofen 600 mg and acetaminophen 1000 mg every 6 hours together as needed for pain. You've been given Zofran to assist with nausea. Please follow-up with your primary doctor within the next 24-48 hours. Referrals: ELVIS LOPEZ MD [Primary Care Provider] - Follow up tomorrow
[2018-08-31] MEDS ORDERED: ONDANSETRON ODT 4 MG TAB (6 TAB/ER DISP) PO PRN (00:16)
[2018-08-31 01:05] VITALS: BP 114/44
== END 2018-08-31 01:04 | disposition home or self-care (01) ==
LOC: ER 21:48
DX: R10.84 Generalized abdominal pain (principal); R10.9 Unspecified abdominal pain; R31.9 Hematuria, unspecified; R11.2 Nausea with vomiting, unspecified; Z88.0 Allergy status to penicillin; Z91.040 Latex allergy status; Z90.49 Acquired absence of other specified parts of digestive tract; Z88.6 Allergy status to analgesic agent
CPT/HCPCS: 99284; 96374; 36415; 83690; 85025; 81025; 80053; 81001; J3490; J1885; A9270 ×2

== ENCOUNTER 2018-09-03 18:37 | Emergency (ER) | payer MEDICARE, MEDICAID ==
--- NOTE | 2018-09-03 19:04 | ER Document Report ---
ED Medical Screen (RME) - General Chief Complaint: Vaginal Bleeding Stated Complaint: VAGINAL BLEEDING Time Seen by Provider: 09/03/18 18:57 Primary Care Provider: ELVIS LOPEZ MD [Primary Care Provider] - Follow up as needed Mode of Arrival: Ambulatory Information source: Patient Notes: Patient is a 23-year-old female who presents the emergency department with complaints of low abdominal pain and vaginal bleeding. Patient reports the bleeding has been going on for approximately 5-6 days. She states that she has severe lower abdominal pain that radiates down to her vagina and rectum. Patient also complains of urinary frequency and dysuria, denies any abnormal vaginal discharge. Exam: Large round abdomen with tenderness with deep palpation to the suprapubic area. I have greeted and performed a rapid initial assessment of this patient. A comprehensive ED assessment and evaluation of the patient, analysis of test results and completion of the medical decision making process will be conducted by additional ED providers. Dictation of this chart was performed using voice recognition software; therefore, there may be some unintended grammatical errors. TRAVEL OUTSIDE OF THE [place] IN LAST 30 DAYS: No - Related Data Allergies/Adverse Reactions: cephalexin monohydrate [From Keflex] Allergy (Verified 07/21/18 17:29) Latex, Natural Rubber Allergy (Verified 07/21/18 17:29) lurasidone [From Latuda] Allergy (Verified 07/21/18 17:29) peanut [Peanut] Allergy (Verified 07/21/18 17:29) Penicillins Allergy (Verified 07/21/18 17:29) pentoxifylline [From Trental] Allergy (Verified 07/21/18 17:29) morphine Adverse Reaction (Verified 07/21/18 17:29) Past Medical History - Social History Frequency of alcohol use: None Drug Abuse: None Family history: None - Past Medical History Cardiac Medical History: Denies: Hx Heart Attack, Hx Hypertension Pulmonary Medical History: Denies: Hx Asthma Neurological Medical History: Reports: Hx Migraine. Denies: Hx Cerebrovascular Accident, Hx Seizures Endocrine Medical History: Reports: Hx HypothyroidismComment Only: Hx Diabetes Mellitus Type 2 - pt denies Renal/ Medical History: Denies: Hx Ectopic , Hx Peritoneal Dialysis GI Medical History: Reports: Hx Gastroesophageal Reflux Disease, Hx Ulcer. Denies: Hx Hepatitis, Hx Hiatal Hernia Musculoskeltal Medical History: Reports Hx Musculoskeletal Trauma Psychiatric Medical History: Reports: Hx Attention Deficit Hyperactivity Disorder, Hx Bipolar Disorder, Hx Post Traumatic Stress Disorder, Hx Schizophrenia - boderline Traumatic Medical History: Reports: Hx Fractures - Right arm Infectious Medical History: Denies: Hx Hepatitis Past Surgical History: Reports: Hx Cholecystectomy, Hx Dilation and Curettage - With , Hx Oral Surgery - [place] teeth, Hx Tonsillectomy. Denies: Hx Mastectomy, Hx Open Heart Surgery, Hx Pacemaker - Immunizations Hx Diphtheria, Pertussis, Tetanus Vaccination: Yes Physical Exam - Vital signs Vitals: Temp Pulse Resp BP Pulse Ox 98.1 F 117 H 22 H 139/86 H 97 09/03/18 18:52 09/03/18 18:52 09/03/18 18:52 09/03/18 18:52 09/03/18 18:52 Course - Vital Signs Vital signs: Temp Pulse Resp BP Pulse Ox 98.1 F 97 22 H 139/86 H 97 09/03/18 18:52 09/03/18 19:01 09/03/18 18:52 09/03/18 18:52 09/03/18 18:52 Doctor's Discharge - Discharge Referrals: ELVIS LOPEZ MD [Primary Care Provider] - Follow up as needed
[2018-09-03 19:46] LABS: ABSOLUTE BASOPHILS # (AUTO) 0.1 10^3/uL (0.0-0.2); ABSOLUTE LYMPHOCYTES (AUTO) 1.9 10^3/uL (0.5-4.7); ABSOLUTE MONOCYTES (AUTO) 0.8 10^3/uL (0.1-1.4); ABSOLUTE NEUT (AUTO) 10.2 10^3/uL (1.7-8.2); BASOPHILS % (AUTO) 0.4 % (0-2); EOSINOPHILS % (AUTO) 0.1 % (0-6); HEMATOCRIT 40.2 % (36.0-47.0); HEMOGLOBIN 13.7 g/dL (12.0-15.5); LYMPHOCYTES % (AUTO) 14.3 % (13-45); MEAN CORPUSCULAR HEMOGLOBIN 28.9 pg (27.0-33.4); MEAN CORPUSCULAR HGB CONC 34.2 g/dL (32.0-36.0); MEAN CORPUSCULAR VOLUME 85 fl (80-97); MONOCYTES % (AUTO) 6.4 % (3-13); PLATELET COUNT 350 10^3/uL (150-450); RED BLOOD COUNT 4.75 10^6/uL (3.72-5.28); RED CELL DISTRIBUTION WIDTH 14.1 % (11.5-14.0); SEGMENTED NEUTROPHILS % (AUTO) 78.8 % (42-78); TOTAL CELLS COUNTED % (AUTO) 100 %
[2018-09-03 19:57] LABS: ALANINE AMINOTRANSFERASE 53 U/L (9-52); ALBUMIN 4.6 g/dL (3.5-5.0); ALKALINE PHOSPHATASE 89 U/L (38-126); ANION GAP 10 (5-19); ASPARTATE AMINO TRANSFERASE 20 U/L (14-36); BILIRUBIN,DIRECT 0.3 mg/dL (0.0-0.4); BILIRUBIN,TOTAL 0.4 mg/dL (0.2-1.3); BLOOD UREA NITROGEN 14 mg/dL (7-20); CARBON DIOXIDE 24 mmol/L (22-30); CHLORIDE 106 mmol/L (98-107); GLUCOSE 127 mg/dL (75-110); POTASSIUM 4.4 mmol/L (3.6-5.0); SODIUM 140.1 mmol/L (137-145); TOTAL PROTEIN 7.8 g/dL (6.3-8.2)
[2018-09-03 20:09] LABS: AMORPHOUS SEDIMENT,URINE TRACE /HPF; APPEARANCE,URINE SLIGHTLY-CLOUDY; BILIRUBIN,URINE NEGATIVE (NEGATIVE); COLOR,URINE YELLOW; GLUCOSE, URINE NEGATIVE (NEGATIVE); KETONES,URINE NEGATIVE (NEGATIVE); LEUKOCYTE ESTERASE,URINE MODERATE (NEGATIVE); NITRITE,URINE NEGATIVE (NEGATIVE); PROTEIN,URINE NEGATIVE (NEGATIVE); URINE SPECIFIC GRAVITY 1.013; UROBILINOGEN,URINE NEGATIVE mg/dL (<2.0)
[2018-09-03] MEDS ORDERED: HYDROMORPHONE HCL INJ/PF 2 MG/ML AMPULE IV ONE (22:25)
[2018-09-03] MEDS ORDERED: ONDANSETRON HCL INJ/PF 4 MG/2 ML SDV IV ONE (22:26)
[2018-09-03] MEDS ORDERED: KETOROLAC TROMETHAMINE INJ/PF 30 MG/1 ML SDV IV ONE (22:26)
[2018-09-03] MEDS ORDERED: NORMAL SALINE 1000 ML 1,000 ML IV ONE (22:26)
--- NOTE | 2018-09-03 22:32 | ER Document Report ---
ED General - General Chief Complaint: Vaginal Bleeding Stated Complaint: VAGINAL BLEEDING Time Seen by Provider: 09/03/18 18:57 Primary Care Provider: ELVIS LOPEZ MD [Primary Care Provider] - Follow up as needed Mode of Arrival: Ambulatory Information source: Patient TRAVEL OUTSIDE OF THE [place] IN LAST 30 DAYS: No - HPI Patient complains to provider of: Vaginal bleeding, severe abdominal pain Onset: Last week Onset/Duration: Sudden Quality of pain: Sharp, Stabbing Severity: Severe Pain Level: 5 Associated symptoms: denies: Chills, Fever Exacerbated by: Denies Relieved by: Denies Similar symptoms previously: No Recently seen / treated by doctor: No Notes: Patient is a morbidly obese 23-year-old female coming in today with her horrific vaginal bleeding, pelvic pain, abdominal pain. Recently had Nexplanon reinserted into her arm. Thursday she started having this regular spotting and then the bleeding and the pain in the cramps persisted and got worse to the present day. She is afebrile. No nausea or vomiting. - Related Data Allergies/Adverse Reactions: cephalexin monohydrate [From Keflex] Allergy (Verified 07/21/18 17:29) Latex, Natural Rubber Allergy (Verified 07/21/18 17:29) lurasidone [From Latuda] Allergy (Verified 07/21/18 17:29) peanut [Peanut] Allergy (Verified 07/21/18 17:29) Penicillins Allergy (Verified 07/21/18 17:29) pentoxifylline [From Trental] Allergy (Verified 07/21/18 17:29) morphine Adverse Reaction (Verified 07/21/18 17:29) Past Medical History - General Information source: Patient - Social History Smoking Status: Unknown if Ever Smoked Frequency of alcohol use: None Drug Abuse: None Family History: Reviewed & Not Pertinent, CVA, DM, Hyperlipidemia, Hypertension, Malignancy, Thyroid Disfunction - Perfecto's. denies: Arthritis, CAD Patient has suicidal ideation: No Patient has homicidal ideation: No - Past Medical History Cardiac Medical History: Denies: Hx Heart Attack, Hx Hypertension Pulmonary Medical History: Denies: Hx Asthma Neurological Medical History: Reports: Hx Migraine. Denies: Hx Cerebrovascular Accident, Hx Seizures Endocrine Medical History: Reports: Hx HypothyroidismComment Only: Hx Diabetes Mellitus Type 2 - pt denies Renal/ Medical History: Denies: Hx Ectopic , Hx Peritoneal Dialysis GI Medical History: Reports: Hx Gastroesophageal Reflux Disease, Hx Ulcer. Denies: Hx Hepatitis, Hx Hiatal Hernia Musculoskeletal Medical History: Reports Hx Musculoskeletal Trauma Psychiatric Medical History: Reports: Hx Attention Deficit Hyperactivity Disor mojgan, Hx Bipolar Disorder, Hx Post Traumatic Stress Disorder, Hx Schizophrenia - boderline Traumatic Medical History: Reports: Hx Fractures - Right arm Infectious Medical History: Denies: Hx Hepatitis Past Surgical History: Reports: Hx Cholecystectomy, Hx Dilation and Curettage - With , Hx Oral Surgery - [place] teeth, Hx Tonsillectomy. Denies: Hx Mastectomy, Hx Open Heart Surgery, Hx Pacemaker - Immunizations Hx Diphtheria, Pertussis, Tetanus Vaccination: Yes Review of Systems - Review of Systems Notes: Constitutional: No fevers. No chills. EENT: No eye redness. No eye pain. No ear pain. No sore throat. Cardiovascular: No chest pain. No palpitations. Respiratory: No cough. No shortness of breath. No respiratory distress. Gastrointestinal: No abdominal pain. No nausea, vomiting, or diarrhea. Genitourinary: Atraumatic. No lesions. No discharge. Positive for vaginal bleeding, positive for pelvic pain Musculoskeletal: Atraumatic. No swelling. No deformities. Skin: No rash or lesions. Lymphatic: No swollen lymph nodes. Neurologic: No headache. No syncope. Psychiatric: No suicidal or homicidal ideation. Physical Exam - Vital signs Vitals: Temp Pulse Resp BP Pulse Ox 98.1 F 117 H 22 H 139/86 H 97 09/03/18 18:52 09/03/18 18:52 09/03/18 18:52 09/03/18 18:52 09/03/18 18:52 Course - Re-evaluation Re-evalutation: 09/04/18 00:33 Labs normal. Ultrasound shows endometrial secretory phase. Possible UTI on urinalysis. Will discharge home with medications to treat UTI - Vital Signs Vital signs: Temp Pulse Resp BP Pulse Ox 98.1 F 97 22 H 139/86 H 97 09/03/18 18:52 09/03/18 19:01 09/03/18 18:52 09/03/18 18:52 09/03/18 18:52 - Laboratory Result Diagrams: 09/03/18 19:28 09/03/18 19:28 Laboratory results interpreted by me: 09/03/18 09/03/18 09/03/18 19:28 19:28 19:28 WBC 13.0 H RDW 14.1 H Seg Neutrophils % 78.8 H Absolute Neutrophils 10.2 H Glucose 127 H ALT 53 H Urine Blood LARGE H Ur Leukocyte Esterase MODERATE H Discharge - Discharge Clinical Impression: Dysmenorrhea UTI (urinary tract infection) Qualifiers: Urinary tract infection type: site unspecified Hematuria presence: without patrick turia Qualified Code(s): N39.0 - Urinary tract infection, site not specified Condition: Good Disposition: HOME, SELF-CARE Instructions: Anti-Inflammatory Medication ([facility]), Dysmenorrhea ([facility]), Trimet hoprim-Sulfa ([facility]), Urinary Tract Infection ([facility]) Prescriptions: Naproxen 500 mg PO BID 7 Days #14 tablet Sulfamethoxazole/Trimethoprim [Bactrim Ds Tablet] 1 each PO BID 7 Days #14 tablet Referrals: ELVIS LOPEZ MD [Primary Care Provider] - Follow up as needed AIDEN PATEL MD [EMERITUS] - 09/06/18
--- NOTE | 2018-09-04 00:14 | RADIOLOGY REPORT (SQ) ---
EXAM DESCRIPTION: U/S NON-OB PELVIS TV W/O DOP CLINICAL HISTORY: 23 years Female pain TECHNIQUE: Endovaginal pelvic ultrasound was performed. COMPARISON: None. FINDINGS: Uterus: 6.7 x 3.4 x 4 cm, with 13 mm endometrial stripe. No uterine masses. Right ovary: Could not be visualized. Left ovary: Could not be visualized. No free fluid IMPRESSION: 1. Ovaries could not be visualized. 2. Slightly thickened endometrium, likely secretory phase. No uterine masses.
[2018-09-04 00:47] VITALS: BP 119/62
== END 2018-09-04 00:47 | disposition home or self-care (01) ==
LOC: ER 18:37
DX: N94.6 Dysmenorrhea, unspecified (principal); N39.0 Urinary tract infection, site not specified; Z97.5 Presence of (intrauterine) contraceptive device; Z88.1 Allergy status to other antibiotic agents; Z91.040 Latex allergy status; Z88.8 Allergy status to other drugs, medicaments and biological substances; Z91.010 Allergy to peanuts; Z88.0 Allergy status to penicillin
CPT/HCPCS: 99284; 96361; 96374; 96375; 36415; 85025; 81025; 80053; 81001; 76830; J1885; J1170; J2405; J7030

== ENCOUNTER 2018-10-09 09:34 | Emergency (ER) | payer MEDICARE, MEDICAID ==
--- NOTE | 2018-10-09 09:45 | ER Document Report ---
ED Medical Screen (RME) - General Chief Complaint: Post Surgical Bleeding Stated Complaint: POST OP COMPLICATION Time Seen by Provider: 10/09/18 09:40 Primary Care Provider: ELVIS LOPEZ MD [Primary Care Provider] - Follow up as needed Mode of Arrival: Wheelchair Information source: Patient Notes: Patient reports she had orthopedic surgery on 09/30/2018 in [place]. She states she had her sesamoid bone removed. She reports increased pain, swelling and bleeding at the site. She does have a hard cast in place and only one small area of the incision is able to be visualized. There is no active bleeding at this time. Cap refill is less than 3 seconds, toes do appear to be swollen. I have greeted and performed a rapid initial assessment of this patient. A comprehensive ED assessment and evaluation of the patient, analysis of test results and completion of the medical decision making process will be conducted by additional ED providers. Dictation of this chart was performed using voice recognition software; therefore, there may be some unintended grammatical errors. TRAVEL OUTSIDE OF THE [place] IN LAST 30 DAYS: No - Related Data Allergies/Adverse Reactions: cephalexin monohydrate [From Keflex] Allergy (Verified 07/21/18 17:29) Latex, Natural Rubber Allergy (Verified 07/21/18 17:29) lurasidone [From Latuda] Allergy (Verified 07/21/18 17:29) peanut [Peanut] Allergy (Verified 07/21/18 17:29) Penicillins Allergy (Verified 07/21/18 17:29) pentoxifylline [From Trental] Allergy (Verified 07/21/18 17:29) morphine Adverse Reaction (Verified 07/21/18 17:29) Past Medical History - Social History Family history: None - Past Medical History Cardiac Medical History: Denies: Hx Heart Attack, Hx Hypertension Pulmonary Medical History: Denies: Hx Asthma Neurological Medical History: Reports: Hx Migraine. Denies: Hx Cerebrovascular Accident, Hx Seizures Endocrine Medical History: Reports: Hx HypothyroidismComment Only: Hx Diabetes Mellitus Type 2 - pt denies Renal/ Medical History: Denies: Hx Ectopic , Hx Peritoneal Dialysis GI Medical History: Reports: Hx Gastroesophageal Reflux Disease, Hx Ulcer. Denies: Hx Hepatitis, Hx Hiatal Hernia Musculoskeltal Medical History: Reports Hx Musculoskeletal Trauma Psychiatric Medical History: Reports: Hx Attention Deficit Hyperactivity Disorder, Hx Bipolar Disorder, Hx Post Traumatic Stress Disorder, Hx Schizophrenia - boderline Traumatic Medical History: Reports: Hx Fractures - Right arm Infectious Medical History: Denies: Hx Hepatitis Past Surgical History: Reports: Hx Cholecystectomy, Hx Dilation and Curettage - With , Hx Oral Surgery - [place] teeth, Hx Tonsillectomy. Denies: Hx Mastectomy, Hx Open Heart Surgery, Hx Pacemaker - Immunizations Hx Diphtheria, Pertussis, Tetanus Vaccination: Yes Physical Exam - Vital signs Vitals: Temp Pulse Resp BP Pulse Ox 99.6 F 95 18 125/76 98 10/09/18 09:39 10/09/18 09:39 10/09/18 09:39 10/09/18 09:39 10/09/18 09:39 Course - Vital Signs Vital signs: Temp Pulse Resp BP Pulse Ox 99.6 F 95 18 125/76 98 10/09/18 09:39 10/09/18 09:39 10/09/18 09:39 10/09/18 09:39 10/09/18 09:39 Doctor's Discharge - Discharge Referrals: ELVIS LOPEZ MD [Primary Care Provider] - Follow up as needed
--- NOTE | 2018-10-09 10:34 | ER Document Report ---
ED Extremity Problem, Lower - General Chief Complaint: Post Surgical Bleeding Stated Complaint: POST OP COMPLICATION Time Seen by Provider: 10/09/18 09:40 Primary Care Provider: ELVIS LOPEZ MD [Primary Care Provider] - Follow up as needed Mode of Arrival: Wheelchair Information source: Patient TRAVEL OUTSIDE OF THE [place] IN LAST 30 DAYS: No - HPI Patient complains to provider of: Pain Notes: Patient here with complaints of right foot and calf pain. The patient had sesamoid bones removed from her right foot on September 30. She was seen by the orthopedist 4 days ago and had a short leg cast placed to the right leg. She states she is having increasing pain in the foot and pain in the right calf. She also states that she noticed some dried blood over her incision. No active bleeding. She denies any fevers. She has implanted control, she is a non-smoker, she denies any history of DVT or PE. She denies any chest pain or shortness of breath. No nausea, vomiting, diarrhea. No rash. No numbness, tingling, weakness. No other complaints. Pain is constant, moderate, nothing seems to make it better or worse. - Related Data Allergies/Adverse Reactions: cephalexin monohydrate [From Keflex] Allergy (Verified 07/21/18 17:29) Latex, Natural Rubber Allergy (Verified 07/21/18 17:29) lurasidone [From Latuda] Allergy (Verified 07/21/18 17:29) peanut [Peanut] Allergy (Verified 07/21/18 17:29) Penicillins Allergy (Verified 07/21/18 17:29) pentoxifylline [From Trental] Allergy (Verified 07/21/18 17:29) morphine Adverse Reaction (Verified 07/21/18 17:29) Past Medical History - General Information source: Patient - Social History Smoking Status: Never Smoker Chew tobacco use (# tins/day): No Frequency of alcohol use: Rare Drug Abuse: None Family History: Reviewed & Not Pertinent, CVA, DM, Hyperlipidemia, Hypertension, Malignancy, Thyroid Disfunction - Perfecto's. denies: Arthritis, CAD Patient has suicidal ideation: No Patient has homicidal ideation: No - Past Medical History Cardiac Medical History: Denies: Hx Heart Attack, Hx Hypertension Pulmonary Medical History: Denies: Hx Asthma Neurological Medical History: Reports: Hx Migraine. Denies: Hx Cerebrovascular Accident, Hx Seizures Endocrine Medical History: Reports: Hx HypothyroidismComment Only: Hx Diabetes Mellitus Type 2 - pt denies Renal/ Medical History: Denies: Hx Ectopic , Hx Peritoneal Dialysis GI Medical History: Reports: Hx Gastroesophageal Reflux Disease, Hx Ulcer. Denies: Hx Hepatitis, Hx Hiatal Hernia Musculoskeletal Medical History: Reports Hx Musculoskeletal Trauma Psychiatric Medical History: Reports: Hx Attention Deficit Hyperactivity Disorder, Hx Bipolar Disorder, Hx Post Traumatic Stress Disorder, Hx Schizophrenia - boderline Traumatic Medical History: Reports: Hx Fractures - Right arm Infectious Medical History: Denies: Hx Hepatitis Past Surgical History: Reports: Hx Cholecystectomy, Hx Dilation and Curettage - With , Hx Oral Surgery - [place] teeth, Hx Tonsillectomy. Denies: Hx Mastectomy, Hx Open Heart Surgery, Hx Pacemaker - Immunizations Hx Diphtheria, Pertussis, Tetanus Vaccination: Yes Review of Systems - Review of Systems -: Yes All other systems reviewed and negative Physical Exam - Vital signs Vitals: Temp Pulse Resp BP Pulse Ox 99.6 F 95 18 125/76 98 10/09/18 09:39 10/09/18 09:39 10/09/18 09:39 10/09/18 09:39 10/09/18 09:39 - Notes Notes: GENERAL: alert, cooperative, nontoxic, no distress. HEAD: normocephalic, atraumatic EYES: conjunctiva pink without discharge, no external redness or swelling. EARS: no external swelling, no external redness NOSE: atraumatic, no external swelling MOUTH/THROAT: mucous membranes moist and pink, posterior pharynx without erythema, swelling, exudate. No trismus or drooling. NECK: soft, supple, full range of motion, no meningismus. CHEST: no distress, lungs clear and equal throughout. No wheezing, rales, rhonchi. CARDIAC: regular rate and rhythm, no murmur, normal capillary refill, normal pulses. No peripheral edema noted. ABDOMEN: Soft, nontender. BACK: full range of motion, no CVA tenderness. EXTREMITIES: Short leg cast in place to the right lower extremity. No significant swelling identified to the toes. Full range of motion of the toes with normal cap refill and sensation. Cast will be removed for further evaluation of the foot and leg. After cast removal, the patient noted to have a well-healing incision to the right foot over the first metatarsal. Sutures are in place. There is no active bleeding. There is no surrounding redness. Normal pulse. She has had some mild swelling to the foot with some ecchymosis to the plantar aspect of the foot. There is no redness of the ankle or leg. She has some tenderness to palpation to the right posterior calf. Compartments are soft. NEURO: alert and oriented x 3, no focal deficits, full range of motion of all extremities. PYSCH: appropriate mood, affect. Patient is cooperative. SKIN: pink, warm, dry, no rash. Course - Re-evaluation Re-evalutation: 10/09/18 13:39 Patient is nontoxic-appearing with stable vitals. Patient had sesamoid bones removed from her right foot on September 30. She was seen 4 days ago and had a cast placed to the right lower extremity. She is here with complaints of pain to the right foot and right calf. No fevers. She also states that she felt like her incision was bleeding. There is no active bleeding noted, she has some dried blood noted on the incision which seems to be healing well. There is no redness or signs of infection, she is afebrile. She has normal pulses and normal cap refill. Compartments are soft. The cast was removed to further evaluate the leg and foot, x-ray of the foot shows soft tissue swelling with postoperative changes and no acute findings. Venous Doppler of the right lower extremity is negative according to the vascular echocardiography technologist. A posterior splint was placed and the patient will be discharged home with a small supply of pain medications with instructions to follow back up with her surgeon at the next available appointment in order to have a cast replaced. Follow-up sooner if she has any worsening pain, fever, redness, drainage, numbness, tingling, weakness, any further concerns. At this point patient has no signs of infection, compartment syndrome, DVT, vascular problem. The patient's emergency department workup and current diagnosis were explained to the patient and or family. Follow-up instructions were provided. Medications if prescribed were discussed. Instructions for when to return to the emergency department including specific worrisome symptoms were discussed with the patient and/or family. - Vital Signs Vital signs: Temp Pulse Resp BP Pulse Ox 99.6 F 95 18 125/76 98 10/09/18 09:39 10/09/18 09:39 10/09/18 09:39 10/09/18 09:39 10/09/18 09:39 - Diagnostic Test Radiology reviewed: Image reviewed, Reports reviewed - X-ray right foot shows postoperative changes with no acute findings. Venous Doppler negative of the right lower extremity. Procedures - Immobilization Right lower leg Pre-Proc Neuro Vasc Exam: Normal Immobilizer type: Posterior ankle Performed by: PCT Post-Proc Neuro Vasc Exam: Normal Alignment checked and good: Yes Discharge - Discharge Clinical Impression: Post-op pain Condition: Stable Disposition: HOME, SELF-CARE Instructions: Splint Precautions ([facility]) Additional Instructions: Take medication as prescribed. Keep splint in place. Take your follow-up appointment with your orthopedist at the next available appointment in order to have a cast replaced. Rest, ice, elevate. Follow-up sooner for increasing pain, fever, redness, drainage, numbness, tingling, weakness, any further concerns. Prescriptions: Hydrocodone/Acetaminophen [Merigold 5-325 mg Tablet] 1 tab PO Q6H PRN #10 tab PRN Reason: Referrals: ELVIS LOPEZ MD [Primary Care Provider] - Follow up as needed
[2018-10-09] MEDS ORDERED: HYDROCODONE/ACETAMINOPHEN 5-325 MG TABLET PO ONE (10:58)
--- NOTE | 2018-10-09 11:16 | RADIOLOGY REPORT (SQ) ---
EXAM DESCRIPTION: FOOT RIGHT COMPLETE COMPLETED DATE/TIME: 10/09/2018 10:56 am REASON FOR STUDY: POST OP PAIN COMPARISON: 2017. NUMBER OF VIEWS: Three views right foot. LIMITATIONS: None. FINDINGS: Instrumentation along the great toe MP joint. Grossly intact. Bones intact. No bone ero jeff or fracture. Mild forefoot soft tissue swelling. OTHER: No other significant finding. IMPRESSION: Postoperative changes. Soft tissue swelling. No fracture. TECHNICAL DOCUMENTATION: JOB ID: [id number] Reading location - IP/workstation name: [email or web address]
[2018-10-09 13:55] VITALS: BP 113/50
--- NOTE | 2018-10-10 13:02 | XCELERA REPORT ---
[address] [place] [facility] [address] Lower Extremity Venous Evaluation Procedure: Color flow and duplex imaging of the veins of the right lower extremity as well as the left Common Femoral vein. Right Sided Venous Evaluation Normal vessel filling wall to wall, compression and augmentation as well as Colour flow down to the infrageniculate veins. Left Sided Venous Evaluation The left common femoral vein is fully compressible. Spontaneous and phasic flow is present in the left common femoral vein. Interpretation Summary No duplex evidence of DVT or obstruction in the right lower extremity nor in the left Common Femoral vein. Name: JUAN CARLOS GEORGE V Age: 23 yrs Gender: Female : 1995 Patient Status: Emergency Patient Location: ER Study Date: 10/09/2018 12:39 PM Reason For Study: RIGHT CALF PAIN Ordering Physician: VERONICA NAVA Performed By: Bhakti Sawyer : VERONICA NAVA > Anthony Romo
== END 2018-10-09 13:55 | disposition home or self-care (01) ==
LOC: ER 09:34
PROC: 2W3QX1Z Immobilization of Right Lower Leg using Splint (ICD-10-PCS; principal; 2018-10-09)
DX: G89.18 Other acute postprocedural pain (principal); M96.830 Postprocedural hemorrhage of a musculoskeletal structure following a musculoskeletal system procedure
CPT/HCPCS: 99284; 93971 ×2; 73630; 29515; A9270

== ENCOUNTER 2018-10-23 10:32 | Emergency (ER) | payer MEDICARE, MEDICAID ==
[2018-10-23 10:39] VITALS: BP 129/84
--- NOTE | 2018-10-23 10:47 | ER Document Report ---
ED Medical Screen (RME) - General Chief Complaint: Post Surgical Pain Stated Complaint: POST OP PAIN/CONCERNS Time Seen by Provider: 10/23/18 10:45 Primary Care Provider: ELVIS LOPEZ MD [Primary Care Provider] - Follow up as needed Notes: 23-year-old female presents to ED for increased pain and embedded sutures on her right foot. She states that she had the sesamoid bone removed and was supposed to receive her orthopedic surgeon on Thursday and they canceled her appointment and she states now the sutures look like they are embedded in the skin. She is also have increased pain and does not have the next appointment until Thursday and she is afraid what could happen before then. She states her primary care doctor told her to come to the emergency room and have it evaluated. Her orthopedic surgeon is from [facility] I have greeted and performed a rapid initial assessment of this patient. A comprehensive ED assessment and evaluation of the patient, analysis of test results and completion of medical decision making process will be conducted by an additional ED providers. Dictation of this chart was performed using voice recognition software; therefore, there may be some unintended grammatical errors. TRAVEL OUTSIDE OF THE [place] IN LAST 30 DAYS: No - Related Data Allergies/Adverse Reactions: cephalexin monohydrate [From Keflex] Allergy (Verified 10/23/18 10:34) Latex, Natural Rubber Allergy (Verified 10/23/18 10:34) lurasidone [From Latuda] Allergy (Verified 10/23/18 10:34) peanut [Peanut] Allergy (Verified 10/23/18 10:34) Penicillins Allergy (Verified 10/23/18 10:34) pentoxifylline [From Trental] Allergy (Verified 10/23/18 10:34) morphine Adverse Reaction (Verified 10/23/18 10:34) Past Medical History - Social History Family history: None - Past Medical History Cardiac Medical History: Denies: Hx Heart Attack, Hx Hypertension Pulmonary Medical History: Denies: Hx Asthma Neurological Medical History: Reports: Hx Migraine. Denies: Hx Cerebrovascular Accident, Hx Seizures Endocrine Medical History: Reports: Hx HypothyroidismComment Only: Hx Diabetes Mellitus Type 2 - pt denies Renal/ Medical History: Denies: Hx Ectopic , Hx Peritoneal Dialysis GI Medical History: Reports: Hx Gastroesophageal Reflux Disease, Hx Ulcer. Denies: Hx Hepatitis, Hx Hiatal Hernia Musculoskeltal Medical History: Reports Hx Musculoskeletal Trauma Psychiatric Medical History: Reports: Hx Attention Deficit Hyperactivity Disorder, Hx Bipolar Disorder, Hx Post Traumatic Stress Disorder, Hx Schizophrenia - boderline Traumatic Medical History: Reports: Hx Fractures - Right arm Infectious Medical History: Denies: Hx Hepatitis Past Surgical History: Reports: Hx Cholecystectomy, Hx Dilation and Curettage - With , Hx Oral Surgery - [place] teeth, Hx Tonsillectomy. Denies: Hx Mastectomy, Hx Open Heart Surgery, Hx Pacemaker - Immunizations Hx Diphtheria, Pertussis, Tetanus Vaccination: Yes Physical Exam - Vital signs Vitals: Temp Pulse Resp BP Pulse Ox 98.5 F 112 H 18 129/84 H 98 10/23/18 10:36 10/23/18 10:36 10/23/18 10:36 10/23/18 10:36 10/23/18 10:36 Course - Vital Signs Vital signs: Temp Pulse Resp BP Pulse Ox 98.5 F 112 H 18 129/84 H 98 10/23/18 10:36 10/23/18 10:36 10/23/18 10:36 10/23/18 10:36 10/23/18 10:36 Doctor's Discharge - Discharge Referrals: ELVIS LOPEZ MD [Primary Care Provider] - Follow up as needed
--- NOTE | 2018-10-23 11:11 | ER Document Report ---
ED General - General Chief Complaint: Post Surgical Pain Stated Complaint: POST OP PAIN/CONCERNS Time Seen by Provider: 10/23/18 10:45 Primary Care Provider: ELVIS LOPEZ MD [Primary Care Provider] - Follow up as needed Mode of Arrival: Ambulatory Information source: Patient Notes: 23-year-old female with type 2 diabetes, schizophrenia presents with complaint o f right foot pain. Patient underwent a foot surgery 3 weeks ago. She states that she had her sesamoid bone removed as well as her first right toe fused. Patient was supposed to get her sutures removed at day 10 but states that her orthopedic surgeon rescheduled her appointment. She is currently complaining of an aching throbbing pain around the suture site. She denies any fever, chills, nausea, vomiting. TRAVEL OUTSIDE OF THE [place] IN LAST 30 DAYS: No - HPI Onset: Other Onset/Duration: Gradual, Persistent Quality of pain: Achy, Throbbing Severity: Moderate Pain Level: 2 Associated symptoms: Body/muscle aches. denies: Chest pain, Fever, Nausea, Vomiting, Shortness of breath Exacerbated by: Movement, Walking Relieved by: Denies Similar symptoms previously: Yes Recently seen / treated by doctor: Yes - Related Data Allergies/Adverse Reactions: cephalexin monohydrate [From Keflex] Allergy (Verified 10/23/18 10:34) Latex, Natural Rubber Allergy (Verified 10/23/18 10:34) lurasidone [From Latuda] Allergy (Verified 10/23/18 10:34) peanut [Peanut] Allergy (Verified 10/23/18 10:34) Penicillins Allergy (Verified 10/23/18 10:34) pentoxifylline [From Trental] Allergy (Verified 10/23/18 10:34) morphine Adverse Reaction (Verified 10/23/18 10:34) Past Medical History - General Information source: Patient, H Records - Social History Smoking Status: Never Smoker Frequency of alcohol use: None Drug Abuse: None Lives with: Family Family History: Reviewed & Not Pertinent, CVA, DM, Hyperlipidemia, Hypertension, Malignancy, Thyroid Disfunction - Perfecto's. denies: Arthritis, CAD Patient has suicidal ideation: No Patient has homicidal ideation: No - Past Medical History Cardiac Medical History: Denies: Hx Heart Attack, Hx Hypertension Pulmonary Medical History: Denies: Hx Asthma Neurological Medical History: Reports: Hx Migraine. Denies: Hx Cerebrovascular Accident, Hx Seizures Endocrine Medical History: Reports: Hx HypothyroidismComment Only: Hx Diabetes Mellitus Type 2 - pt denies Renal/ Medical History: Denies: Hx Ectopic , Hx Peritoneal Dialysis GI Medical History: Reports: Hx Gastroesophageal Reflux Disease, Hx Ulcer. Denies: Hx Hepatitis, Hx Hiatal Hernia Musculoskeletal Medical History: Reports Hx Musculoskeletal Trauma Psychiatric Medical History: Reports: Hx Attention Deficit Hyperactivity Disorder, Hx Bipolar Disorder, Hx Post Traumatic Stress Disorder, Hx Schizophrenia - boderline Traumatic Medical History: Reports: Hx Fractures - Right arm Infectious Medical History: Denies: Hx Hepatitis Past Surgical History: Reports: Hx Cholecystectomy, Hx Dilation and Curettage - With , Hx Oral Surgery - [place] teeth, Hx Tonsillectomy. Denies: Hx Mastectomy, Hx Open Heart Surgery, Hx Pacemaker - Immunizations Hx Diphtheria, Pertussis, Tetanus Vaccination: Yes Review of Systems - Review of Systems Notes: REVIEW OF SYSTEMS: CONSTITUTIONAL : Denies fever, chills, or sweats. Denies recent illness. Denies weight loss, recent hospitalizations. EENT: Denies visual changes, eye pain. Denies sore throat, oral lesions, difficulty swallowing. CARDIOVASCULAR: Denies chest pain. Denies palpitations. Denies lower extremity edema. RESPIRATORY: Denies cough. Denies shortness of breath, wheezing. GASTROINTESTINAL: Denies abdominal pain or distention. Denies nausea, vomiting, or diarrhea. Denies blood in vomitus, stools, or per rectum. Denies black, tarry stools. Denies constipation. GENITOURINARY: Denies difficulty urinating, painful urination, frequency, blood in urine, or vaginal discharge. MUSCULOSKELETAL: Denies back or neck pain or stiffness. + joint pain, swelling. SKIN: Denies rash, lesions or sores. HEMATOLOGIC : Denies easy bruising or bleeding. LYMPHATIC: Denies swollen glands. NEUROLOGICAL: Denies confusion or altered mental status. Denies loss of consciousness. Denies dizziness or lightheadedness. Denies headache. Denies weakness or paralysis. Denies problems difficulty with ambulation, slurred speech. Denies sensory loss, numbness, or tingling. Denies seizures. PSYCHIATRIC: Denies anxiety or stress. Denies depression, suicidal ideation, or homicidal ideation. Denies visual or auditory hallucinations. Physical Exam - Vital signs Vitals: Temp Pulse Resp BP Pulse Ox 98.5 F 112 H 18 129/84 H 98 10/23/18 10:36 10/23/18 10:36 10/23/18 10:36 10/23/18 10:36 10/23/18 10:36 - Notes Notes: PHYSICAL EXAMINATION: GENERAL: Well-appearing, well-nourished and in no acute distress. HEAD: Atraumatic, normocephalic. EYES: Pupils equal round and reactive to light, extraocular movements intact, conjunctiva are normal. ENT: Nares patent, oropharynx clear without exudates. Moist mucous membranes. NECK: Normal range of motion, supple without lymphadenopathy LUNGS: Breath sounds clear to auscultation bilaterally and equal. No wheezes rales or rhonchi. HEART: Regular rate and rhythm without murmurs ABDOMEN: Soft, nontender, nondistended abdomen. No guarding, no rebound. No masses appreciated. Female : deferred Musculoskeletal: Normal range of motion, no pitting or edema. No cyanosis. Right foot-4 inch surgical incision clean, dry, intact with sutures placed, mild swelling, no purulent discharge no associated erythema. NEUROLOGICAL: Cranial nerves grossly intact. Normal speech, normal gait. Normal sensory, motor exams PSYCH: Normal mood, normal affect. SKIN: Warm, Dry, normal turgor, no rashes or lesions noted. Course - Re-evaluation Re-evalutation: 10/24/18 06:26 Foot X-Ray 10/23/18 10:45 IMPRESSION: Intact fusion. No evidence of osteomyelitis. Temp Pulse Resp BP Pulse Ox 98.5 F 112 H 18 129/84 H 98 10/23/18 10:36 10/23/18 10:36 10/23/18 10:36 10/23/18 10:36 10/23/18 10:36 23-year-old female presents with right foot pain and request for suture removal. Patient underwent a first metatarsal fusion and sesamoid bone removal 3 weeks prior to arrival. Patient states that her surgical incision has become more irritated, swollen. She states that she was supposed to get her sutures out last week but that they rescheduled her appointment. X-rays were obtained which showed an intact fusion. Exam is not consistent with cellulitis. Sutures were removed without complication. Patient was discharged home in stable condition. Patient was evaluated and treated as appropriate for the patient's presenting symptoms and complaint, with consideration of any critical or life threatening conditions that may be associated with their obtained history and exam as noted above. All results were discussed with patient. Patient provided the opportunity to ask questions, and express concerns. Patient was educated on treatments based on their presumed diagnosis as noted above. At this time we will discharge the patient with return precautions and follow-up recommendations. Verbal discharge instructions given a the bedside. Medication warnings reviewed. Patient is in agreement with this plan and has verbalized understanding of return precautions. After careful consideration I feel that that patient can be safely discharged from the emergency department, they were advised to followup with a primary care physician in 2-3 days. Dictation on this chart was performed using voice recognition software and may result in unintended grammatical, spelling, syntax or errors. - Vital Signs Vital signs: Temp Pulse Resp BP Pulse Ox 98.5 F 112 H 18 129/84 H 98 10/23/18 10:36 10/23/18 10:36 10/23/18 10:36 10/23/18 10:36 10/23/18 10:36 - Diagnostic Test Radiology reviewed: Image reviewed, Reports reviewed Discharge - Discharge Clinical Impression: Encounter for postoperative wound check, Visit for suture removal Condition: Good Disposition: HOME, SELF-CARE Additional Instructions: Your exam does not show any evidence of infection. Your x-ray shows good placement of your plate without evidence of infection. Please follow-up with your orthopedic surgeon as already scheduled. Forms: Elevated Blood Pressure Referrals: ELVIS LOPEZ MD [Primary Care Provider] - Follow up as needed
[2018-10-23] MEDS ORDERED: HYDROMORPHONE HCL INJ/PF 2 MG/ML AMPULE IM ONE (11:31)
--- NOTE | 2018-10-23 11:45 | RADIOLOGY REPORT (SQ) ---
EXAM DESCRIPTION: FOOT RIGHT COMPLETE COMPLETED DATE/TIME: 10/23/2018 11:34 am REASON FOR STUDY: Postop pain, sesamoid bone removed COMPARISON: 10/09/2018 NUMBER OF VIEWS: Three views. TECHNIQUE: AP, lateral and oblique radiographic images acquired of the right foot. LIMITATIONS: None. FINDINGS: MINERALIZATION: Normal. BONES: Intact plate and screw fusion of the 1st metatarsophalangeal joint. JOINTS: See above. SOFT TISSUES: No soft tissue swelling. No foreign body. OTHER: No other significant finding. IMPRESSION: Intact fusion. No evidence of osteomyelitis. TECHNICAL DOCUMENTATION: JOB ID: [id number] [employer]- All Rights Reserved Reading location - IP/workstation name: [email or web address]
== END 2018-10-23 12:08 | disposition home or self-care (01) ==
LOC: ER 10:32
DX: G89.18 Other acute postprocedural pain (principal); M79.671 Pain in right foot; M79.10 Myalgia, unspecified site; Z98.890 Other specified postprocedural states
CPT/HCPCS: 99283; 96372; 73630; J1170

== ENCOUNTER 2018-11-06 14:10 | Emergency (ER) | payer MEDICARE, MEDICAID ==
[2018-11-06 14:16] VITALS: BP 140/84
[2018-11-06] MEDS ORDERED: ONDANSETRON HCL INJ/PF 4 MG/2 ML SDV IV ONE (15:03)
[2018-11-06] MEDS ORDERED: NORMAL SALINE 1000 ML 1,000 ML IV ONE (15:03)
--- NOTE | 2018-11-06 15:05 | ER Document Report ---
ED Medical Screen (RME) - General Chief Complaint: Abdominal Pain Stated Complaint: ABDOMINAL PAIN Time Seen by Provider: 11/06/18 15:03 Primary Care Provider: ELVIS LOPEZ MD [Primary Care Provider] - Follow up as needed TRAVEL OUTSIDE OF THE [place] IN LAST 30 DAYS: No - HPI Notes: 11/06/18 15:04 Patient is a 23-year-old female who presents complaining of nausea, vomiting, and watery diarrhea that began 3 days ago. Patient states that she is also having generalized abdominal pain and discomfort. She is urinating normally. She has not had any vaginal discharge, odor, or bleeding. Patient does report a surgical history to her abdomen of cholecystectomy and D&C. No new foods or distance travel. Denies CERON, fever, neck pain, URI, CP, SOB, dysuria, back pain, or rash. I have treated and performed a rapid initial assessment of this patient. A comprehensive ED assessment and evaluation of the patient, analysis of test results and completion of medical decision making process will be conducted by additional ED providers. PHYSICAL EXAMINATION: GENERAL: Well-appearing, well-nourished and in no acute distress. A&Ox4. Answers questions appropriately. LUNGS: Breath sounds clear to auscultation bilaterally and equal. No wheezes rales or rhonchi. HEART: Regular rate and rhythm without murmurs, rubs, gallops. ABDOMEN: Soft, nondistended abdomen. No guarding, no rebound. Normal bowel sounds present. No CVA tenderness bilaterally. generalized tenderness noted (cannot elicit thorough abd exam w/o bed, however). Obese - Related Data Allergies/Adverse Reactions: cephalexin monohydrate [From Keflex] Allergy (Verified 11/06/18 14:13) Latex, Natural Rubber Allergy (Verified 11/06/18 14:13) lurasidone [From Latuda] Allergy (Verified 11/06/18 14:13) peanut [Peanut] Allergy (Verified 11/06/18 14:13) Penicillins Allergy (Verified 11/06/18 14:13) pentoxifylline [From Trental] Allergy (Verified 11/06/18 14:13) morphine Adverse Reaction (Verified 11/06/18 14:13) Past Medical History - Social History Family history: None - Past Medical History Cardiac Medical History: Denies: Hx Heart Attack, Hx Hypertension Pulmonary Medical History: Denies: Hx Asthma Neurological Medical History: Reports: Hx Migraine. Denies: Hx Cerebrovascular Accident, Hx Seizures Endocrine Medical History: Reports: Hx HypothyroidismComment Only: Hx Diabetes Mellitus Type 2 - pt denies Renal/ Medical History: Denies: Hx Ectopic , Hx Peritoneal Dialysis GI Medical History: Reports: Hx Gastroesophageal Reflux Disease, Hx Ulcer. Denies: Hx Hepatitis, Hx Hiatal Hernia Musculoskeltal Medical History: Reports Hx Musculoskeletal Trauma Psychiatric Medical History: Reports: Hx Attention Deficit Hyperactivity Disorder, Hx Bipolar Disorder, Hx Post Traumatic Stress Disorder, Hx Schizophrenia - boderline Traumatic Medical History: Reports: Hx Fractures - Right arm Infectious Medical History: Denies: Hx Hepatitis Past Surgical History: Reports: Hx Cholecystectomy, Hx Dilation and Curettage - With , Hx Oral Surgery - [place] teeth, Hx Tonsillectomy. Denies: Hx Mastectomy, Hx Open Heart Surgery, Hx Pacemaker - Immunizations Hx Diphtheria, Pertussis, Tetanus Vaccination: Yes Physical Exam - Vital signs Vitals: Temp Pulse Resp BP Pulse Ox 98.6 F 113 H 16 140/84 H 99 11/06/18 14:14 11/06/18 14:14 11/06/18 14:14 11/06/18 14:14 11/06/18 14:14 Course - Vital Signs Vital signs: Temp Pulse Resp BP Pulse Ox 98.6 F 113 H 16 140/84 H 99 11/06/18 14:14 11/06/18 14:14 11/06/18 14:14 11/06/18 14:14 11/06/18 14:14 Doctor's Discharge - Discharge Referrals: ELVIS LOPEZ MD [Primary Care Provider] - Follow up as needed
[2018-11-06 16:22] LABS: ABSOLUTE BASOPHILS # (AUTO) 0.1 10^3/uL (0.0-0.2); ABSOLUTE EOSINOPHILS # (AUTO) 0.3 10^3/uL (0.0-0.6); ABSOLUTE MONOCYTES (AUTO) 1.1 10^3/uL (0.1-1.4); BASOPHILS % (AUTO) 0.6 % (0-2); EOSINOPHILS % (AUTO) 2.9 % (0-6); HEMOGLOBIN 13.8 g/dL (12.0-15.5); LYMPHOCYTES % (AUTO) 21.2 % (13-45); MEAN CORPUSCULAR HEMOGLOBIN 28.6 pg (27.0-33.4); MEAN CORPUSCULAR HGB CONC 33.7 g/dL (32.0-36.0); MEAN CORPUSCULAR VOLUME 85 fl (80-97); MONOCYTES % (AUTO) 11.9 % (3-13); PLATELET COUNT 293 10^3/uL (150-450); RED BLOOD COUNT 4.82 10^6/uL (3.72-5.28); RED CELL DISTRIBUTION WIDTH 14.5 % (11.5-14.0); SEGMENTED NEUTROPHILS % (AUTO) 63.4 % (42-78); TOTAL CELLS COUNTED % (AUTO) 100 %; WHITE BLOOD COUNT 9.5 10^3/uL (4.0-10.5)
[2018-11-06 16:32] LABS: APPEARANCE,URINE SLIGHTLY-CLOUDY; BILIRUBIN,URINE NEGATIVE (NEGATIVE); COLOR,URINE YELLOW; GLUCOSE, URINE NEGATIVE (NEGATIVE); KETONES,URINE NEGATIVE (NEGATIVE); LEUKOCYTE ESTERASE,URINE NEGATIVE (NEGATIVE); NITRITE,URINE NEGATIVE (NEGATIVE); PROTEIN,URINE NEGATIVE (NEGATIVE); UROBILINOGEN,URINE NEGATIVE mg/dL (<2.0)
[2018-11-06 16:41] LABS: ALANINE AMINOTRANSFERASE 31 U/L (9-52); ALBUMIN 4.1 g/dL (3.5-5.0); ALKALINE PHOSPHATASE 81 U/L (38-126); ANION GAP 10 (5-19); ASPARTATE AMINO TRANSFERASE 24 U/L (14-36); BILIRUBIN,DIRECT 0.2 mg/dL (0.0-0.4); BILIRUBIN,TOTAL 0.2 mg/dL (0.2-1.3); BLOOD UREA NITROGEN 15 mg/dL (7-20); CALCIUM 9.7 mg/dL (8.4-10.2); CARBON DIOXIDE 28 mmol/L (22-30); CHLORIDE 107 mmol/L (98-107); GLUCOSE 89 mg/dL (75-110); LIPASE 136.7 U/L (23-300); POTASSIUM 4.3 mmol/L (3.6-5.0); SODIUM 144.9 mmol/L (137-145)
[2018-11-06] MEDS ORDERED: FAMOTIDINE INJ/PF 20 MG/2 ML SDV IV ONE (17:18)
--- NOTE | 2018-11-06 17:53 | ER Document Report ---
ED GI/ - General Chief Complaint: Abdominal Pain Stated Complaint: ABDOMINAL PAIN Time Seen by Provider: 11/06/18 15:03 Primary Care Provider: ELVIS LOPEZ MD [Primary Care Provider] - Follow up as needed Notes: Patient is a 23-year-old female with a history of Perfecto's, bipolar, insomnia, borderline schizoaffective disorder, ADHD, PTSD presents to the emergency department with a chief complaint of abdominal pain. Patient states that she has had generalized abdominal pain with nausea vomiting and diarrhea since Thursday. States every time she attempts to eat she vomits. Patient states she developed a 101.1 fever yesterday in which she has been taken ibuprofen and Tylenol for. Patient states that she has vomited around 3-4 times per day since Thursday and has had 4-5 episodes of diarrhea since then as well. She reports that her last bowel movement was today in a dark brown liquid in color. Patient denies blood in her vomit or stool. Patient denies urinary symptoms. Patient states she is unable to tolerate p.o. as every time she eats or drinks she vomits. TRAVEL OUTSIDE OF THE [place] IN LAST 30 DAYS: No - Related Data Allergies/Adverse Reactions: cephalexin monohydrate [From Keflex] Allergy (Verified 11/06/18 14:13) Latex, Natural Rubber Allergy (Verified 11/06/18 14:13) lurasidone [From Latuda] Allergy (Verified 11/06/18 14:13) peanut [Peanut] Allergy (Verified 11/06/18 14:13) Penicillins Allergy (Verified 11/06/18 14:13) pentoxifylline [From Trental] Allergy (Verified 11/06/18 14:13) morphine Adverse Reaction (Verified 11/06/18 14:13) Past Medical History - General Information source: Patient - Social History Smoking Status: Never Smoker Cigarette use (# per day): No Chew tobacco use (# tins/day): No Frequency of alcohol use: Rare Drug Abuse: None Lives with: Family Family History: Reviewed & Not Pertinent, CVA, DM, Hyperlipidemia, Hypertension, Malignancy, Thyroid Disfunction - Perfecto's. denies: Arthritis, CAD Patient has suicidal ideation: No Patient has homicidal ideation: No - Past Medical History Cardiac Medical History: Reports: None Denies: Hx Heart Attack, Hx Hypertension Pulmonary Medical History: Reports: None Denies: Hx Asthma EENT Medical History: Reports: None Neurological Medical History: Reports: Hx Migraine. Denies: Hx Cerebrovascular Accident, Hx Seizures Endocrine Medical History: Reports: Hx HypothyroidismComment Only: Hx Diabetes Mellitus Type 2 - pt denies Renal/ Medical History: Reports: None. Denies: Hx Ectopic , Hx Peritoneal Dialysis Malignancy Medical History: Reports: None GI Medical History: Reports: Hx Gastroesophageal Reflux Disease, Hx Ulcer. Denies: Hx Hepatitis, Hx Hiatal Hernia Musculoskeletal Medical History: Reports Hx Musculoskeletal Trauma Psychiatric Medical History: Reports: Hx Attention Deficit Hyperactivity Disorder, Hx Bipolar Disorder, Hx Post Traumatic Stress Disorder, Hx Schizophrenia - boderline Traumatic Medical History: Reports: Hx Fractures - Right arm Infectious Medical History: Denies: Hx Hepatitis Past Surgical History: Reports: Hx Cholecystectomy, Hx Dilation and Curettage - With , Hx Oral Surgery - [place] teeth, Hx Orthopedic Surgery - right foot, Hx Tonsillectomy. Denies: Hx Mastectomy, Hx Open Heart Surgery, Hx Pacemaker - Immunizations Hx Diphtheria, Pertussis, Tetanus Vaccination: Yes Review of Systems - Review of Systems Constitutional: See HPI EENT: No symptoms reported Cardiovascular: No symptoms reported Respiratory: No symptoms reported Gastrointestinal: See HPI Genitourinary: No symptoms reported Female Genitourinary: No symptoms reported Musculoskeletal: No symptoms reported Skin: No symptoms reported Hematologic/Lymphatic: No symptoms reported Neurological/Psychological: No symptoms reported Physical Exam - Vital signs Vitals: Temp Pulse Resp BP Pulse Ox 98.6 F 113 H 16 140/84 H 99 11/06/18 14:14 11/06/18 14:14 11/06/18 14:14 11/06/18 14:14 11/06/18 14:14 Interpretation: Hypertensive, Tachycardic - Notes Notes: GENERAL: Well-appearing, well-nourished and in no acute distress. HEAD: Atraumatic, normocephalic. EYES: Pupils equal round and reactive to light, extraocular movements intact, sclera anicteric, conjunctiva are normal. ENT: Nares patent, oropharynx clear without exudates. Moist mucous membranes. NECK: Normal range of motion, supple without lymphadenopathy or JVD. LUNGS: Breath sounds clear to auscultation bilaterally and equal. No wheezes rales or rhonchi. HEART: Regular rate and rhythm without murmurs, rubs or gallops. ABDOMEN: Soft, rebound, significant RLQ tenderness with palpation, hyperactive bowel sounds. + rebound tenderness to RLQ. No masses appreciated. BACK: No cervical, thoracic, lumbar midline tenderness. No saddle anesthesia, normal distal neurovascular exam. No CVA tenderness. GENITOURINARY: Deferred. EXTREMITIES: Normal range of motion, no pitting or edema. No clubbing or cyanosis. NEUROLOGICAL: Cranial nerves II through XII grossly intact. Normal speech, normal gait. PSYCH: Normal mood, normal affect. SKIN: Warm, Dry, normal turgor, no rashes or lesions noted. Course - Re-evaluation Re-evalutation: 11/06/18 17:51 During initial evaluation patient is resting comfortably on stretcher. Patient claims of generalized abdominal pain. Upon assessment patient is extremely t tawny in the right lower quadrant as she had significant pain with palpation to this area. I did speak with Dr. Mccoy in regards to imaging to rule out appendicitis. He states that he recommends CT of the abdomen with IV contrast. Has had her gallbladder removed. Her lab work and urine sample were unremarkable. Patient is completing her first liter of normal saline. Patient to remain NPO. 11/06/18 18:[address] scan was negative for appendicitis. Patient is sitting comfortably on stretcher, she has had no vomiting since receiving medication although she complains of nausea. Patient denies vaginal bleeding or discharge. Patient symptoms are likely related to a gastroenteritis. Patient is concerned for possible C. difficile as she has been on multiple antibiotics since having her right foot surgery at the beginning of September. Patient has not had a bowel movement or diarrhea since being present in the emergency department, so we are unable to obtain a specimen. The nurse stated she walked in and the patient was attempting to eat and chew a sandwich. Will give dose of oral antinausea medicine and a p.o. challenge. I anticipate patient to be discharged if she can tolerate p.o. 11/06/18 18:57 Nurse reports that patient is tolerating p.o. and asking for more water and olvin juanita. - Vital Signs Vital signs: Temp Pulse Resp BP Pulse Ox 98.6 F 113 H 16 140/84 H 99 11/06/18 14:14 11/06/18 14:14 11/06/18 14:14 11/06/18 14:14 11/06/18 14:14 - Laboratory Result Diagrams: 11/06/18 16:00 11/06/18 16:00 Laboratory results interpreted by me: 11/06/18 16:00 RDW 14.5 H 11/06/18 20:32 Lab work is unremarkable there is no leukocytosis, anemia, signs of dehydration, or urinary tract infection. Patient's liver enzymes were normal. - Diagnostic Test Radiology reviewed: Reports reviewed Discharge - Discharge Clinical Impression: Gastroenteritis, Nausea vomiting and diarrhea Abdominal pain Qualifiers: Abdominal location: lower abdomen, unspecified Qualified Code(s): R10.30 - Lower abdominal pain, unspecified Condition: Stable Disposition: HOME, SELF-CARE Additional Instructions: Today you were seen in the emergency department for abdominal pain with nausea v omiting and diarrhea. During your visit you have not had any episodes of diarrhea. We have given you medication for your nausea you been able to drink olvin juanita and eat ice chips. Your symptoms could be related to a gastroenteritis. We did perform a CT scan of your abdomen which was negative fo r any acute abnormality, primarily negative for acute appendicitis. Please return the emergency department if you have any worsening signs or symptoms to include uncontrolled vomiting with your anti-nausea medications, fever, blood in your stool or vomit, dizziness or lightheadedness, passing out or any other concerning signs or symptoms. For the next 24-48 hours eat a bland diet, not anything too heavy greasy or spicy as this can upset your stomach and exacerbate your symptoms. You can take an [id number] antidiarrheal such as Imodium for your symptoms. Abdominal Pain There are many causes of abdominal pain. Pain can mean a serious problem requiring surgery (such as appendicitis). It can also be an innocent problem that goes away on its own (such as a viral infection). Often, time must pass to determine the cause of pain. The physician does not feel that hospitalization is necessary, at present. Things may change within the next 24 hours. Call the doctor or come back for re- examination if any problems occur, such as: (1) Pain that becomes more severe, steady, or becomes concentrated in one specific area. Also, pain that is more severe with movement or coughing. (2) Vomiting that persists or becomes more frequent. (3) Blood in the vomitus, urine, or bowel movements. Blood in the stool may have a tarry or black appearance. (4) Shaking chills or fever greater than 100 degrees F. (5) The abdomen becomes more distended or swollen. (6) Bowel movements cease. (7) Failure to improve as expected. Vomiting Vomiting can be part of many illnesses. Most cases of vomiting are due to gastroenteritis, usually a viral infection in the intestinal tract. There is no specific treatment. The disease will end by itself. For now, the main danger to your child is dehydration. During the first few hours of the illness, give clear liquids, such as Pedialyte. Try to give small quantities frequently, such as a teaspoon of liquid every minute or about an ounce of fluids every five to ten minutes. Medications may be prescribed by the physician for special cases. After an hour or two of fluids without vomiting, add rice cereal, toast, applesauce, or bananas and other more solid foods to the clear liquids. Call the physician or go to the hospital if vomiting increases or blood appears in the bowel movement or vomitus; if your child fails to improve, or if signs of dehydration occur (no wet diapers for eight to twelve hours, tongue and mouth become dry, not acting as alert as usual). Diarrhea Diarrhea means frequent, watery stools. There are many causes. Any problem that keeps the intestinal tract from absorbing water from the stool can lead to diarrhea. A sudden new diarrhea problem is usually caused by a virus, food sensitivity, toxic bacteria, or drugs. In this case, we expect the problem to go away soon. Testing is done only if you seem seriously ill from the diarrhea. If you have chronic diarrhea, or diarrhea that keeps coming back, we need to find out why. Chronic diarrhea can be due to inflammation of the bowels such as Crohn's disease or ulcerative colitis, food sensitivity such as intolerance to lactose or wheat protein, irritable bowel syndrome, and other problems. If your diarrhea is a significant problem but it's not clear why you have it, we'll refer you to a specialist for further testing. During an episode of diarrhea, drink small amounts (two to six ounces) of clear liquids (soft drinks, sport drinks, herb teas, broth, etc). Take fluids frequently to prevent dehydration. It's usually not a problem to take mild anti- diarrhea medication such as Kaopectate or Pepto-Bismol. As the diarrhea eases, advance to small amounts of bland food (mashed potato, toast) for 24 hours. Call the physician if blood appears in your vomit or stool, if vomiting lasts longer than 24 hours, if the abdominal pain worsens or becomes localized to one area, if you develop high fever, or if you become lightheaded and weak. Prescriptions: Famotidine [Pepcid 20 mg Tablet] 20 mg PO DAILY #30 tablet Ondansetron [Zofran Odt 4 mg Tablet] 1 tab PO Q4H PRN #15 tab.rapdis PRN Reason: For Nausea/Vomiting Referrals: ELVIS LOPEZ MD [Primary Care Provider] - Follow up as needed
--- NOTE | 2018-11-06 18:23 | RADIOLOGY REPORT (SQ) ---
EXAM DESCRIPTION: CT ABD/PELVIS WITH IV ONLY COMPLETED DATE/TIME: 11/06/2018 6:08 pm REASON FOR STUDY: rlq tenderness, reported fever, vomiting COMPARISON: 03/06/2018 TECHNIQUE: CT scan of the abdomen and pelvis performed using helical scanning technique with dynamic intravenous contrast injection. No oral contrast. Images reviewed with lung, soft tissue, and bone windows. Reconstructed coronal and sagittal MPR images reviewed. Delayed images for evaluation of the urinary system also acquired. All images stored on PACS. All CT scanners at this facility use dose modulation, iterative reconstruction, and/or weight based d osing when appropriate to reduce radiation dose to as low as reasonably achievable (ALARA). [facility]: Dose Right [facility]: CareDose [facility]: Dose Right [facility]: Teradose 4D [facility]: Odimax CONTRAST TYPE AND DOSE: contrast/concentration: Isovue 350.00 mg/ml; Total Contrast Delivered: 94.0 ml; Total Saline Delivered: 72.0 ml RENAL FUNCTION: None required. The patient is less than 50 years old. RADIATION DOSE: CT Rad equipment meets quality standard of care and radiation dose reduction techniq ues were employed. CTDIvol: NaN - NaN mGy. DLP: 0 mGy-cm.. LIMITATIONS: None. FINDINGS: LOWER CHEST: No significant findings. No nodules or infiltrates. LIVER: Normal size. No masses. No dilated ducts. SPLEEN: Normal size. No focal lesions. PANCREAS: No masses. No significant calcifications. No adjacent inflammation or peripancreatic fluid collections. Pancreatic duct not dilated. GALLBLADDER: Surgically absent. ADRENAL GLANDS: No significant masses or asymmetry. RIGHT KIDNEY AND URETER: No solid masses. No significant calcifications. There is high attenuation in the renal calices, favored to be early excretion of contrast without definite calculi. No hydron ephrosis or hydroureter. LEFT KIDNEY AND URETER: No solid masses. No significant calcifications. There is high attenuation in the renal calices, favored to be early excretion of contrast without definite calculi. No hydrone phrosis or hydroureter. AORTA AND VESSELS: No aneurysm. No dissection. Renal arteries, SMA, celiac without stenosis. RETROPERITONEUM: No retroperitoneal adenopathy, hemorrhage or masses. BOWEL AND PERITONEAL CAVITY: No masses or inflammatory changes. No free fluid or peritoneal masses. APPENDIX: Normal. PELVIS: No mass. No free fluid. Normal bladder. ABDOMINAL WALL: No masses. No hernias. BONES: No significant or acute findings. OTHER: No other significant finding. IMPRESSION: 1. No CT findings to explain right lower quadrant pain. Normal appendix. 2. There is high attenuation in the renal calices, favored to represent early excretion of contrast w ithout definite calculi. TECHNICAL DOCUMENTATION: JOB ID: [id number] Quality ID # [id number]: Final reports with documentation of one or more dose reduction techniques (e.g., Au tomated exposure control, adjustment of the mA and/or kV according to patient size, use of iterative reconstruction technique) 2010 [employer]- All Rights Reserved Reading location - IP/workstation name: [email or web address]
[2018-11-06] MEDS ORDERED: PROMETHAZINE HCL 25 MG TABLET PO ONE (18:38)
== END 2018-11-06 19:06 | disposition home or self-care (01) ==
LOC: ER 14:10
DX: K52.9 Noninfective gastroenteritis and colitis, unspecified (principal); R11.2 Nausea with vomiting, unspecified; R10.30 Lower abdominal pain, unspecified; Z91.040 Latex allergy status; Z88.0 Allergy status to penicillin; Z91.010 Allergy to peanuts; Z88.6 Allergy status to analgesic agent
CPT/HCPCS: 99284; 36415; 83690; 85025; 81025; 80053; 81001; 74177; A9270; J2405; J7030; S0028